=== PATIENT | female | born 1955 | race Caucasian/White ===

== ENCOUNTER → 2017-02-21 | Outpatient (CLI) | payer MEDICARE, OTHER ==
[2017-02-21 15:48] LABS: Amorphous Sediment,Urine Rare /hpf; Appearance,Urine Cloudy (Clear); Bacteria,Urine Many /hpf; Bilirubin,Urine Negative (Negative); Glucose,Urine (UA) Negative (Negative); Ketones,Urine Negative (Negative); Leukocyte Esterase,Urine Large (Negative); Mucus,Urine Rare /hpf; Nitrite,Urine Positive (Negative); PH, Urine 5.5 (5.0-8.0); Particle Count 27246; Protein,Urine Trace (Negative); RBC,Urine 2 /hpf (0-5); Specific Gravity,Urine 1.014 (1.001-1.035); Squamous Epithelial Cell,Urine 1 /hpf (0-4); UA Billing (MACRO vs. MICRO) MICRO; Urobilinogen,Urine <2.0 mg/dL (<2.0); WBC,Urine 140 /hpf (0-5)
== END | disposition home or self-care (01) ==
LOC: PROCWHC3 14:35
PROVIDERS: ATTEND Physician Assistant
DX: R30.0 Dysuria (principal)
CPT/HCPCS: 81001; 87077; 87086; 87186

== ENCOUNTER 2017-03-15 15:32 | Inpatient (IN) | payer MEDICARE, OTHER ==
[2017-03-15] MEDS ORDERED: HYDROmorphone 1 MG/ML 1 ML SYRINGE IVP STA (17:12)
[2017-03-15] MEDS ORDERED: SODIUM CHLORIDE 0.9% 1,000 ML IV STA (17:12)
[2017-03-15] MEDS ORDERED: RX INFO: IV CONTRAST WAS GIVEN 1 EACH MISC MISCELLANE PRN (17:12)
[2017-03-15] MEDS ORDERED: ONDANSETRON 4 MG/2 ML VIAL IVP STA (17:12)
--- NOTE | 2017-03-15 17:23 | ED ---
General Adult HPI - General Source: patient, family Mode of arrival: wheelchair Limitations: no limitations <Renata Li - Last Filed: 03/15/17 21:22> <Gurinder Knight - Last Filed: 03/16/17 15:29> - General Chief complaint: Abdominal Pain Stated complaint: no bowel movement-sent by Dr. Liu Seen by Provider: 03/15/17 17:05 - History of Present Illness Initial comments: 61-year-old female patient with past medical history significant for B-cell type lymphoma, diabetes, and ulcerative colitis with subsequent ileostomy placement in 1994 presents in emergency department today for evaluation of right upper quadrant abdominal pain and vomiting. Patient states that for the past 4 days she has been unable to get out of bed due to the right upper quadrant abdominal pain as well as just generally not feeling well. Patient states that 2 days ago she began vomiting and has had no output from her ileostomy. Patient states that the pain is constant and dull, she currently rates it at 7/10 on the pain scale. Patient states that she has been vomiting bile-type fluid, is unable to keep any food, fluid, or her medications down. She denies radiation of the pain to her back. She denies any fever, chills, chest pain, shortness of breath, coffee ground emesis, hematemesis, dizziness, or weakness. Patient states that she usually has a significant amount of output from her ileostomy however for the last 2 days or has been zero output. She denies this ever happening to her before. Patient does report she has had multiple hernia repairs in the past. (Renata Li) - Related Data Home Medications Medication Instructions Recorded Confirmed Aspirin 81 mg PO DAILY@1200 08/18/15 03/15/17 Baclofen [Lioresal] 20 mg PO BID PRN 09/02/15 03/15/17 Citalopram Hydrobromide [CeleXA] 20 mg PO DAILY 02/14/16 03/15/17 Multivitamins, Thera [Multivitamin] 1 tab PO DAILY@1200 04/26/16 03/15/17 Pregabalin [Lyrica] 75 mg PO BID 04/26/16 03/15/17 Ascorbic Acid [Vitamin C] 250 mg PO DAILY@1200 03/15/17 03/15/17 Cholecalciferol [Vitamin D3] 5,000 unit PO DAILY@1200 03/15/17 03/15/17 Famotidine [Pepcid] 20 mg PO QAM 03/15/17 03/15/17 Fenofibrate [Lofibra] 160 mg PO QAM 03/15/17 03/15/17 Ferrous Sulfate [Feosol] 325 mg PO DAILY@1200 03/15/17 03/15/17 Oxybutynin Chloride [Ditropan XL] 5 mg PO DAILY 03/15/17 03/15/17 glipiZIDE [Glucotrol] 10 mg PO AC-BID 03/15/17 03/15/17 lamoTRIgine [LaMICtal] 150 mg PO QAM 03/15/17 03/15/17 Allergies Allergy/AdvReac Type Severity Reaction Status Date / Time Tetanus Vaccines and Toxoid Allergy Red and Verified 03/15/17 17:06 [Tetanus Vaccines & Toxoid] Swelling at site. Corticosteroids AdvReac Elevated Verified 03/15/17 17:06 (Glucocorticoids) Blood sugar and Blood Pressure prednisone AdvReac Elevated Verified 03/15/17 17:06 Blood Sugar and Blood Pressure Review of Systems ROS Other: All systems not noted in ROS Statement are negative. <Renata Li - Last Filed: 03/15/17 21:22> ROS Other: All systems not noted in ROS Statement are negative. <Gurinder Knight - Last Filed: 03/16/17 15:29> ROS Statement: Those systems with pertinent positive or pertinent negative responses have been documented in the HPI. Past Medical History Past Medical History: Cancer, CVA/TIA, Diabetes Mellitus, Deep Vein Thrombosis ( DVT), GERD/Reflux, Hyperlipidemia, Hypertension, Pulmonary Embolus (PE) Additional Past Medical History / Comment(s): 01/16/16 Pt is a direct admit for chemotherapy. 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 History of Any Multi-Drug Resistant Organisms: ESBL Date of last positivie culture/infection: 02/21/17 MDRO Source:: Urine Past Surgical History: Cholecystectomy Additional Past Surgical History / Comment(s): MULTIPLE BOWEL SX AND REVISONS OF Ileostomy (pt wears Holister 86-28 with small eacon ring/ stoma powder/ no sting adhesive). HAD ALL TEETH EXTRACTED WAITING ON DENTURES. 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 GREENFILED FILTER, gastric sleeve at [place], Mediport placed 09-21-15, recent R foot ingrown toenail removed. Past Anesthesia/Blood Transfusion Reactions: No Reported Reaction Additional Past Anesthesia/Blood Transfusion Reaction / Comment(s): Pt received blood without reaction. Past Psychological History: Anxiety, Bipolar, Depression Smoking Status: Former smoker Past Alcohol Use History: None Reported Past Drug Use History: None Reported - Past Family History Father Family Medical History: Myocardial Infarction (VT) Additional Family Medical History / Comment(s): Father of either a CVA or VT at age 84 yrs. Mother Family Medical History: Myocardial Infarction (VT), Renal Disease Additional Family Medical History / Comment(s): Mother of renal failure at age 84 yrs. <Renata iL - Last Filed: 03/15/17 21:22> General Exam Limitations: no limitations General appearance: alert, in no apparent distress Eye exam: Present: normal appearance, PERRL, EOMI. Absent: scleral icterus, conjunctival injection, periorbital swelling ENT exam: Present: normal exam, mucous membranes moist Neck exam: Present: normal inspection. Absent: tenderness, meningismus, lymphadenopathy Respiratory exam: Present: normal lung sounds bilaterally. Absent: respiratory distress, wheezes, rales, rhonchi, stridor Cardiovascular Exam: Present: regular rate, normal rhythm, normal heart sounds. Absent: systolic murmur, diastolic murmur, rubs, gallop, clicks GI/Abdominal exam: Present: soft, distended, tenderness (Right upper quadrant, surrounding ileostomy site.), normal bowel sounds, other (Firm to palpation around ileostomy.). Absent: guarding, rebound, rigid Extremities exam: Present: normal inspection, other (Obvious chronic deformity to the left foot) Back exam: Present: normal inspection Neurological exam: Present: alert, oriented X3, CN II-XII intact Psychiatric exam: Present: normal affect, normal mood Skin exam: Present: warm, dry, intact, normal color. Absent: rash <Renata Li - Last Filed: 03/15/17 21:22> EKG Findings - EKG Comments: EKG Findings:: EKG obtained at 1831 reveals normal sinus rhythm with moderate voltage criteria for LVH, ST and T-wave abnormalities, prolonged QT, ventricular rate 86, CA interval 170, QRS duration 90, QT Cuadra, QTC 488. <Renata Li - Last Filed: 03/15/17 21:22> Medical Decision Making - Lab Data Result diagrams: 03/15/17 18:13 03/15/17 18:13 - Radiology Data Radiology results: report reviewed, image reviewed <Renata Li - Last Filed: 03/15/17 21:22> - Lab Data Result diagrams: 03/16/17 07:23 03/16/17 07:23 <Gurinder Knight - Last Filed: 03/16/17 15:29> - Medical Decision Making 61-year-old female patient presents to emergency department today for complaints of abdominal pain, nausea, vomiting, and no ileostomy output for the last 2 days. Labs are reviewed, and all signs stable. CT of the abdomen and pelvis did show a mechanical bowel obstruction and a large hernia. Did discuss the case with Dr. Knight who spoke to Dr. Fowler from [facility] her instructions are to admit patient she would evaluate her tomorrow. Patient is to remain nothing by mouth. (Renata Li) 61-year-old female presenting with nausea and vomiting and decreased output from her ileostomy over the past 2 days. On examination there is a firm mass noted adjacent to ileostomy. CT shows hernia with mechanical bowel obstruction. Patient is not actively vomiting while in the emergency department. She is made nothing by mouth, and will be admitted for surgical evaluation. Case is discussed with general surgery. Case was discussed with general surgery. (Gurinder Knight) - Lab Data Lab Results 03/15/17 03/15/17 Range/Units 18:13 18:13 WBC 7.9 (3.8-10.6) k/uL RBC 5.01 (3.80-5.40) m/uL Hgb 14.9 (11.4-16.0) gm/dL Hct 44.0 (34.0-46.0) % MCV 87.8 (80.0-100.0) fL MCH 29.7 (25.0-35.0) pg MCHC 33.8 (31.0-37.0) g/dL RDW 13.6 (11.5-15.5) % Plt Count 280 (150-450) k/uL Neutrophils % 80 % Lymphocytes % 12 % Monocytes % 4 % Eosinophils % 2 % Basophils % 0 % Neutrophils # 6.3 (1.3-7.7) k/uL Lymphocytes # 0.9 L (1.0-4.8) k/uL Monocytes # 0.3 (0-1.0) k/uL Eosinophils # 0.2 (0-0.7) k/uL Basophils # 0.0 (0-0.2) k/uL Sodium 137 (137-145) mmol/L Potassium 4.2 (3.5-5.1) mmol/L Chloride 99 (98-107) mmol/L Carbon Dioxide 24 (22-30) mmol/L Anion Gap 14 mmol/L BUN 28 H (7-17) mg/dL Creatinine 1.11 H (0.52-1.04) mg/dL Est GFR (MDRD) Af Amer >60 (>60 ml/min/1.73 sqM) Est GFR (MDRD) Non-Af 50 (>60 ml/min/1.73 sqM) Glucose 100 H (74-99) mg/dL Calcium 9.5 (8.4-10.2) mg/dL Total Bilirubin 0.8 (0.2-1.3) mg/dL AST 27 (14-36) U/L ALT 31 (9-52) U/L Alkaline Phosphatase 48 (38-126) U/L Total Protein 6.4 (6.3-8.2) g/dL Albumin 4.1 (3.5-5.0) g/dL Amylase <30 L (30-110) U/L Lipase 19 L (23-300) U/L - Radiology Data CT of the abdomen and pelvis with contrast was obtained and did show colectomy surgical changes. There is ileostomy with a large parastomal hernia that contains bowel. There is evidence of a mechanical small bowel obstruction with numerous dilated loops. Obstruction is new compared to 06/18/2016 computed tomography scan. (Renata Li) Disposition Decision to Admit Reason: Admit from EC Decision Date: 03/15/17 Decision Time: 20:43 <Rentaa Li - Last Filed: 03/15/17 21:22> <Gurinder Knight - Last Filed: 03/16/17 15:29> Clinical Impression: Bowel obstruction, Hernia Disposition: ADMITTED IP TO THIS [facility] Condition: Fair
[2017-03-15 18:29] LABS: Basophils % (A) 0 %; CH 29.3; CHCM 33.5; Eosinophils # (A) 0.2 k/uL (0-0.7); Eosinophils % (A) 2 %; HDW 2.83; HGB 14.9 gm/dL (11.4-16.0); Luc # (Auto) 0.16; Luc % (Auto) 2; Lymphocytes # (A) 0.9 k/uL (1.0-4.8); Lymphocytes % (A) 12 %; MCH 29.7 pg (25.0-35.0); MCHC 33.8 g/dL (31.0-37.0); MCV 87.8 fL (80.0-100.0); Mean Platelet Volume 6.4; Monocytes # (A) 0.3 k/uL (0-1.0); Monocytes % (A) 4 %; Neutrophils # (A) 6.3 k/uL (1.3-7.7); Neutrophils % (A) 80 %; RBC 5.01 m/uL (3.80-5.40); RDW 13.6 % (11.5-15.5); WBC 7.9 k/uL (3.8-10.6)
[2017-03-15 18:40] LABS: ALT 31 U/L (9-52); AST 27 U/L (14-36); Alkaline Phosphatase 48 U/L (38-126); Amylase <30 U/L (30-110); Anion Gap 14 mmol/L; Blood Urea Nitrogen 28 mg/dL (7-17); Calcium 9.5 mg/dL (8.4-10.2); Carbon Dioxide 24 mmol/L (22-30); Chloride 99 mmol/L (98-107); Glucose 100 mg/dL (74-99); Non-African American GFR(MDRD) 50 (>60 ml/min/1.73 sqM); Potassium 4.2 mmol/L (3.5-5.1); Sodium 137 mmol/L (137-145); Total Bilirubin 0.8 mg/dL (0.2-1.3); Total Protein 6.4 g/dL (6.3-8.2)
[2017-03-15] MEDS ORDERED: SODIUM CHLORIDE 0.9% 500 ML IV STA (18:59)
--- NOTE | 2017-03-15 19:57 | CT ---
EXAMINATION TYPE: CT abdomen pelvis w con DATE OF EXAM: 03/15/2017 COMPARISON: 06/18/2016 HISTORY: No output from ileostomy and nausea and vomiting x [address] DLP: 1451.40 mGycm Automated exposure control for dose reduction was used. TECHNIQUE: Helical acquisition of images was performed from the lung bases through the pelvis. CONTRAST: Performed without Oral Contrast and with IV Contrast, patient injected with 80 mL of Visipaque 320. FINDINGS: There is no retroperitoneal adenopathy. There is some pleural thickening and atelectasis at the posterior lung bases. There are surgical clip s from apparent bariatric surgery. Liver shows no focal defect. Bile ducts are not dilated. There are clips from cholecystectomy. Spleen appears normal. There is no pancreatic mass. There is no adrenal mass. There are right-sided renal cortical cysts that measure up to 2 cm. There i s no hydronephrosis. There is inferior vena cava filter noted. Abdominal aorta is atheromatous. There is a large right-sided abdominal wall hernia that contains bowel. There are multiple dilated small b owel loops in the mid abdomen and also in the hernia. Small bowel measures 4 cm. There are multiple d ilated fluid-filled loops of bowel in the pelvis. There is no sign of free air. There is 30% anterior wedging of L2 vertebral body. There is clips in the floor of the pelvis apparently from total colectomy. There is ileostomy associa katharina with the large hernia. IMPRESSION: COLECTOMY. THERE IS ILEOSTOMY WITH A LARGE PARASTOMAL HERNIA THAT CONTAINS BOWEL. THERE IS EVIDENCE O F A MECHANICAL SMALL BOWEL OBSTRUCTION WITH NUMEROUS DILATED LOOPS. OBSTRUCTION IS NEW COMPARED TO CT SCAN. PATCHY PLEURAL THICKENING AND ATELECTASIS AT THE LUNG BASE SIMILAR TO OLD EXAM.
[2017-03-15] MEDS ORDERED: NALOXONE 0.4 MG/ML 1 ML VIAL IV PRN (20:37)
[2017-03-15] MEDS: SODIUM CHLORIDE 0.9% 1,000 ML IV SCH (21:49)
[2017-03-15] MEDS: HYDROmorphone 1 MG/ML 1 ML SYRINGE IV PRN (21:49)
[2017-03-16] MEDS: HYDROmorphone 1 MG/ML 1 ML SYRINGE IV PRN ×5 (02:37→17:39)
[2017-03-16 06:58] LABS: Glucose,Whole Blood 65 mg/dL (75-99)
[2017-03-16] MEDS: ONDANSETRON 4 MG/2 ML VIAL IVP PRN ×2 (07:47→16:16)
[2017-03-16 07:48] LABS: Basophils % (A) 0 %; CH 29.6; CHCM 33.1; Eosinophils # (A) 0.2 k/uL (0-0.7); Eosinophils % (A) 4 %; HCT 39.1 % (34.0-46.0); HDW 2.83; Luc # (Auto) 0.15; Luc % (Auto) 2; Lymphocytes # (A) 0.8 k/uL (1.0-4.8); Lymphocytes % (A) 11 %; MCH 29.9 pg (25.0-35.0); MCHC 33.3 g/dL (31.0-37.0); MCV 89.8 fL (80.0-100.0); Mean Platelet Volume 6.5; Monocytes # (A) 0.3 k/uL (0-1.0); Monocytes % (A) 4 %; Neutrophils # (A) 5.4 k/uL (1.3-7.7); Neutrophils % (A) 79 %; RBC 4.35 m/uL (3.80-5.40); RDW 13.8 % (11.5-15.5); WBC 6.9 k/uL (3.8-10.6); WBC (Perox) 6.95
[2017-03-16] MEDS ORDERED: DEXTROSE 10 % IN WATER 250 ML IV STA (08:00)
[2017-03-16 08:25] LABS: ALT 30 U/L (9-52); AST 37 U/L (14-36); Alkaline Phosphatase 41 U/L (38-126); Anion Gap 12 mmol/L; Blood Urea Nitrogen 29 mg/dL (7-17); Calcium 8.9 mg/dL (8.4-10.2); Carbon Dioxide 22 mmol/L (22-30); Chloride 107 mmol/L (98-107); Glucose 63 mg/dL (74-99); Non-African American GFR(MDRD) 55 (>60 ml/min/1.73 sqM); Sodium 141 mmol/L (137-145); Total Bilirubin 0.7 mg/dL (0.2-1.3); Total Protein 5.6 g/dL (6.3-8.2)
[2017-03-16 08:27] LABS: Potassium 4.2 mmol/L (3.5-5.1)
[2017-03-16 08:59] LABS: Glucose,Whole Blood 138 mg/dL (75-99)
[2017-03-16] MEDS ORDERED: SODIUM CHLORIDE 0.9% 1,000 ML IV ONE (10:47)
--- NOTE | 2017-03-16 10:52 | P.PN ---
Progress Note - Text Patient seen and evaluated. Please see full dictated consult. Patient is known to me from previous history of lymphoma and Mediport insertion including removal. She reports in 2013 at [facility], she had a sleeve gastrectomy performed as a experimental study. She has history of a stroke with left-sided paresis over decade ago. She had initially weighed least 279 pounds and had lost 100 pounds down to 177. Following that she had a parastomal hernia repair. She's had over 3-4 repairs of her stoma which had been repositioned. Now she has regained over 30 pounds hence putting her at increased risk for hernia recurrence. She states as of Saturday otherwise 5 days ago she had intractable nausea and vomiting. This is her first episode of "bowel blockage.". Her is at bedside. She has not followed up with her weight loss surgeon in over 2 years. She's not had a structured bariatric follow-up as well. Secondary to her findings and computed tomography scan including clinical symptoms of small bowel obstruction, she has been admitted. Care plan described with the patient and family including placement of a nasogastric tube to decompress the small bowel. Hopefully this should avert any emergent surgical intervention. Separately as she is a bariatric patient, recommend bariatric diet preferably high protein low-carb consistency when she is able to tolerate orals. We'll repeat with abdominal films. Conservative management in the interim.
[2017-03-16 12:50] LABS: Glucose,Whole Blood 97 mg/dL (75-99)
[2017-03-16] MEDS: SODIUM CHLORIDE 0.9% 1,000 ML IV SCH (17:42)
[2017-03-16 18:16] LABS: Glucose,Whole Blood 73 mg/dL (75-99)
[2017-03-16] MEDS: lamoTRIgine 100 MG TAB PO SCH (19:58)
[2017-03-16] MEDS: CITALOPRAM HYDROBROMIDE 20 MG TAB PO SCH (19:58)
[2017-03-16] MEDS: DEXTROSE 5%-0.45% NACL 1,000 ML IV SCH (19:59)
[2017-03-16] MEDS: LORazepam 2 MG/ML SYRINGE IV PRN (21:27)
[2017-03-16 21:46] LABS: Glucose,Whole Blood 87 mg/dL (75-99)
[2017-03-17] MEDS: HYDROmorphone 1 MG/ML 1 ML SYRINGE IV PRN ×4 (00:38→22:39)
[2017-03-17] MEDS: PREGABALIN 75 MG CAP PO SCH ×3 (03:08→20:29)
[2017-03-17] MEDS: DEXTROSE 5%-0.45% NACL 1,000 ML IV SCH ×2 (05:48→17:24)
[2017-03-17 07:37] LABS: Glucose,Whole Blood 168 mg/dL (75-99)
[2017-03-17 08:43] LABS: Anion Gap 9 mmol/L; Blood Urea Nitrogen 19 mg/dL (7-17); Calcium 8.4 mg/dL (8.4-10.2); Carbon Dioxide 24 mmol/L (22-30); Chloride 105 mmol/L (98-107); Glucose 170 mg/dL (74-99); Non-African American GFR(MDRD) >60 (>60 ml/min/1.73 sqM); Potassium 4.5 mmol/L (3.5-5.1); Sodium 138 mmol/L (137-145)
--- NOTE | 2017-03-17 08:43 | XR ---
EXAMINATION TYPE: XR abdomen 2V , 4 VIEWS DATE OF EXAM ORDERED: 03/17/2017 HISTORY: bowel obstruction. COMPARISON: Previous study dated 01/27/2011. FINDINGS: The lung bases appear clear. There has been a previous cholecystectomy. There are surgical clips in the left upper quadrant as wel l as the pelvis. There is an inferior vena cava filter in place. There is a dilated loop of small bowel to the right of where small bowel as expected. This may repres ent a partially obstructed closed-loop the small bowel within an abdominal wall hernia. There is mild proximal dilatation of the small bowel. No free air is seen. IMPRESSION: 1. EVIDENCE OF MULTIPLE PREVIOUS SURGERIES. 2. UNUSUAL APPEARING LOOP OF SMALL BOWEL MAY BE OUTSIDE OF THE ABDOMEN. A CT SCAN OF THE ABDOMEN WOUL D BE SUGGESTED.
[2017-03-17] MEDS: ONDANSETRON 4 MG/2 ML VIAL IVP PRN ×2 (08:59→16:47)
[2017-03-17] MEDS: CITALOPRAM HYDROBROMIDE 20 MG TAB PO SCH (09:00)
[2017-03-17] MEDS: lamoTRIgine 100 MG TAB PO SCH (09:00)
[2017-03-17] MEDS: LORazepam 2 MG/ML SYRINGE IV PRN ×2 (09:16→20:28)
--- NOTE | 2017-03-17 11:44 | P.PN ---
Progress Note - Text Patient seen and evaluated. NG tube with 300 mL second. Abdominal x-ray still viewed by me consistent with persistent small bowel obstruction. Patient reports decreased abdominal distention as well as decreased abdominal pain. Minimal output through her ostomy identified. Nasogastric tube was poorly functioning and was flushed with 60 mL of saline solution and functioning after manipulation by me. Repeat abdominal films in the morning. Potential surgical intervention pending status tomorrow.
[2017-03-17 12:14] LABS: Glucose,Whole Blood 195 mg/dL (75-99)
--- NOTE | 2017-03-17 13:02 | HP ---
DATE OF ADMISSION: 03/15/2017 PRESENTING COMPLAINT: Nausea, vomiting, abdominal pain. HISTORY OF PRESENTING COMPLAINT: This is a very pleasant 60-year-old patient of Dr. Zuniga with rather extensive medical history. Patient had a sleeve gastrectomy at [place] in 2013, apparently experimental study. She has had parastomal hernia repair and 3 or 4 repairs of the stoma which has been repositioned. The patient's other chronic medical conditions include diabetes, GERD, hyperlipidemia, hypertension, large B cell lymphoma that was treated. The patient also got left paresis from a prior stroke wit a left leg brace, ulcerative colitis and has got occluded ICA. The patient is pretty much wheelchair bound and uses a Saida lift. The patient presents with nausea, vomiting and no output from ileostomy bag for two days. CT scan of the abdomen suggestive of bowel obstruction, hence, patient is admitted. Dr. Card was contacted from the ER for surgical input. The patient denies any fever, tired and rundown. REVIEW OF SYSTEMS: CONSTITUTIONAL: Tired. HEENT: None. RESPIRATORY: None. CARDIOVASCULAR: None. GASTROINTESTINAL: As above. GENITOURINARY: Urine incontinence. DERMATOLOGIC: None. HEMATOLOGIC: None. LYMPHATICS: None. PSYCHIATRY: History of bipolar. NEUROLOGIC: Weakness on the left side. PAST MEDICAL HISTORY: Diabetes, DVT on the right leg several years ago, GERD, hypertension, hyperlipidemia, PE, large cell B cell lymphoma, stroke causing left-sided paresis, ulcerative colitis, internal carotid artery occluded, urinary incontinence, bipolar disorder. PAST SURGICAL HISTORY: Multiple bowel surgeries and revisions of ileostomy. Patient has had all the teeth extracted. Amputation of the left foot fourth and fifth toe. Desmond filter, gastric sleeve at [place]. PAST PSYCH HISTORY: Bipolar. SOCIAL HISTORY: . Alcohol occasionally. She is up in a wheelchair via Saida lift. The patient smoked for about 25 years, stopped in 1989. FAMILY HISTORY: Father of a heart attack or stroke at the age of 84. HOME MEDICATIONS: 1. Ditropan XL 5 mg a day. 2. Pepcid 20 mg a day. 3. Lamictal 150 mg p.o. daily. 4. Celexa 20 mg p.o. daily. 5. Glucotrol 10 mg a.c. b.i.d. 6. Lyrica 75 mg p.o. b.i.d. 7. Aspirin 81 mg p.o. daily. 8. Lofibra 60 mg p.o. daily. 9. Vitamin D3, 5000 units p.o. daily. 10. Baclofen 20 mg p.o. b.i.d. p.r.n. 11. Vitamin C 250 mg p.o. daily. 12. Multivitamin one tablet p.o. daily. 13. Iron 325 mg p.o. daily. ALLERGIES: TETANUS TOXOID, CORTICOSTEROIDS, PREDNISONE (THE LATTER TWO ONLY CAUSE ELEVATED BLOOD SUGAR). On examination, vital signs on presentation, temperature 99, pulse 87, respirations 16, blood pressure 142/67, pulse ox 100% on room air. GENERAL APPEARANCE: Well built. BMI 32.9. Laying in bed, tired appearing. EYES: Pupils equal. Conjunctivae normal. HEENT: Oral cavity normal. NECK: JVP not raised. No masses palpable. RESPIRATORY EFFORT: Normal. LUNGS: Slightly decreased breath sounds. CARDIOVASCULAR: First and second sounds normal. No edema. ABDOMEN: Tender, especially in the upper abdomen. Ileostomy bag in place. No stool. Bowel sounds are hypoactive. Liver and spleen not palpable. LYMPHATIC: No lymph node palpable in neck or axillae. PSYCHIATRY: Alert and oriented x3. Mood and affect anxious appearing. NEUROLOGIC: Cranial nerves grossly intact. Power on the left side is 0/5. INVESTIGATIONS: White count 6.9, hemoglobin 13. Potassium 4.2. BUN 29, creatinine 1.02. Accu-Cheks: 63, 138, 97. CT scan of the abdomen and pelvis shows colectomy, ileostomy with large parastomal hernia that contains bowel including mechanical small bowel obstruction with numerous dilated loops. ASSESSMENT: 1. Acute small bowel obstruction in a patient who has a colectomy with resultant ileostomy and bowel obstruction is in a large parastomal hernia. 2. Diabetes mellitus type 2 on oral hypoglycemics. 3. Hypoglycemic secondary to oral hypoglycemic. 4. Gastroesophageal reflux disease. 5. Hiatal hernia. 6. Hyperlipidemia. 7. History of large B cell lymphoma. 8. Left hemiparesis from a prior stroke. 9. Chronic urinary incontinence. 10. Internal carotid artery occluded. 11. Bipolar disorder. 12. Medical debility, the patient is wheelchair bound and uses a Saida lift. PLAN: We will put the patient back on the Lamictal, Celexa, Lyrica for now. Lovenox for DVT prophylaxis. Will given patient D5W as the sugar is running low for right now. When sugars start running high we can switch her over to LR. Lovenox for DVT prophylaxis. Dr. Card has ordered a NG tube. Care was discussed with the patient. Questions were answered. MICHAEL
[2017-03-17 17:10] LABS: Glucose,Whole Blood 162 mg/dL (75-99)
[2017-03-17] MEDS: INSULIN LISPRO (humaLOG) 300 UNIT/3 ML VIAL SQ SCH ×2 (17:24→20:28)
--- NOTE | 2017-03-17 17:37 | P.GSCN ---
History of Present Illness Consult date: 03/16/17 Reason for Consult: Small bowel obstruction Requesting physician: Alexx Bentley History of present illness: The patient is a 61-year-old female with multiple medical comorbidities. Patient is known to me from previous history of lymphoma and Mediport insertion including removal. She reports in 2014 at [facility], she had a sleeve gastrectomy performed as an experimental study. She has history of a stroke with left-sided paresis over decade ago. She had initially weighed least 279 pounds and had lost 100 pounds down to 177. Following that, she had a parastomal hernia repair. She's had over 3-4 repairs of her stoma which had been repositioned. Now she has regained over 30 pounds hence putting her at increased risk for hernia recurrence. She states as of Saturday otherwise 5 days ago she had intractable nausea and vomiting. This is her first episode of "bowel blockage.". Her is at bedside. She has not followed up with her weight loss surgeon in over 2 years. She's not had a structured bariatric follow-up as well. Secondary to her findings and computed tomography scan including clinical symptoms of small bowel obstruction, she has been admitted. Review of Systems CONSTITUTIONAL: Denies any fever or chills. Has recent weight gain. HEENT: Denies any trouble with hearing or nosebleeds. No difficulty swallowing. Wears glasses. LYMPHATIC: The patient denies any lumps and bumps around the neck. ENDOCRINE: Denies any thyroid disorders. Denies any blood sugar glucose intolerance. RESPIRATORY: Denies pneumonia. Denies any troubles with breathing or dyspnea on exertion. CARDIOVASCULAR: Denies any chest pain, palpitations, or recent heart attacks. GASTROINTESTINAL: History of ostomy was all pockets over 5-6 days. GENITOURINARY: Denies any blood in urine. Has urine incontinence. MUSCULOSKELETAL: Has back pain, stiffness, joint arthritis. NEUROLOGIC: Denies any numbness or tingling along the distal extremities. No seizure disorders or headaches. Has hemiparesis from past stroke. PSYCHIATRIC: Has depression or suidical ideation. HEMATOLOGIC: Denies any abnormal bleeding or bruising. SKIN: No diffuse rash or skin cancer as of recent. LYMPH: Past history of lymphoma now in remission. 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 History of Any Multi-Drug Resistant Organisms: ESBL Year Discovered:: 02/21/17 MDRO Source:: Urine Past Surgical History: Cholecystectomy Additional Past Surgical History / Comment(s): MULTIPLE BOWEL SX AND REVISONS OF Ileostomy (pt wears Holister 86-28 with small eacon ring/ stoma powder/ no sting adhesive). HAD ALL TEETH EXTRACTED WAITING ON DENTURES. 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 GREENFILED FILTER, gastric sleeve at [facility] placed 09-21-15, recent R foot ingrown toenail removed. Past Anesthesia/Blood Transfusion Reactions: No Reported Reaction Additional Past Anesthesia/Blood Transfusion Reaction / Comm: Pt received blood without reaction. Past Psychological History: Anxiety, Bipolar, Depression Additional Psychological History / Comment(s): . Has not smoked more than 20 years. No history of alcohol use. No animal exposures. No experience. No international travel. Pt needs total assist. She is up into a wheelchair by smita lift. Smoking Status: Former smoker Past Alcohol Use History: None Reported Additional Past Alcohol Use History / Comment(s): SMOKED X 25 YEARS-quit in 1989 Past Drug Use History: None Reported - Past Family History Father Family Medical History: Myocardial Infarction (NM) Additional Family Medical History / Comment(s): Father of either a CVA or NM at age 84 yrs. Mother Family Medical History: Myocardial Infarction (NM), Renal Disease Additional Family Medical History / Comment(s): Mother of renal failure at age 84 yrs. Medications and Allergies Home Medications Medication Instructions Recorded Confirmed Type Aspirin 81 mg PO DAILY@1200 08/18/15 03/15/17 History Baclofen [Lioresal] 20 mg PO BID PRN 09/02/15 03/15/17 History Citalopram Hydrobromide [CeleXA] 20 mg PO DAILY 02/14/16 03/15/17 History Multivitamins, Thera [Multivitamin] 1 tab PO DAILY@1200 04/26/16 03/15/17 History Pregabalin [Lyrica] 75 mg PO BID 04/26/16 03/15/17 History Ascorbic Acid [Vitamin C] 250 mg PO DAILY@1200 03/15/17 03/15/17 History Cholecalciferol [Vitamin D3] 5,000 unit PO DAILY@1200 03/15/17 03/15/17 History Famotidine [Pepcid] 20 mg PO QAM 03/15/17 03/15/17 History Fenofibrate [Lofibra] 160 mg PO QAM 03/15/17 03/15/17 History Ferrous Sulfate [Feosol] 325 mg PO DAILY@1200 03/15/17 03/15/17 History Oxybutynin Chloride [Ditropan XL] 5 mg PO DAILY 03/15/17 03/15/17 History glipiZIDE [Glucotrol] 10 mg PO AC-BID 03/15/17 03/15/17 History lamoTRIgine [LaMICtal] 150 mg PO QAM 03/15/17 03/15/17 History Allergies Allergy/AdvReac Type Severity Reaction Status Date / Time Tetanus Vaccines and Toxoid Allergy Red and Verified 03/15/17 17:06 [Tetanus Vaccines & Toxoid] Swelling at site. Corticosteroids AdvReac Elevated Verified 03/15/17 17:06 (Glucocorticoids) Blood sugar and Blood Pressure prednisone AdvReac Elevated Verified 03/15/17 17:06 Blood Sugar and Blood Pressure Surgical - Exam Vital Signs Temp Pulse Resp BP Pulse Ox 99.0 F 87 16 142/67 100 03/15/17 16:08 03/15/17 16:08 03/15/17 16:08 03/15/17 16:08 03/15/17 16:08 GENERAL: Well developed and in no acute distress. Pleasant. HEENT: No sclera icterus. Extraocular movements grossly intact. Moist buccal mucosa. Head is atraumatic, normocephalic. Hears conversational speech. No nasal drainage. NECK: Supple without lymphadenopathy. CHEST: Non-labored respirations and equal bilateral excursions. CARDIOVASCULAR: Regular rate and rhythm. Palpable 2+ radial pulses. ABDOMEN: Soft, tender along the right lower quadrant. Ostomy with minimal flatus. No diffuse peritonitis. Abdomen is protuberant and distended. MUSCULOSKELETAL: No clubbing, cyanosis or edema. NEUROLOGIC: Has left hemiparesis. Right-sided level. PSYCH: Appropriate affect. Alert and oriented to person, place and time. SKIN: Good skin turgor. Will perfused. Results - Labs 03/16/17 07:23 03/17/17 07:18 Abnormal Lab Results - Last 24 Hours (Table) 03/15/17 03/15/17 03/16/17 Range/Units 18:13 18:13 06:56 Lymphocytes # 0.9 L (1.0-4.8) k/uL BUN 28 H (7-17) mg/dL Creatinine 1.11 H (0.52-1.04) mg/dL Glucose 100 H (74-99) mg/dL POC Glucose (mg/dL) 65 L (75-99) mg/dL AST (14-36) U/L Total Protein (6.3-8.2) g/dL Albumin (3.5-5.0) g/dL Amylase <30 L (30-110) U/L Lipase 19 L (23-300) U/L 03/16/17 03/16/17 03/16/17 Range/Units 07:23 07:23 08:57 Lymphocytes # 0.8 L (1.0-4.8) k/uL BUN 29 H (7-17) mg/dL Creatinine (0.52-1.04) mg/dL Glucose 63 L (74-99) mg/dL POC Glucose (mg/dL) 138 H (75-99) mg/dL AST 37 H (14-36) U/L Total Protein 5.6 L (6.3-8.2) g/dL Albumin 3.4 L (3.5-5.0) g/dL Amylase (30-110) U/L Lipase (23-300) U/L Diabetes panel 03/15/17 03/16/17 Range/Units 18:13 07:23 Sodium 137 141 (137-145) mmol/L Potassium 4.2 4.2 (3.5-5.1) mmol/L Chloride 99 107 (98-107) mmol/L Carbon Dioxide 24 22 (22-30) mmol/L BUN 28 H 29 H (7-17) mg/dL Creatinine 1.11 H 1.02 (0.52-1.04) mg/dL Glucose 100 H 63 L (74-99) mg/dL Calcium 9.5 8.9 (8.4-10.2) mg/dL AST 27 37 H (14-36) U/L ALT 31 30 (9-52) U/L Alkaline Phosphatase 48 41 (38-126) U/L Total Protein 6.4 5.6 L (6.3-8.2) g/dL Albumin 4.1 3.4 L (3.5-5.0) g/dL Calcium panel 03/15/17 03/16/17 Range/Units 18:13 07:23 Calcium 9.5 8.9 (8.4-10.2) mg/dL Albumin 4.1 3.4 L (3.5-5.0) g/dL Pituitary panel 03/15/17 03/16/17 Range/Units 18:13 07:23 Sodium 137 141 (137-145) mmol/L Potassium 4.2 4.2 (3.5-5.1) mmol/L Chloride 99 107 (98-107) mmol/L Carbon Dioxide 24 22 (22-30) mmol/L BUN 28 H 29 H (7-17) mg/dL Creatinine 1.11 H 1.02 (0.52-1.04) mg/dL Glucose 100 H 63 L (74-99) mg/dL Calcium 9.5 8.9 (8.4-10.2) mg/dL Adrenal panel 03/15/17 03/16/17 Range/Units 18:13 07:23 Sodium 137 141 (137-145) mmol/L Potassium 4.2 4.2 (3.5-5.1) mmol/L Chloride 99 107 (98-107) mmol/L Carbon Dioxide 24 22 (22-30) mmol/L BUN 28 H 29 H (7-17) mg/dL Creatinine 1.11 H 1.02 (0.52-1.04) mg/dL Glucose 100 H 63 L (74-99) mg/dL Calcium 9.5 8.9 (8.4-10.2) mg/dL Total Bilirubin 0.8 0.7 (0.2-1.3) mg/dL AST 27 37 H (14-36) U/L ALT 31 30 (9-52) U/L Alkaline Phosphatase 48 41 (38-126) U/L Total Protein 6.4 5.6 L (6.3-8.2) g/dL Albumin 4.1 3.4 L (3.5-5.0) g/dL - Imaging CT scan - abdomen: report reviewed, image reviewed CT scan - pelvis: report reviewed (Images reviewed personally. Findings consistent with distended bowel and peristomal hernia of the right lower quadrant. No free air.), image reviewed Assessment and Plan (1) Obesity (BMI 30.0-34.9) Status: Acute (2) History of sleeve gastrectomy Status: Acute (3) Parastomal hernia with obstruction, without gangrene Status: Acute (4) Nausea and vomiting Status: Acute (5) Bowel obstruction Status: Acute (6) Hernia Status: Acute (7) Dehydration Status: Acute (8) Lymphoma Status: Acute Plan: 1. Care plan described with the patient and family including placement of a nasogastric tube to decompress the small bowel. Hopefully this should avert any emergent surgical intervention. 2. Separately as she is a bariatric patient, recommend bariatric diet preferably high protein low-carb consistency when she is able to tolerate orals. 3. We'll repeat with abdominal films. 4. Conservative management in the interim.
--- NOTE | 2017-03-17 18:06 | P.PN ---
Subjective Principal diagnosis: Bowel obstruction Patient was admitted secondary to bowel obstruction and peristomal hernia. She reports decreased abdominal distention as well as decreased abdominal pain. NG tube with 300 mL second. Objective - Vital Signs Vital signs: Vital Signs Temp 98 F 03/17/17 07:00 Pulse 100 03/17/17 07:00 Resp 12 03/17/17 07:00 BP 150/65 03/17/17 07:00 Pulse Ox 93 L 03/17/17 07:00 Intake & Output 03/16/17 03/17/17 03/17/17 18:59 06:59 18:59 Intake Total 400 1150 Output Total 300 Balance 400 850 Intake: Intake, IV Titration 400 1150 Amount Dextrose 5%-0.45% NaCl 1, 1150 000 ml @ 100 mls/hr IV . Q10H [facility] Rx#:[id number] Sodium Chloride 0.9% 1, 400 000 ml @ 50 mls/hr IV . Q20H [facility] Rx#:[id number] Output: Gastric Drainage 300 Other: Voiding Method Bedpan Bedpan Bedpan Incontinent Incontinent Incontinent # Voids 2 - Exam GENERAL: Well developed and in no acute distress. Pleasant. HEENT: No sclera icterus. Extraocular movements grossly intact. Moist buccal mucosa. Head is atraumatic, normocephalic. Hears conversational speech. No nasal drainage. Nasogastric tube was poorly functioning and was flushed with 60 mL of saline solution and functioning after manipulation by me. NECK: Supple without lymphadenopathy. CHEST: Non-labored respirations and equal bilateral excursions. CARDIOVASCULAR: Regular rate and rhythm. Palpable 2+ radial pulses. ABDOMEN: Soft. Decreased tenderness along the right lower quadrant. Decreased abdominal distention. Peristomal hernia palpated with minimal output from ostomy. MUSCULOSKELETAL: No clubbing, cyanosis or edema. NEUROLOGIC: Left hemiparesis. Cranial nerves II through XII grossly intact. PSYCH: Appropriate affect. Alert and oriented to person, place and time. SKIN: Good skin turgor. Will perfused. - Labs CBC & Chem 7: 03/16/17 07:23 03/17/17 07:18 Labs: Abnormal Lab Results - Last 24 Hours (Table) 03/16/17 03/17/17 03/17/17 Range/Units 18:13 07:18 07:28 BUN 19 H (7-17) mg/dL Glucose 170 H (74-99) mg/dL POC Glucose (mg/dL) 73 L 168 H (75-99) mg/dL - Imaging and Cardiology Abdominal x-ray: report reviewed (Abdominal x-ray reviewed by me consistent with persistent small bowel obstruction. ), image reviewed EKG reviewed demonstrating new moderate EKG abnormalities compared to last year 2016. Assessment and Plan Plan: 1. Repeat abdominal films in the morning. 2. GI prophylaxis to prevent gastritis. 3. Flush NG tube 3 times daily to keep patency. 4. Potential surgical intervention pending status tomorrow. 5. Her EKG was reviewed demonstrating new EKG changes compared to last year. As a result, recommend cardiac risk assessment prior to any surgical intervention.
[2017-03-17 20:10] LABS: Glucose,Whole Blood 153 mg/dL (75-99)
--- NOTE | 2017-03-17 20:24 | P.PN ---
Progress Note - Text DATE OF SERVICE: 03/17/2017 PRESENTING COMPLAINT: Nausea vomiting abdominal pain INTERVAL HISTORY: 60-year-old patient with a very complex GI history which includes parastomal hernia repair, 3 or 4 repairs of the stoma with repositioning, sleeve gastrectomy. Presented with nausea vomiting and no output from ileostomy bag for 2 days, computed tomography scan suggests bowel obstruction. NG tube was placed, TPN and lipids were initiated. 03/17/2017: Patient lying in bed appears mildly anxious. Abdominal pain present. TPN infusing with lipids every other day. Remains nothing by mouth except for some ice chips and popsicles. REVIEW OF SYSTEMS: Done for constitutional ,cardiovascular, GI, pulmonary with relevant findings as above. CURRENT MEDICATIONS Celexa, Dilaudid, Lamictal, Ativan, Zofran, Lyrica. PHYSICAL EXAM VITAL SIGNS: Temperature 98.0 pulse 96, respiratory rate 18, blood pressure 150/65, oxygen saturation 93% on room air. GENERAL APPEARANCE: Lying in bed, somewhat anxious appearing. EYES: Pupils equal. Conjunctiva normal. NECK: JVD not raised. Mass not palpable. RESPIRATORY: Respiratory effort normal. Diminished breath sounds. CARDIOVASCULAR: First and second sounds normal. No edema. ABDOMEN: Soft. Tenderness especially to the upper abdomen, ileostomy bag in place no stool, bowel sounds hypoactive Liver and spleen not palpable. palpable. PSYCHIATRY: Alert and oriented x3. Mood and affect she is appearing. NEUROLOGICAL: Power and sensation on left is 0 out of 5 INVESTIGATIONS: Sodium 138 potassium 4.5 BUN 19, creatinine 0.86 Accu-Cheks noted. Abdominal x-ray: Evidence of multiple previous surgeries, unusual appearing loop of small bowel may be outside of the abdomen, a computed tomography scan of the abdomen would be suggested ASSESSMENT: -Acute small bowel obstruction in a patient who has a electively with resultant ileostomy and bowel obstruction in a large peristomal hernia. -Diabetes mellitus type 2 on oral hypoglycemics. -Hypoglycemia secondary to oral hypoglycemics. -Gastroesophageal reflux disease. -Hiatal hernia. -Hyperlipidemia. -History of large B-cell lymphoma. -Left hemiparesis from prior stroke. -Chronic urinary incontinence. -Internal carotid artery occluded. -Bipolar disorder. -Medical debility the patient is wheelchair bound and uses a [employer] lift. -Mild Protein calorie malnutrition in a patient with a small bowel obstruction, ileostomy. PLAN: We'll continue IV fluids Lovenox for DVT prophylaxis, GI prophylaxis NG tube to low intermittent suction and flush 3 times daily which is being managed by surgery. Abdominal films in the a.m. and possible surgical intervention based on patient condition. She will need a cardiac risk assessment prior to surgery. We'll follow closely. WELLNESS EDUCATOR statement: Patient was seen and examined by nurse practitioner Melania Clarke and all elements of the case discussed with attending Dr. Bentley
[2017-03-17 22:02] LABS: Hemoglobin A1C 7.6 % (4.2-6.1)
[2017-03-18 07:26] LABS: Basophils % (A) 0 %; CH 29.7; CHCM 34.2; Eosinophils # (A) 0.3 k/uL (0-0.7); Eosinophils % (A) 4 %; HCT 38.9 % (34.0-46.0); HDW 2.97; HGB 13.2 gm/dL (11.4-16.0); Luc # (Auto) 0.07; Luc % (Auto) 1; Lymphocytes # (A) 0.5 k/uL (1.0-4.8); Lymphocytes % (A) 7 %; MCH 29.6 pg (25.0-35.0); MCV 87.3 fL (80.0-100.0); Mean Platelet Volume 6.6; Monocytes # (A) 0.2 k/uL (0-1.0); Monocytes % (A) 3 %; Neutrophils # (A) 5.9 k/uL (1.3-7.7); Neutrophils % (A) 85 %; RBC 4.45 m/uL (3.80-5.40); RDW 13.2 % (11.5-15.5); WBC 6.9 k/uL (3.8-10.6); WBC (Perox) 7.44
[2017-03-18 07:42] LABS: Glucose,Whole Blood 203 mg/dL (75-99)
[2017-03-18] MEDS ORDERED: SODIUM CHLORIDE 0.9% 1,000 ML IV ONE (07:57)
[2017-03-18] MEDS: lamoTRIgine 100 MG TAB PO SCH ×2 (08:17→11:35)
[2017-03-18] MEDS: CITALOPRAM HYDROBROMIDE 20 MG TAB PO SCH ×2 (08:17→11:35)
[2017-03-18] MEDS: INSULIN LISPRO (humaLOG) 300 UNIT/3 ML VIAL SQ SCH ×4 (08:23→21:23)
--- NOTE | 2017-03-18 10:28 | XR ---
EXAMINATION TYPE: XR abdomen 1V DATE OF EXAM: 03/18/2017 COMPARISON: 03/17/2017 HISTORY: Abdominal pain TECHNIQUE: One view abdominal series FINDINGS: The osseous structures are intact. Persistent markedly dilated bowel loop particularly within the rig ht abdomen. Numerous other dilated small bowel loops are seen in a pattern highly suggestive of bowel obstruction. NG tube appears to been advanced within the gastric body. Surgical clips in the right u pper quadrant and pelvis noted with arthropathy of the hips and degenerative change of the spine. IVC filter stable in appearance. IMPRESSION: 1. Findings persists highly suggestive of a high-grade small bowel obstruction with marked dilation o f the bowel loops.
[2017-03-18] MEDS: DEXTROSE 5%-0.45% NACL 1,000 ML IV SCH ×3 (11:16→21:25)
[2017-03-18] MEDS: PREGABALIN 75 MG CAP PO SCH ×2 (11:16→21:25)
[2017-03-18 11:43] LABS: Glucose,Whole Blood 152 mg/dL (75-99)
[2017-03-18 12:04] LABS: Appearance,Urine Clear (Clear); Bacteria,Urine Occasional /hpf; Bilirubin,Urine Negative (Negative); Glucose,Urine (UA) Trace (Negative); Ketones,Urine Negative (Negative); Leukocyte Esterase,Urine Small (Negative); Mucus,Urine Rare /hpf; Nitrite,Urine Negative (Negative); Particle Count 5556; Protein,Urine Negative (Negative); RBC,Urine 1 /hpf (0-5); Specific Gravity,Urine 1.009 (1.001-1.035); Squamous Epithelial Cell,Urine 9 /hpf (0-4); UA Billing (MACRO vs. MICRO) MICRO; Urobilinogen,Urine <2.0 mg/dL (<2.0); WBC,Urine 7 /hpf (0-5)
--- NOTE | 2017-03-18 13:00 | P.PN ---
<CesarKyeaCaron M - Last Filed: 03/18/17 12:43> Subjective 61-year-old female being seen on rounds this morning. The nasal gastric tube in place has been irrigated with 60 mL flushes with inadequate output. Patient states is less abdominal discomfort but continues to report having discomfort in the right upper quadrant. Patient does have an ileostomy currently there is a scant amount of liquid brown stool in the ostomy bag patient has been incontinently urine. The gastric output 300 mL's for the last 8 hours the abdominal distention continues to improve. Nursing reports that the ostomy for the last 8 hours put out 200 mL of liquid watery brown secretions abdominal x-ray this morning findings persist highly suggestive of a high- grade small bowel obstruction with marked dilatation of the bowel loops Objective - Vital Signs Vital signs: Vital Signs Temp 97.1 F L 03/18/17 07:00 Pulse 111 H 03/18/17 07:00 Resp 20 03/18/17 07:00 BP 143/84 03/18/17 07:00 Pulse Ox 93 L 03/18/17 07:00 Intake & Output 03/17/17 03/18/17 03/18/17 18:59 06:59 18:59 Intake Total 700 1050 60 Output Total 300 300 200 Balance 400 750 -140 Intake: Intake, IV Titration 700 1050 Amount Dextrose 5%-0.45% NaCl 1, 700 1050 000 ml @ 100 mls/hr IV . Q10H [facility] Rx#:[id number] Oral 60 Output: Gastric Drainage 300 Urine 200 Straight 200 Emesis 300 Other: Voiding Method Bedpan Bedpan Incontinent Incontinent # Voids 1 2 - Exam Physical exam 61-year-old female resting in bed oriented to person place event Lungs anterior essentially clear with adequate air movement. On room air sats are 93% Heart S1-S2 audible and regular monitor sinus denies chest pain no murmur Abdomen ostomy right lower quadrant ostomy scant amount of secretions noted has been incontinent urine states less abdominal pain soft less distention Bowel tones present nasal gastric tube connected to suction flushes adequately with adequate function Extremities left hemiparalysis from a prior CVA med boot on left foot left foot ulcer with dry eschar noted no redness to the left foot dressing at site no edema noted bilateral foot drop - Labs CBC & Chem 7: 03/18/17 06:59 03/18/17 06:59 Labs: Abnormal Lab Results - Last 24 Hours (Table) 03/16/17 03/17/17 03/17/17 Range/Units 07:23 17:02 20:08 Lymphocytes # (1.0-4.8) k/uL Sodium (137-145) mmol/L Chloride (98-107) mmol/L BUN (7-17) mg/dL POC Glucose (mg/dL) 162 H 153 H (75-99) mg/dL Hemoglobin A1c 7.6 H (4.2-6.1) % Calcium (8.4-10.2) mg/dL AST (14-36) U/L Albumin (3.5-5.0) g/dL Urine Glucose (UA) (Negative) Urine Blood (Negative) Ur Leukocyte Esterase (Negative) Urine WBC (0-5) /hpf Ur Squamous Epith Cells (0-4) /hpf Urine Bacteria (None) /hpf Urine Mucus (None) /hpf 03/18/17 03/18/17 03/18/17 Range/Units 06:59 06:59 07:39 Lymphocytes # 0.5 L (1.0-4.8) k/uL Sodium 146 H (137-145) mmol/L Chloride 110 H (98-107) mmol/L BUN 29 H (7-17) mg/dL POC Glucose (mg/dL) 203 H (75-99) mg/dL Hemoglobin A1c (4.2-6.1) % Calcium 7.8 L (8.4-10.2) mg/dL AST 43 H (14-36) U/L Albumin 3.2 L (3.5-5.0) g/dL Urine Glucose (UA) (Negative) Urine Blood (Negative) Ur Leukocyte Esterase (Negative) Urine WBC (0-5) /hpf Ur Squamous Epith Cells (0-4) /hpf Urine Bacteria (None) /hpf Urine Mucus (None) /hpf 03/18/17 03/18/17 Range/Units 11:35 11:56 Lymphocytes # (1.0-4.8) k/uL Sodium (137-145) mmol/L Chloride (98-107) mmol/L BUN (7-17) mg/dL POC Glucose (mg/dL) 152 H (75-99) mg/dL Hemoglobin A1c (4.2-6.1) % Calcium (8.4-10.2) mg/dL AST (14-36) U/L Albumin (3.5-5.0) g/dL Urine Glucose (UA) Trace H (Negative) Urine Blood Small H (Negative) Ur Leukocyte Esterase Small H (Negative) Urine WBC 7 H (0-5) /hpf Ur Squamous Epith Cells 9 H (0-4) /hpf Urine Bacteria Occasional H (None) /hpf Urine Mucus Rare H (None) /hpf Assessment and Plan Plan: Impression Present on admission burning up persistent nausea vomiting suspect due to a small bowel obstruction History of a sleeve gastrectomy in 2013 for weight loss Obesity BMI 32 History of chronic lymphoma Chronic protein calorie malnutrition Medically debilitated wheelchair bedbound suspect due to a prior CVA with limited mobility Left hemipareses secondary to a prior CVA History of large B-cell lymphoma A chronic nonhealing left foot ulcer Chronic urinary incontinence Bipolar disorder Type 2 diabetes Present on admission intractable nausea vomiting abdominal pain suspect due to an acute small bowel obstruction the patient with a ileostomy with a bowel obstruction and a large peristomal hernia X-ray on March 18 show persistent highly suggestive of a high-grade small bowel obstruction Plan Await cardiac clearance prior to surgery Continue IV fluids as ordered Continue the nasal gastric tube connected to low intermittent suction and flushed 3 times daily keep patent DVT and GI prophylaxis Pain control Further recommendations pending Resume home meds as appropriate The above impression and plan of care have been discussed and directed by signing physician. Caron Guerrero nurse practitioner acting as scribe for signing physician. <Stefanie Card N - Last Filed: 03/18/17 20:34> Objective - Vital Signs Vital signs: Vital Signs Temp 98.6 F 03/18/17 14:16 Pulse 105 H 03/18/17 14:16 Resp 20 03/18/17 14:16 BP 146/86 03/18/17 14:16 Pulse Ox 93 L 03/18/17 14:16 Intake & Output 03/18/17 03/18/17 03/19/17 06:59 18:59 06:59 Intake Total 1050 1859 Output Total 300 475 Balance 750 1384 Intake: IV 1799 Dextrose 5%-0.45% NaCl 1, 800 000 ml @ 100 mls/hr IV . Q10H [facility] Rx#:[id number] Sodium Chloride 0.9% 1, 999 000 ml @ 999 mls/hr IV . Q1H1[facility] Rx#:[id number] Intake, IV Titration 1050 Amount Dextrose 5%-0.45% NaCl 1, 1050 000 ml @ 100 mls/hr IV . Q10H [facility] Rx#:[id number] Oral 60 Output: Gastric Drainage 275 Urine 200 Straight 200 Emesis 300 Other: Voiding Method Bedpan Incontinent # Voids 2 2 - Labs CBC & Chem 7: 03/18/17 06:59 03/18/17 13:31 Labs: Abnormal Lab Results - Last 24 Hours (Table) 03/16/17 03/18/17 03/18/17 Range/Units 07:23 06:59 07:39 Lymphocytes # 0.5 L (1.0-4.8) k/uL Sodium (137-145) mmol/L Glucose (74-99) mg/dL POC Glucose (mg/dL) 203 H (75-99) mg/dL Hemoglobin A1c 7.6 H (4.2-6.1) % Calcium (8.4-10.2) mg/dL Total Protein (6.3-8.2) g/dL Albumin (3.5-5.0) g/dL Urine Glucose (UA) (Negative) Urine Blood (Negative) Ur Leukocyte Esterase (Negative) Urine WBC (0-5) /hpf Ur Squamous Epith Cells (0-4) /hpf Urine Bacteria (None) /hpf Urine Mucus (None) /hpf 03/18/17 03/18/17 03/18/17 Range/Units 11:35 11:56 13:31 Lymphocytes # (1.0-4.8) k/uL Sodium 136 L (137-145) mmol/L Glucose 161 H (74-99) mg/dL POC Glucose (mg/dL) 152 H (75-99) mg/dL Hemoglobin A1c (4.2-6.1) % Calcium 8.2 L (8.4-10.2) mg/dL Total Protein 5.3 L (6.3-8.2) g/dL Albumin 3.1 L (3.5-5.0) g/dL Urine Glucose (UA) Trace H (Negative) Urine Blood Small H (Negative) Ur Leukocyte Esterase Small H (Negative) Urine WBC 7 H (0-5) /hpf Ur Squamous Epith Cells 9 H (0-4) /hpf Urine Bacteria Occasional H (None) /hpf Urine Mucus Rare H (None) /hpf 03/18/17 Range/Units 17:00 Lymphocytes # (1.0-4.8) k/uL Sodium (137-145) mmol/L Glucose (74-99) mg/dL POC Glucose (mg/dL) 144 H (75-99) mg/dL Hemoglobin A1c (4.2-6.1) % Calcium (8.4-10.2) mg/dL Total Protein (6.3-8.2) g/dL Albumin (3.5-5.0) g/dL Urine Glucose (UA) (Negative) Urine Blood (Negative) Ur Leukocyte Esterase (Negative) Urine WBC (0-5) /hpf Ur Squamous Epith Cells (0-4) /hpf Urine Bacteria (None) /hpf Urine Mucus (None) /hpf Assessment and Plan Plan: Possible surgical intervention should bowel obstruction not resolve.
--- NOTE | 2017-03-18 13:06 | ECHOF ---
Referral Reason:pre-op clearance MEASUREMENTS -------- HEIGHT: 165.1 cm WEIGHT: 89.8 kg BP: 143/84 RVIDd: 1.8 cm (< 3.3) IVSd: 0.9 cm (0.6 - 1.1) LVIDd: 4.8 cm (3.9 - 5.3) LVPWd: 0.9 cm (0.6 - 1.1) IVSs: 1.5 cm LVIDs: 3.1 cm LVPWs: 1.5 cm LAESV Index (A-L): 10.06 ml/m Ao Diam: 3.1 cm (2.0 - 3.7) AV Cusp: 1.9 cm (1.5 - 2.6) LA Diam: 2.6 cm (2.7 - 3.8) MV E Jose Alberto: 0.56 m/s MV DecT: 252 ms MV A Jose Alberto: 1.02 m/s MV E/A Ratio: 0.55 RAP: 5.00 mmHg RVSP: 11.33 mmHg FINDINGS -------- Resting tachycardia (HR>100bpm). This was a technically adequate study. Overall left ventricular systolic function is normal with, an EF between 60 - 65 %. The right ventricle is normal in size and function. Normal LA size by volume 22+/-6 ml/m2. The right atrium is normal in size. The aortic valve is trileaflet, and appears structurally normal. No aortic stenosis or regurgitation. The mitral valve leaflets are mildly thickened. There is trace to mild mitral regurgitation. Trace tricuspid regurgitation present. There is no evidence of pulmonary hypertension. The right ventricular systolic pressure, as measured by Doppler, is 11.33mmHg. The pulmonic valve is normal. The aortic root size is normal. Normal inferior vena cava with normal inspiratory collapse consistent with estimated right atrial pressure of 5 mmHg. The pericardium is normal. There is no pericardial effusion. CONCLUSIONS -------- 1. Resting tachycardia (HR>100bpm). 2. The right ventricular systolic pressure, as measured by Doppler, is 11.33mmHg. 3. The pulmonic valve is normal. 4. The aortic root size is normal. 5. There is no pericardial effusion. 6. This was a technically adequate study. 7. Overall left ventricular systolic function is normal with, an EF between 60 - 65 %. 8. Normal LA size by volume 22+/-6 ml/m2. 9. The aortic valve is trileaflet, and appears structurally normal. No aortic stenosis or regurgitation. 10. The mitral valve leaflets are mildly thickened. 11. There is trace to mild mitral regurgitation. 12. Trace tricuspid regurgitation present. 13. There is no evidence of pulmonary hypertension. STATION REPAIRER: Osman Arias RDCS
[2017-03-18] MEDS: HYDROmorphone 1 MG/ML 1 ML SYRINGE IV PRN ×3 (13:30→23:22)
[2017-03-18 14:20] LABS: ALT 27 U/L (9-52); AST 27 U/L (14-36); Alkaline Phosphatase 53 U/L (38-126); Anion Gap 10 mmol/L; Blood Urea Nitrogen 10 mg/dL (7-17); Calcium 8.2 mg/dL (8.4-10.2); Carbon Dioxide 24 mmol/L (22-30); Chloride 102 mmol/L (98-107); Glucose 161 mg/dL (74-99); Magnesium 1.6 mg/dL (1.6-2.3); Non-African American GFR(MDRD) >60 (>60 ml/min/1.73 sqM); Phosphorous 2.6 mg/dL (2.5-4.5); Potassium 3.6 mmol/L (3.5-5.1); Sodium 136 mmol/L (137-145); Total Bilirubin 0.7 mg/dL (0.2-1.3); Total Protein 5.3 g/dL (6.3-8.2)
--- NOTE | 2017-03-18 14:38 | CDI ---
In responding to this query, please exercise your independent professional judgment. The [facility] Coding Staff and Clinical Documentation Specialists appreciate your assistance in clarifying documentation, maintaining compliance with coding guidelines, accurately documenting patients condition and capturing severity of illness. The fact that a question is asked does not imply that any particular answer is desired or expected. Communication forms are a method of clarifying documentation and are not made part of the Legal Health Record. Thank you in advance for your clarification. Last Revision, June 2015 Anupam Sandoval [address] [place] [address] Documentation Clarification Form Date: 03/18/2017 2:23:00 PM From: Grzegorz Ramos, RN, BSN, CDI, CCDS Admit Date: 03/15/2017 8:36:00 PM Patient Name: Amena Balbuena Visit Number: [id number] Dr. Alexx Bentley: "Protein Calorie Malnutrition" has been documented in your progress notes. History/Risk Factors: 61 yo female with a history of sleeve gastrectomy, DM II w /chronic foot ulcer, BCell lymphoma, CVA w/left sided hemiparesis, presents with c/o RUQ abdo marti and vomiting x4 days with no output from her ileostomy x2 days. She is currently being treated for acute SBO secondary to parastomal hernia Clinical Indicators: Labs: Albumin: 3.1-4.1, Total Protein: 5.3-6.4 Current BMI: 32.9 Treatment: Dietary Consult: Currently pt is NPO for possible surgical intervention Lab monitoring: serial albumin, total protein In your professional opinion, can you please clarify if these findings signify one of the following conditions? Mild Protein Malnutrition Mild Protein-Calorie Malnutrition Moderate Protein Malnutrition Moderate Protein-Calorie Malnutrition Severe Protein Malnutrition Severe Protein-Calorie Malnutrition Other condition, please specify Unable to determine Please document in your progress notes and discharge summary in order to capture severity of illness and risk of mortality. Include clinical findings that support your diagnosis. FYI: Press F11 to launch patient chart. MICHAEL
--- NOTE | 2017-03-18 16:11 | P.CRDCN ---
History of Present Illness Consult date: 03/18/17 History of present illness: This is a 61-year-old female who presented to the emergency department with complaints of abdominal pain and was found to have a small bowel obstruction. We are being consulted on this patient to determine her cardiac surgical risk. This patient has a history of hyperrlipidemia, DVT, PE, diabetes mellitus, CVA with left-sided residual and large B-cell lymphoma. Her home cardiac medications include aspirin 81 mg and fenofibrate 160 mg. Her EKG reveals normal sinus mechanism with mild ST depression noted in the V3 which is consistent with an old EKG. We will obtain an echocardiogram. Upon examination the patient denies chest pain, shortness of breath, dizziness, palpitations, nausea or vomiting. She states she recently had a hernia repair surgery and had no complications. Review of Systems REVIEW OF SYSTEMS: Patient denies any chest discomfort. No shortness of breath. No diaphoresis. He denies headache, dizziness, blurred vision, double vision. No dyspnea on exertion. Patient denies any vomiting. Denies any black stools or blood in his stools. No syncope. No palpitations. No cough. No recent fever or chills. Denies dysuria or hematuria. No muscle weakness or numbness. 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 History of Any Multi-Drug Resistant Organisms: ESBL Date of last positivie culture/infection: 02/21/17 MDRO Source:: Urine Past Surgical History: Cholecystectomy Additional Past Surgical History / Comment(s): MULTIPLE BOWEL SX AND REVISONS OF Ileostomy (pt wears Holister 86-28 with small eacon ring/ stoma powder/ no sting adhesive). HAD ALL TEETH EXTRACTED WAITING ON DENTURES. 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 GREENFILED FILTER, gastric sleeve at [facility] placed 09-21-15, recent R foot ingrown toenail removed. Past Anesthesia/Blood Transfusion Reactions: No Reported Reaction Additional Past Anesthesia/Blood Transfusion Reaction / Comment(s): Pt received blood without reaction. Past Psychological History: Anxiety, Bipolar, Depression Additional Psychological History / Comment(s): . Has not smoked more than 20 years. No history of alcohol use. No animal exposures. No experience. No international travel. Pt needs total assist. She is up into a wheelchair by smita lift. Smoking Status: Former smoker Past Alcohol Use History: None Reported Additional Past Alcohol Use History / Comment(s): SMOKED X 25 YEARS-quit in 1989 Past Drug Use History: None Reported - Past Family History Father Family Medical History: Myocardial Infarction ([place]) Additional Family Medical History / Comment(s): Father of either a CVA or [place] at age 84 yrs. Mother Family Medical History: Myocardial Infarction ([place]), Renal Disease Additional Family Medical History / Comment(s): Mother of renal failure at age 84 yrs. Medications and Allergies Home Medications Medication Instructions Recorded Confirmed Type Aspirin 81 mg PO DAILY@1200 08/18/15 03/15/17 History Baclofen [Lioresal] 20 mg PO BID PRN 09/02/15 03/15/17 History Citalopram Hydrobromide [CeleXA] 20 mg PO DAILY 02/14/16 03/15/17 History Multivitamins, Thera [Multivitamin] 1 tab PO DAILY@1200 04/26/16 03/15/17 History Pregabalin [Lyrica] 75 mg PO BID 04/26/16 03/15/17 History Ascorbic Acid [Vitamin C] 250 mg PO DAILY@119903/15/17 03/15/17 History Cholecalciferol [Vitamin D3] 5,000 unit PO DAILY@119903/15/17 03/15/17 History Famotidine [Pepcid] 20 mg PO QAM 03/15/17 03/15/17 History Fenofibrate [Lofibra] 160 mg PO QAM 03/15/17 03/15/17 History Ferrous Sulfate [Feosol] 325 mg PO DAILY@119903/15/17 03/15/17 History Oxybutynin Chloride [Ditropan XL] 5 mg PO DAILY 03/15/17 03/15/17 History glipiZIDE [Glucotrol] 10 mg PO AC-BID 03/15/17 03/15/17 History lamoTRIgine [LaMICtal] 150 mg PO QAM 03/15/17 03/15/17 History Allergies Allergy/AdvReac Type Severity Reaction Status Date / Time Tetanus Vaccines and Toxoid Allergy Red and Verified 03/15/17 17:06 [Tetanus Vaccines & Toxoid] Swelling at site. Corticosteroids AdvReac Elevated Verified 03/15/17 17:06 (Glucocorticoids) Blood sugar and Blood Pressure prednisone AdvReac Elevated Verified 03/15/17 17:06 Blood Sugar and Blood Pressure Physical Exam Vitals: Vital Signs Temp Pulse Resp BP Pulse Ox 03/18/17 14:16 98.6 F 105 H 20 146/86 93 L 03/18/17 07:00 97.1 F L 111 H 20 143/84 93 L 03/18/17 02:31 98.5 F 103 H 16 165/91 91 L 03/17/17 20:00 98.4 F 98 18 157/80 95 Intake and Output 03/18/17 03/18/17 03/18/17 06:59 14:59 22:59 Intake Total 800 1859 Output Total 300 200 275 Balance 500 1659 -275 Intake: IV 1799 Dextrose 5%-0.45% NaCl 1, 800 000 ml @ 100 mls/hr IV . Q10H DANIELE Rx#:[id number] Sodium Chloride 0.9% 1, 999 000 ml @ 999 mls/hr IV . Q1H1M ONE Rx#:[id number] Intake, IV Titration 800 Amount Dextrose 5%-0.45% NaCl 1, 800 000 ml @ 100 mls/hr IV . Q10H DANIELE Rx#:[id number] Oral 60 Output: Gastric Drainage 275 Urine 200 Straight 200 Emesis 300 Other: # Voids 2 2 GENERAL: This is a 61-year-old female in no apparent distress at the time of my examination. HEENT: Head is atraumatic, normocephalic. Pupils are equal, round. Sclerae anicteric. Conjunctivae are clear. Mucous membranes of the mouth are moist. Neck is supple. There is no jugular venous distention. No carotid bruit is heard. LUNGS: Clear to auscultation no wheezes, rales or rhonchi. No chest wall tenderness is noted on palpation or with deep breathing. HEART: Regular rate and rhythm without murmurs, rubs or gallops. S1 and S2 heard. ABDOMEN: Soft, nontender. No organomegaly noted. EXTREMITIES: 2+ peripheral pulses with no evidence of peripheral edema and no calf tenderness noted. Left hemiparesis. NEUROLOGIC: Patient is awake, alert and oriented x3. Results 03/18/17 06:59 03/18/17 13:31 Cardiac Enzymes 03/18/17 03/18/17 Range/Units 06:59 13:31 AST 27 (14-36) U/L CBC 03/18/17 Range/Units 06:59 WBC 6.9 (3.8-10.6) k/uL RBC 4.45 (3.80-5.40) m/uL Hgb 13.2 (11.4-16.0) gm/dL Hct 38.9 (34.0-46.0) % Plt Count 238 (150-450) k/uL Comprehensive Metabolic Panel 03/18/17 03/18/17 Range/Units 06:59 13:31 Sodium 136 L (137-145) mmol/L Potassium 3.6 (3.5-5.1) mmol/L Chloride 102 (98-107) mmol/L Carbon Dioxide 24 (22-30) mmol/L BUN 10 (7-17) mg/dL Creatinine 0.70 (0.52-1.04) mg/dL Glucose 161 H (74-99) mg/dL Calcium 8.2 L (8.4-10.2) mg/dL AST 27 (14-36) U/L ALT 27 (9-52) U/L Alkaline Phosphatase 53 (38-126) U/L Total Protein 5.3 L (6.3-8.2) g/dL Albumin 3.1 L (3.5-5.0) g/dL Current Medications Generic Name Dose Route Start Last Admin Trade Name Freq PRN Reason Stop Dose Admin Citalopram Hydrobromide 20 mg 03/16/17 18:45 03/18/17 11:35 Celexa PO 20 mg DAILY DANIELE Administration Hydromorphone HCl 1 mg 03/15/17 20:37 03/18/17 13:30 Dilaudid IV 1 mg Q3HR PRN Administration Severe Pain Dextrose/Sodium Chloride 1,000 mls @ 100 mls/hr 03/16/17 19:00 03/18/17 13:21 Dextrose 5%-1/2ns Iv Soln IV 100 mls/hr .Q10H DANIELE Administration Insulin Human Lispro 0 unit 03/17/17 17:30 03/18/17 13:21 Humalog SQ 1 unit ACHS DANIELE Administration Protocol Lamotrigine 150 mg 03/16/17 18:45 03/18/17 11:35 Lamictal PO 150 mg QAM DANIELE Administration Lorazepam 1 mg 03/16/17 20:38 03/17/17 20:28 Ativan IV 1 mg Q8HR PRN Administration Anxiety Naloxone HCl 0.2 mg 03/15/17 20:37 Narcan IV Q2M PRN Opioid Reversal Ondansetron HCl 4 mg 03/15/17 20:37 03/17/17 16:47 Zofran IVP 4 mg Q8HR PRN Administration Nausea And Vomiting Pregabalin 75 mg 03/16/17 21:00 03/18/17 11:16 Lyrica PO Not Given BID DANIELE Intake and Output 03/18/17 03/18/17 03/18/17 06:59 14:59 22:59 Intake Total 800 1859 Output Total 300 200 275 Balance 500 1659 -275 Intake: IV 1799 Dextrose 5%-0.45% NaCl 1, 800 000 ml @ 100 mls/hr IV . Q10H DANIELE Rx#:[id number] Sodium Chloride 0.9% 1, 999 000 ml @ 999 mls/hr IV . Q1H1M ONE Rx#:[id number] Intake, IV Titration 800 Amount Dextrose 5%-0.45% NaCl 1, 800 000 ml @ 100 mls/hr IV . Q10H DANIELE Rx#:[id number] Oral 60 Output: Gastric Drainage 275 Urine 200 Straight 200 Emesis 300 Other: # Voids 2 2 03/18/17 06:59 03/18/17 13:31 - Imaging and Cardiology Echo: report reviewed Assessment and Plan Plan: ASSESSMENT 1. High-grade small bowel obstruction, will require surgical intervention to [facility] PLAN Echocardiogram gram complete indicates preserved LV function with an ejection fraction of 60-65%. There is no pericardial effusion, right ventricular systolic pressure 11.33 mmHg, trace mitral regurgitation, trace tricuspid regurgitation, there is no evidence of pulmonary hypertension. The patient is low to moderate risk for surgery due to her multiple comorbid conditions. We will continue to follow this patient in the postoperative phase. Nurse Practitioner note has been reviewed, I agree with a documented findings and plan of care. Patient was seen and examined.
[2017-03-18 17:07] LABS: Glucose,Whole Blood 144 mg/dL (75-99)
[2017-03-18] MEDS: SODIUM CHLORIDE 0.9% 1,000 ML IV SCH ×2 (18:00→20:30)
[2017-03-18] MEDS: LORazepam 2 MG/ML SYRINGE IV PRN (18:22)
--- NOTE | 2017-03-18 19:19 | PN ---
DATE OF SERVICE: 03/17/17 PRESENTING COMPLAINT: Abdominal pain. INTERVAL HISTORY: This is a patient with multiple abdominal surgery presented with acute small bowel obstruction. NG was placed. Feeling a bit better today. Presented with acute small bowel obstruction, NG tube was placed. Feeling a bit better today. Abdominal pain actually has gone down. Small amount of stool in the colostomy bag. Lying in bed. at the bedside. No nausea or vomiting. Review of systems done for constitutional, cardiovascular, GI, pulmonary, relevant findings as above. Current medications are reviewed that include: IV fluids. On examination, temperature 98, pulse 100. Respirations 12. Blood pressure 150 /65. Pulse ox 93% on room air. General appearance lying in bed, awake. Eyes : Pupils equal, conjunctivae normal. HEENT: NG tube in place. Neck: JVD not raised. Mass not palpable. Respiratory effort increased. Lungs decreased breath sounds. Cardiovascular: First and second sounds normal. No edema. Abdomen decreased tenderness. Colostomy bag in place. Small amount of stool. Liver and spleen not palpable. Bowel sounds not present. PSYCH: Alert and oriented times three. Mood and affect less anxious appearing. Investigations: Potassium 4.5. Accu-Cheks noted. Abdominal x-ray suggestive of partially obstructed closed loop small ( ) and abdominal wall hernia. ASSESSMENT: 1. Acute small bowel obstruction in a patient who has colectomy with resultant ileostomy and bowel obstruction and large peristomal hernia with some clinical response. 2. Diabetes mellitus Type 2 on oral hypoglycemic. 3. Gastroesophageal reflux disease. 4. Hiatal hernia. 5. Hyperlipidemia. 6. History of large B-cell lymphoma. 7. Left hemiparesis from prior stroke. 8. Chronic urinary incontinence. 9. Internal carotid artery occluded. 10. Bipolar disorder. 11. Medical debility. The patient is wheelchair and uses a Saida lift. PLAN: Continue current medication and treatment plan. Continue fluids. Conservative approach probably would be preferable. Will follow with surgery. Care was discussed with the patient and at the bedside. MICHAEL
[2017-03-18 21:15] LABS: Glucose,Whole Blood 110 mg/dL (75-99)
--- NOTE | 2017-03-18 22:13 | P.PN ---
Progress Note - Text DATE OF SERVICE: 03/18/2017 PRESENTING COMPLAINT: Nausea vomiting abdominal pain INTERVAL HISTORY: 60-year-old patient with a very complex GI history which includes parastomal hernia repair, 3 or 4 repairs of the stoma with repositioning, sleeve gastrectomy. Presented with nausea vomiting and no output from ileostomy bag for 2 days, computed tomography scan suggests bowel obstruction. NG tube was placed, TPN and lipids were initiated. 03/17/2017: Patient lying in bed appears mildly anxious. Abdominal pain present. TPN infusing with lipids every other day. Remains nothing by mouth except for some ice chips and popsicles. 03/18/2017: Patient lying in bed appears comfortable today. Abdominal pain present however improved from yesterday small amount of output in ileostomy bag. Remains nothing by mouth except ice chips and popsicles. Possible surgical intervention on if bowel obstruction fails to resolve. REVIEW OF SYSTEMS: Done for constitutional ,cardiovascular, GI, pulmonary with relevant findings as above. CURRENT MEDICATIONS Celexa, Dilaudid, Lamictal, Ativan, Zofran, Lyrica. TPN and lipids. PHYSICAL EXAM VITAL SIGNS: Temperature 97.1, heart rate 111, respiratory rate 20, blood pressure 143/84, oxygen saturation 93% on room air GENERAL APPEARANCE: Lying in bed, somewhat anxious appearing. EYES: Pupils equal. Conjunctiva normal. NECK: JVD not raised. Mass not palpable. RESPIRATORY: Respiratory effort normal. Diminished breath sounds. CARDIOVASCULAR: First and second sounds normal. No edema. ABDOMEN: Soft. Tenderness especially to the upper abdomen, ileostomy bag in place no stool, bowel sounds hypoactive Liver and spleen not palpable. NG tube to the right nares approximately 300 milliliters out her shift PSYCHIATRY: Alert and oriented x3. Mood and affect anxious appearing. NEUROLOGICAL: Power and sensation on left is 0 out of 5 INTEGUMENT: Face cheeks for had noted to have roseace rash to this area. INVESTIGATIONS: Sodium 136, calcium 3.6, Accu-Cheks noted, albumin 3.1. ASSESSMENT: -Acute small bowel obstruction in a patient who has a electively with resultant ileostomy and bowel obstruction in a large peristomal hernia. -Diabetes mellitus type 2 on oral hypoglycemics. -Hypoglycemia secondary to oral hypoglycemics. -Gastroesophageal reflux disease. -Hiatal hernia. -Hyperlipidemia. -History of large B-cell lymphoma. -Left hemiparesis from prior stroke. -Chronic urinary incontinence. -Internal carotid artery occluded. -Bipolar disorder. -Medical debility the patient is wheelchair bound and uses a Saida lift. -Mild Protein calorie malnutrition in a patient with a small bowel obstruction, ileostomy. PLAN: We'll continue IV fluids Lovenox for DVT prophylaxis, GI prophylaxis NG tube to low intermittent suction and flush 3 times daily which is being managed by surgery. Possible surgical intervention soon based on patient condition. Cardiology has her as a low to moderate surgical risk. Lab of care discussed with patient the bedside she is in agreement. IT INTEGRATION ARCHITECT statement: Patient was seen and examined by nurse practitioner Melania Clarke and all elements of the case discussed with attending Dr. Bentley
--- NOTE | 2017-03-18 22:56 | P.PN ---
Progress Note - Text Patient seen and evaluated this evening. She is more confused and only oriented to self. She became more tachycardic. NG tube outputs over 800 mL today. She reports decreased abdominal discomfort as well as decreased abdominal distention. Ostomy is starting to function. Still palpable parastomal hernia. Abdominal x-ray personally reviewed by me consistent with persistent small bowel obstruction. I discussed with the patient possible surgical intervention on should her symptoms not improve. Alternatively, small bowel follow-through may be performed. Recommend IV fluid boluses as she hast became increasing tachycardic consistent with dehydration. Appreciate echocardiogram and cardiology input.
[2017-03-18] MEDS: LEVOFLOXACIN 250MG-D5W PMX 250 MG in DEXTROSE/WATER 1 50ML.BAG IVPB SCH (23:27)
[2017-03-19 06:54] LABS: Glucose,Whole Blood 178 mg/dL (75-99)
[2017-03-19 07:53] LABS: Anion Gap 11 mmol/L; Blood Urea Nitrogen 7 mg/dL (7-17); Carbon Dioxide 24 mmol/L (22-30); Chloride 103 mmol/L (98-107); Glucose 185 mg/dL (74-99); Non-African American GFR(MDRD) >60 (>60 ml/min/1.73 sqM); Sodium 138 mmol/L (137-145)
[2017-03-19] MEDS: INSULIN LISPRO (humaLOG) 300 UNIT/3 ML VIAL SQ SCH ×5 (08:38→21:23)
[2017-03-19] MEDS ORDERED: Potassium Replacement Protocol 1 EACH MISC MISCELLANE PRN (09:36)
[2017-03-19] MEDS: DEXTROSE 5%-0.45% NACL 1,000 ML IV SCH ×3 (09:51→21:06)
[2017-03-19] MEDS: lamoTRIgine 100 MG TAB PO SCH (09:52)
[2017-03-19] MEDS: CITALOPRAM HYDROBROMIDE 20 MG TAB PO SCH (09:53)
[2017-03-19] MEDS: PREGABALIN 75 MG CAP PO SCH ×2 (09:59→21:23)
[2017-03-19] MEDS: POTASSIUM CHLORIDE 10 MEQ in WATER FOR INJECTION 1 100ML.BAG IVPB SCH ×2 (10:26→11:34)
[2017-03-19] MEDS ORDERED: Magnesium Replacement Protocol 1 EACH MISC MISCELLANE PRN (12:07)
[2017-03-19 12:09] LABS: Glucose,Whole Blood 155 mg/dL (75-99)
--- NOTE | 2017-03-19 13:11 | P.PN ---
Subjective This 61-year-old female who is being seen in consultation prior to surgical intervention to determine cardiac surgical risk. The patient is admitted with a bowel obstruction. At this time the plan is to continue monitoring the patient and if no clinical improvement she will undergo surgical intervention on with Dr. Card. Echocardiogram was performed yesterday and indicates left ventricular function preserved with an ejection fraction of 60-65%, no pericardial effusion, normal aortic valve with no stenosis or regurg. Trace MR, trace TR with no evidence of pulmonary hypertension with a right ventricular systolic pressure of 11.33 mmHg. Patient has been tachycardic in the low teens. She is also febrile at 100.1. Blood pressure 140/83. Objective - Vital Signs Vital signs: Vital Signs Temp 100.1 F H 03/19/17 07:00 Pulse 113 H 03/19/17 08:00 Resp 20 03/19/17 07:00 BP 140/83 03/19/17 07:00 Pulse Ox 96 03/19/17 07:00 Intake & Output 03/18/17 03/19/17 03/19/17 18:59 06:59 18:59 Intake Total 1859 90 Output Total 475 325 150 Balance 1384 -325 -60 Intake: IV 1799 Dextrose 5%-0.45% NaCl 1, 800 000 ml @ 100 mls/hr IV . Q10H DANIELE Rx#:[id number] Sodium Chloride 0.9% 1, 999 000 ml @ 999 mls/hr IV . Q1H1M ONE Rx#:[id number] Oral 60 90 Output: Gastric Drainage 275 250 150 Urine 200 Straight 200 Stool 75 Other: Voiding Method Bedpan Incontinent Incontinent # Voids 2 1 1 - Exam GENERAL: Well-appearing, well-nourished and in no acute distress. NECK: Supple without JVD or thyromegaly. LUNGS: Breath sounds clear to auscultation bilaterally and equal. No wheezes, rales or rhonchi. HEART: Regular rate and rhythm without murmurs, rubs or gallops. S1 and S2 heard. ABDOMEN: Soft, mildly tender, positive bowel sounds. EXTREMITIES: Normal range of motion, no edema. No clubbing or cyanosis. Peripheral pulses intact and strong. - Labs CBC & Chem 7: 03/18/17 06:59 03/19/17 07:01 Labs: Abnormal Lab Results - Last 24 Hours (Table) 03/18/17 03/18/17 03/18/17 Range/Units 13:31 17:00 21:13 Sodium 136 L (137-145) mmol/L Potassium (3.5-5.1) mmol/L Glucose 161 H (74-99) mg/dL POC Glucose (mg/dL) 144 H 110 H (75-99) mg/dL Calcium 8.2 L (8.4-10.2) mg/dL Magnesium (1.6-2.3) mg/dL Total Protein 5.3 L (6.3-8.2) g/dL Albumin 3.1 L (3.5-5.0) g/dL 03/19/17 03/19/17 03/19/17 Range/Units 06:51 07:01 07:01 Sodium (137-145) mmol/L Potassium 3.0 L* (3.5-5.1) mmol/L Glucose 185 H (74-99) mg/dL POC Glucose (mg/dL) 178 H (75-99) mg/dL Calcium 8.0 L (8.4-10.2) mg/dL Magnesium 1.4 L (1.6-2.3) mg/dL Total Protein (6.3-8.2) g/dL Albumin (3.5-5.0) g/dL 03/19/17 Range/Units 11:47 Sodium (137-145) mmol/L Potassium (3.5-5.1) mmol/L Glucose (74-99) mg/dL POC Glucose (mg/dL) 155 H (75-99) mg/dL Calcium (8.4-10.2) mg/dL Magnesium (1.6-2.3) mg/dL Total Protein (6.3-8.2) g/dL Albumin (3.5-5.0) g/dL Microbiology - Last 24 Hours (Table) 03/18/17 11:45 Urine Culture - Preliminary Urine,Catheterized Assessment and Plan Plan: ASSESSMENT 1. High-grade small bowel obstruction, will require surgical intervention with Dr. Card PLAN The patient is moderate risk for surgery due to her multiple comorbid conditions. We will continue to follow this patient in the postoperative phase. Nurse Practitioner note has been reviewed, I agree with a documented findings and plan of care. Patient was seen and examined.
--- NOTE | 2017-03-19 13:37 | P.PN ---
Subjective 61-year-old female being seen on rounds today. Spouse at bedside. Patient continues to have intermittent episodes of confusion. Currently is oriented to self with prompting can recall place no adequate recall of events. Patient even states knowing get confused at times. And just very tired. Patient has a nasal gastric tube in place connected to suction. With secretions in the canister noted To be dark. There is also a small amount of liquid stool in the ostomy. Patient remains tachycardic heart rate in the 110s. Temp is 100.1 this morning no CBC this morning electrolytes were noted and reviewed magnesium and potassium are low which replacement is being given IV fluid for hydration IO was reviewed -60. Patient has been incontinent of urine Did update the spouse at the bedside tentative plan is for surgical intervention on this week if her symptoms do not improve. Small bowel follow-through may be performed. We'll monitor closely vital signs Objective - Vital Signs Vital signs: Vital Signs Temp 100.1 F H 03/19/17 07:00 Pulse 113 H 03/19/17 08:00 Resp 20 03/19/17 07:00 BP 140/83 03/19/17 07:00 Pulse Ox 96 03/19/17 07:00 Intake & Output 03/18/17 03/19/17 03/19/17 18:59 06:59 18:59 Intake Total 1859 90 Output Total 475 325 150 Balance 1384 -325 -60 Intake: IV 1799 Dextrose 5%-0.45% NaCl 1, 800 000 ml @ 100 mls/hr IV . Q10H DANIELE Rx#:[id number] Sodium Chloride 0.9% 1, 999 000 ml @ 999 mls/hr IV . Q1H1M ONE Rx#:[id number] Oral 60 90 Output: Gastric Drainage 275 250 150 Urine 200 Straight 200 Stool 75 Other: Voiding Method Bedpan Incontinent Incontinent # Voids 2 1 1 - Exam Physical exam 61-year-old female resting in bed oriented to person with prompting can recall the place and event Lungs anterior essentially clear with adequate air movement. On room air sats are 93% Heart S1-S2 audible and regular monitor sinus denies chest pain no murmur remains tachycardic monitor sinus Abdomen ostomy right lower quadrant ostomy appro 50ml of secretions noted from the ostomy has been incontinent urine states less abdominal pain soft less distention bowel tones present Bowel tones present nasal gastric tube connected to suction flushes adequately with adequate function Extremities left hemiparalysis from a prior CVA med boot on left foot left foot ulcer with dry eschar noted no redness to the left foot dressing at site no edema noted bilateral foot drop - Labs CBC & Chem 7: 03/18/17 06:59 03/19/17 07:01 Labs: Abnormal Lab Results - Last 24 Hours (Table) 03/18/17 03/18/17 03/18/17 Range/Units 13:31 17:00 21:13 Sodium 136 L (137-145) mmol/L Potassium (3.5-5.1) mmol/L Glucose 161 H (74-99) mg/dL POC Glucose (mg/dL) 144 H 110 H (75-99) mg/dL Calcium 8.2 L (8.4-10.2) mg/dL Magnesium (1.6-2.3) mg/dL Total Protein 5.3 L (6.3-8.2) g/dL Albumin 3.1 L (3.5-5.0) g/dL 03/19/17 03/19/17 03/19/17 Range/Units 06:51 07:01 07:01 Sodium (137-145) mmol/L Potassium 3.0 L* (3.5-5.1) mmol/L Glucose 185 H (74-99) mg/dL POC Glucose (mg/dL) 178 H (75-99) mg/dL Calcium 8.0 L (8.4-10.2) mg/dL Magnesium 1.4 L (1.6-2.3) mg/dL Total Protein (6.3-8.2) g/dL Albumin (3.5-5.0) g/dL 03/19/17 Range/Units 11:47 Sodium (137-145) mmol/L Potassium (3.5-5.1) mmol/L Glucose (74-99) mg/dL POC Glucose (mg/dL) 155 H (75-99) mg/dL Calcium (8.4-10.2) mg/dL Magnesium (1.6-2.3) mg/dL Total Protein (6.3-8.2) g/dL Albumin (3.5-5.0) g/dL Microbiology - Last 24 Hours (Table) 03/18/17 11:45 Urine Culture - Preliminary Urine,Catheterized Assessment and Plan Plan: Impression Present on admission burning up persistent nausea vomiting suspect due to a small bowel obstruction History of a sleeve gastrectomy in 2013 for weight loss Obesity BMI 32 History of chronic lymphoma Chronic protein calorie malnutrition Medically debilitated wheelchair bedbound suspect due to a prior CVA with limited mobility Left hemipareses secondary to a prior CVA History of large B-cell lymphoma A chronic nonhealing left foot ulcer Chronic urinary incontinence Bipolar disorder Type 2 diabetes Present on admission intractable nausea vomiting abdominal pain suspect due to an acute small bowel obstruction the patient with a ileostomy with a bowel obstruction and a large peristomal hernia X-ray on March 18 show persistent highly suggestive of a high-grade small bowel obstruction Severe electrolyte morality hypokalemia hypo-magnesium Sinus tachycardic suspect due to clinical dehydration Echocardiogram March 18 left ventricular systolic function normal with an EF between 60 and 65% Plan Continue IV fluid as ordered Cardiac eval noted recommendations patient is a moderate risk for surgery due to multiple comorbidities Continue IV fluids as ordered Continue the nasal gastric tube connected to low intermittent suction and flushed 3 times daily keep patent DVT and GI prophylaxis Pain control Further recommendations pending Resume home meds as appropriate The above impression and plan of care have been discussed and directed by signing physician. Caron Guerrero nurse practitioner acting as scribe for signing physician.
[2017-03-19] MEDS: POTASSIUM CHLORIDE 10 MEQ, LIDOCAINE 2% INJ 10 MG in SODIUM CHLORIDE 0.9% 100 ML IVPB SCH ×4 (13:56→19:38)
[2017-03-19 15:42] VITALS: BMI 32.9
[2017-03-19 16:32] LABS: Glucose,Whole Blood 126 mg/dL (75-99)
[2017-03-19 20:49] LABS: Glucose,Whole Blood 143 mg/dL (75-99)
[2017-03-19] MEDS: HYDROmorphone 1 MG/ML 1 ML SYRINGE IV PRN (20:53)
[2017-03-19] MEDS: MAGNESIUM SULFATE-D5W PMX 1 GM in DEXTROSE/WATER 1 100ML.BAG IVPB SCH (21:06)
[2017-03-19 21:20] LABS: Basophils % (A) 0 %; CHCM 33.3; Eosinophils # (A) 0.1 k/uL (0-0.7); Eosinophils % (A) 2 %; HCT 43.5 % (34.0-46.0); HDW 2.84; Luc # (Auto) 0.08; Luc % (Auto) 1; Lymphocytes % (A) 15 %; MCH 29.2 pg (25.0-35.0); MCHC 32.2 g/dL (31.0-37.0); MCV 90.5 fL (80.0-100.0); Mean Platelet Volume 6.5; Monocytes # (A) 0.4 k/uL (0-1.0); Monocytes % (A) 7 %; Neutrophils # (A) 4.7 k/uL (1.3-7.7); Neutrophils % (A) 75 %; RDW 14.1 % (11.5-15.5); WBC 6.3 k/uL (3.8-10.6); WBC (Perox) 6.37
[2017-03-19 21:28] LABS: Anion Gap 13 mmol/L; Blood Urea Nitrogen 6 mg/dL (7-17); Calcium 8.6 mg/dL (8.4-10.2); Carbon Dioxide 20 mmol/L (22-30); Chloride 105 mmol/L (98-107); Glucose 141 mg/dL (74-99); Magnesium 1.4 mg/dL (1.6-2.3); Non-African American GFR(MDRD) >60 (>60 ml/min/1.73 sqM); Potassium 3.7 mmol/L (3.5-5.1); Sodium 138 mmol/L (137-145)
--- NOTE | 2017-03-19 22:07 | P.PN ---
Progress Note - Text Patient seen and evaluated this evening. Her abdominal distention is resolved. She has moderate outputs from her right lower quadrant ileostomy. NG tube color has improved from dark bilious to light bile. She reports resolved abdominal pain. Nasogastric tube still present. 1. Plan for start of liquids in the morning area and will discontinue NG tube in the afternoon was tolerating liquids. 2. Also will repeat abdominal x-ray. 3. Patient was scheduled for surgery on however as she has improved, case may be tentatively canceled.
[2017-03-19] MEDS: LEVOFLOXACIN 250MG-D5W PMX 250 MG in DEXTROSE/WATER 1 50ML.BAG IVPB SCH (23:06)
[2017-03-20] MEDS: MAGNESIUM SULFATE-D5W PMX 1 GM in DEXTROSE/WATER 1 100ML.BAG IVPB SCH ×3 (00:08→03:46)
--- NOTE | 2017-03-20 00:17 | P.PN ---
Progress Note - Text DATE OF SERVICE: 03/19/2017 PRESENTING COMPLAINT: Nausea vomiting abdominal pain INTERVAL HISTORY: 60-year-old patient with a very complex GI history which includes parastomal hernia repair, 3 or 4 repairs of the stoma with repositioning, sleeve gastrectomy. Presented with nausea vomiting and no output from ileostomy bag for 2 days, computed tomography scan suggests bowel obstruction. NG tube was placed, TPN and lipids were initiated. 03/17/2017: Patient lying in bed appears mildly anxious. Abdominal pain present. TPN infusing with lipids every other day. Remains nothing by mouth except for some ice chips and popsicles. 03/18/2017: Patient lying in bed appears comfortable today. Abdominal pain present however improved from yesterday small amount of output in ileostomy bag. Remains nothing by mouth except ice chips and popsicles. Possible surgical intervention on if bowel obstruction fails to resolve. 03/19/2017: Patient lying in bed appears comfortable. Continues to have abdominal pain. Ostomy in the right lower quadrant has about 50 mils of charlton colored liquid secretions. NG tube remains and should be flushed 3 times daily for patency. Patient will go to surgery on should this ileus not resolve. REVIEW OF SYSTEMS: Done for constitutional ,cardiovascular, GI, pulmonary with relevant findings as above. CURRENT MEDICATIONS Celexa, Dilaudid, Lamictal, Ativan, Zofran, Lyrica. TPN and lipids. PHYSICAL EXAM VITAL SIGNS: 100.1, pulse 113, respiratory rate 20, blood pressure 140/83, oxygen saturation 96% on room air. GENERAL APPEARANCE: Lying in bed, somewhat anxious appearing. EYES: Pupils equal. Conjunctiva normal. NECK: JVD not raised. Mass not palpable. RESPIRATORY: Respiratory effort normal. Diminished breath sounds. CARDIOVASCULAR: First and second sounds normal. No edema. ABDOMEN: Soft. Tenderness especially to the upper abdomen, ileostomy bag in place about 50 ML's of charlton secretions, bowel sounds hypoactive Liver and spleen not palpable. NG tube to the right nares approximately 300 milliliters out per shift PSYCHIATRY: Alert and oriented x3. Mood and affect anxious appearing. NEUROLOGICAL: Power and sensation on left is 0 out of 5 INTEGUMENT: Face cheeks for had noted to have roseace rash to this area. INVESTIGATIONS: Sodium 136, calcium 3.6, Accu-Cheks noted, albumin 3.1. ASSESSMENT: -Acute small bowel obstruction in a patient who has a electively with resultant ileostomy and bowel obstruction in a large peristomal hernia, slow to respond -Diabetes mellitus type 2 on oral hypoglycemics. -Hypoglycemia secondary to oral hypoglycemics. -Gastroesophageal reflux disease. -Hiatal hernia. -Hyperlipidemia. -History of large B-cell lymphoma. -Left hemiparesis from prior stroke. -Chronic urinary incontinence. -Internal carotid artery occluded. -Bipolar disorder. -Medical debility the patient is wheelchair bound and uses a Saida lift. -Mild Protein calorie malnutrition in a patient with a small bowel obstruction, ileostomy. PLAN: We'll continue IV fluids Lovenox for DVT prophylaxis, GI prophylaxis NG tube to low intermittent suction and flush 3 times daily which is being managed by surgery. Possible surgical intervention based on patient condition and if ileus does not resolve. Cardiology has her as a low to moderate surgical risk. Plan of care discussed with patient the bedside she is in agreement. ROTARY DRUM DYER statement: Patient was seen and examined by nurse practitioner Melania Clarke and all elements of the case discussed with attending Dr. Bentley
[2017-03-20 07:14] LABS: Glucose,Whole Blood 173 mg/dL (75-99)
[2017-03-20 08:03] LABS: Anion Gap 10 mmol/L; Blood Urea Nitrogen 6 mg/dL (7-17); Calcium 8.2 mg/dL (8.4-10.2); Carbon Dioxide 23 mmol/L (22-30); Chloride 105 mmol/L (98-107); Glucose 179 mg/dL (74-99); Magnesium 2.5 mg/dL (1.6-2.3); Non-African American GFR(MDRD) >60 (>60 ml/min/1.73 sqM); Potassium 4.3 mmol/L (3.5-5.1); Sodium 138 mmol/L (137-145)
[2017-03-20] MEDS: INSULIN LISPRO (humaLOG) 300 UNIT/3 ML VIAL SQ SCH ×4 (08:22→22:07)
[2017-03-20] MEDS: lamoTRIgine 100 MG TAB PO SCH (08:24)
[2017-03-20] MEDS: CITALOPRAM HYDROBROMIDE 20 MG TAB PO SCH (08:24)
[2017-03-20] MEDS: PREGABALIN 75 MG CAP PO SCH ×2 (08:27→22:07)
--- NOTE | 2017-03-20 09:17 | XR ---
EXAMINATION TYPE: XR abdomen 2V DATE OF EXAM: 03/20/2017 CLINICAL DATA: 61-year-old female follow-up small bowel obstruction, [facility] COMPARISON: 03/18/2017 FINDINGS: No evidence for free intraperitoneal air. NG tube is present. Cholecystectomy clips with additional s urgical clips in the left midabdomen and IVC filter. Dilated small bowel loops remain on the right side of the abdomen with air-fluid levels. Small bowel dilatation has improved on the left side of the abdomen. However, on the right side, a few loops wilfredo ure up to 6.7 cm versus 6.4 cm, previously. Additional surgical clips in the pelvis. IMPRESSION: Improving caliber to bowel loops on the left side of the abdomen. However, there is persistent modera te to severely dilated loops on the right side of the abdomen measuring up to 6.7 cm versus 6.4 cm, p reviously. Findings suggest continued small bowel obstruction possibly related to the parastomal libra ia.
[2017-03-20] MEDS ORDERED: METOPROLOL TARTRATE 25 MG TAB PO SCH (11:00)
[2017-03-20 11:28] LABS: Glucose,Whole Blood 161 mg/dL (75-99)
[2017-03-20] MEDS ORDERED: hydrALAZINE HCL 20 MG/ML 1 ML VIAL IVP STA (11:35)
[2017-03-20] MEDS: SODIUM CHLORIDE 0.9% 1,000 ML IV SCH ×2 (12:16→13:27)
[2017-03-20] MEDS: DEXTROSE 5%-0.45% NACL 1,000 ML IV SCH (14:44)
--- NOTE | 2017-03-20 15:17 | P.PN ---
Subjective 61-year-old female being seen on rounds this morning. incontinent urine currently ostomy bag has about 200 mL's of soft brownish colored stool been soft less tenderness. Nasal gastric tube in place document 250 mL's for the last 8 hours. is scheduled today for a small bowel x-ray did have a x-ray of the abdomen this morning shows an improvement in the caliber to the bowel loops on the left side of the abdomen there also is severely dilated loops of the right side of the abdomen findings suggest continued small bowel obstruction possibly related to the parastomal hernia. Patient this morning is oriented to self pleasant cooperative with reorienting and prompting can identify place and event Objective - Vital Signs Vital signs: Vital Signs Temp 97.8 F 03/20/17 15:07 Pulse 105 H 03/20/17 15:07 Resp 18 03/20/17 15:07 BP 183/94 03/20/17 15:07 Pulse Ox 97 03/20/17 15:07 Intake & Output 03/19/17 03/20/17 03/20/17 18:59 06:59 18:59 Intake Total 1040 1050 2000 Output Total 350 950 200 Balance 190 527 8286 Weight 89.811 kg Intake: IV 550 Dextrose 5%-0.45% NaCl 1, 550 000 ml @ 100 mls/hr IV . Q10H [facility]ANIE[facility] Rx#:[id number] Intake, IV Titration 037 008 1750 Amount Dextrose 5%-0.45% NaCl 1, 750 000 ml @ 100 mls/hr IV . Q10H DANIELE Rx#:[id number] Levofloxacin 250Mg-D5w 100 Pmx 250 mg In Dextrose/ Water 1 50ml.bag @ 50 mls /hr IVPB Q24H DANIELE Rx#: [id number] Magnesium Sulfate-D5w Pmx 400 1 gm In Dextrose/Water 1 100ml.bag @ 100 mls/hr IVPB Q1H DANIELE Rx#: [id number] Potassium Chloride 10 meq 200 Lidocaine 2% Inj 10 mg In Sodium Chloride 0.9% 100 ml @ 100 mls/hr IVPB Q1HR DANIELE Rx#:[id number] Sodium Chloride 0.9% 1, 2000 000 ml @ 999 mls/hr IV . Q1H1M DANIELE Rx#:[id number] Oral 90 Output: Gastric Drainage 350 50 Urine 600 Stool 300 200 Other: Voiding Method Incontinent Incontinent # Voids 1 1 1 - Exam Physical exam 61-year-old female resting in bed oriented to person with prompting can recall the place and event Lungs anterior essentially clear with adequate air movement. On room air sats are 93% Heart S1-S2 audible and regular monitor sinus denies chest pain no murmur remains tachycardic monitor sinus Abdomen ostomy right lower quadrant ostomy about 200 mL soft stool in ostomy bag incontinent urine states less abdominal pain soft less distention bowel tones present nasal gastric tube to suction functioning adequately Extremities left hemiparalysis from a prior CVA med boot on left foot left foot ulcer with dry eschar noted no redness to the left foot dressing at site no edema noted bilateral foot drop - Labs CBC & Chem 7: 03/19/17 20:58 03/20/17 07:03 Labs: Abnormal Lab Results - Last 24 Hours (Table) 03/19/17 03/19/17 03/19/17 Range/Units 16:19 20:45 20:58 Carbon Dioxide 20 L (22-30) mmol/L BUN 6 L (7-17) mg/dL Glucose 141 H (74-99) mg/dL POC Glucose (mg/dL) 126 H 143 H (75-99) mg/dL Calcium (8.4-10.2) mg/dL Magnesium 1.4 L (1.6-2.3) mg/dL 03/20/17 03/20/17 03/20/17 Range/Units 06:56 07:03 11:18 Carbon Dioxide (22-30) mmol/L BUN 6 L (7-17) mg/dL Glucose 179 H (74-99) mg/dL POC Glucose (mg/dL) 173 H 161 H (75-99) mg/dL Calcium 8.2 L (8.4-10.2) mg/dL Magnesium 2.5 H (1.6-2.3) mg/dL Microbiology - Last 24 Hours (Table) 03/18/17 11:45 Urine Culture - Final Urine,Catheterized Assessment and Plan Plan: Impression Present on admission burning up persistent nausea vomiting suspect due to a small bowel obstruction possibly related to parastomal hernia History of a sleeve gastrectomy in 2013 for weight loss Obesity BMI 32 History of chronic lymphoma Chronic protein calorie malnutrition Medically debilitated wheelchair bedbound suspect due to a prior CVA with limited mobility Left hemipareses secondary to a prior CVA History of large B-cell lymphoma A chronic nonhealing left foot ulcer Chronic urinary incontinence Bipolar disorder Type 2 diabetes Present on admission intractable nausea vomiting abdominal pain suspect due to an acute small bowel obstruction the patient with a ileostomy with a bowel obstruction and a large peristomal hernia X-ray on March 18 show persistent highly suggestive of a high-grade small bowel obstruction Severe electrolyte morality hypokalemia hypo-magnesium Sinus tachycardic suspect due to clinical dehydration Echocardiogram March 18 left ventricular systolic function normal with an EF between 60 and 65% Plan Continue IV fluids as ordered Continue the nasal gastric tube connected to low intermittent suction and flushed 3 times daily keep patent DVT and GI prophylaxis Pain control Labs in the morning The above impression and plan of care have been discussed and directed by signing physician. Caron Guerrero nurse practitioner acting as scribe for signing physician.
[2017-03-20] MEDS ORDERED: LACTATED RINGERS 1,000 ML IV SCH (16:22)
[2017-03-20] MEDS ORDERED: HYDROmorphone 1 MG/ML 1 ML SYRINGE IVP PRN (16:22)
[2017-03-20 17:05] LABS: Glucose,Whole Blood 147 mg/dL (75-99)
[2017-03-20] MEDS: METOPROLOL TARTRATE 25 MG TAB PO SCH ×2 (18:38→22:07)
[2017-03-20] MEDS ORDERED: SODIUM CHLORIDE 0.9% 1,000 ML IV ONE (20:06)
--- NOTE | 2017-03-20 20:09 | P.PN ---
Progress Note - Text Patient's is at bedside. She has moderate output of her ileostomy which has now been functioning over 24 hours ago. Contrast from small bowel follow-through in ostomy bag. She reports no abdominal pain. Abdominal distention is completely resolved. Peristomal hernia is present however chronic. I have discussed with the patient's family potential start trials of liquids including diet for which the patient and are agreeable. Alternatively, potential surgery in the afternoon was described however is now deferred as patient has clinically responded. NG tube was reconnected to suction without any outputs. NG tube has been discontinued with at bedside. In the interim, will correct nutritional deficiencies from sleeve gastrectomy. Potential surgery will be done as outpatient as the patient has clinically improved.
--- NOTE | 2017-03-20 20:24 | PN ---
Mrs. Balbuena has bowel obstruction. She still has an NG tube. She is going to have a small bowel followthrough. However, yesterday she had an episode of hypertension. This morning she is still hypertensive and also slightly tachycardic. I have advised beta efrem, but because of NG tube, it becomes difficult. Heart rate is about 96 beats per minute. She is resting comfortably without symptoms. Blood pressure is elevated at 180 systolic. I am recommending hydralazine 10 mg q.6 hours for blood pressure control and, when possible, after she can take oral medications, I will give her metoprolol tartrate 25 mg b.i.d. Vital signs are stable with elevated blood pressure, as noted above. S1, S2 heard normally. Lungs reveal decent air entry. Abdomen is soft. She has an NG tube at this time. We will continue to follow her as needed. BP control needs to be optimized, and we have more choices for medications once she is able to take oral medications. MICHAEL
[2017-03-20 20:45] LABS: Glucose,Whole Blood 158 mg/dL (75-99)
[2017-03-20] MEDS: HYDROmorphone 1 MG/ML 1 ML SYRINGE IV PRN (22:10)
[2017-03-20] MEDS: hydrALAZINE HCL 20 MG/ML 1 ML VIAL IVP PRN (22:10)
--- NOTE | 2017-03-20 22:14 | FL ---
EXAMINATION TYPE: FL small bowel follow through DATE OF EXAM: 03/20/2017 CLINICAL HISTORY: Bowel obstruction per order. TECHNIQUE: A single contrast small bowel follow through is performed utilizing barium through the n asogastric tube. 10 radiographs at various times were performed. No fluoroscopic imaging was perform ed. COMPARISON: CT abdomen and pelvis from 5 days ago. Abdominal x-ray from earlier today. FINDINGS: The small bowel study shows delayed transit to the ostomy which occurs approximately 10 ho urs . There is dilated small bowel most prominent distally involving mid to lower abdomen up to leve l of ostomy. Incidental note is made of IVC filter over right L2-L3 level. IMPRESSION: There is persistent severe partial distal small bowel obstruction likely related to edvin tomal hernia with no significant improvement since admission.
[2017-03-21] MEDS: LEVOFLOXACIN 250MG-D5W PMX 250 MG in DEXTROSE/WATER 1 50ML.BAG IVPB SCH (00:05)
[2017-03-21] MEDS: DEXTROSE 5%-0.45% NACL 1,000 ML IV SCH ×3 (00:06→23:24)
--- NOTE | 2017-03-21 00:45 | P.PN ---
<Melania Clarke Roselyn - Last Filed: 03/21/17 00:35> Progress Note - Text DATE OF SERVICE: 03/20/2017 PRESENTING COMPLAINT: Nausea vomiting abdominal pain INTERVAL HISTORY: 60-year-old patient with a very complex GI history which includes parastomal hernia repair, 3 or 4 repairs of the stoma with repositioning, sleeve gastrectomy. Presented with nausea vomiting and no output from ileostomy bag for 2 days, computed tomography scan suggests bowel obstruction. NG tube was placed, TPN and lipids were initiated. 03/17/2017: Patient lying in bed appears mildly anxious. Abdominal pain present. TPN infusing with lipids every other day. Remains nothing by mouth except for some ice chips and popsicles. 03/18/2017: Patient lying in bed appears comfortable today. Abdominal pain present however improved from yesterday small amount of output in ileostomy bag. Remains nothing by mouth except ice chips and popsicles. Possible surgical intervention on if bowel obstruction fails to resolve. 03/19/2017: Patient lying in bed appears comfortable. Continues to have abdominal pain. Ostomy in the right lower quadrant has about 50 mils of charlton colored liquid secretions. NG tube remains and should be flushed 3 times daily for patency. Patient will go to surgery on should this ileus not resolve. 03/20/2017: Patient lying in bed appears comfortable yet a little bit confused. Continues to have no abdominal pain. Ostomy in the right lower quadrant producing moderate amount of liquid brown stool. Small bowel follow-through completed. Surgery at this point will be put on hold since patient has clinically responded to treatment.NG tube removed. Diet advanced. REVIEW OF SYSTEMS: Done for constitutional ,cardiovascular, GI, pulmonary with relevant findings as above. CURRENT MEDICATIONS Celexa, Dilaudid, Lamictal, Ativan, Zofran, Lyrica. PHYSICAL EXAM VITAL SIGNS: Temperature 97.8, heart rate 105, respiratory rate 18, blood pressure 176/101, oxygen saturation 96% on room air GENERAL APPEARANCE: Lying in bed, appears comfortable. EYES: Pupils equal. Conjunctiva normal. NECK: JVD not raised. Mass not palpable. RESPIRATORY: Respiratory effort normal. Diminished breath sounds. CARDIOVASCULAR: First and second sounds normal. No edema. ABDOMEN: Soft. ileostomy bag in place about 50 ML's of brown liquid secretions , bowel sounds hypoactive Liver and spleen not palpable. PSYCHIATRY: Alert and oriented x3. Mood and affect normal NEUROLOGICAL: Power and sensation on left is 0 out of 5 INTEGUMENT: Face cheeks for had noted to have roseace rash to this area. INVESTIGATIONS: Sodium 138, potassium 4.3, chloride 105, BUN 6, creatinine 0.74, Accu-Cheks noted. ASSESSMENT: -Acute small bowel obstruction in a patient who has a electively with resultant ileostomy and bowel obstruction in a large peristomal hernia, improving -Diabetes mellitus type 2 on oral hypoglycemics. -Hypoglycemia secondary to oral hypoglycemics. -Gastroesophageal reflux disease. -Hiatal hernia. -Hyperlipidemia. -History of large B-cell lymphoma. -Left hemiparesis from prior stroke. -Chronic urinary incontinence. -Internal carotid artery occluded. -Bipolar disorder. -Medical debility the patient is wheelchair bound and uses a Saida lift. -Mild Protein calorie malnutrition in a patient with a small bowel obstruction, ileostomy. PLAN: Advance diet as patient can tolerate, continue antibiotic therapy, worked correct any nutritional deficiencies as a result of the sleeve gastrectomy. Plan of care discussed with the patient and at the bedside and they are in agreement. We will continue to follow closely PREFABRICATOR statement: Patient was seen and examined by nurse practitioner Melania Clarke and all elements of the case discussed with attending Dr. Bentley <Alexx Bentley - Last Filed: 03/24/17 13:40> Progress Note - Text Attending note. Date of service-03/20/2017 This patient was seen and examined by me . I reviewed the note of my nurse practitioner, Ms. Clarke. Discussed with her, additional findings as below. Admitted with bowel obstruction with a prior history of multiple abdominal surgeries. NG tube has been disconnected. Stool noted in the ileostomy bag On examination: Lungs-decreased breath sounds, cardiovascular first seconds are normal, abdomen soft-nontender with some stool in the ileostomy bag. Tired appearing Investigations: Small bowel tcleel-[id number] severe partial distal small bowel obstruction likely related to parastomal hernia Assessment and plan: Acute bowel obstruction-small bowel from parastomal hernia slow to respond. Follow with surgery. Continue with IV fluids
[2017-03-21 07:32] LABS: Glucose,Whole Blood 174 mg/dL (75-99)
[2017-03-21 07:51] LABS: Anion Gap 11 mmol/L; Blood Urea Nitrogen 4 mg/dL (7-17); Calcium 7.8 mg/dL (8.4-10.2); Carbon Dioxide 22 mmol/L (22-30); Chloride 103 mmol/L (98-107); Glucose 189 mg/dL (74-99); Magnesium 1.6 mg/dL (1.6-2.3); Non-African American GFR(MDRD) >60 (>60 ml/min/1.73 sqM); Phosphorous 2.4 mg/dL (2.5-4.5); Potassium 3.3 mmol/L (3.5-5.1); Sodium 136 mmol/L (137-145)
[2017-03-21] MEDS: hydrALAZINE HCL 20 MG/ML 1 ML VIAL IVP PRN ×3 (07:52→19:28)
--- NOTE | 2017-03-21 08:24 | P.PN ---
Subjective 61-year-old female being seen in rounds this morning is awake nasal gastric tube was removed the day before there is about 150 cc the ostomy bag liquid stool did note the patient's blood pressure is elevated this morning to is being given Apresoline 10 mg IV push now for the elevated blood pressure blood sugar this morning was 174 magnesium 2.5 yesterday patient has had a moderate amount of output from her ileostomy over the last 24 hours. The ostomy appears to be functioning. There is been contrast from the small bowel follow-through in the ostomy bag Objective - Vital Signs Vital signs: Vital Signs Temp 96.9 F L 03/21/17 07:00 Pulse 113 H 03/21/17 07:00 Resp 16 03/21/17 07:00 BP 212/99 03/21/17 07:00 Pulse Ox 96 03/21/17 07:00 Intake & Output 03/20/17 03/21/17 03/21/17 18:59 06:59 18:59 Intake Total 2000 1950 Output Total 550 1100 Balance 1450 850 Intake: IV 900 Dextrose 5%-0.45% NaCl 1, 900 000 ml @ 100 mls/hr IV . Q10H [facility] Rx#:[id number] Intake, IV Titration 2000 1050 Amount Levofloxacin 250Mg-D5w 50 Pmx 250 mg In Dextrose/ Water 1 50ml.bag @ 50 mls /hr IVPB Q24H [facility] Rx#: [id number] Sodium Chloride 0.9% 1, 1000 000 ml @ 999 mls/hr IV . Q1H1M [facility] Rx#:[id number] Sodium Chloride 0.9% 1, 2000 000 ml @ 999 mls/hr IV . Q1H1M [facility] Rx#:[id number] Output: Urine 500 Stool 550 600 Other: Voiding Method Incontinent # Voids 1 2 - Exam Physical exam 61-year-old female sitting up in bed diet initiated Lungs anterior diminished at the bases otherwise adequate air movement Heart S1-S2 audible regular Abdomen obese soft not distended ostomy bag about 200 liquid stool bowel tones present Extremities left side hemiparesis from a prior stroke. Med boots on the left foot. Bilateral foot drop chronic - Labs CBC & Chem 7: 03/19/17 20:58 03/21/17 07:21 Labs: Abnormal Lab Results - Last 24 Hours (Table) 03/20/17 03/20/1703/20/17 Range/Units 07:03 11:18 16:59 BUN 6 L (7-17) mg/dL Glucose 179 H (74-99) mg/dL POC Glucose (mg/dL) 161 H 147 H (75-99) mg/dL Calcium 8.2 L (8.4-10.2) mg/dL Magnesium 2.5 H (1.6-2.3) mg/dL 03/20/17 03/21/17 Range/Units 20:27 07:11 BUN (7-17) mg/dL Glucose (74-99) mg/dL POC Glucose (mg/dL) 158 H 174 H (75-99) mg/dL Calcium (8.4-10.2) mg/dL Magnesium (1.6-2.3) mg/dL Assessment and Plan Plan: Impression Present on admission burning up persistent nausea vomiting suspect due to a small bowel obstruction possibly related to parastomal hernia History of a sleeve gastrectomy in 2013 for weight loss Obesity BMI 32 History of chronic lymphoma Chronic protein calorie malnutrition Medically debilitated wheelchair bedbound suspect due to a prior CVA with limited mobility Left hemipareses secondary to a prior CVA History of large B-cell lymphoma A chronic nonhealing left foot ulcer Chronic urinary incontinence Bipolar disorder Type 2 diabetes Present on admission intractable nausea vomiting abdominal pain suspect due to an acute small bowel obstruction the patient with a ileostomy with a bowel obstruction and a large peristomal hernia X-ray on March 18 show persistent highly suggestive of a high-grade small bowel obstruction Severe electrolyte morality hypokalemia hypo-magnesium Sinus tachycardic suspect due to clinical dehydration Echocardiogram March 18 left ventricular systolic function normal with an EF between 60 and 65% Episode of hypertension urgency Mild protein calorie malnutrition Plan Continue IV fluids as ordered The surgery is on hold ostomy appears to be functioning Diet to be advanced DVT and GI prophylaxis Pain control Labs in the morning Nutritional deficiency from sleeve gastrectomy will be corrected The above impression and plan of care have been discussed and directed by signing physician. Caron Guerrero nurse practitioner acting as scribe for signing physician.
[2017-03-21] MEDS ORDERED: RX INFO: IV CONTRAST WAS GIVEN 1 EACH MISC MISCELLANE PRN (08:28)
[2017-03-21 09:13] LABS: Basophils % (A) 0 %; CH 28.9; CHCM 32.7; Eosinophils # (A) 0.2 k/uL (0-0.7); Eosinophils % (A) 3 %; HCT 41.4 % (34.0-46.0); HDW 2.85; HGB 13.8 gm/dL (11.4-16.0); Luc # (Auto) 0.12; Luc % (Auto) 2; Lymphocytes # (A) 0.8 k/uL (1.0-4.8); Lymphocytes % (A) 12 %; MCH 29.6 pg (25.0-35.0); MCHC 33.3 g/dL (31.0-37.0); MCV 89.1 fL (80.0-100.0); Mean Platelet Volume 6.5; Monocytes # (A) 0.4 k/uL (0-1.0); Monocytes % (A) 6 %; Neutrophils # (A) 5.5 k/uL (1.3-7.7); Neutrophils % (A) 78 %; RBC 4.65 m/uL (3.80-5.40); RDW 13.5 % (11.5-15.5); WBC (Perox) 7.55
--- NOTE | 2017-03-21 09:14 | CT ---
EXAMINATION TYPE: CT brain wo con DATE OF EXAM: 03/21/2017 HISTORY: CVA, possible seizure CT DLP: 975.7 mGycm. Automated Exposure Control for Dose Reduction was Utilized. TECHNIQUE: CT scan of the head is performed without contrast. COMPARISON: CT brain September 02, 2015. FINDINGS: There is no acute intracranial hemorrhage or midline shift identified. There is diffuse v entricular and sulcal prominence consistent with diffuse age-related cerebral atrophy. There is low- attenuation in the periventricular white matter consistent with chronic small vessel ischemic change. . Encephalomalacia right frontal parietal region MCA distribution is redemonstrated. Patchy soft tis isabelle density bilateral external auditory canals felt to reflect cerumen is again seen. The globes are intact and the visualized sinuses are clear. IMPRESSION: No acute intracranial hemorrhage or midline shift. There is mild to moderate diffuse ag e-related cerebral atrophy and chronic small vessel ischemic change redemonstrated as well as old rig ht MCA infarct all again seen. No significant change from prior. If clinical concern for acute stroke persists further investigation with MRI study may be warranted.
[2017-03-21 10:17] LABS: Creatine Kinase MB 1.4 ng/mL (0.0-2.4); Troponin I 0.017 ng/mL (0.000-0.034)
[2017-03-21 10:33] LABS: Iron 37 ug/dL (37-170)
[2017-03-21 10:43] LABS: % Iron Saturation 13.3 % (20-50); Total Iron Binding Capacity 279 ug/dL (265-497)
[2017-03-21 11:23] LABS: Vitamin B12 582 pg/mL (239-931)
[2017-03-21 11:32] LABS: Glucose,Whole Blood 194 mg/dL (75-99)
[2017-03-21] MEDS: INSULIN LISPRO (humaLOG) 300 UNIT/3 ML VIAL SQ SCH ×4 (12:27→21:24)
[2017-03-21] MEDS ORDERED: cloNIDine 0.1 MG/24HR PATCH 1 PATCH PATCH TRANSDERM SCH (14:30)
[2017-03-21] MEDS: CITALOPRAM HYDROBROMIDE 20 MG TAB PO SCH (14:54)
[2017-03-21] MEDS: lamoTRIgine 100 MG TAB PO SCH (14:55)
[2017-03-21] MEDS: PREGABALIN 75 MG CAP PO SCH ×2 (14:55→23:25)
[2017-03-21] MEDS: METOPROLOL TARTRATE 25 MG TAB PO SCH ×2 (14:55→21:23)
--- NOTE | 2017-03-21 15:06 | P.PN ---
Subjective This 61-year-old female who is being seen in consultation prior to surgical intervention to determine cardiac surgical risk. The patient is admitted with a bowel obstruction. At this time the plan from a surgical standpoint is to continue monitoring the patient. Her obstruction appears to be improving and she is passing gas through her ostomy. Surgery is on hold at this time. However patient continues to have elevated and uncontrolled blood pressures. She is still nothing by mouth per surgery. Blood pressure last night was 181/88, this morning to , this afternoon 177/85. She does have an order for hydralazine 20 mg IV push every 6 hours when necessary for systolic blood pressure greater than 160. However doesn't appear that this is been given overnight. Objective - Vital Signs Vital signs: Vital Signs Temp 99.5 F 03/21/17 13:57 Pulse 123 H 03/21/17 13:57 Resp 18 03/21/17 13:57 BP 177/85 03/21/17 13:57 Pulse Ox 92 L 03/21/17 13:57 Intake & Output 03/20/17 03/21/17 03/21/17 18:59 06:59 18:59 Intake Total 1999 1950 Output Total 550 1100 850 Balance 1450 850 -850 Weight 89.811 kg Intake: IV 900 Dextrose 5%-0.45% NaCl 1, 900 000 ml @ 100 mls/hr IV . Q10H [facility] Rx#:[id number] Intake, IV Titration 1999 1050 Amount Levofloxacin 250Mg-D5w 50 Pmx 250 mg In Dextrose/ Water 1 50ml.bag @ 50 mls /hr IVPB Q24H [facility] Rx#: [id number] Sodium Chloride 0.9% 1, 1000 000 ml @ 999 mls/hr IV . Q1H1M [facility] Rx#:[id number] Sodium Chloride 0.9% 1, 2000 000 ml @ 999 mls/hr IV . Q1H1M [facility] Rx#:[id number] Output: Urine 500 850 Straight 850 Stool 550 600 Other: Voiding Method Incontinent # Voids 1 2 - Exam GENERAL: No acute distress. NECK: Supple without JVD or thyromegaly. LUNGS: Breath sounds clear to auscultation bilaterally and equal. No wheezes, rales or rhonchi. HEART: Regular rate and rhythm without murmurs, rubs or gallops. S1 and S2 heard. ABDOMEN: Soft, nontender, positive bowel sounds. EXTREMITIES: No edema. No clubbing or cyanosis. Peripheral pulses intact and strong. - Labs CBC & Chem 7: 03/21/17 07:31 03/21/17 07:21 Labs: Abnormal Lab Results - Last 24 Hours (Table) 03/20/17 03/20/17 03/21/17 Range/Units 16:59 20:27 07:11 Lymphocytes # (1.0-4.8) k/uL Sodium (137-145) mmol/L Potassium (3.5-5.1) mmol/L BUN (7-17) mg/dL Glucose (74-99) mg/dL POC Glucose (mg/dL) 147 H 158 H 174 H (75-99) mg/dL Calcium (8.4-10.2) mg/dL Phosphorus (2.5-4.5) mg/dL % Saturation (20-50) % 03/21/17 03/21/17 03/21/17 Range/Units 07:21 07:31 11:21 Lymphocytes # 0.8 L (1.0-4.8) k/uL Sodium 136 L (137-145) mmol/L Potassium 3.3 L (3.5-5.1) mmol/L BUN 4 L (7-17) mg/dL Glucose 189 H (74-99) mg/dL POC Glucose (mg/dL) 194 H (75-99) mg/dL Calcium 7.8 L (8.4-10.2) mg/dL Phosphorus 2.4 L (2.5-4.5) mg/dL % Saturation 13.3 L (20-50) % Assessment and Plan Plan: ASSESSMENT 1. High-grade small bowel obstruction, will require surgical intervention with Dr. Card 2. Uncontrolled hypertension PLAN The patient should have her her vital signs checked and documented every 6 hours [id number]. Hydralazine is to be given for systolic blood pressure greater than 160. Once patient is tolerating oral intake her medication should be switched to oral to best optimize and control her blood pressure. Please contact us when this is appropriate for surgery. Nurse Practitioner note has been reviewed, I agree with a documented findings and plan of care. Patient was seen and examined.
[2017-03-21 16:16] LABS: Glucose,Whole Blood 196 mg/dL (75-99)
[2017-03-21] MEDS: POTASSIUM CHLORIDE 10 MEQ, LIDOCAINE 2% INJ 10 MG in SODIUM CHLORIDE 0.9% 100 ML IV SCH ×4 (16:52→23:00)
--- NOTE | 2017-03-21 19:41 | P.PN ---
Progress Note - Text Patient seen and evaluated this afternoon. This morning events including questionable seizure event versus recurrent stroke is noted. The patient had been scheduled for surgery today which was canceled last night as she had clinical improvement with her bowel obstruction. Her is at bedside. He confirms that her neurological status is almost near baseline. He had witnessed her eating a regular diet and she has tolerated her diet. The patient denies any new or increased abdominal pain. Her peristomal hernia is stable. I've discussed with him and her continuing soft diet. The patient may follow up with me as an outpatient in the office to address both her history of sleeve gastrectomy and peristomal hernia.
[2017-03-21 20:23] LABS: Glucose,Whole Blood 163 mg/dL (75-99)
[2017-03-21] MEDS ORDERED: Potassium Replacement Protocol 1 EACH MISC MISCELLANE PRN (21:17)
[2017-03-21] MEDS ORDERED: POTASSIUM CHLORIDE 10 MEQ in WATER FOR INJECTION 1 100ML.BAG IVPB SCH (21:30)
[2017-03-22] MEDS: LEVOFLOXACIN 250MG-D5W PMX 250 MG in DEXTROSE/WATER 1 50ML.BAG IVPB SCH (00:09)
[2017-03-22] MEDS ORDERED: Potassium Replacement Protocol 1 EACH MISC MISCELLANE PRN (02:08)
[2017-03-22] MEDS: POTASSIUM CHLORIDE 10 MEQ, LIDOCAINE 2% INJ 10 MG in SODIUM CHLORIDE 0.9% 100 ML IV SCH ×2 (03:23→04:27)
[2017-03-22] MEDS: DEXTROSE 5%-0.45% NACL 1,000 ML IV SCH ×2 (06:09→14:51)
--- NOTE | 2017-03-22 06:33 | EEG ---
DATE OF SERVICE: 03/21/2017 REASON FOR TESTING: Altered mental status. DESCRIPTION OF THE PROCEDURE: This EEG was performed using a 21 channel digital electroencephalograph, following international 10-20 system. DESCRIPTION OF THE RECORDING: From the beginning of the tracing, and with the patient's eyes closed, the background rhythm appears to be consisting of 6 to 7 Hz theta frequency in the posterior occipital leads. Frequent muscle artifacts are seen on the right side. Movement artifacts and muscle artifacts are seen throughout the tracing. Photic stimulation was performed with no driving response seen. No pathological waves were elicited. Hyperventilation was not performed. The patient remains awake throughout the tracing. No obvious epileptiform discharges were seen. Her EKG lead showed a tachycardiac rate with a normal rhythm. INTERPRETATION: This awake EEG is limited due to the frequency of movement and muscle artifacts. Asymmetry is noticed with increased artifacts on the right compared to the left. No obvious epileptiform discharges were seen. The absence of epileptiform discharges does not rule out the diagnosis of epilepsy, therefore clinical correlation is recommended. There was also evidence of mild encephalopathy. MTDD
[2017-03-22 07:20] LABS: Glucose,Whole Blood 163 mg/dL (75-99)
[2017-03-22] MEDS: INSULIN LISPRO (humaLOG) 300 UNIT/3 ML VIAL SQ SCH ×4 (07:21→22:00)
[2017-03-22] MEDS: METOPROLOL TARTRATE 25 MG TAB PO SCH ×2 (07:22→20:14)
[2017-03-22] MEDS: lamoTRIgine 100 MG TAB PO SCH (07:24)
[2017-03-22] MEDS: CITALOPRAM HYDROBROMIDE 20 MG TAB PO SCH (07:24)
[2017-03-22] MEDS: PREGABALIN 75 MG CAP PO SCH ×2 (07:25→20:14)
--- NOTE | 2017-03-22 07:49 | PN ---
DATE OF SERVICE: 03/21/2017 PRESENTING COMPLAINT: Abdominal pain. INTERVAL HISTORY: This patient has a complex surgical history including parastomal hernia repair a few times, sleeve gastrectomy, reposition surgery, presented with bowel obstruction. NG tube had been placed. TPN and lipids are in place. Patients bowels had been putting out some stool, but patient has now become delirious and confused. is at the bedside, not speaking much. She is not sure why she is in the hospital. Review of systems attempted. Patient not speaking much. Current medications are reviewed and include IV Levaquin. On examination, temperature 96.9, pulse 101.3, respirations 16, blood pressure 212/199, pulse ox 96% on room air. GENERAL APPEARANCE: Lying in bed awake. EYES: Pupils equal, conjunctivae normal. NECK: JVD not raised. Mass not palpable. RESPIRATORY: Effort normal. LUNGS: Decreased breath sounds. CARDIOVASCULAR: First and second sounds are normal. No edema. ABDOMEN: Soft, ileostomy bag in place with some stool present. Decreased tenderness. NEUROLOGICAL: Power on the left side is 0/5. PSYCHIATRIC: Patient is not sure she is in the hospital. She is not sure why she is here. Not speaking much today. INVESTIGATIONS: White count 7, hemoglobin 13.8, platelets 287, potassium 3.3, BUN 4, creatinine 0.67. ASSESSMENT: 1. Acute change in mental status likely acute metabolic encephalopathy from patient being acutely ill. 2. Acute small bowel obstruction. The patient had electively with resultant ileostomy and bowel obstruction with large peristomal hernia. 3. Diabetes mellitus type 2, oral hypoglycemic. 4. Hypoglycemia secondary to oral hypoglycemia. 5. Gastroesophageal reflux disease. 6. Hiatal hernia. 7. Hyperlipidemia. 8. History of large B-cell lymphoma. 9. Left hemiparesis from prior stroke. 10. Chronic urinary incontinence. 11. Internal carotid artery occluded. 12. Bipolar disorder. 13. Medical debility with patient wheelchair bound and uses a Saida lift. 14. Essential hypertension, uncontrolled. PLAN: Surgery consulted Neurology who ordered an EEG. For better blood pressure control will add scopolamine patch. Care was discussed with the at the bedside. Patient did have a CT scan of the brain earlier today that did not show any acute; acute changes are felt to be metabolic encephalopathy as stated above. MTDD
--- NOTE | 2017-03-22 08:19 | P.PN ---
Subjective 61-year-old female being seen this morning on rounds. Is more awake and alert sitting up in bed ostomy moderate amount liquid stool in the ostomy bag abdomen soft nontender with bowel tones present ostomy functioning currently taking a diet with assistance blood pressure this morning 164/90 with a heart rate in the 90s potassium this morning 3.7 is denying any abdominal pain there's been no reports of nausea vomiting and currently is tolerating a diet Objective - Vital Signs Vital signs: Vital Signs Temp 97.9 F 03/22/17 07:16 Pulse 98 03/22/17 07:16 Resp 12 03/22/17 07:16 BP 164/90 03/22/17 07:16 Pulse Ox 94 L 03/22/17 07:16 Intake & Output 03/21/17 03/22/17 03/22/17 18:59 06:59 18:59 Intake Total 860 800 Output Total 1400 1250 Balance -540 -450 Weight 89.811 kg Intake: IV 800 250 Dextrose 5%-0.45% NaCl 1, 800 250 000 ml @ 100 mls/hr IV . Q10H [facility] Rx#:[id number] Intake, IV Titration 300 Amount Potassium Chloride 10 meq 100 Lidocaine 2% Inj 10 mg In Sodium Chloride 0.9% 100 ml @ 100 mls/hr IV Q1HR [facility] Rx#:[id number] Potassium Chloride 10 meq 100 Lidocaine 2% Inj 10 mg In Sodium Chloride 0.9% 100 ml @ 100 mls/hr IV Q1HR [facility] Rx#:[id number] Potassium Chloride 10 meq 100 Lidocaine 2% Inj 10 mg In Sodium Chloride 0.9% 100 ml @ 100 mls/hr IV Q1HR [facility] Rx#:[id number] Oral 60 250 Output: Urine 1400 850 Straight 850 Stool 400 Other: Voiding Method Incontinent Incontinent Indwelling Catheter Indwelling Catheter - Exam Physical exam 60-year-old female sitting up in bed alert awake appears in no acute distress Lungs adequate air movement bilaterally on room air sats greater than 95% Heart S1-S2 audible regular no murmur noted Abdomen soft and not distended ostomy functioning with a moderate amount of stool brown noted in ostomy bag indwelling Dean catheter in place bowel tones present no nausea no vomiting Extremities left side weakness paralysis from a prior stroke. Med boots on the left foot. Chronic bilateral foot drop no edema noted - Labs CBC & Chem 7: 03/21/17 07:31 03/22/17 06:48 Labs: Abnormal Lab Results - Last 24 Hours (Table) 03/21/17 03/21/17 03/21/17 Range/Units 07:21 07:31 11:21 Lymphocytes # 0.8 L (1.0-4.8) k/uL Potassium (3.5-5.1) mmol/L POC Glucose (mg/dL) 194 H (75-99) mg/dL % Saturation 13.3 L (20-50) % 03/21/17 03/21/17 03/21/17 Range/Units 16:11 20:21 20:31 Lymphocytes # (1.0-4.8) k/uL Potassium 3.3 L (3.5-5.1) mmol/L POC Glucose (mg/dL) 196 H 163 H (75-99) mg/dL % Saturation (20-50) % 03/22/17 03/22/17 Range/Units 01:00 07:18 Lymphocytes # (1.0-4.8) k/uL Potassium 3.4 L (3.5-5.1) mmol/L POC Glucose (mg/dL) 163 H (75-99) mg/dL % Saturation (20-50) % Assessment and Plan Plan: Impression Present on admission burning up persistent nausea vomiting suspect due to a small bowel obstruction possibly related to parastomal hernia History of a sleeve gastrectomy in 2013 for weight loss Obesity BMI 32 History of chronic lymphoma Chronic protein calorie malnutrition Medically debilitated wheelchair bedbound suspect due to a prior CVA with limited mobility Left hemipareses secondary to a prior CVA History of large B-cell lymphoma A chronic nonhealing left foot ulcer Chronic urinary incontinence Bipolar disorder Type 2 diabetes Present on admission intractable nausea vomiting abdominal pain suspect due to an acute small bowel obstruction the patient with a ileostomy with a bowel obstruction and a large peristomal hernia X-ray on March 18 show persistent highly suggestive of a high-grade small bowel obstruction Severe electrolyte morality hypokalemia hypo-magnesium Sinus tachycardic suspect due to clinical dehydration Echocardiogram March 18 left ventricular systolic function normal with an EF between 60 and 65% Episode of hypertension urgency Mild protein calorie malnutrition Plan No further surgical recommendations at this time we'll sign off and reevaluate in the outpatient setting in 1 week to discuss further surgical treatment and address her history of sleeve gastrectomy and peristomal hernia ostomy appears to be functioning no surgical intervention Diet to be advanced DVT and GI prophylaxis Home meds as appropriate The above impression and plan of care have been discussed and directed by signing physician. Caron Guerrero nurse practitioner acting as scribe for signing physician.
[2017-03-22] MEDS ORDERED: POTASSIUM CHLORIDE ER 20 MEQ TAB.ER PO STA (08:20)
[2017-03-22] MEDS: HYDROmorphone 1 MG/ML 1 ML SYRINGE IV PRN ×3 (09:23→20:14)
--- NOTE | 2017-03-22 09:33 | PN ---
DATE OF SERVICE: 03/19/17 PRESENTING COMPLAINT: Bowel obstruction. INTERVAL HISTORY: This is a patient with multiple bowel surgeries presented with bowel obstruction. NG tube remains in place. Tired. Abdominal pain is still present. Some stool out of the colostomy bag. Lying in bed. Review of systems done for constitutional, cardiovascular, GI, pulmonary. Current medications are reviewed that include IV Levaquin. On examination, temperature 97.8, pulse 106. Respirations 16. Blood pressure 144/85. Pulse ox 94% on room air. General appearance lying in bed, tired appearing. Eyes: Pupils equal. Neck: NG tube in place. JVD not able to assess. Mass not palpable. Respiratory effort normal. Lungs decreased breath sounds. Cardiovascular: First and second sounds normal. Abdomen soft , upper tenderness. No guarding. Colostomy bag ( ) stool. Bowel sounds sluggish. PSYCH: Awake, answering questions. NEUROLOGICAL: Power on the left side is 0.5. Dermatological: Rosacea on the face. Investigations: Potassium 3. ASSESSMENT: 1. Acute small bowel obstruction in a patient who has ileostomy and a large peristomal hernia slow to respond. 2. Severe hypokalemia. 3. Diabetes mellitus, on oral hypoglycemic. 4. Hypoglycemic due to oral hypoglycemia. 5. Gastroesophageal reflux disease. 6. Hiatal hernia. 7. Hyperlipidemia. 8. History of large B-cell lymphoma. 9. Left hemiparesis from a prior stroke. 10. Chronic urinary incontinence. 11. Internal carotid artery occluded. 12. ( ) disorder. 13. Medical debility. The patient at baseline is wheelchair and uses a Saida lift. 14. Mild protein calorie malnutrition from decreased oral intake. PLAN: Continue current medication and treatment plan. If NG tube comes out, we could start the patient oral blood pressure medicines. Otherwise, look for further options. Care was discussed with the at the bedside. Prognosis guarded. MTDD
--- NOTE | 2017-03-22 11:15 | CONS ---
DATE OF CONSULTATION: 03/21/17 CHIEF COMPLAINT: Altered mental status. HISTORY OF PRESENT ILLNESS: The patient is a 60-year-old female who is being evaluated by the neurology service per the request of Dr. Bentley for altered mental status. The patient was admitted to the [facility] on 03/15/17 with abdominal pain. She was diagnosed with small bowel obstruction and she was scheduled for surgery. While waiting for cardiac clearance the bowel obstruction resolved on its own. Yesterday in the pig farmer hours, she started having gradual decline in her mental status. She became quite combative in the morning and was less responsive and a stroke code was called. A STAT CT scan of the brain was done which showed no acute intracranial abnormalities. There was evidence of an old right middle cerebral artery stroke along with generalized atrophy and small vessel ischemic changes. The patient does have history of an old stroke with complete left hemiplegia. According to the nursing staff, the patients baseline is that she is talkative and oriented. At the time of my evaluation, the patient is not conversing and follows only simple commands. A STAT EEG was done and I did review the study but it was very limited due to the frequency of movement and muscle artifacts. Her cardiac enzymes, TSH, vitamin B12 level and CBC were normal. Her comprehensive metabolic profile showed mild Hyponatremia at 136 and hypokalemia at 3.3. Her calcium was low at 7.8 and phosphorus was low at 2.4. According to the nursing staff, the patient did have some jerking in her right upper extremity lasting a few seconds. There is no previous history of seizures. PAST MEDICAL HISTORY: Stroke with residual left hemiplegia, recent small bowel obstruction, cancer, diabetes, deep venous thrombosis, gastroesophageal reflux disease, dyslipidemia, hypertension, history of pulmonary embolism, history of B -cell lymphoma. History of right internal carotid artery occlusion, osteoporosis. History of cholecystectomy, history of bowel surgery, bipolar disorder, depression, anxiety disorder. SOCIAL HISTORY: The patient is a former smoker. There is no history of any alcohol or drug use. FAMILY HISTORY: Positive for heart disease and renal disease. Home medications: Reviewed in the chart. ALLERGIES: TETANUS, TOXOID VACCINE, ( ) CORTICOIDS, PREDNISONE. Review of systems unable to obtain as the patient is nonverbal. PHYSICAL EXAMINATION: Vital signs show a temperature of 99.5. Pulse 123. Respiratory rate 18. Blood pressure 177/85. GENERAL APPEARANCE: The patient is an obese female who appears to be in no acute distress. HEENT: Normocephalic, atraumatic. Left facial droop is seen. The patient appears to have left side neglect. Neck is supple with no masses felt. Cardiovascular: Tachycardic rate with normal rhythm. Abdomen nontender, nondistended. Extremities show edema with no clubbing seen. Neurological: The patient is awake though does not answer any questions. She follows simple commands. She is able to move her right upper extremity with strength appearing to be at 4 out of 5. She has left side paralysis. Cranial nerve testing shows evidence of a left facial droop and left side neglect with left gaze palsy. No tremors or seizure like activity is seen. IMPRESSION: 1. Altered mental status. 2. History of ischemic stroke. 3. Left hemiplegia secondary to old ischemic stroke. 4. Electrolytes imbalance. RECOMMENDATIONS: The patient did have a gradual decline in her mental status approximately 24 hours ago. Although she is less combative now, she is not at her baseline and continues to be nonverbal. Her initial CT scan of the brain showed no acute findings. Due to the initial EEG being very limited because of movement artifacts, I will attempt to repeat the EEG in the morning as the patient is less combative at this time. Although she does have a risk factor for seizures given the extent of her old stroke,unless she has another episode that is remotely concerning for seizures, I will not start any anti-epileptic medications at this time. If her repeat EEGs show epileptiform discharges, I will consider staring her on Vimpat or Keppra. Continue neuro checks every four hours. Continue the rest of your current workup and management. I will continue to follow with you. Further recommendations to follow. Thank you for allowing me to participate in the care of your patient. If you have any questions, please feel free to contact me. MICHAEL
[2017-03-22 11:44] LABS: Glucose,Whole Blood 167 mg/dL (75-99)
[2017-03-22] MEDS: amLODIPine 5 MG TAB PO SCH (14:22)
[2017-03-22] MEDS: ONDANSETRON 4 MG/2 ML VIAL IVP PRN (14:28)
[2017-03-22 16:53] LABS: Glucose,Whole Blood 162 mg/dL (75-99)
[2017-03-22 17:18] LABS: Vitamin D, 1, 25-Dihydroxy 103 pg/mL (20 - 79)
--- NOTE | 2017-03-22 18:10 | P.PN ---
Subjective Principal diagnosis: Patient is a pleasant 60-year-old female who is being followed by the neurology service for altered mental status. Patient is at [facility] with complaints of abdominal pain. Patient was scheduled for surgery for small bowel obstruction, but awaiting cardiac clearance bowel obstruction resolved on its own. Patient had episode of altered mental status and became quite combative. Stroke code was called. Stat computed tomography scan of the brain was done which showed no acute intracranial abnormalities. There was evidence of old right middle cerebral artery stroke along with generalized atrophy and small vessel ischemic changes. 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 Patient is now back to baseline and is alert and conversant. Patient does not recall episode of combativeness yesterday. A stat EEG was done at that time but was limited due to movement. Patient had repeat EEG and results are pending. At the time of my evaluation, patient is resting comfortably in bed and appears to be in no acute distress. Objective - Vital Signs Vital signs: Vital Signs Temp 98.3 F 03/22/17 14:24 Pulse 77 03/22/17 15:46 Resp 12 03/22/17 14:24 BP 136/71 03/22/17 14:24 Pulse Ox 96 03/22/17 14:24 Intake & Output 03/21/17 03/22/17 03/22/17 18:59 06:59 18:59 Intake Total 860 800 Output Total 1400 1250 1050 Balance -540 -450 -1050 Weight 89.811 kg Intake: IV 800 250 Dextrose 5%-0.45% NaCl 1, 800 250 000 ml @ 100 mls/hr IV . Q10H [facility] Rx#:[id number] Intake, IV Titration 300 Amount Potassium Chloride 10 meq 100 Lidocaine 2% Inj 10 mg In Sodium Chloride 0.9% 100 ml @ 100 mls/hr IV Q1HR [facility] Rx#:[id number] Potassium Chloride 10 meq 100 Lidocaine 2% Inj 10 mg In Sodium Chloride 0.9% 100 ml @ 100 mls/hr IV Q1HR [facility] Rx#:[id number] Potassium Chloride 10 meq 100 Lidocaine 2% Inj 10 mg In Sodium Chloride 0.9% 100 ml @ 100 mls/hr IV Q1HR [facility] Rx#:[id number] Oral 60 250 Output: Urine 1400 850 350 Straight 850 350 Stool 400 700 Other: Voiding Method Incontinent Incontinent Bedpan Indwelling Catheter Indwelling Catheter Incontinent # Voids 1 - Exam PHYSICAL EXAM: GENERAL APPEARANCE: Patient is a well-developed, female who appears to be in no acute distress. HEENT: Normocephalic, atraumatic, no facial asymmetry is seen. Neck is supple with no masses felt. CARDIOVASCULAR: Regular rate and rhythm. ABDOMEN: Nontender, nondistended. EXTREMITIES: Show no edema or clubbing. NEUROLOGICAL EXAM: Patient is awake, alert, and oriented 3. Speech and language are normal. Patient follows commands. Patient has chronic left-sided paralysis. Right upper extremity strength is 4/5 right lower extremity strength is 5 minus/5. No tremors or seizure-like activity is seen. Cranial nerve testing shows mild left facial droop. - Labs CBC & Chem 7: 03/21/17 07:31 03/22/17 06:48 Labs: Abnormal Lab Results - Last 24 Hours (Table) 03/21/17 03/21/17 03/21/17 Range/Units 07:21 20:21 20:31 Potassium 3.3 L (3.5-5.1) mmol/L POC Glucose (mg/dL) 163 H (75-99) mg/dL Vit D 1,25-Dihydroxy 103 H (20 - 79) pg/mL 03/22/17 03/22/17 03/22/17 Range/Units 01:00 07:18 11:43 Potassium 3.4 L (3.5-5.1) mmol/L POC Glucose (mg/dL) 163 H 167 H (75-99) mg/dL Vit D 1,25-Dihydroxy (20 - 79) pg/mL 03/22/17 Range/Units 16:51 Potassium (3.5-5.1) mmol/L POC Glucose (mg/dL) 162 H (75-99) mg/dL Vit D 1,25-Dihydroxy (20 - 79) pg/mL Assessment and Plan Plan: Impression: 1. Altered mental status, resolved 2. History of ischemic stroke 3. 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 Electrolyte imbalance Recommendations: Patient did have altered mental status which has since resolved. Patient and feels she is back to baseline. Patient is alert and conversant. Due to the initial EEG being very limited because of movement, and EEG was repeated this morning and results are pending. No seizure activity has been reported by patient or staff. No antiepileptic medication is needed at this time. If any further seizure activity I will consider an antiepileptic medication. Continue neuro checks. Continue medical management. I will continue to follow with you. Further recommendations to follow. I performed an examination of the patient and discussed the management with the ANIMAL SCIENTIST. I have reviewed the ANIMAL SCIENTIST notes and agree with the findings and plan of care.
[2017-03-22 20:24] LABS: Glucose,Whole Blood 182 mg/dL (75-99)
--- NOTE | 2017-03-22 20:24 | P.PN ---
Progress Note - Text Patient seen and evaluated this evening. She is tolerating diet. Her mental status changes had a moderately improved. She reports being transferred to rehab once discharge. General surgical follow-up as needed. Patient will follow-up in the office.
[2017-03-23] MEDS: HYDROmorphone 1 MG/ML 1 ML SYRINGE IV PRN ×5 (02:30→21:22)
[2017-03-23 07:12] LABS: Glucose,Whole Blood 109 mg/dL (75-99)
[2017-03-23] MEDS: INSULIN LISPRO (humaLOG) 300 UNIT/3 ML VIAL SQ SCH ×4 (07:59→21:25)
[2017-03-23] MEDS: ONDANSETRON 4 MG/2 ML VIAL IVP PRN ×2 (09:10→16:36)
[2017-03-23] MEDS: lamoTRIgine 100 MG TAB PO SCH (10:41)
[2017-03-23] MEDS: amLODIPine 5 MG TAB PO SCH (10:42)
[2017-03-23] MEDS: METOPROLOL TARTRATE 25 MG TAB PO SCH ×2 (10:42→21:22)
[2017-03-23] MEDS: CITALOPRAM HYDROBROMIDE 20 MG TAB PO SCH (10:42)
[2017-03-23] MEDS: PREGABALIN 75 MG CAP PO SCH ×2 (10:45→21:22)
[2017-03-23 11:56] LABS: Glucose,Whole Blood 172 mg/dL (75-99)
--- NOTE | 2017-03-23 12:51 | P.PN ---
Subjective Principal diagnosis: Patient is a pleasant 60-year-old female who is being followed by the neurology service for altered mental status. Patient is at [facility] with complaints of abdominal pain. Patient was scheduled for surgery for small bowel obstruction, but awaiting cardiac clearance bowel obstruction resolved on its own. Patient had episode of altered mental status and became quite combative. Stroke code was called. Stat computed tomography scan of the brain was done which showed no acute intracranial abnormalities. There was evidence of old right middle cerebral artery stroke along with generalized atrophy and small vessel ischemic changes. 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 Patient is now back to baseline and is alert and conversant. Patient does not recall episode of combativeness yesterday. A stat EEG was done at that time but was limited due to movement. Patient had repeat EEG and results are pending. At the time of my evaluation, patient is resting comfortably in bed and appears to be in no acute distress. 03/23/2017 Patient is a pleasant 60-year-old female who is being followed by the neurology service for altered mental status. Patient mentation is back to baseline at this time. Patient has had no further episodes reported of altered mental status. No seizure-like activity has been reported. At the time of my evaluation, patient is sitting up in the chair at the bedside and appears to be in no acute distress. Objective - Vital Signs Vital signs: Vital Signs Temp 98.2 F 03/23/17 07:20 Pulse 95 03/23/17 10:48 Resp 16 03/23/17 07:20 BP 151/88 03/23/17 10:48 Pulse Ox 93 L 03/23/17 07:20 Intake & Output 03/22/17 03/23/17 03/23/17 18:59 06:59 18:59 Intake Total 770 480 Output Total 1050 150 200 Balance -1050 620 280 Intake: IV 180 Dextrose 5%-0.45% NaCl 1, 180 000 ml @ 100 mls/hr IV . Q10H [facility] Rx#:[id number] Oral 590 480 Output: Urine 350 Straight 350 Stool 700 150 200 Other: Voiding Method Bedpan Bedpan Bedpan Incontinent Incontinent Incontinent # Voids 1 3 1 # Bowel Movements 150 - Exam PHYSICAL EXAM: GENERAL APPEARANCE: Patient is a well-developed, female who appears to be in no acute distress. HEENT: Normocephalic, atraumatic, no facial asymmetry is seen. Neck is supple with no masses felt. CARDIOVASCULAR: Regular rate and rhythm. ABDOMEN: Nontender, nondistended. EXTREMITIES: Show no edema or clubbing. NEUROLOGICAL EXAM: Patient is awake, alert, and oriented 3. Speech and language are normal. Patient follows commands. Patient has chronic left-sided paralysis. Right upper extremity strength is 4/5 right lower extremity strength is 5 minus/5. No tremors or seizure-like activity is seen. Cranial nerve testing shows mild left facial droop. - Labs CBC & Chem 7: 03/21/17 07:31 03/22/17 06:48 Labs: Abnormal Lab Results - Last 24 Hours (Table) 03/21/17 03/22/17 03/22/17 Range/Units 07:21 16:51 20:23 POC Glucose (mg/dL) 162 H 182 H (75-99) mg/dL Vit D 1,25-Dihydroxy 103 H (20 - 79) pg/mL 03/23/17 03/23/17 Range/Units 07:08 11:39 POC Glucose (mg/dL) 109 H 172 H (75-99) mg/dL Vit D 1,25-Dihydroxy (20 - 79) pg/mL Assessment and Plan Plan: Impression: 1. Altered mental status, resolved 2. History of ischemic stroke 3. 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 Electrolyte imbalance Recommendations: Patient did have altered mental status which has since resolved. Patient and feels she is back to baseline. Patient is alert and conversant. Due to the initial EEG being very limited because of movement, an EEG was repeated and results are pending. I am unable to log on to the ware server to retrieve the EEG report at this time. No seizure activity has been reported by patient or staff. No antiepileptic medication is needed at this time. If any further seizure like activity, I will consider an antiepileptic medication. Continue neuro checks. Continue medical management. Barring any complications on the EEG patient is cleared from a neurological standpoint for discharge. I will continue to follow with you on an as-needed basis. Feel free to call with any questions or concerns. I performed an examination of the patient and discussed the management with the PAINTER SKI EDGE. I have reviewed the PAINTER SKI EDGE notes and agree with the findings and plan of care.
[2017-03-23] MEDS: DEXTROSE 5%-0.45% NACL 1,000 ML IV SCH ×2 (13:11→17:32)
--- NOTE | 2017-03-23 15:30 | P.PN ---
Progress Note - Text This is a pleasant 61-year-old female patient who presented to the hospital with abdominal discomfort and initially diagnosed with small bowel obstruction. The patient was managed medically and she did not need surgery. We get involved in the care of the patient because her pressure was out of control. The patient's blood pressure has been under well controlled on the current medical treatment. She is on metoprolol. From a cardiovascular standpoint overview we will continue the current medical treatment and follow-up with the patient on when necessary case.
[2017-03-23] MEDS: OXYBUTYNIN XL 5 MG TAB.ER.24 PO SCH (16:17)
[2017-03-23 16:45] LABS: Glucose,Whole Blood 152 mg/dL (75-99)
[2017-03-23 21:23] LABS: Glucose,Whole Blood 158 mg/dL (75-99)
[2017-03-23] MEDS: HYDROcodone/APAP 5-325MG 1 EACH TAB PO PRN (21:36)
[2017-03-24] MEDS: ONDANSETRON 4 MG/2 ML VIAL IVP PRN ×3 (00:01→17:30)
[2017-03-24] MEDS: HYDROmorphone 1 MG/ML 1 ML SYRINGE IV PRN (00:01)
[2017-03-24] MEDS: HYDROcodone/APAP 5-325MG 1 EACH TAB PO PRN ×2 (04:55→20:38)
[2017-03-24 07:08] LABS: Anion Gap 7 mmol/L; Blood Urea Nitrogen 7 mg/dL (7-17); Carbon Dioxide 26 mmol/L (22-30); Chloride 106 mmol/L (98-107); Glucose 112 mg/dL (74-99); Non-African American GFR(MDRD) >60 (>60 ml/min/1.73 sqM); Potassium 4.1 mmol/L (3.5-5.1); Sodium 139 mmol/L (137-145)
[2017-03-24 07:14] LABS: Glucose,Whole Blood 103 mg/dL (75-99)
--- NOTE | 2017-03-24 07:49 | PN ---
DATE OF SERVICE: 03/21/17 CORRECTION/ADDENDUM My progress note dictated on 03/21/17 at 1600, date transcribed on 03/22/17 0925. The correct date of service is 03/21/17 MICHAEL
--- NOTE | 2017-03-24 07:57 | PN ---
DATE OF SERVICE: 03/22/2017 PRESENTING COMPLAINT: Acute confusion. INTERVAL HISTORY: This is a patient with multiple bowel surgeries. Presented with bowel obstruction, seen by me yesterday on 03/22/17. NG tube had been in place. Doing much better. [place] to be acute delirium, metabolic encephalopathy which is improved. The patient actually tolerating some clear liquids. Abdominal pain is much improved. Actually smiling and having a conversation. Review of systems: Done for constitutional, cardiovascular, GI, pulmonary, relevant findings as above. Current medications are reviewed. On examination, temperature 97.9, pulse 98, respiratory rate 12. Blood pressure 164/90. Pulse ox 94% on room air. General appearance propped up in bed, tired appearing but awake. Talking. Awake. Eyes: Pupils equal. Conjunctivae normal. Neck: JVD not raised. Mass not palpable. Respiratory effort normal. Lungs are fair entry. Cardiovascular: First and second sounds normal. No edema. Abdomen decreased ( ) Bowel sounds present. Stool in the ileostomy bag. Psychiatry: Awake, answering questions appropriately. PSYCHOLOGICAL: Awake, answering questions appropriately. Investigations: Accu-Cheks noted. ASSESSMENT: 1. Acute small bowel obstruction in a patient with ileostomy and large peristomal hernia with some clinical improvement. 2. Severe hypokalemia, improved. 3. Diabetes mellitus Type 2 on oral hypoglycemics. 4. Hypoglycemia due to oral hypoglycemic, improved. 5. Gastroesophageal reflux disease. 6. Hiatal hernia. 7. Hyperlipidemia. 8. History of large B-cell lymphoma. 9. Left hemiparesis from prior stroke. 10. Chronic urinary incontinence. 11. Internal carotid artery occluded. 12. Medical debility. The patient is baseline wheelchair bound with a [place] lift. 13. Mild protein calorie malnutrition with decreased oral intake. 14. Acute metabolic encephalopathy, multifactorial with clinical improvement. PLAN: Care was discussed with the patient and her at the bedside. The patient looking better. Neurological workup was being done by Dr. Burks from neurology but all appears to be metabolic encephalopathy. MTDD
[2017-03-24] MEDS: INSULIN LISPRO (humaLOG) 300 UNIT/3 ML VIAL SQ SCH ×4 (08:05→20:39)
[2017-03-24] MEDS: lamoTRIgine 100 MG TAB PO SCH (09:14)
[2017-03-24] MEDS: METOPROLOL TARTRATE 25 MG TAB PO SCH ×2 (09:14→20:38)
[2017-03-24] MEDS: OXYBUTYNIN XL 5 MG TAB.ER.24 PO SCH (09:14)
[2017-03-24] MEDS: FENOFIBRATE 160 MG TAB PO SCH (09:15)
[2017-03-24] MEDS: CITALOPRAM HYDROBROMIDE 20 MG TAB PO SCH (09:15)
[2017-03-24] MEDS: PREGABALIN 75 MG CAP PO SCH ×2 (09:17→20:38)
--- NOTE | 2017-03-24 09:18 | PN ---
DATE OF SERVICE: 03/23/2017 PRESENTING COMPLAINT: Bowel obstruction. INTERVAL HISTORY: This patient with multiple bowel surgeries presented with bowel obstruction, doing much better. Diet has been advanced. Ileostomy tube is working well. No abdominal pain. Lying in bed smiling. Review of systems done for constitutional, cardiovascular, GI, pulmonary; relevant findings as above. Current medications are reviewed. Patient is getting IV fluids. On examination, temperature 98.2, pulse 91, respirations 16, blood pressure 123/ 60, pulse ox 93% on room air. GENERAL APPEARANCE: Lying in bed, comfortable, awake. EYES: Pupils equal, conjunctivae normal. NECK: JVD not raised. Mass not palpable. RESPIRATORY: Effort normal. LUNGS: Diminished breath sounds. CARDIOVASCULAR: First and second sounds are normal. No edema. ABDOMEN: Soft, ileostomy bag in place with stool present. Bowel sounds are present. PSYCHIATRIC: Alert, oriented x3. Mood and affect normal. NEUROLOGICAL: Power on the left side 0/5. DERMATOLOGICAL: Rosacea on the face. INVESTIGATIONS: Accu-Cheks are noted. ASSESSMENT: 1. Acute small bowel obstruction in patient who has ileostomy and large parastomal hernia, clinically has improved. 2. Severe hypokalemia improved. 3. Diabetes mellitus type on oral hypoglycemic. 4. Hypoglycemia episodes due to oral hypoglycemic. 5. Gastroesophageal reflux disease. 6. Hiatal hernia. 7. Hyperlipidemia. 8. History of large B-cell lymphoma. 9. Left hemiparesis from prior stroke. 10. Chronic urinary incontinence. 11. Internal carotid artery occluded. 12. Medical debility; patient at baseline is wheelchair bound and uses a [employer] lift. 13. Mild protein calorie malnutrition from decreased oral intake. 14. Bipolar disorder. PLAN: Patient doing better. Will ( ) and get patients home medicines and make sure they are back on board. Care was discussed with the patient. Hopefully can be discharged in the next 24 hours. [facility]
[2017-03-24] MEDS: amLODIPine 5 MG TAB PO SCH (09:28)
[2017-03-24 11:44] LABS: Glucose,Whole Blood 127 mg/dL (75-99)
--- NOTE | 2017-03-24 15:21 | P.PN ---
Subjective Is status post parosteal hernia repair. Patient is clinically doing well. Patient is able to tolerate oral diet. Patient probably will need subacute intimidation placement which can be done tomorrow. Patient had small bowel obstruction which resolved at this time. Denied any chest pain, nausea, vomiting, abdominal pain, new weakness, dysuria, increased urinary frequency frequency. Objective - Vital Signs Vital signs: Vital Signs Temp 98.1 F 03/24/17 08:01 Pulse 76 03/24/17 08:01 Resp 16 03/24/17 08:01 BP 122/75 03/24/17 08:01 Pulse Ox 95 03/24/17 08:01 Intake & Output 03/23/17 03/24/17 03/24/17 18:59 06:59 18:59 Intake Total 1200 350 Output Total 500 250 100 Balance 700 100 -100 Intake: Oral 1200 250 Other 100 Output: Stool 500 250 100 Other: Voiding Method Bedpan Bedpan Incontinent Incontinent # Voids 1 3 3 # Bowel Movements 150 - Exam PHYSICAL EXAMINATION: GENERAL: The patient is alert and oriented x3, not in any acute distress. Well developed, well nourished. HEENT: Pupils are round and equally reacting to light. EOMI. No scleral icterus. No conjunctival pallor. Normocephalic, atraumatic. No pharyngeal erythema. No thyromegaly. CARDIOVASCULAR: S1 and S2 present. No murmurs, rubs, or gallops. PULMONARY: Chest is clear to auscultation, no wheezing or crackles. ABDOMEN: Soft, nontender, nondistended, normoactive bowel sounds. No palpable organomegaly. MUSCULOSKELETAL: No joint swelling or deformity. EXTREMITIES: No cyanosis, clubbing, or pedal edema. NEUROLOGICAL: Gross neurological examination did not reveal any focal deficits. SKIN: No rashes. - Labs CBC & Chem 7: 03/21/17 07:31 03/24/17 06:23 Labs: Abnormal Lab Results - Last 24 Hours (Table) 03/23/17 03/23/17 03/24/17 Range/Units 16:43 21:22 06:23 Glucose 112 H (74-99) mg/dL POC Glucose (mg/dL) 152 H 158 H (75-99) mg/dL 03/24/17 03/24/17 Range/Units 07:10 11:38 Glucose (74-99) mg/dL POC Glucose (mg/dL) 103 H 127 H (75-99) mg/dL Assessment and Plan Plan: -Acute small bowel obstruction will now and patient is awaiting disposition to subacute rehabilitation -Diabetes mellitus type 2 on oral hypoglycemics. Fairly controlled blood sugars -Hypoglycemia secondary to oral hypoglycemics. Which resolved now -Gastroesophageal reflux disease. -Hiatal hernia. -Hyperlipidemia. -History of large B-cell lymphoma. -Left hemiparesis from prior stroke. -Chronic urinary incontinence. -Internal carotid artery occluded. -Bipolar disorder. -Medical debility the patient is wheelchair bound and uses a [place] lift. -Mild Protein calorie malnutrition i Present medications monitor and possibility of discharge tomorrow to subacute rehabitation.
[2017-03-24 17:30] LABS: Glucose,Whole Blood 133 mg/dL (75-99)
[2017-03-24 20:35] LABS: Glucose,Whole Blood 173 mg/dL (75-99)
[2017-03-25 06:54] LABS: Glucose,Whole Blood 98 mg/dL (75-99)
[2017-03-25] MEDS: INSULIN LISPRO (humaLOG) 300 UNIT/3 ML VIAL SQ SCH ×4 (07:06→20:27)
[2017-03-25 07:37] LABS: Anion Gap 8 mmol/L; Blood Urea Nitrogen 9 mg/dL (7-17); Calcium 9.5 mg/dL (8.4-10.2); Carbon Dioxide 29 mmol/L (22-30); Chloride 103 mmol/L (98-107); Glucose 99 mg/dL (74-99); Non-African American GFR(MDRD) >60 (>60 ml/min/1.73 sqM); Potassium 4.4 mmol/L (3.5-5.1); Sodium 140 mmol/L (137-145)
[2017-03-25] MEDS: CITALOPRAM HYDROBROMIDE 20 MG TAB PO SCH (08:03)
[2017-03-25] MEDS: FENOFIBRATE 160 MG TAB PO SCH (08:03)
[2017-03-25] MEDS: METOPROLOL TARTRATE 25 MG TAB PO SCH ×2 (08:03→20:27)
[2017-03-25] MEDS: OXYBUTYNIN XL 5 MG TAB.ER.24 PO SCH (08:03)
[2017-03-25] MEDS: PREGABALIN 75 MG CAP PO SCH ×2 (08:03→20:27)
[2017-03-25] MEDS: lamoTRIgine 100 MG TAB PO SCH (08:03)
[2017-03-25] MEDS: amLODIPine 5 MG TAB PO SCH (08:03)
[2017-03-25] MEDS: ONDANSETRON 4 MG/2 ML VIAL IVP PRN ×2 (09:59→16:47)
[2017-03-25] MEDS: HYDROcodone/APAP 5-325MG 1 EACH TAB PO PRN ×2 (11:39→19:18)
[2017-03-25 11:44] LABS: Glucose,Whole Blood 120 mg/dL (75-99)
[2017-03-25 16:44] LABS: Glucose,Whole Blood 150 mg/dL (75-99)
[2017-03-25 20:13] LABS: Glucose,Whole Blood 169 mg/dL (75-99)
--- NOTE | 2017-03-26 01:22 | P.PN ---
Subjective Principal diagnosis: Hernia repairs 61-year-old female with a known history of sleeve gastrectomy admitted to the hospital with persistent nausea vomiting and abdominal pain and suspected small bowel obstruction. Which is due to periosteal tibia patient is being managed some conservatively. Her altered mental status is much improved now blood pressure is controlled as well. Patient is clinically doing well. Patient is able to tolerate oral diet. Patient had small bowel obstruction which resolved at this time. 03/25/2017 Patient is clinically improving. No fever no chills. No overnight issues. Blood pressure is controlled and her mentation is much improved. Anticipate transfer to rehab in 1-2 days. Denied any chest pain, nausea, vomiting, abdominal pain, new weakness, dysuria, increased urinary frequency frequency. Objective - Vital Signs Vital signs: Vital Signs Temp 98.3 F 03/25/17 14:28 Pulse 95 03/25/17 14:28 Resp 16 03/25/17 14:28 BP 97/63 03/25/17 14:28 Pulse Ox 94 L 03/25/17 14:28 Intake & Output 03/25/17 03/25/17 03/26/17 06:59 18:59 06:59 Intake Total 240 Output Total 200 Balance 40 Intake: Oral 240 Output: Stool 200 Other: # Voids 2 3 # Bowel Movements 2 - Exam GENERAL: The patient is alert and oriented x3, not in any acute distress. Well developed, well nourished. HEENT: Pupils are round and equally reacting to light. EOMI. No scleral icterus. No conjunctival pallor. Normocephalic, atraumatic. No pharyngeal erythema. No thyromegaly. CARDIOVASCULAR: S1 and S2 present. No murmurs, rubs, or gallops. PULMONARY: Chest is clear to auscultation, no wheezing or crackles. ABDOMEN: Soft, nontender, nondistended, obese, normoactive bowel sounds. No palpable organomegaly. MUSCULOSKELETAL: No joint swelling or deformity. EXTREMITIES: No cyanosis, clubbing, or pedal edema. NEUROLOGICAL: Gross neurological examination did not reveal any focal deficits. SKIN: No rashes. - Labs CBC & Chem 7: 03/21/17 07:31 03/25/17 06:53 Labs: Abnormal Lab Results - Last 24 Hours (Table) 03/25/17 03/25/17 03/25/17 Range/Units 11:38 16:35 20:11 POC Glucose (mg/dL) 120 H 150 H 169 H (75-99) mg/dL Assessment and Plan Plan: Plan: -Acute small bowel obstruction. Improved with conservative management. and patient is awaiting disposition to subacute rehabilitation. -[place]-stomal hernia -Diabetes mellitus type 2 on oral hypoglycemics. Fairly controlled blood sugars -Hypoglycemia secondary to oral hypoglycemics. Which resolved now -Gastroesophageal reflux disease. -Hiatal hernia. -Hyperlipidemia. -History of large B-cell lymphoma. -Left hemiparesis from prior stroke. -Chronic urinary incontinence. -Internal carotid artery occluded. -Bipolar disorder. -Medical debility the patient is wheelchair bound and uses a [place] lift. -Mild Protein calorie malnutrition i Continue with Present medications monitor and possibility of discharge tomorrow to subacute rehabitation. Time with Patient: Greater than 30
[2017-03-26] MEDS: HYDROcodone/APAP 5-325MG 1 EACH TAB PO PRN ×3 (03:27→14:56)
[2017-03-26 07:38] VITALS: BP 149/70; RESP 20; TEMP 97.7
[2017-03-26 07:43] LABS: Glucose,Whole Blood 110 mg/dL (75-99)
[2017-03-26] MEDS: METOPROLOL TARTRATE 25 MG TAB PO SCH (08:29)
[2017-03-26] MEDS: amLODIPine 5 MG TAB PO SCH (08:29)
[2017-03-26] MEDS: FENOFIBRATE 160 MG TAB PO SCH (08:29)
[2017-03-26] MEDS: CITALOPRAM HYDROBROMIDE 20 MG TAB PO SCH (08:29)
[2017-03-26] MEDS: OXYBUTYNIN XL 5 MG TAB.ER.24 PO SCH (08:29)
[2017-03-26] MEDS: lamoTRIgine 100 MG TAB PO SCH (08:30)
[2017-03-26] MEDS: PREGABALIN 75 MG CAP PO SCH (08:32)
[2017-03-26] MEDS: INSULIN LISPRO (humaLOG) 300 UNIT/3 ML VIAL SQ SCH ×2 (08:38→13:00)
[2017-03-26 09:02] LABS: Anion Gap 8 mmol/L; Blood Urea Nitrogen 12 mg/dL (7-17); Calcium 9.3 mg/dL (8.4-10.2); Carbon Dioxide 28 mmol/L (22-30); Chloride 101 mmol/L (98-107); Glucose 115 mg/dL (74-99); Non-African American GFR(MDRD) >60 (>60 ml/min/1.73 sqM); Potassium 4.3 mmol/L (3.5-5.1); Sodium 137 mmol/L (137-145)
[2017-03-26 10:44] VITALS: PULSE 77
[2017-03-26 11:41] LABS: Glucose,Whole Blood 164 mg/dL (75-99)
--- NOTE | 2017-03-26 12:07 | P.DS ---
Providers Date of admission: 03/15/17 20:36 Expected date of discharge: 03/26/17 Attending physician: Alexx Bentley Consults: 03/15/17 20:37 Consult Physician Stat Consulting Provider: Stefanie Card Consult Reason/Comments: Bowel Obstruction; Hernia Do you want consulting provider notified?: Already Contacted 03/17/17 11:45 Consult Physician Urgent Consulting Provider: Evans Lindsey Consult Reason/Comments: Abnormal EKG, surgical pre-op Do you want consulting provider notified?: Yes 03/21/17 08:19 Consult Physician Stat Consulting Provider: Jerry Burks Consult Reason/Comments: possible seizure activity Do you want consulting provider notified?: Yes Primary care physician: [facility] Course: Discharge diagnosis: -Acute small bowel obstruction. Improved with conservative management. and patient is awaiting disposition to subacute rehabilitation. -Mary Jane-stomal hernia -Diabetes mellitus type 2 on oral hypoglycemics. Fairly controlled blood sugars -Hypoglycemia secondary to oral hypoglycemics. Which resolved now -Gastroesophageal reflux disease. -Hiatal hernia. -Hyperlipidemia. -History of large B-cell lymphoma. -Left hemiparesis from prior stroke. -Chronic urinary incontinence. -Internal carotid artery occluded. -Bipolar disorder. -Medical debility the patient is wheelchair bound and uses a [employer] lift. -Mild Protein calorie malnutrition i 61-year-old female with a known history of sleeve gastrectomy admitted to the hospital with persistent nausea vomiting and abdominal pain and suspected small bowel obstruction. Which is due to periosteal tibia patient is being managed some conservatively. Her altered mental status is much improved now blood pressure is controlled as well. Patient is clinically doing well. Patient is able to tolerate oral diet. Patient had small bowel obstruction which resolved at this time. 03/25/2017 Patient is clinically improving. No fever no chills. No overnight issues. Blood pressure is controlled and her mentation is much improved. Anticipate transfer to rehab in 1-2 days. 03/26/2017 Patient is tolerating oral diet and denied any abdominal pain. Patient is supposed to follow with with the general surgery for periosteal hernia repair. Patient able to be discharged back to rehab today. Pain medications have been changed to [place] from oxycodone. Patient was advised to drink a lot of water and prevent constipation. Denied any chest pain, nausea, vomiting, abdominal pain, new weakness, dysuria, increased urinary frequency frequency. Patient Condition at Discharge: Fair Plan - Discharge Summary New Discharge Prescriptions: New amLODIPine [Norvasc] 5 mg PO DAILY #30 tab Metoprolol Tartrate [Lopressor] 25 mg PO BID #60 tab HYDROcodone/APAP 5-325MG [[place] 5-325] 1 each PO Q6HR PRN tab PRN Reason: Pain Scale 1 To 5 Continue Aspirin 81 mg PO DAILY@1200 Baclofen [Lioresal] 20 mg PO BID PRN PRN Reason: Muscle Spasm Citalopram Hydrobromide [CeleXA] 20 mg PO DAILY Pregabalin [Lyrica] 75 mg PO BID Multivitamins, Thera [Multivitamin (formulary)] 1 tab PO DAILY@1200 Oxybutynin Chloride [Ditropan XL] 5 mg PO DAILY lamoTRIgine [LaMICtal] 150 mg PO QAM glipiZIDE [Glucotrol] 10 mg PO AC-BID Fenofibrate [Lofibra] 160 mg PO QAM Cholecalciferol [Vitamin D3] 5,000 unit PO DAILY@1200 Ascorbic Acid [Vitamin C] 250 mg PO DAILY@1200 Ferrous Sulfate [Iron (65 MG Elemental)] 325 mg PO DAILY@1200 Famotidine [Pepcid] 20 mg PO QAM hydrALAZINE HCL [Hydralazine HCl] 25 mg Q4H PRN PRN Reason: Pain Discontinued oxyCODONE ER [OxyCONTIN] 15 mg PO Q12HR oxyCODONE ER [OxyCONTIN] 10 mg PO Q4H PRN PRN Reason: Pain Discharge Medication List Aspirin 81 mg PO DAILY@1200 08/18/15 [History] Baclofen [Lioresal] 20 mg PO BID PRN 09/02/15 [History] Citalopram Hydrobromide [CeleXA] 20 mg PO DAILY 02/14/16 [History] Multivitamins, Thera [Multivitamin (formulary)] 1 tab PO DAILY@1200 04/26/16 [ History] Pregabalin [Lyrica] 75 mg PO BID 04/26/16 [History] Ascorbic Acid [Vitamin C] 250 mg PO DAILY@1200 03/15/17 [History] Cholecalciferol [Vitamin D3] 5,000 unit PO DAILY@1200 03/15/17 [History] Famotidine [Pepcid] 20 mg PO QAM 03/15/17 [History] Fenofibrate [Lofibra] 160 mg PO QAM 03/15/17 [History] Ferrous Sulfate [Iron (65 MG Elemental)] 325 mg PO DAILY@1200 03/15/17 [History] Oxybutynin Chloride [Ditropan XL] 5 mg PO DAILY 03/15/17 [History] glipiZIDE [Glucotrol] 10 mg PO AC-BID 03/15/17 [History] lamoTRIgine [LaMICtal] 150 mg PO QAM 03/15/17 [History] hydrALAZINE HCL [Hydralazine HCl] 25 mg Q4H PRN 03/23/17 [History] Metoprolol Tartrate [Lopressor] 25 mg PO BID #60 tab 03/25/17 [Rx] amLODIPine [Norvasc] 5 mg PO DAILY #30 tab 03/25/17 [Rx] HYDROcodone/APAP 5-325MG [[place] 5-325] 1 each PO Q6HR PRN tab 03/26/17 [Rx] Follow up Appointment(s)/Referral(s): Dani Zuniag DO [Primary Care Provider] - 1-2 days Stefanie Card MD [STAFF PHYSICIAN] - 04/02/17 4:00 pm Ramonita Sandoval, [NON-STAFF] - As Needed Patient Instructions/Handouts: Nutrition after Bariatric Surgery (GEN), Ventral Hernia (GEN) Discharge Disposition: TRANSFER TO SNF/ECF
--- NOTE | 2017-03-26 13:12 | XR ---
EXAMINATION TYPE: XR chest 1V portable DATE OF EXAM: 03/26/2017 HISTORY: Shortness of breath. COMPARISON: 10/07/15 TECHNIQUE: Single view of the chest is submitted. FINDINGS: Demonstrated are scattered senescent parenchymal change. There is no evidence for focal infiltrate. The heart is stable. Hilar and mediastinal structures are within normal limits. Degenerative changes are seen of the dorsal spine. Healed fracture proximal right humerus. IMPRESSION: 1. Chronic changes without evidence for acute pulmonary disease.
[2017-03-26 15:08] LABS: Selenium 126 mcg/L (63-160)
--- NOTE | 2017-03-27 05:45 | EEG ---
DATE OF SERVICE: 03/22/2017 REASON FOR TESTING: Altered mental status. DESCRIPTION OF THE PROCEDURE: This EEG was performed using a 21-channel digital electroencephalograph, following international 10-20 system. DESCRIPTION OF THE RECORDING: From the beginning of the tracing, and with the patient's eyes closed, the background rhythm was mostly consisting of 8 Hz alpha frequency in the posterior occipital leads. No obvious asymmetry is seen. Photic stimulation was performed with a minimal driving response seen. No pathological waves were elicited. Occasional movement and muscle artifacts are seen. Hyperventilation was not performed. The patient remains awake throughout the tracing. No epileptiform discharges were seen. INTERPRETATION: This awake EEG can be considered within normal limits. There was no asymmetry seen. No epileptiform discharges were noticed. The absence of epileptiform discharges does not rule out the diagnosis of epilepsy, therefore clinical correlation is recommended. MTDD
== END 2017-03-26 15:45 | DRG 393 ==
LOC: EC 15:32 → 3SUR 20:36
PROVIDERS: ADMIT Hospitalist; ATTEND Hospitalist
PROC: 0D9670Z Drainage of Stomach with Drainage Device, Via Natural or Artificial Opening (ICD-10-PCS; principal; 2017-03-16)
DX: K43.3 Parastomal hernia with obstruction, without gangrene (principal); G93.41 Metabolic encephalopathy; E44.1 Mild protein-calorie malnutrition; E11.621 Type 2 diabetes mellitus with foot ulcer; I69.354 Hemiplegia and hemiparesis following cerebral infarction affecting left non-dominant side; K51.90 Ulcerative colitis, unspecified, without complications; E87.1 Hypo-osmolality and hyponatremia; E11.649 Type 2 diabetes mellitus with hypoglycemia without coma; E83.42 Hypomagnesemia; I65.21 Occlusion and stenosis of right carotid artery; L97.529 Non-pressure chronic ulcer of other part of left foot with unspecified severity; K21.9 Gastro-esophageal reflux disease without esophagitis; K44.9 Diaphragmatic hernia without obstruction or gangrene; E78.5 Hyperlipidemia, unspecified; R32 Unspecified urinary incontinence; F31.9 Bipolar disorder, unspecified; E66.9 Obesity, unspecified; E86.0 Dehydration; F41.9 Anxiety disorder, unspecified; E87.6 Hypokalemia; I10 Essential (primary) hypertension; L71.9 Rosacea, unspecified; M81.0 Age-related osteoporosis without current pathological fracture; Z79.82 Long term (current) use of aspirin; Z79.84 Long term (current) use of oral hypoglycemic drugs; Z79.891 Long term (current) use of opiate analgesic; Z79.899 Other long term (current) drug therapy; Z68.32 Body mass index [BMI] 32.0-32.9, adult; Z86.718 Personal history of other venous thrombosis and embolism; Z95.828 Presence of other vascular implants and grafts; Z87.891 Personal history of nicotine dependence; Z93.2 Ileostomy status; Z98.84 Bariatric surgery status; Z99.3 Dependence on wheelchair; Z88.7 Allergy status to serum and vaccine; Z85.72 Personal history of non-Hodgkin lymphomas; Z86.711 Personal history of pulmonary embolism; Z90.49 Acquired absence of other specified parts of digestive tract
CPT/HCPCS: 36415; 70450; 71010; 74000; 74020; 74177; 74250; 80048; 80053; 81001; 82150; 82525; 82550; 82553; 82607; 82652; 82728; 83036; 83540; 83550; 83605; 83690; 83735; 84100; 84132; 84255; 84425; 84443; 84484; 84590; 84630; 85025; 87086; 93005; 93306; 95816; 95819; 96361; 96374; 96375; 99285

== ENCOUNTER → 2017-04-13 | Outpatient (CLI) | payer MEDICARE, OTHER ==
[2017-04-13 11:57] LABS: Appearance,Urine Clear (Clear); Bacteria,Urine Rare /hpf; Bilirubin,Urine Negative (Negative); Glucose,Urine (UA) Negative (Negative); Ketones,Urine Negative (Negative); Leukocyte Esterase,Urine Trace (Negative); Mucus,Urine Rare /hpf; Nitrite,Urine Negative (Negative); PH, Urine 5.5 (5.0-8.0); Particle Count 1289; Protein,Urine Negative (Negative); RBC,Urine <1 /hpf (0-5); Specific Gravity,Urine 1.008 (1.001-1.035); Squamous Epithelial Cell,Urine <1 /hpf (0-4); UA Billing (MACRO vs. MICRO) MICRO; Urobilinogen,Urine <2.0 mg/dL (<2.0); WBC,Urine 3 /hpf (0-5)
== END | disposition home or self-care (01) ==
LOC: LABWHC1 11:46
PROVIDERS: ATTEND Physician Assistant
DX: N39.0 Urinary tract infection, site not specified (principal)
CPT/HCPCS: 81001; 87077; 87086; 87186

== ENCOUNTER → 2017-08-08 | Outpatient (CLI) | payer MEDICARE, OTHER ==
[2017-08-08 10:47] VITALS: BP 127/63; PULSE 931; RESP 6; TEMP 98.2
== END | disposition home or self-care (01) ==
LOC: PROCWHC3 10:10
PROVIDERS: ATTEND Family Medicine
DX: K94.00 Colostomy complication, unspecified (principal)
CPT/HCPCS: 99214

== ENCOUNTER → 2017-08-22 | Outpatient (CLI) | payer MEDICARE, OTHER ==
[2017-08-22 16:17] LABS: Blood Urea Nitrogen 26 mg/dL (7-17)
--- NOTE | 2017-08-23 08:22 | CT ---
EXAMINATION TYPE: CT ChestAbdPelvis w con DATE OF EXAM: 08/22/2017 COMPARISON: Prior CT abdomen pelvis 03/15/2017, CT chest abdomen pelvis 06/18/2016 HISTORY: Observation for metastatic disease. Lymphoma. CT DLP: 2076.6 mGycm Automated exposure control for dose reduction was used. CONTRAST: CT scan of the chest, abdomen and pelvis is performed with Oral Contrast and with IV Contrast, patien t injected with 100 mL of Omnipaque 300. FINDINGS: LUNGS: The lungs are grossly clear, there is no concerning parenchymal mass or nodule identified. T here is no pleural effusion or pneumothorax seen. The tracheobronchial tree is patent. MEDIASTINUM: There are no greater than 1 cm hilar or mediastinal lymph nodes. No pericardial effusi on is seen. Postop changes are noted at the gastroesophageal junction, there may be recurrent hiatal hernia, some mucosal thickening is present. Coronary artery calcifications are noted. AORTA: No significant abnormality is seen. OTHER: No additional significant abnormality is seen. LIVER/GB: The liver shows low attenuation as on prior exam, artifact may obscure some detail, patient is post cholecystectomy and the liver is enlarged PANCREAS: No significant abnormality is seen. SPLEEN: No significant abnormality is seen. ADRENALS: No significant abnormality is seen. KIDNEYS: Stable, multiple cortical cysts present bilaterally REPRODUCTIVE ORGANS: No gross abnormality seen. BOWEL: Improvement in bowel distention, peristomal hernia is noted containing nondistended loops of bowel. Postop changes are noted in the presacral region as on prior and show similar appearance. Post op changes are noted to the stomach as on previous FREE AIR: No Free Air visible. ASCITES: None seen. RETROPERITONEAL ADENOPATHY: No retroperitoneal adenopathy is seen. LYMPH NODES: No greater than 1 cm abdominal or pelvic lymph nodes are appreciated. URINARY BLADDER: No significant abnormality is seen. PELVIC ADENOPATHY: None visualized. Inferior vena cava filter is again noted. OSSEOUS STRUCTURES: Lucency is seen again within the proximal right humerus as on previous exam, the re is possibly pathologic involvement as previously described with nonunion. IMPRESSION: Findings are similar to prior exam. Abnormal proximal humerus, difficult to exclude metas tatic disease. Postop changes. Coronary artery disease. Improvement in dilated bowel as compared to p revious exam.
== END | disposition home or self-care (01) ==
LOC: RADCTMAIN 15:07
PROVIDERS: ATTEND Internal Medicine Hematology & Oncology
DX: C83.38 Diffuse large B-cell lymphoma, lymph nodes of multiple sites (principal); I25.10 Atherosclerotic heart disease of native coronary artery without angina pectoris; K31.89 Other diseases of stomach and duodenum; Z98.890 Other specified postprocedural states
CPT/HCPCS: 82565; 84520; 71260; 74177; 36415; Q9967

== ENCOUNTER 2018-03-16 14:46 | Inpatient (IN) | payer MEDICARE, OTHER ==
[2018-03-16] MEDS ORDERED: SODIUM CHLORIDE 0.9% 500 ML IV STA (15:31)
[2018-03-16] MEDS ORDERED: MORPHINE SULFATE 4 MG/ML SYRINGE IV STA (15:31)
[2018-03-16] MEDS ORDERED: SODIUM CHLORIDE 0.9% 1,000 ML IV STA (15:31)
[2018-03-16 16:17] LABS: Basophils % (A) 0 %; Eosinophils # (A) 0.2 k/uL (0-0.7); Eosinophils % (A) 5 %; HGB 13.3 gm/dL (11.4-16.0); Lymphocytes # (A) 0.7 k/uL (1.0-4.8); Lymphocytes % (A) 17 %; MCH 27.7 pg (25.0-35.0); MCHC 30.2 g/dL (31.0-37.0); Mean Platelet Volume 6.3; Monocytes # (A) 0.3 k/uL (0-1.0); Monocytes % (A) 7 %; Neutrophils # (A) 2.9 k/uL (1.3-7.7); Neutrophils % (A) 70 %; Platelet Count 181 k/uL (150-450); RBC 4.78 m/uL (3.80-5.40); RDW 14.7 % (11.5-15.5); WBC 4.1 k/uL (3.8-10.6)
[2018-03-16 16:28] LABS: ALT 37 U/L (9-52); AST 26 U/L (14-36); Albumin 3.7 g/dL (3.5-5.0); Alkaline Phosphatase 54 U/L (38-126); Amylase <30 U/L (30-110); Anion Gap 7 mmol/L; Blood Urea Nitrogen 22 mg/dL (7-17); Calcium 9.2 mg/dL (8.4-10.2); Carbon Dioxide 28 mmol/L (22-30); Chloride 103 mmol/L (98-107); Glucose 129 mg/dL (74-99); Lipase 44 U/L (23-300); Potassium 4.4 mmol/L (3.5-5.1); Sodium 138 mmol/L (137-145); Total Bilirubin 0.5 mg/dL (0.2-1.3); Total Protein 5.9 g/dL (6.3-8.2)
[2018-03-16 16:39] LABS: Amorphous Sediment,Urine Rare /hpf; Appearance,Urine Clear (Clear); Bilirubin,Urine Negative (Negative); Blood,Urine Negative (Negative); Color,Urine Yellow; Glucose,Urine (UA) Negative (Negative); Hyaline Casts,Urine 1 /lpf (0-2); Ketones,Urine Negative (Negative); Leukocyte Esterase,Urine Trace (Negative); Mucus,Urine Rare /hpf; Nitrite,Urine Negative (Negative); PH, Urine 5.5 (5.0-8.0); Protein,Urine Trace (Negative); RBC,Urine 1 /hpf (0-5); Specific Gravity,Urine 1.015 (1.001-1.035); Squamous Epithelial Cell,Urine 7 /hpf (0-4); Urobilinogen,Urine <2.0 mg/dL (<2.0); WBC,Urine 3 /hpf (0-5)
--- NOTE | 2018-03-16 17:40 | ED ---
General Adult HPI - General Chief complaint: Abdominal Pain Stated complaint: ABDOMINAL PAIN Time Seen by Provider: 03/16/18 15:02 Source: patient, EMS, RN notes reviewed, old records reviewed Mode of arrival: EMS Limitations: physical limitation - History of Present Illness Initial comments: This is a 62-year-old female. This patient was essay for evaluation of significant abdominal pain. Patient denies vomiting. Which is of nausea. She is having positive bowel movements. She has a significant surgical history, she sees Dr. Fowler for multiple different surgical issues and complications. She states pains are going on for 2 days of progressively worsening. She does have history of obstruction as well. This feels pretty similar - Related Data Home Medications Medication Instructions Recorded Confirmed Aspirin 81 mg PO HS 08/18/15 03/16/18 Citalopram Hydrobromide [CeleXA] 20 mg PO DAILY 02/14/16 03/16/18 Ascorbic Acid [Vitamin C] 250 mg PO HS 03/15/17 03/16/18 Famotidine [Pepcid] 20 mg PO BID 03/15/17 03/16/18 Ferrous Sulfate [Iron (65 MG 325 mg PO HS 03/15/17 03/16/18 Elemental)] lamoTRIgine [LaMICtal] 150 mg PO DAILY 03/15/17 03/16/18 Atorvastatin [Lipitor] 40 mg PO HS 06/17/17 03/16/18 Baclofen 10 mg PO QID@00,06,12,18 06/17/17 03/16/18 Fenofibrate,Micronized 134 mg PO DAILY 06/17/17 03/16/18 [Fenofibrate] Multivitamins, Thera [Multivitamin 1 tab PO HS 06/17/17 03/16/18 (formulary)] ALPRAZolam [Xanax] 0.25 mg PO BID@1500,2100 03/16/18 03/16/18 Betamethasone Dipropionate 1 applic TOPICAL DAILY PRN 03/16/18 03/16/18 [Diprolene AF 0.05% Cream] Cholestyramine (with Sugar) 4 gm PO DAILY@1200 03/16/18 03/16/18 [Cholestyramine Packet] Clotrimazole Cream [Lotrimin Cream] 1 applic TOPICAL BID PRN 03/16/18 03/16/18 HYDROcodone/APAP 7.5-325MG [[place] 1 tab PO QID@00,06,12,18 03/16/18 03/16/18 7.5-325] Insulin Aspart [NovoLOG 20 unit SQ AC-TID@0630,1100,16 03/16/18 03/16/18 (formulary)] Insulin Aspart [NovoLOG See Protocol SQ AC-TID@0630,11,16 03/16/18 03/16/18 (formulary)] Insulin Detemir [Levemir] 86 unit SQ HS 03/16/18 03/16/18 Metoprolol Succinate (ER) [Toprol 25 mg PO BID 03/16/18 03/16/18 Xl] Ondansetron [Zuplenz] 8 mg SL Q8H PRN 03/16/18 03/16/18 Pregabalin [Lyrica] 100 mg PO BID 03/16/18 03/16/18 Tolterodine Tartrate [Detrol] 1 mg PO HS 03/16/18 03/16/18 amLODIPine [Norvasc] 5 mg PO HS 03/16/18 03/16/18 metFORMIN HCL [Glucophage] 1,000 mg PO BID@08,16 03/16/18 03/16/18 Allergies Allergy/AdvReac Type Severity Reaction Status Date / Time latex Allergy Unknown Verified 03/16/18 17:59 Tetanus Vaccines and Toxoid Allergy Red and Verified 03/16/18 17:59 [Tetanus Vaccines & Toxoid] Swelling at site. Corticosteroids AdvReac Elevated Verified 03/16/18 17:59 (Glucocorticoids) Blood sugar and Blood Pressure prednisone AdvReac Elevated Verified 03/16/18 17:59 Blood Sugar and Blood Pressure Review of Systems ROS Statement: Those systems with pertinent positive or pertinent negative responses have been documented in the HPI. ROS Other: All systems not noted in ROS Statement are negative. 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 History of Any Multi-Drug Resistant Organisms: ESBL Date of last positivie culture/infection: 04/13/17 ESBL-Proteus mirabilis; 02/21/17 -ESBL-E.coli MDRO Source:: Urine-ESBL Proteus and E.coli Past Surgical History: Cholecystectomy Additional Past Surgical History / Comment(s): MULTIPLE BOWEL SX AND REVISONS OF Ileostomy (pt wears Holister 86-28 with small eacon ring/ stoma powder/ no sting adhesive). HAD ALL TEETH EXTRACTED WAITING ON DENTURES. 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 GREENFILED FILTER, gastric sleeve at [place], Mediport placed 09-21-15, recent R foot ingrown toenail removed. Past Anesthesia/Blood Transfusion Reactions: No Reported Reaction Additional Past Anesthesia/Blood Transfusion Reaction / Comment(s): Pt received blood without reaction. Past Psychological History: Anxiety, Bipolar, Depression Smoking Status: Former smoker - Past Family History Sister(s) Family Medical History: Cancer Father Family Medical History: Deep Vein Thrombosis (DVT) Additional Family Medical History / Comment(s): Father of either a CVA or TN at age 84 yrs. Mother Family Medical History: Cancer Additional Family Medical History / Comment(s): Mother of renal failure at age 84 yrs. General Exam Limitations: physical limitation General appearance: alert, in no apparent distress, obese Head exam: Present: atraumatic, normocephalic, normal inspection Eye exam: Present: normal appearance, PERRL, EOMI. Absent: scleral icterus, conjunctival injection, periorbital swelling ENT exam: Present: normal exam, mucous membranes moist Neck exam: Present: normal inspection. Absent: tenderness, meningismus, lymphadenopathy Respiratory exam: Present: normal lung sounds bilaterally. Absent: respiratory distress, wheezes, rales, rhonchi, stridor Cardiovascular Exam: Present: regular rate, normal rhythm, normal heart sounds. Absent: systolic murmur, diastolic murmur, rubs, gallop, clicks GI/Abdominal exam: Present: soft, distended, tenderness, normal bowel sounds. Absent: guarding, rebound, rigid Extremities exam: Present: normal inspection, full ROM, normal capillary refill. Absent: tenderness, pedal edema, joint swelling, calf tenderness Back exam: Present: normal inspection Neurological exam: Present: alert, oriented X3, CN II-XII intact Psychiatric exam: Present: normal affect, normal mood Skin exam: Present: warm, dry, intact, normal color. Absent: rash Course Vital Signs 03/16/18 03/16/18 03/16/18 15:00 17:02 18:53 Temperature 99.3 F 99.0 F Pulse Rate 97 84 91 Respiratory 18 20 16 Rate Blood Pressure 174/74 180/72 142/65 O2 Sat by Pulse 96 96 93 L Oximetry - Reevaluation(s) Reevaluation #1: 03/16/18 17:39 Patient's abdominal pain is now currently improved Medical Decision Making - Medical Decision Making 62 female the ER for evaluation. Patient does have positive small bowel obstruction history of multiple surgeries will admit for nothing by mouth status and pain control - Lab Data Result diagrams: 03/16/18 16:00 03/16/18 16:00 Lab Results 03/16/18 03/16/18 03/16/18 Range/Units 16:00 16:00 16:00 WBC 4.1 (3.8-10.6) k/uL RBC 4.78 (3.80-5.40) m/uL Hgb 13.3 (11.4-16.0) gm/dL Hct 44.0 (34.0-46.0) % MCV 92.0 (80.0-100.0) fL MCH 27.7 (25.0-35.0) pg MCHC 30.2 L (31.0-37.0) g/dL RDW 14.7 (11.5-15.5) % Plt Count 181 (150-450) k/uL Neutrophils % 70 % Lymphocytes % 17 % Monocytes % 7 % Eosinophils % 5 % Basophils % 0 % Neutrophils # 2.9 (1.3-7.7) k/uL Lymphocytes # 0.7 L (1.0-4.8) k/uL Monocytes # 0.3 (0-1.0) k/uL Eosinophils # 0.2 (0-0.7) k/uL Basophils # 0.0 (0-0.2) k/uL Sodium 138 (137-145) mmol/L Potassium 4.4 (3.5-5.1) mmol/L Chloride 103 (98-107) mmol/L Carbon Dioxide 28 (22-30) mmol/L Anion Gap 7 mmol/L BUN 22 H (7-17) mg/dL Creatinine 0.80 (0.52-1.04) mg/dL Est GFR (CKD-EPI)AfAm >90 (>60 ml/min/1.73 sqM) Est GFR (CKD-EPI)NonAf 78 (>60 ml/min/1.73 sqM) Glucose 129 H (74-99) mg/dL Plasma Lactic Acid Benny 2.1 H* (0.7-2.0) mmol/L Calcium 9.2 (8.4-10.2) mg/dL Total Bilirubin 0.5 (0.2-1.3) mg/dL AST 26 (14-36) U/L ALT 37 (9-52) U/L Alkaline Phosphatase 54 (38-126) U/L Total Protein 5.9 L (6.3-8.2) g/dL Albumin 3.7 (3.5-5.0) g/dL Amylase <30 L (30-110) U/L Lipase 44 (23-300) U/L Urine Color Urine Appearance (Clear) Urine pH (5.0-8.0) Ur Specific [place] (1.001-1.035) Urine Protein (Negative) Urine Glucose (UA) (Negative) Urine Ketones (Negative) Urine Blood (Negative) Urine Nitrite (Negative) Urine Bilirubin (Negative) Urine Urobilinogen (<2.0) mg/dL Ur Leukocyte Esterase (Negative) Urine RBC (0-5) /hpf Urine WBC (0-5) /hpf Ur Squamous Epith Cells (0-4) /hpf Amorphous Sediment (None) /hpf Hyaline Casts (0-2) /lpf Urine Mucus (None) /hpf 03/16/18 Range/Units 16:19 WBC (3.8-10.6) k/uL RBC (3.80-5.40) m/uL Hgb (11.4-16.0) gm/dL Hct (34.0-46.0) % MCV (80.0-100.0) fL MCH (25.0-35.0) pg MCHC (31.0-37.0) g/dL RDW (11.5-15.5) % Plt Count (150-450) k/uL Neutrophils % % Lymphocytes % % Monocytes % % Eosinophils % % Basophils % % Neutrophils # (1.3-7.7) k/uL Lymphocytes # (1.0-4.8) k/uL Monocytes # (0-1.0) k/uL Eosinophils # (0-0.7) k/uL Basophils # (0-0.2) k/uL Sodium (137-145) mmol/L Potassium (3.5-5.1) mmol/L Chloride (98-107) mmol/L Carbon Dioxide (22-30) mmol/L Anion Gap mmol/L BUN (7-17) mg/dL Creatinine (0.52-1.04) mg/dL Est GFR (CKD-EPI)AfAm (>60 ml/min/1.73 sqM) Est GFR (CKD-EPI)NonAf (>60 ml/min/1.73 sqM) Glucose (74-99) mg/dL Plasma Lactic Acid Benny (0.7-2.0) mmol/L Calcium (8.4-10.2) mg/dL Total Bilirubin (0.2-1.3) mg/dL AST (14-36) U/L ALT (9-52) U/L Alkaline Phosphatase (38-126) U/L Total Protein (6.3-8.2) g/dL Albumin (3.5-5.0) g/dL Amylase (30-110) U/L Lipase (23-300) U/L Urine Color Yellow Urine Appearance Clear (Clear) Urine pH 5.5 (5.0-8.0) Ur Specific [place] 1.015 (1.001-1.035) Urine Protein Trace H (Negative) Urine Glucose (UA) Negative (Negative) Urine Ketones Negative (Negative) Urine Blood Negative (Negative) Urine Nitrite Negative (Negative) Urine Bilirubin Negative (Negative) Urine Urobilinogen <2.0 (<2.0) mg/dL Ur Leukocyte Esterase Trace H (Negative) Urine RBC 1 (0-5) /hpf Urine WBC 3 (0-5) /hpf Ur Squamous Epith Cells 7 H (0-4) /hpf Amorphous Sediment Rare H (None) /hpf Hyaline Casts 1 (0-2) /lpf Urine Mucus Rare H (None) /hpf - Radiology Data Radiology results: report reviewed (CT abdomen pelvis a positive small bowel obstruction), image reviewed Disposition Clinical Impression: Abdominal pain, SBO (small bowel obstruction) Disposition: ADMITTED IP TO THIS [facility] Condition: Good Is patient prescribed a controlled substance at d/c from ED?: No Referrals: Dani Zuniga DO [Primary Care Provider] - 1-2 days
--- NOTE | 2018-03-16 18:16 | CT ---
EXAMINATION TYPE: CT abdomen pelvis w con DATE OF EXAM: 03/16/2018 COMPARISON: 08/22/2017 HISTORY: 62-year-old female Abdominal pain TECHNIQUE: Contiguous axial scanning of the abdomen and pelvis following administration of 100 ml Iso lyssa 300 IV contrast. Delayed images through the kidneys and coronal/sagittal reconstructions perform ed. CT DLP: 1772.3 mGycm Automated exposure control for dose reduction was used. FINDINGS: Heart normal size without pericardial effusion. Lung bases clear without pleural effusion. Small hiatal hernia. Postsurgical changes of sleeve gastrectomy Liver enlarged measuring 19.3 cm with diffuse low-attenuation. No focal lesion seen. The venous syste m is patent. Mild prominence to the bile duct is unchanged. Patient is status post cholecystectomy. IVC filter. Adrenal glands, spleen, and atrophic pancreas show no gross abnormal value. Multiple subcentimeter hypodense lesions in both kidneys too small fracture. CT characterization, unc hanged from 08/22/2017, likely cysts. Dilated small bowel loops measure up to 4.2 cm with air-fluid levels. There is a right lower quadrant ileostomy is redemonstrated parastomal hernia containing a few loops of the distal ileum. There is m oderate fluid within the hernia sac which measures 13.8 cm wide versus 11.6 cm, previously. The neck of the hernia measures 4.5 cm wide. There is a transition point involving small bowel entering the he rnia sac, or first axial image 41. Diffuse anasarca type changes and marked confluent edema along the right flank. No mesenteric or retroperitoneal lymphadenopathy. Moderate atherosclerotic calcifications infrarenal abdominal aorta without aneurysm. Surgical clips along the presacral region with stable soft tissue here. Bladder underdistended. No ab normal fluid collection in the pelvis or pelvic lymphadenopathy seen. Bones: Degenerative changes at the hips and throughout the lumbar spine. Stable vertebral compression injury of L2 vertebral body. Osteopenia. IMPRESSION: 1. RIGHT LOWER QUADRANT ILEOSTOMY WITH REDEMONSTRATED MODERATE TO LARGE PARASTOMAL HERNIA CURRENTLY M EASURING 13.8 CM WIDE VERSUS 11.6 CM, PREVIOUSLY. A COUPLE LOOPS OF DISTAL ILEUM ARE PRESENT WITHIN T HE HERNIA SAC AND THERE IS SECONDARY SMALL BOWEL OBSTRUCTION WITH LOOPS IN THE ABDOMEN DILATED UP TO 4.2 CM IN CALIBER. TRANSITION POINT SEEN ON AXIAL IMAGE 41 AND CORONAL IMAGE 20. 2. MODERATE REACTIVE FLUID ACCUMULATED IN THE HERNIA SAC. 3. ANASARCA-TYPE CHANGE IN CONFLUENT SUBCUTANEOUS EDEMA ALONG THE RIGHT FLANK. 4. HEPATOMEGALY AND HEPATIC STEATOSIS. STATUS POST SLEEVE GASTRECTOMY. THERE IS A SMALL HIATAL HERNIA .
[2018-03-16] MEDS ORDERED: SODIUM CHLORIDE 0.9% 1,000 ML IV ONE (19:09)
[2018-03-16] MEDS ORDERED: MORPHINE SULFATE 4 MG/ML SYRINGE IVP STA (19:11)
[2018-03-16] MEDS ORDERED: ONDANSETRON 4 MG/2 ML VIAL IVP PRN (19:11)
[2018-03-16] MEDS ORDERED: ONDANSETRON 4 MG/2 ML VIAL IVP STA (19:11)
[2018-03-16 21:12] VITALS: BMI 40.9
[2018-03-16 21:28] LABS: Glucose,Whole Blood 144 mg/dL (75-99)
[2018-03-16] MEDS ORDERED: BETAMETHASONE DIPROPIONATE 0.05% CREAM 15 GM TUBE TOPICAL PRN (22:21)
[2018-03-16] MEDS ORDERED: CLOTRIMAZOLE 1% CREAM 15 GM TUBE TOPICAL PRN (22:21)
[2018-03-16] MEDS: BACLOFEN 10 MG TAB PO SCH (23:10)
[2018-03-16] MEDS: OXYBUTYNIN CHLORIDE 5 MG TAB PO SCH (23:10)
[2018-03-16] MEDS: amLODIPine 5 MG TAB PO SCH (23:11)
[2018-03-16] MEDS: ATORVASTATIN 40 MG TAB PO SCH (23:11)
[2018-03-16] MEDS: METOPROLOL SUCCINATE (ER) 25 MG TAB.ER.24H PO SCH (23:12)
[2018-03-16] MEDS: INSULIN DETEMIR 100 UNIT/ML 10 ML VIAL SQ SCH (23:12)
[2018-03-16] MEDS: PREGABALIN 100 MG CAP PO SCH (23:15)
[2018-03-17] MEDS: MORPHINE SULFATE 4 MG/ML SYRINGE IVP PRN ×3 (02:42→13:09)
[2018-03-17] MEDS: BACLOFEN 10 MG TAB PO SCH ×3 (06:04→17:27)
[2018-03-17 07:07] LABS: Glucose,Whole Blood 112 mg/dL (75-99)
--- NOTE | 2018-03-17 08:11 | CONS ---
CONSULTATION DATE OF CONSULTATION: 03/16/18 REASON FOR CONSULTATION: Medical management requested by Dr. Card. CONSULTATION: This is a very pleasant 62-year-old patient who follows with Dr. Zuniga, resident of [facility]. The patient in 2013 at [facility] had a sleeve gastrectomy that was experimental study. She has also had a parastomal hernia repair and 3 or 4 repairs of stoma and had been repositioned. The patient's other chronic stable medical conditions include diabetes, GERD, hyperlipidemia, hypertension, large B-cell lymphoma that was treated. The patient also got complete paralysis on the left side from prior stroke and has left leg brace. The patient also had ulcerative colitis and has occluded internal carotid artery. Saida lift is used for her. Back in June of last year the patient had another surgical repair of the parastomal hernia repair, also had lysis of adhesions. The patient presented with 2 days of increasing abdominal pain more so on the right side. Has had nausea. She had no output in the ileostomy bag yesterday but started having some ileostomy output today. The patient did have a CT scan of the abdomen and pelvis in the ER that showed [id number] parastomal hernia about 13.8 cm wide, couple loops of distal ileum are present within the hernia sac and there is secondary small bowel obstruction with loops in the abdomen, dilated up to 4.2 cm. There is a transition point. Moderate reactive fluid is accumulated in the hernia sac. There is hepatic steatosis also present and there is osteopenia. REVIEW OF SYSTEMS: CONSTITUTIONAL: Weak and tired. HEENT: Dry mouth. RESPIRATORY: None. CARDIOVASCULAR: None. GASTROINTESTINAL: As above. GENITOURINARY: Urine incontinence. DERMATOLOGICAL, HEMATOLOGIC, LYMPHATIC: None. PSYCHIATRY: None. NEUROLOGICAL: Paralyzed on the left side. PAST MEDICAL HISTORY: Diabetes, DVT in the right leg several years ago, GERD, hypertension, hyperlipidemia, pulmonary embolism, large B-cell lymphoma, stroke causing left-sided paresis, ulcerative colitis, internal carotid artery occlusion, urinary incontinence, bipolar disorder, abdominal wall hernias. PAST SURGICAL HISTORY: Multiple bowel surgeries and revisions, ileostomy. The patient has had all teeth extracted, amputation of the left foot 4th and 5th toe, Desmond filter, gastric sleeve done at [facility]. PSYCH HISTORY: Bipolar. SOCIAL HISTORY: . Alcohol occasionally. The patient has got a Saida lift. The patient smoked for 25 years, stopped in 1989. Currently a resident of [facility]. FAMILY HISTORY: Father had a heart attack or stroke at the age of 84. HOME MEDICATIONS: 1. Glucophage 1000 mg p.o. b.i.d. 2. Lamictal 150 mg p.o. daily. 3. Norvasc 5 mg p.o. q.h.s. 4. Detrol 1 mg q.h.s. 5. Lyrica 100 mg p.o. b.i.d. 6. 8 mg subcu p.r.n. 7. Multivitamin 1 tablet p.o. q.h.s. 8. Toprol-XL 25 mg b.i.d. 9. Levemir 86 units subcu q.h.s. 10.NovoLog 20 units subcu a.c. t.i.d. 11.Truxton 7.5 one tablet q.i.d. 12.Tricor 134 mg p.o. daily. 13.Pepcid 20 mg b.i.d. 14.Lotrimin topical b.i.d. p.r.n. 15.Celexa 20 mg p.o. daily. 16.Cholestyramine 4 grams p.o. daily. 17.Deplin 1 application topical daily p.r.n. 18.Baclofen 10 mg q.i.d. 19.Lipitor 40 mg q.h.s. 20.Aspirin 81 mg p.o. q.h.s. 21.Vitamin C 250 mg q.h.s. 22.Xanax 0.25 p.o. b.i.d. ALLERGIES: To TETANUS, CORTICOSTEROIDS, PREDNISONE. PHYSICAL EXAMINATION: VITAL SIGNS: Temperature 99.3, pulse 97, respiratory 18, blood pressure 142/65, pulse ox 93% on room air. GENERAL APPEARANCE: Well built, BMI 40.9, lying in bed, anxious-appearing. EYES: Conjunctivae normal. HEENT: External appearance of nose and ears normal. Oral cavity dry mucous membranes. NECK: Short thick, JVD unable to assess. Mass not palpable. RESPIRATORY: Effort normal. Lungs, distant breath sounds. CARDIOVASCULAR: 1st and 2nd sounds normal. No edema. ABDOMEN: Surgical scars. Ileostomy bag with a semisolid stool. Tenderness in the right side of the abdomen. No obvious guarding, rigidity. Liver and spleen not palpable. LYMPHATIC: No lymph node palpable in neck or axillae. PSYCHIATRY: Alert and oriented x3. Mood and affect normal. NEUROLOGICAL: Patient is paralyzed on the left side. Power 0/5. Some sensation is present. INVESTIGATIONS: White count 4.1, hemoglobin 13.3, potassium 4.4. CT scan of the pelvis results as above. ASSESSMENT: 1. Acute small-bowel obstruction in a parastomal hernia on the right abdominal wall with dilated loops of bowel. 2. Diabetes mellitus type 2 on oral hypoglycemic. 3. Gastroesophageal reflux disease. 4. Hyperlipidemia. 5. Left hemiparesis from prior stroke. 6. Chronic urine incontinence. 7. Chronically occluded internal carotid artery. 8. Bipolar disorder. 9. Medical debility. Patient is wheelchair bound and uses a Saida lift. PLAN: There is no nausea or vomiting. Hence, will start the patient's home medications only with a sip of water. We will hold off hypoglycemic agents and follow Accu-Cheks. The patient also to get IV fluids and DVT prophylaxis. Care was discussed with the patient. The patient has put out some stool today. I am hoping obstruction to relieve on its own. Care was discussed with the patient. Thank you Dr. Card. MMLEANNEL / SAMN: [id number] /
[2018-03-17] MEDS: CITALOPRAM HYDROBROMIDE 20 MG TAB PO SCH (08:39)
[2018-03-17] MEDS: FENOFIBRATE 160 MG TAB PO SCH (08:39)
[2018-03-17] MEDS: METOPROLOL SUCCINATE (ER) 25 MG TAB.ER.24H PO SCH ×2 (08:59→21:45)
[2018-03-17] MEDS: lamoTRIgine 100 MG TAB PO SCH (08:59)
[2018-03-17] MEDS: PREGABALIN 100 MG CAP PO SCH ×2 (09:04→21:44)
[2018-03-17] MEDS: ENOXAPARIN 40 MG/0.4 ML SYRINGE SQ SCH (09:04)
[2018-03-17 11:59] LABS: Glucose,Whole Blood 131 mg/dL (75-99)
[2018-03-17] MEDS: SODIUM CHLORIDE 0.9% 1,000 ML IV SCH ×2 (12:29→23:59)
[2018-03-17] MEDS: ALPRAZolam 0.25 MG TAB PO SCH ×2 (17:27→21:44)
[2018-03-17 17:30] LABS: Glucose,Whole Blood 142 mg/dL (75-99)
--- NOTE | 2018-03-17 20:16 | PN ---
PROGRESS NOTE DATE OF SERVICE: 03/17/2018. PRESENTING COMPLAINT: Bowel obstruction. INTERVAL HISTORY: This patient with multiple abdominal surgeries presented with small-bowel obstruction in a parastomal hernia. But patient has been putting out more stool. Stool is a bit dark in color today. Abdominal pain is still present, though better. No nausea or vomiting. at the bedside. REVIEW OF SYSTEMS: Done for constitutional, cardiovascular, GI, pulmonary; relevant findings as above. CURRENT MEDICATIONS: Reviewed. PHYSICAL EXAMINATION: Temperature 98.1, pulse 69, respiration 16, blood pressure 143/71, pulse ox 96% on room air. GENERAL APPEARANCE: Lying in bed, awake. EYES: Pupils equal. Conjunctivae normal. HEENT: External appearance of nose and ears normal. Oral cavity dry. NECK: JVD unable to assess. Mass not palpable. RESPIRATORY: Effort normal. LUNGS: Distal breath sounds. CARDIOVASCULAR: First and second sounds muffled. No edema. ABDOMEN: Ileostomy bag with dark stools, liquid. Some right-sided tenderness. No guarding or rigidity. Liver and spleen not palpable. PSYCHIATRY: Alert and oriented x3. Mood and affect normal. NEUROLOGICAL: Power on the left side is 0/5. Sensation preserved. INVESTIGATIONS: Accu-Cheks are noted. ASSESSMENT: 1. Acute small-bowel obstruction in a parastomal hernia on the right abdominal wall with dilated loops of bowel, with some clinical improvement. There is less tenderness, more stool in the bag. No nausea or vomiting. 2. Diabetes mellitus, type 2, on oral hypoglycemic. 3. Gastroesophageal reflux disease. 4. Hyperlipidemia. 5. Left hemiparesis from prior stroke. 6. Chronic urinary incontinence. 7. Chronically occluded internal carotid artery. 8. Bipolar disorder. 9. Medical debility. Patient is wheelchair-bound, uses a Saida lift. PLAN: At this point we will await further input from Surgery. Continue with IV fluids. Repeat electrolytes in the morning. Care was discussed with the patient and her . MMODL / IJN: [id number] /
[2018-03-17 20:43] LABS: Glucose,Whole Blood 208 mg/dL (75-99)
--- NOTE | 2018-03-17 20:47 | P.GSHP ---
History of Present Illness H&P Date: 03/17/18 CHIEF COMPLAINT: Abdominal pain HISTORY OF PRESENT ILLNESS: The patient is a 62-year-old female with a past history of parastomal hernia last year in June 2017. Since that time, she was doing fairly well. She has gained over 25 pounds since her hernia repair. She reports her low output from her ileostomy in the last 2 days. She presented to the hospital with change in bowel habits. Abdominal studies including CT were consistent with bowel obstruction since her admission. She has history of multiple medical comorbidities. Patient is known to me from previous history of lymphoma and Mediport insertion including removal. She reports in 2013 at [facility], she had a sleeve gastrectomy performed as an experimental study. She has history of a stroke with left-sided paresis over decade ago. She had initially weighed at least 279 pounds and had lost 100 pounds down to 177. Following that she had a parastomal hernia repair more than 5 repairs of her stoma. Since admission, she has output from her ostomy bag. Her abdominal pain has resolved. PAST MEDICAL HISTORY: See list. PAST SURGICAL HISTORY: See list. MEDICATIONS: See list. ALLERGIES: See list. SOCIAL HISTORY: No illicit drug use FAMILY HISTORY: History Crohn's disease or inflammatory bowel disease REVIEW OF ORGAN SYSTEMS: CONSTITUTIONAL: Denies any fever or chills. Has recent weight gain of 25 to 30 pounds in 9 months. HEENT: Denies any trouble with hearing or nosebleeds. No difficulty swallowing. Wears glasses. LYMPHATIC: The patient denies any lumps and bumps around the neck. ENDOCRINE: Has thyroid disorders. Has blood sugar glucose intolerance. RESPIRATORY: Denies pneumonia. Denies any troubles with breathing or dyspnea on exertion. CARDIOVASCULAR: Denies any chest pain, palpitations, or recent heart attacks. GASTROINTESTINAL: History of ostomy. GENITOURINARY: Denies any blood in urine. Has urine incontinence. MUSCULOSKELETAL: Has back pain, stiffness, joint arthritis. NEUROLOGIC: Denies any numbness or tingling along the distal extremities. No seizure disorders or headaches. Has hemiparesis from past stroke. PSYCHIATRIC: Has depression. No suidical ideation. HEMATOLOGIC: Denies any abnormal bleeding or bruising. SKIN: No diffuse rash or skin cancer as of recent. LYMPH: Past history of lymphoma now in remission. PHYSICAL EXAM: VITAL SIGNS: Currently stable. GENERAL: Well-developed in no acute distress. HEENT: No sclera icterus. Extraocular movements grossly intact. Moist buccal mucosa. Head is atraumatic, normocephalic. Hears conversational speech. No nasal drainage. NECK: Supple without lymphadenopathy. CHEST: Non-labored respirations and equal bilateral excursions. CARDIOVASCULAR: Regular rate with regular rhythm. Palpable 2+ radial pulses. ABDOMEN: Soft, nontender. Ostomy with moderate flatus. No peritonitis. MUSCULOSKELETAL: No clubbing, cyanosis or edema. NEUROLOGIC: Has left hemiparesis. Right-sided level. PSYCH: Appropriate affect. Alert and oriented to person, place and time. SKIN: Well perfused. Good skin turgor. LABS: Reviewed ASSESSMENT: 1. Abnormal computed tomography scan 2. Abdominal pain 3. History of parastomal hernia with small bowel obstruction 4. Weight regain following bariatric procedure PLAN: 1. Bowel obstruction has resolved. Start full liquid diet. 2. Discharge home tomorrow. 3. No surgical intervention needed Past Medical History Past Medical History: Cancer, CVA/TIA, Diabetes Mellitus, Deep Vein Thrombosis ( DVT), Hyperlipidemia, Hypertension Additional Past Medical History / Comment(s): Other HX: Large B cell lymphoma and past massive lymphadenopathy , pancytopenia from chemo, anemia, recent UTI with sepsis, R arm humerus fracture, 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 History of Any Multi-Drug Resistant Organisms: ESBL Date of last positivie culture/infection: 04/13/17 ESBL-Proteus mirabilis; 02/21/17 -ESBL-E.coli MDRO Source:: Urine-ESBL Proteus and E.coli Past Surgical History: Cholecystectomy Additional Past Surgical History / Comment(s): MULTIPLE BOWEL SX AND REVISONS OF Ileostomy (pt wears Holister 86-28 with small eacon ring/ stoma powder/ no sting adhesive). HAD ALL TEETH EXTRACTED . 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 GREENFILED FILTER, gastric sleeve at [place], Past Anesthesia/Blood Transfusion Reactions: No Reported Reaction Additional Past Anesthesia/Blood Transfusion Reaction / Comment(s): Pt received blood without reaction. Past Psychological History: Anxiety, Bipolar, Depression Additional Psychological History / Comment(s): . Has not smoked more than 20 years. No history of alcohol use. No animal exposures. No experience. No international travel. Pt needs total assist. She is up into a wheelchair by smita lift. Smoking Status: Former smoker Past Alcohol Use History: None Reported Additional Past Alcohol Use History / Comment(s): SMOKED X 25 YEARS-quit in 1989 Past Drug Use History: None Reported - Past Family History Sister(s) Family Medical History: Cancer Father Family Medical History: Deep Vein Thrombosis (DVT) Additional Family Medical History / Comment(s): Father of either a CVA or VA at age 84 yrs. Mother Family Medical History: Cancer Additional Family Medical History / Comment(s): Mother of renal failure at age 84 yrs. Medications and Allergies Home Medications Medication Instructions Recorded Confirmed Type Aspirin 81 mg PO HS 08/18/15 03/16/18 History Citalopram Hydrobromide [CeleXA] 20 mg PO DAILY 02/14/16 03/16/18 History Ascorbic Acid [Vitamin C] 250 mg PO HS 03/15/17 03/16/18 History Famotidine [Pepcid] 20 mg PO BID 03/15/17 03/16/18 History Ferrous Sulfate [Iron (65 MG 325 mg PO HS 03/15/17 03/16/18 History Elemental)] lamoTRIgine [LaMICtal] 150 mg PO DAILY 03/15/17 03/16/18 History Atorvastatin [Lipitor] 40 mg PO HS 06/17/17 03/16/18 History Baclofen 10 mg PO QID@00,06,12,18 06/17/17 03/16/18 History Fenofibrate,Micronized 134 mg PO DAILY 06/17/17 03/16/18 History [Fenofibrate] Multivitamins, Thera [Multivitamin 1 tab PO HS 06/17/17 03/16/18 History (formulary)] ALPRAZolam [Xanax] 0.25 mg PO BID@1500,2100 03/16/18 03/16/18 History Betamethasone Dipropionate 1 applic TOPICAL DAILY PRN 03/16/18 03/16/18 History [Diprolene AF 0.05% Cream] Cholestyramine (with Sugar) 4 gm PO DAILY@1200 03/16/18 03/16/18 History [Cholestyramine Packet] Clotrimazole Cream [Lotrimin Cream] 1 applic TOPICAL BID PRN 03/16/18 03/16/18 History HYDROcodone/APAP 7.5-325MG [[place] 1 tab PO QID@00,06,12,18 03/16/18 03/16/18 History 7.5-325] Insulin Aspart [NovoLOG 20 unit SQ AC-TID@0630,1100,16 03/16/18 03/16/18 History (formulary)] Insulin Aspart [NovoLOG See Protocol SQ AC-TID@0630,11,16 03/16/18 03/16/18 History (formulary)] Insulin Detemir [Levemir] 86 unit SQ HS 03/16/18 03/16/18 History Metoprolol Succinate (ER) [Toprol 25 mg PO BID 03/16/18 03/16/18 History Xl] Ondansetron [Zuplenz] 8 mg SL Q8H PRN 03/16/18 03/16/18 History Pregabalin [Lyrica] 100 mg PO BID 03/16/18 03/16/18 History Tolterodine Tartrate [Detrol] 1 mg PO HS 03/16/18 03/16/18 History amLODIPine [Norvasc] 5 mg PO HS 03/16/18 03/16/18 History metFORMIN HCL [Glucophage] 1,000 mg PO BID@08,16 03/16/18 03/16/18 History Allergies Allergy/AdvReac Type Severity Reaction Status Date / Time Tetanus Vaccines and Toxoid Allergy Red and Verified 03/16/18 17:59 [Tetanus Vaccines & Toxoid] Swelling at site. Corticosteroids AdvReac Elevated Verified 03/16/18 17:59 (Glucocorticoids) Blood sugar and Blood Pressure prednisone AdvReac Elevated Verified 03/16/18 17:59 Blood Sugar and Blood Pressure Surgical - Exam Vital Signs Temp Pulse Resp BP Pulse Ox 99.3 F 97 18 174/74 96 03/16/18 15:00 03/16/18 15:00 03/16/18 15:00 03/16/18 15:00 03/16/18 15:00 Results - Labs 03/16/18 16:00 03/16/18 16:00 Abnormal Lab Results - Last 24 Hours (Table) 03/16/18 03/17/18 03/17/18 Range/Units 21:27 07:05 11:58 POC Glucose (mg/dL) 144 H 112 H 131 H (75-99) mg/dL 03/17/18 Range/Units 17:29 POC Glucose (mg/dL) 142 H (75-99) mg/dL Microbiology - Last 24 Hours (Table) 03/16/18 16:19 Urine Culture - Preliminary Urine,Catheterized - Imaging CT scan - abdomen: report reviewed, image reviewed CT scan - pelvis: report reviewed (Recurrent parastomal hernia with small bowel obstruction), image reviewed Assessment and Plan (1) Hemiparesis Current Visit: Yes Status: Acute Code(s): G81.90 - HEMIPLEGIA, UNSPECIFIED AFFECTING UNSPECIFIED SIDE SNOMED Code(s): 20140949 (2) At risk for readmission to hospital Current Visit: Yes Status: Acute Code(s): Z91.89 - OTH PERSONAL RISK FACTORS , NOT ELSEWHERE CLASSIFIED SNOMED Code(s): 1579854757099 (3) SBO (small bowel obstruction) Current Visit: Yes Status: Acute Code(s): K56.609 - UNSP INTESTNL OBST, UNSP TO PARTIAL VERSUS COMPLETE OBST SNOMED Code(s): 278210895 (4) History of sleeve gastrectomy Current Visit: No Status: Acute Code(s): Z90.3 - ACQUIRED ABSENCE OF STOMACH [PART OF] SNOMED Code(s): 371759560 (5) Insulin dependent diabetes mellitus Current Visit: No Status: Acute Code(s): E11.9 - TYPE 2 DIABETES MELLITUS WITHOUT COMPLICATIONS; Z79.4 - FINANCIAL ANALYSIS MANAGER (CURRENT) USE OF INSULIN SNOMED Code( s): 16437834 (6) Parastomal hernia with obstruction, without gangrene Current Visit: No Status: Acute Code(s): K43.3 - PARASTOMAL HERNIA WITH OBSTRUCTION, WITHOUT GANGRENE SNOMED Code(s): 440072939
[2018-03-17] MEDS: amLODIPine 5 MG TAB PO SCH (21:44)
[2018-03-17] MEDS: ATORVASTATIN 40 MG TAB PO SCH (21:44)
[2018-03-17] MEDS: INSULIN DETEMIR 100 UNIT/ML 10 ML VIAL SQ SCH (21:44)
[2018-03-17] MEDS: OXYBUTYNIN CHLORIDE 5 MG TAB PO SCH (21:44)
[2018-03-17] MEDS: ASPIRIN 81 MG PO SCH (21:44)
[2018-03-17] MEDS: INSULIN ASPART 100 UNIT/ML 1 ML 10 ML VIAL SQ SCH (22:01)
[2018-03-18] MEDS: MORPHINE SULFATE 4 MG/ML SYRINGE IVP PRN (00:15)
[2018-03-18] MEDS: BACLOFEN 10 MG TAB PO SCH ×4 (00:17→18:39)
[2018-03-18 06:56] LABS: Basophils % (A) 0 %; Eosinophils # (A) 0.3 k/uL (0-0.7); Eosinophils % (A) 8 %; HCT 35.7 % (34.0-46.0); Lymphocytes # (A) 0.9 k/uL (1.0-4.8); Lymphocytes % (A) 23 %; MCH 28.5 pg (25.0-35.0); MCHC 30.8 g/dL (31.0-37.0); MCV 92.6 fL (80.0-100.0); Mean Platelet Volume 6.5; Monocytes # (A) 0.2 k/uL (0-1.0); Monocytes % (A) 6 %; Neutrophils # (A) 2.3 k/uL (1.3-7.7); Neutrophils % (A) 61 %; Platelet Count 152 k/uL (150-450); RBC 3.85 m/uL (3.80-5.40); RDW 14.7 % (11.5-15.5); WBC 3.9 k/uL (3.8-10.6)
[2018-03-18 07:18] LABS: Potassium 3.9 mmol/L (3.5-5.1)
[2018-03-18 07:19] LABS: Calcium 8.3 mg/dL (8.4-10.2)
[2018-03-18 07:23] LABS: Glucose,Whole Blood 145 mg/dL (75-99)
[2018-03-18] MEDS ORDERED: INSULIN ASPART 100 UNIT/ML 1 ML 10 ML VIAL SQ SCH (07:30)
[2018-03-18] MEDS: PREGABALIN 100 MG CAP PO SCH ×2 (08:24→21:07)
[2018-03-18] MEDS: INSULIN ASPART 100 UNIT/ML 1 ML 10 ML VIAL SQ SCH ×4 (08:24→21:04)
[2018-03-18] MEDS: ENOXAPARIN 40 MG/0.4 ML SYRINGE SQ SCH (08:25)
[2018-03-18] MEDS: lamoTRIgine 100 MG TAB PO SCH (08:25)
[2018-03-18] MEDS: METOPROLOL SUCCINATE (ER) 25 MG TAB.ER.24H PO SCH ×2 (08:25→21:05)
[2018-03-18] MEDS: CITALOPRAM HYDROBROMIDE 20 MG TAB PO SCH (08:26)
[2018-03-18] MEDS: FENOFIBRATE 160 MG TAB PO SCH (08:26)
[2018-03-18 11:30] LABS: Glucose,Whole Blood 200 mg/dL (75-99)
[2018-03-18 13:19] LABS: Hemoglobin A1C 8.4 % (4.0-6.0)
[2018-03-18] MEDS: HYDROcodone/APAP 7.5-325MG 1 EACH TAB PO SCH ×2 (13:58→23:18)
[2018-03-18 15:57] VITALS: RESP 16
[2018-03-18] MEDS: ALPRAZolam 0.25 MG TAB PO SCH ×2 (16:49→23:19)
[2018-03-18 16:51] LABS: Glucose,Whole Blood 206 mg/dL (75-99)
[2018-03-18 20:05] LABS: Glucose,Whole Blood 226 mg/dL (75-99)
[2018-03-18] MEDS: SODIUM CHLORIDE 0.9% 1,000 ML IV SCH (21:04)
[2018-03-18] MEDS: amLODIPine 5 MG TAB PO SCH (21:05)
[2018-03-18] MEDS: ASPIRIN 81 MG PO SCH (21:05)
[2018-03-18] MEDS: ATORVASTATIN 40 MG TAB PO SCH (21:05)
[2018-03-18] MEDS: OXYBUTYNIN CHLORIDE 5 MG TAB PO SCH (21:05)
[2018-03-18] MEDS: INSULIN DETEMIR 100 UNIT/ML 10 ML VIAL SQ SCH (21:05)
--- NOTE | 2018-03-19 00:21 | PN ---
PROGRESS NOTE DATE OF SERVICE: 03/18/2018. PRESENTING COMPLAINT: Bowel obstruction. INTERVAL HISTORY: The patient has had multiple bowel surgeries, presented with small bowel obstruction and a parastomal hernia, but actually got relieved on its own. The patient was on full liquid this morning, getting stool in ileostomy bag. Breathing is stable. Lying in bed. REVIEW OF SYSTEMS: Done for constitutional, cardiovascular, GI, pulmonary; relevant findings as above. MEDICATIONS: Current medications are reviewed. PHYSICAL EXAMINATION: Temperature 98, pulse 83, respiratory rate 18, blood pressure 114/60, pulse 96% on room air. GENERAL: Lying in bed, awake. EYES: Pupils equal. Conjunctivae normal. HEENT: External appearance of nose and ears normal. Oral cavity dry. NECK: No JVD. Unable to assess. Mass not palpable. Respiratory effort normal. LUNGS: Distant breath sounds. CARDIOVASCULAR: First and second heart sounds, no edema. ABDOMEN: Ileostomy bag in place with stool, minimal right-sided tenderness. No guarding or rigidity. Incisions in place in the abdomen. PSYCHIATRY: Alert and oriented x3. Mood and affect normal. Power on the left side is 0/5. Sensation preserved. INVESTIGATIONS: Accu-Cheks noted. White count 3.9. Hemoglobin 11. ASSESSMENT: 1. Acute small-bowel obstruction in the parastomal hernia on the right side abdominal wall with clinical improvement. 2. Diabetes mellitus type 2, on oral hypoglycemics. 3. Gastroesophageal reflux disease. 4. Hyperlipidemia. 5. Left hemiparesis from prior stroke. 6. Chronic urine incontinence. 7. Chronically occluded internal carotid artery. 8. Bipolar disorder. 9. Medical debility. Patient is wheelchair-bound and uses a Saida lift. The patient is stable should be able to get discharged when okay with General Surgery. MMODL / IJN: [id number] /
[2018-03-19] MEDS: BACLOFEN 10 MG TAB PO SCH ×2 (00:56→05:56)
[2018-03-19] MEDS: SODIUM CHLORIDE 0.9% 1,000 ML IV SCH (05:56)
[2018-03-19] MEDS: HYDROcodone/APAP 7.5-325MG 1 EACH TAB PO SCH (06:32)
[2018-03-19 07:11] LABS: Glucose,Whole Blood 158 mg/dL (75-99)
[2018-03-19] MEDS: INSULIN ASPART 100 UNIT/ML 1 ML 10 ML VIAL SQ SCH (07:53)
[2018-03-19] MEDS: ENOXAPARIN 40 MG/0.4 ML SYRINGE SQ SCH (07:53)
[2018-03-19] MEDS: lamoTRIgine 100 MG TAB PO SCH (07:54)
[2018-03-19] MEDS: METOPROLOL SUCCINATE (ER) 25 MG TAB.ER.24H PO SCH (07:54)
[2018-03-19] MEDS: FENOFIBRATE 160 MG TAB PO SCH (07:54)
[2018-03-19] MEDS: CITALOPRAM HYDROBROMIDE 20 MG TAB PO SCH (07:54)
[2018-03-19] MEDS: PREGABALIN 100 MG CAP PO SCH (07:56)
[2018-03-19 08:13] LABS: Anion Gap 8 mmol/L; Blood Urea Nitrogen 10 mg/dL (7-17); Calcium 8.9 mg/dL (8.4-10.2); Carbon Dioxide 28 mmol/L (22-30); Chloride 102 mmol/L (98-107); Glucose 160 mg/dL (74-99); Potassium 4.3 mmol/L (3.5-5.1); Sodium 138 mmol/L (137-145)
--- NOTE | 2018-03-19 08:16 | P.PN ---
Subjective Progress Note Date: 03/18/18 Patient reports abdominal pain resolved. She is tolerating diet. She is having bowel movements in her ostomy bag. Objective - Vital Signs Vital signs: Vital Signs Temp 98.2 F 03/18/18 15:00 Pulse 80 03/18/18 16:10 Resp 16 03/18/18 16:10 BP 144/81 03/18/18 15:00 Pulse Ox 94 L 03/18/18 15:00 Intake & Output 03/18/18 03/18/18 03/19/18 06:59 18:59 06:59 Intake Total 240 Output Total 475 900 Balance -475 -856 Intake: Oral 240 Output: Stool 475 900 Other: Voiding Method Bedpan Bedpan Diaper Incontinent # Voids 2 2 - Exam GENERAL: Well developed and in no acute distress. Pleasant. HEENT: No sclera icterus. Extraocular movements grossly intact. Moist buccal mucosa. Head is atraumatic, normocephalic. Hears conversational speech. No nasal drainage. NECK: Supple without lymphadenopathy. CHEST: Non-labored respirations and equal bilateral excursions. CARDIOVASCULAR: Regular rate and rhythm. Palpable 2+ radial pulses. ABDOMEN: Soft, nontender. Nondistended. Ostomy bag with flatus and stool. MUSCULOSKELETAL: No clubbing, cyanosis. NEUROLOGIC: Left hemiparesis. PSYCH: Appropriate affect. Alert and oriented to person, place and time. SKIN: Good skin turgor. Well perfused. - Labs CBC & Chem 7: 03/18/18 06:28 03/18/18 06:28 Labs: Abnormal Lab Results - Last 24 Hours (Table) 03/16/18 03/17/18 03/18/18 Range/Units 16:00 20:42 06:28 Hgb 11.0 L (11.4-16.0) gm/dL MCHC 30.8 L (31.0-37.0) g/dL Lymphocytes # 0.9 L (1.0-4.8) k/uL Glucose (74-99) mg/dL POC Glucose (mg/dL) 208 H (75-99) mg/dL Hemoglobin A1c 8.4 H (4.0-6.0) % Calcium (8.4-10.2) mg/dL 08/07/18 08/07/18 08/07/18 Range/Units 06:28 07:22 11:28 Hgb (11.4-16.0) gm/dL MCHC (31.0-37.0) g/dL Lymphocytes # (1.0-4.8) k/uL Glucose 137 H (74-99) mg/dL POC Glucose (mg/dL) 145 H 200 H (75-99) mg/dL Hemoglobin A1c (4.0-6.0) % Calcium 8.3 L (8.4-10.2) mg/dL 03/18/18 Range/Units 16:49 Hgb (11.4-16.0) gm/dL MCHC (31.0-37.0) g/dL Lymphocytes # (1.0-4.8) k/uL Glucose (74-99) mg/dL POC Glucose (mg/dL) 206 H (75-99) mg/dL Hemoglobin A1c (4.0-6.0) % Calcium (8.4-10.2) mg/dL Microbiology - Last 24 Hours (Table) 03/16/18 16:19 Urine Culture - Final Urine,Catheterized Assessment and Plan (1) Hemiparesis Current Visit: Yes Status: Acute Code(s): G81.90 - HEMIPLEGIA, UNSPECIFIED AFFECTING UNSPECIFIED SIDE SNOMED Code(s): 25325556 (2) At risk for readmission to hospital Current Visit: Yes Status: Acute Code(s): Z91.89 - OTH PERSONAL RISK FACTORS , NOT ELSEWHERE CLASSIFIED SNOMED Code(s): 6606081792081 (3) SBO (small bowel obstruction) Current Visit: Yes Status: Acute Code(s): K56.609 - UNSP INTESTNL OBST, UNSP TO PARTIAL VERSUS COMPLETE OBST SNOMED Code(s): 789867568 (4) History of sleeve gastrectomy Current Visit: No Status: Acute Code(s): Z90.3 - ACQUIRED ABSENCE OF STOMACH [PART OF] SNOMED Code(s): 662325113 (5) Insulin dependent diabetes mellitus Current Visit: No Status: Acute Code(s): E11.9 - TYPE 2 DIABETES MELLITUS WITHOUT COMPLICATIONS; Z79.4 - CHAIR PAD MAKER (CURRENT) USE OF INSULIN SNOMED Code( s): 67743490 (6) Parastomal hernia with obstruction, without gangrene Current Visit: No Status: Acute Code(s): K43.3 - PARASTOMAL HERNIA WITH OBSTRUCTION, WITHOUT GANGRENE SNOMED Code(s): 910364974
--- NOTE | 2018-03-19 08:18 | P.DS ---
Providers Date of admission: 03/16/18 19:09 Expected date of discharge: 03/18/18 Attending physician: Stefanie Card Consults: 03/16/18 19:09 Consult Physician Routine Consulting Provider: Alexx Bentley Consult Reason/Comments: med Do you want consulting provider notified?: Yes Primary care physician: Dani Zuniga - Discharge Diagnosis(es) (1) Hemiparesis Current Visit: Yes Status: Acute (2) At risk for readmission to hospital Current Visit: Yes Status: Acute (3) SBO (small bowel obstruction) Current Visit: Yes Status: Acute (4) History of sleeve gastrectomy Current Visit: No Status: Acute (5) Insulin dependent diabetes mellitus Current Visit: No Status: Acute (6) Parastomal hernia with obstruction, without gangrene Current Visit: No Status: Acute Hospital Course: The patient is a 62-year-old female with history of multiple recurrent parastomal hernias. She was admitted with small bowel obstruction. During hospitalization conservative management with nothing by mouth status was performed. Patient's small bowel obstruction resolved. Abdominal pain resolved. Her ileostomy was functioning. Prior to discharge she was hemodynamically stable. Pertinent Studies: CT of the abdomen and pelvis confirming small bowel obstruction and parastomal hernia, recurrent Patient Condition at Discharge: Stable Plan - Discharge Summary New Discharge Prescriptions: Continue Aspirin 81 mg PO HS Citalopram Hydrobromide [CeleXA] 20 mg PO DAILY lamoTRIgine [LaMICtal] 150 mg PO DAILY Ascorbic Acid [Vitamin C] 250 mg PO HS Ferrous Sulfate [Iron (65 MG Elemental)] 325 mg PO HS Famotidine [Pepcid] 20 mg PO BID Atorvastatin [Lipitor] 40 mg PO HS Fenofibrate,Micronized [Fenofibrate] 134 mg PO DAILY Multivitamins, Thera [Multivitamin (formulary)] 1 tab PO HS Clotrimazole Cream [Lotrimin Cream] 1 applic TOPICAL BID PRN PRN Reason: Skin Irritation Betamethasone Dipropionate [Diprolene AF 0.05% Cream] 1 applic TOPICAL DAILY PRN PRN Reason: Skin Irritation Insulin Aspart [NovoLOG (formulary)] See Protocol SQ AC-TID@0630,11,16 Insulin Aspart [NovoLOG (formulary)] 20 unit SQ AC-TID@0630,1100,16 metFORMIN HCL [Glucophage] 1,000 mg PO BID@08,16 Metoprolol Succinate (ER) [Toprol XL] 25 mg PO BID Tolterodine Tartrate [Detrol] 1 mg PO HS Insulin Detemir [Levemir] 86 unit SQ HS Cholestyramine (with Sugar) [Cholestyramine Packet] 4 gm PO DAILY@1200 amLODIPine [Norvasc] 5 mg PO HS Ondansetron [Zuplenz] 8 mg SL Q8H PRN PRN Reason: Nausea ALPRAZolam [Xanax] 0.25 mg PO BID@1500,2100 #6 tab HYDROcodone/APAP 7.5-325MG [[place] 7.5-325] 1 tab PO QID@00,,, #10 tab Pregabalin [Lyrica] 100 mg PO BID #6 cap Baclofen 10 mg PO QID@00,,, #12 tablet Discharge Medication List Aspirin 81 mg PO HS 08/18/15 [History] Citalopram Hydrobromide [CeleXA] 20 mg PO DAILY 02/14/16 [History] Ascorbic Acid [Vitamin C] 250 mg PO HS 03/15/17 [History] Famotidine [Pepcid] 20 mg PO BID 03/15/17 [History] Ferrous Sulfate [Iron (65 MG Elemental)] 325 mg PO HS 03/15/17 [History] lamoTRIgine [LaMICtal] 150 mg PO DAILY 03/15/17 [History] Atorvastatin [Lipitor] 40 mg PO HS 06/17/17 [History] Fenofibrate,Micronized [Fenofibrate] 134 mg PO DAILY 06/17/17 [History] Multivitamins, Thera [Multivitamin (formulary)] 1 tab PO HS 06/17/17 [History] Betamethasone Dipropionate [Diprolene AF 0.05% Cream] 1 applic TOPICAL DAILY PRN 03/16/18 [History] Cholestyramine (with Sugar) [Cholestyramine Packet] 4 gm PO DAILY@1200 03/16/18 [History] Clotrimazole Cream [Lotrimin Cream] 1 applic TOPICAL BID PRN 03/16/18 [History] Insulin Aspart [NovoLOG (formulary)] 20 unit SQ AC-TID@0630,1100,16 03/16/18 [ History] Insulin Aspart [NovoLOG (formulary)] See Protocol SQ AC-TID@0630,,16 03/16/18 [History] Insulin Detemir [Levemir] 86 unit SQ HS 03/16/18 [History] Metoprolol Succinate (ER) [Toprol XL] 25 mg PO BID 03/16/18 [History] Ondansetron [Zuplenz] 8 mg SL Q8H PRN 03/16/18 [History] Tolterodine Tartrate [Detrol] 1 mg PO HS 03/16/18 [History] amLODIPine [Norvasc] 5 mg PO HS 03/16/18 [History] metFORMIN HCL [Glucophage] 1,000 mg PO BID@,03/16/18 [History] ALPRAZolam [Xanax] 0.25 mg PO BID@1500,2100 #6 tab 03/18/18 [Rx] Baclofen 10 mg PO QID@00,06,,18 #12 tablet 03/18/18 [Rx] HYDROcodone/APAP 7.5-325MG [[place] 7.5-325] 1 tab PO QID@00,06,,18 #10 tab 02/26 [Rx] Pregabalin [Lyrica] 100 mg PO BID #6 cap 03/18/18 [Rx] Follow up Appointment(s)/Referral(s): Dani Zuniga DO [Primary Care Provider] - 1-2 days Stefanie Card MD [STAFF PHYSICIAN] - As Needed Patient Instructions/Handouts: Bowel Obstruction (GEN) Activity/Diet/Wound Care/Special Instructions: Diet as tolerated Discharge Disposition: HOME SELF-CARE
[2018-03-19 08:29] VITALS: BP 143/73; PULSE 75; TEMP 97.4
== END 2018-03-19 10:20 | DRG 394 ==
LOC: EC 14:46 → 5ONC 19:09
PROVIDERS: ADMIT Surgery Plastic and Reconstructive Surgery; ATTEND Surgery Plastic and Reconstructive Surgery
DX: K43.3 Parastomal hernia with obstruction, without gangrene (principal); I69.354 Hemiplegia and hemiparesis following cerebral infarction affecting left non-dominant side; K51.90 Ulcerative colitis, unspecified, without complications; K76.0 Fatty (change of) liver, not elsewhere classified; E11.9 Type 2 diabetes mellitus without complications; R32 Unspecified urinary incontinence; F41.9 Anxiety disorder, unspecified; F31.9 Bipolar disorder, unspecified; I10 Essential (primary) hypertension; E78.5 Hyperlipidemia, unspecified; K21.9 Gastro-esophageal reflux disease without esophagitis; M81.0 Age-related osteoporosis without current pathological fracture; Z79.82 Long term (current) use of aspirin; Z79.4 Long term (current) use of insulin; Z79.891 Long term (current) use of opiate analgesic; Z79.899 Other long term (current) drug therapy; Z86.718 Personal history of other venous thrombosis and embolism; Z86.711 Personal history of pulmonary embolism; Z87.440 Personal history of urinary (tract) infections; Z87.81 Personal history of (healed) traumatic fracture; Z86.19 Personal history of other infectious and parasitic diseases; Z89.422 Acquired absence of other left toe(s); Z90.49 Acquired absence of other specified parts of digestive tract; Z93.2 Ileostomy status; Z87.891 Personal history of nicotine dependence; Z98.84 Bariatric surgery status; Z85.72 Personal history of non-Hodgkin lymphomas; Z99.3 Dependence on wheelchair; Z95.828 Presence of other vascular implants and grafts; Z86.79 Personal history of other diseases of the circulatory system; Z88.7 Allergy status to serum and vaccine; Z88.8 Allergy status to other drugs, medicaments and biological substances; Z91.040 Latex allergy status; Z83.2 Family history of diseases of the blood and blood-forming organs and certain disorders involving the immune mechanism; Z82.3 Family history of stroke; Z84.1 Family history of disorders of kidney and ureter; Z82.49 Family history of ischemic heart disease and other diseases of the circulatory system; Z80.9 Family history of malignant neoplasm, unspecified
CPT/HCPCS: 36415; 51701; 74177; 80048; 80053; 81001; 82150; 83036; 83605; 83690; 85025; 87086; 87324; 87493; 96361; 96374; 99285

== ENCOUNTER 2020-06-25 18:55 | Inpatient (IN) | payer MEDICARE, OTHER ==
[2020-06-25] MEDS ORDERED: ACETAMINOPHEN TAB 325 MG TAB PO STA (19:22)
[2020-06-25] MEDS ORDERED: IBUPROFEN 600 MG TAB PO STA (19:22)
--- NOTE | 2020-06-25 19:54 | ED ---
Fever HPI - General Chief Complaint: Fever Stated Complaint: Possible Sepsis Time Seen by Provider: 06/25/20 19:05 Source: patient, EMS Mode of arrival: EMS Limitations: physical limitation - History of Present Illness Initial Comments: 65-year-old female patient with past medical history of left-sided hemiplegia, chronic kidney disease stage III, bipolar disorder, lymphedema, anemia, cognitive deficit, ileostomy, and diffuse large B-cell lymphoma presents to the emergency department today for evaluation of fever and low oxygen saturation. Patient is somewhat of a poor historian and provides little contribution to history. She states that she has been cold all day and unable to get warm. She denies any cough, congestion, or shortness of breath. Denies any pain. Denies nause, vomiting, or change to stool in her ileostomy. She denies any wounds. She was tested for COVID-19 today at the [facility] and tested negative. Patient denies any recent rash, chest pain, back pain, numbness, tingling, dizziness, weakness, hematuria, dysuria, urinary urgency, urinary frequency, headache, visual changes, or any other complaints. - Related Data Home Medications Medication Instructions Recorded Confirmed Aspirin 81 mg PO HS 08/18/15 06/25/20 lamoTRIgine [LaMICtal] 150 mg PO DAILY 03/15/17 06/25/20 Atorvastatin [Lipitor] 40 mg PO HS 06/17/17 06/25/20 Fenofibrate,Micronized 134 mg PO W/BRKFST 06/17/17 06/25/20 [Fenofibrate] Multivitamins, Thera [Multivitamin 1 tab PO HS 06/17/17 06/25/20 (formulary)] INSULIN ASPART (NovoLOG) [NovoLOG 40 unit SQ TID-W/MEALS 03/16/18 06/25/20 (formulary)] Insulin Detemir (Levemir) [Levemir] 56 unit SQ QAM 03/16/18 06/25/20 metFORMIN HCL [Glucophage] 500 mg PO W/BRKFST 03/16/18 06/25/20 ALPRAZolam [Xanax] 0.25 mg PO BID 06/25/20 06/25/20 Albuterol Nebulized [Ventolin 2.5 mg INHALATION RT-Q4H PRN 06/25/20 06/25/20 Nebulized] Ascorbic Acid [Vitamin C] 250 mg PO HS 06/25/20 06/25/20 Baclofen 10 mg PO QID 06/25/20 06/25/20 Cholecalciferol [Vitamin D3 (25 1,000 unit PO HS 06/25/20 06/25/20 Mcg = 1000 Iu)] Empagliflozin [Jardiance] 10 mg PO DAILY 06/25/20 06/25/20 Escitalopram [Lexapro] 20 mg PO QAM 06/25/20 06/25/20 HYDROcodone/APAP 7.5-325MG [[place] 1 tab PO QID 06/25/20 06/25/20 7.5-325] Insulin Detemir (Levemir) [Levemir] 62 unit SQ HS 06/25/20 06/25/20 Ketoconazole 2% Shampoo [Nizoral] 1 applic TOPICAL WESA 06/25/20 06/25/20 Metoprolol Succinate [Toprol XL] 50 mg PO BID 06/25/20 06/25/20 Mirabegron [Myrbetriq] 50 mg PO DAILY 06/25/20 06/25/20 Nystatin 100,000 Unit/gm Powd 1 applic TOPICAL DAILY PRN 06/25/20 06/25/20 [Mycostatin Powder] Omeprazole [PriLOSEC] 20 mg PO HS 06/25/20 06/25/20 amLODIPine [Norvasc] 10 mg PO HS 06/25/20 06/25/20 metFORMIN HCL 1,000 mg PO W/SUPPER 06/25/20 06/25/20 Previous Rx's Medication Instructions Recorded Pregabalin [Lyrica] 100 mg PO BID #6 cap 03/18/18 Allergies Allergy/AdvReac Type Severity Reaction Status Date / Time Tetanus Vaccines and Toxoid Allergy Red and Verified 06/25/20 22:58 [Tetanus Vaccines & Toxoid] Swelling at site. Corticosteroids AdvReac Elevated Verified 06/25/20 22:58 (Glucocorticoids) Blood sugar and Blood Pressure prednisone AdvReac Elevated Verified 06/25/20 22:58 Blood Sugar and Blood Pressure Review of Systems ROS Statement: Those systems with pertinent positive or pertinent negative responses have been documented in the HPI. ROS Other: All systems not noted in ROS Statement are negative. 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 History of Any Multi-Drug Resistant Organisms: ESBL Date of last positivie culture/infection: 04/13/17 ESBL-Proteus mirabilis; 02/21/17-ESBL-E.coli MDRO Source:: Urine-ESBL Proteus and E.coli Past Surgical History: Cholecystectomy Additional Past Surgical History / Comment(s): MULTIPLE BOWEL SX AND REVISONS OF Ileostomy (pt wears Holister 86-28 with small eacon ring/ stoma powder/ no sting adhesive). HAD ALL TEETH EXTRACTED . 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 GREENFILED FILTER, gastric sleeve at [place], Past Anesthesia/Blood Transfusion Reactions: No Reported Reaction Additional Past Anesthesia/Blood Transfusion Reaction / Comment(s): Pt received blood without reaction. Past Psychological History: Anxiety, Bipolar, Depression Past Alcohol Use History: None Reported Past Drug Use History: None Reported - Past Family History Sister(s) Family Medical History: Cancer Father Family Medical History: Deep Vein Thrombosis (DVT) Additional Family Medical History / Comment(s): Father of either a CVA or MD at age 84 yrs. Mother Family Medical History: Cancer Additional Family Medical History / Comment(s): Mother of renal failure at age 84 yrs. General Exam Limitations: physical limitation General appearance: alert, in no apparent distress, other (This is a well- developed, well-nourished adult female patient in no acute distress. Vital signs upon presentation are temperature 101.9F, pulse 102, respirations 18, blood pressure 93/64, pulse ox 96% on room air.) ENT exam: Present: normal exam, normal oropharynx, mucous membranes moist Respiratory exam: Present: normal lung sounds bilaterally. Absent: respiratory distress, wheezes, rales, rhonchi, stridor Cardiovascular Exam: Present: normal rhythm, tachycardia, normal heart sounds. Absent: systolic murmur, diastolic murmur, rubs, gallop, clicks GI/Abdominal exam: Present: soft, normal bowel sounds. Absent: distended, tenderness, guarding, rebound, rigid Neurological exam: Present: alert, CN II-XII intact. Absent: oriented X3 (Oriented x2) Psychiatric exam: Present: normal affect, normal mood Skin exam: Present: warm, dry, intact, normal color, other (Right breast erythema, induration, peau d'orange type changes to the right lateral breast, erythema beneath the breast. There is erythema extending up to the shoulder and down the right upper arm to about elbow level. ). Absent: rash Course Vital Signs 06/25/20 06/25/20 06/25/20 19:09 21:57 22:30 Temperature 101.9 F H 102.6 F H Pulse Rate 102 H 94 Respiratory 18 18 Rate Blood Pressure 93/64 87/50 90/71 O2 Sat by Pulse 96 98 Oximetry 06/25/20 23:00 Temperature 100.5 F H Pulse Rate 89 Respiratory 16 Rate Blood Pressure 98/64 O2 Sat by Pulse 97 Oximetry Medical Decision Making - Medical Decision Making 65-year-old female patient presents to the emergency department today for evaluation of fever. Patient is a poor historian and is unable to provide much information however staff from [facility] reports that she had low oxygen sat uration and elevated temperature today. Physical examination did reveal clear lung sounds. She had erythema and induration noted to the right lateral breast with extension up into the right chest wall and down the right arm. Chest x-ray did show evidence for new infiltrate. Labs reviewed and did reveal elevated white blood cell count at 16. Urinalysis was abnormal but cultured. Oneal virus, influenza testing were negative. We did start vancomycin and Rocephin for cellulitis. Added azithromycin for pneumonia. She'll be admitted to the hospital. - Lab Data Result diagrams: 06/25/20 19:22 06/25/20 19:22 Lab Results 06/25/20 06/25/20 06/25/20 Range/Units 19:22 19:22 19:22 WBC 16.0 H (3.8-10.6) k/uL RBC 4.72 (3.80-5.40) m/uL Hgb 14.3 (11.4-16.0) gm/dL Hct 43.7 (34.0-46.0) % MCV 92.5 (80.0-100.0) fL MCH 30.3 (25.0-35.0) pg MCHC 32.8 (31.0-37.0) g/dL RDW 14.2 (11.5-15.5) % Plt Count 177 (150-450) k/uL MPV 6.8 Neutrophils % 91 % Lymphocytes % 5 % Monocytes % 2 % Eosinophils % 1 % Basophils % 1 % Neutrophils # 14.5 H (1.3-7.7) k/uL Lymphocytes # 0.7 L (1.0-4.8) k/uL Monocytes # 0.4 (0-1.0) k/uL Eosinophils # 0.2 (0-0.7) k/uL Basophils # 0.1 (0-0.2) k/uL PT 10.7 (9.0-12.0) sec INR 1.0 (<1.2) APTT 22.8 (22.0-30.0) sec Sodium (137-145) mmol/L Potassium (3.5-5.1) mmol/L Chloride (98-107) mmol/L Carbon Dioxide (22-30) mmol/L Anion Gap mmol/L BUN (7-17) mg/dL Creatinine (0.52-1.04) mg/dL Est GFR (CKD-EPI)AfAm (>60 ml/min/1.73 sqM) Est GFR (CKD-EPI)NonAf (>60 ml/min/1.73 sqM) Glucose (74-99) mg/dL Plasma Lactic Acid Benny (0.7-2.0) mmol/L Calcium (8.4-10.2) mg/dL Total Bilirubin (0.2-1.3) mg/dL AST (14-36) U/L ALT (4-34) U/L Alkaline Phosphatase (38-126) U/L NT-Pro-B Natriuret Pep pg/mL Total Protein (6.3-8.2) g/dL Albumin (3.5-5.0) g/dL Urine Color Yellow Urine Appearance Cloudy H (Clear) Urine pH 6.0 (5.0-8.0) Ur Specific [place] 1.025 (1.001-1.035) Urine Protein 3+ H (Negative) Urine Glucose (UA) 4+ H (Negative) Urine Ketones Negative (Negative) Urine Blood Moderate H (Negative) Urine Nitrite Negative (Negative) Urine Bilirubin Negative (Negative) Urine Urobilinogen 2.0 (<2.0) mg/dL Ur Leukocyte Esterase Trace H (Negative) Urine RBC 39 H (0-5) /hpf Urine WBC 11 H (0-5) /hpf Ur Squamous Epith Cells 1 (0-4) /hpf Amorphous Sediment Occasional H (None) /hpf Urine Bacteria Occasional H (None) /hpf Hyaline Casts 16 H (0-2) /lpf Urine Mucus Few H (None) /hpf Coronavirus (PCR) (Not Detectd) Influenza Type A RNA (Not Detectd) Influenza Type B (PCR) (Not Detectd) 06/25/20 06/25/20 06/25/20 Range/Units 19:22 19:22 19:22 WBC (3.8-10.6) k/uL RBC (3.80-5.40) m/uL Hgb (11.4-16.0) gm/dL Hct (34.0-46.0) % MCV (80.0-100.0) fL MCH (25.0-35.0) pg MCHC (31.0-37.0) g/dL RDW (11.5-15.5) % Plt Count (150-450) k/uL MPV Neutrophils % % Lymphocytes % % Monocytes % % Eosinophils % % Basophils % % Neutrophils # (1.3-7.7) k/uL Lymphocytes # (1.0-4.8) k/uL Monocytes # (0-1.0) k/uL Eosinophils # (0-0.7) k/uL Basophils # (0-0.2) k/uL PT (9.0-12.0) sec INR (<1.2) APTT (22.0-30.0) sec Sodium 140 (137-145) mmol/L Potassium 5.0 (3.5-5.1) mmol/L Chloride 104 (98-107) mmol/L Carbon Dioxide 30 (22-30) mmol/L Anion Gap 6 mmol/L BUN 31 H (7-17) mg/dL Creatinine 1.30 H (0.52-1.04) mg/dL Est GFR (CKD-EPI)AfAm 49 (>60 ml/min/1.73 sqM) Est GFR (CKD-EPI)NonAf 43 (>60 ml/min/1.73 sqM) Glucose 80 (74-99) mg/dL Plasma Lactic Acid Benny 1.5 (0.7-2.0) mmol/L Calcium 9.7 (8.4-10.2) mg/dL Total Bilirubin 0.5 (0.2-1.3) mg/dL AST 30 (14-36) U/L ALT 15 (4-34) U/L Alkaline Phosphatase 44 (38-126) U/L NT-Pro-B Natriuret Pep pg/mL Total Protein 6.7 (6.3-8.2) g/dL Albumin 3.7 (3.5-5.0) g/dL Urine Color Urine Appearance (Clear) Urine pH (5.0-8.0) Ur Specific [place] (1.001-1.035) Urine Protein (Negative) Urine Glucose (UA) (Negative) Urine Ketones (Negative) Urine Blood (Negative) Urine Nitrite (Negative) Urine Bilirubin (Negative) Urine Urobilinogen (<2.0) mg/dL Ur Leukocyte Esterase (Negative) Urine RBC (0-5) /hpf Urine WBC (0-5) /hpf Ur Squamous Epith Cells (0-4) /hpf Amorphous Sediment (None) /hpf Urine Bacteria (None) /hpf Hyaline Casts (0-2) /lpf Urine Mucus (None) /hpf Coronavirus (PCR) (Not Detectd) Influenza Type A RNA Not Detected (Not Detectd) Influenza Type B (PCR) Not Detected (Not Detectd) 06/25/20 06/25/20 Range/Units 19:46 22:20 WBC (3.8-10.6) k/uL RBC (3.80-5.40) m/uL Hgb (11.4-16.0) gm/dL Hct (34.0-46.0) % MCV (80.0-100.0) fL MCH (25.0-35.0) pg MCHC (31.0-37.0) g/dL RDW (11.5-15.5) % Plt Count (150-450) k/uL MPV Neutrophils % % Lymphocytes % % Monocytes % % Eosinophils % % Basophils % % Neutrophils # (1.3-7.7) k/uL Lymphocytes # (1.0-4.8) k/uL Monocytes # (0-1.0) k/uL Eosinophils # (0-0.7) k/uL Basophils # (0-0.2) k/uL PT (9.0-12.0) sec INR (<1.2) APTT (22.0-30.0) sec Sodium (137-145) mmol/L Potassium (3.5-5.1) mmol/L Chloride (98-107) mmol/L Carbon Dioxide (22-30) mmol/L Anion Gap mmol/L BUN (7-17) mg/dL Creatinine (0.52-1.04) mg/dL Est GFR (CKD-EPI)AfAm (>60 ml/min/1.73 sqM) Est GFR (CKD-EPI)NonAf (>60 ml/min/1.73 sqM) Glucose (74-99) mg/dL Plasma Lactic Acid Benny (0.7-2.0) mmol/L Calcium (8.4-10.2) mg/dL Total Bilirubin (0.2-1.3) mg/dL AST (14-36) U/L ALT (4-34) U/L Alkaline Phosphatase (38-126) U/L NT-Pro-B Natriuret Pep 526 pg/mL Total Protein (6.3-8.2) g/dL Albumin (3.5-5.0) g/dL Urine Color Urine Appearance (Clear) Urine pH (5.0-8.0) Ur Specific [place] (1.001-1.035) Urine Protein (Negative) Urine Glucose (UA) (Negative) Urine Ketones (Negative) Urine Blood (Negative) Urine Nitrite (Negative) Urine Bilirubin (Negative) Urine Urobilinogen (<2.0) mg/dL Ur Leukocyte Esterase (Negative) Urine RBC (0-5) /hpf Urine WBC (0-5) /hpf Ur Squamous Epith Cells (0-4) /hpf Amorphous Sediment (None) /hpf Urine Bacteria (None) /hpf Hyaline Casts (0-2) /lpf Urine Mucus (None) /hpf Coronavirus (PCR) Not Detected (Not Detectd) Influenza Type A RNA (Not Detectd) Influenza Type B (PCR) (Not Detectd) - EKG Data -: EKG Interpreted by Me EKG Comments: EKG obtained at 2021 shows normal sinus rhythm with a ventricular rate of 100, DE interval 180, QRS duration 86, QT 324, QTC 417. No evidence of ST elevation or depression. - Radiology Data Radiology results: report reviewed, image reviewed One view x-ray of the chest is obtained. Report was reviewed in its entirety. Impression by Dr. May shows mild bilateral pulmonary interstitial infiltrates increased compared to old exam. Mild chronic elevation of the right diaphragm. Lung abdomen abnormality could relate to pneumonia. No obvious heart failure. Disposition Clinical Impression: Pneumonia, Cellulitis of right breast Disposition: ADMITTED IP TO THIS [facility] Condition: Serious Decision to Admit Reason: Admit from EC Decision Date: 06/25/20 Decision Time: 22:27
[2020-06-25] MEDS: SODIUM CHLORIDE 0.9% 500 ML 500 ML IV SCH ×2 (19:57→22:07)
[2020-06-25] MEDS: SODIUM CHLORIDE 0.9% 1,000 ML IV SCH (19:57)
[2020-06-25 20:04] LABS: Basophils # (A) 0.1 k/uL (0-0.2); Basophils % (A) 1 %; Eosinophils # (A) 0.2 k/uL (0-0.7); Eosinophils % (A) 1 %; HCT 43.7 % (34.0-46.0); HGB 14.3 gm/dL (11.4-16.0); Lymphocytes # (A) 0.7 k/uL (1.0-4.8); Lymphocytes % (A) 5 %; MCH 30.3 pg (25.0-35.0); MCHC 32.8 g/dL (31.0-37.0); MCV 92.5 fL (80.0-100.0); Mean Platelet Volume 6.8; Monocytes # (A) 0.4 k/uL (0-1.0); Monocytes % (A) 2 %; Neutrophils # (A) 14.5 k/uL (1.3-7.7); Neutrophils % (A) 91 %; Platelet Count 177 k/uL (150-450); RBC 4.72 m/uL (3.80-5.40); RDW 14.2 % (11.5-15.5)
[2020-06-25 20:15] LABS: Albumin 3.7 g/dL (3.5-5.0); Calcium 9.7 mg/dL (8.4-10.2); Total Bilirubin 0.5 mg/dL (0.2-1.3); Total Protein 6.7 g/dL (6.3-8.2)
[2020-06-25 20:18] LABS: Partial Thromboplastin Time 22.8 sec (22.0-30.0); Prothrombin Time 10.7 sec (9.0-12.0)
[2020-06-25] MEDS ORDERED: VANCOMYCIN IV PER PHARMACY 1 EACH MISC MISCELLANE PRN (20:20)
--- NOTE | 2020-06-25 20:51 | XR ---
EXAMINATION TYPE: XR chest 1V portable DATE OF EXAM: 06/25/2020 COMPARISON: 06/21/2017 HISTORY: Fever TECHNIQUE: Single view FINDINGS: There is some interstitial mild infiltrate in the periphery of the lungs. There is slight e levated right diaphragm unchanged. Thoracic aorta is atheromatous. There are no hilar masses. IMPRESSION: Mild bilateral pulmonary interstitial infiltrates increased compared to old exam. Mild ch ronic elevation of the right diaphragm. Lung abnormality could relate to pneumonia. No obvious heart failure.
[2020-06-25] MEDS ORDERED: VANCOMYCIN 2,500 MG in SODIUM CHLORIDE 0.9% 500 ML 500 ML IVPB ONE (22:00)
[2020-06-25] MEDS ORDERED: AZITHROMYCIN 500 MG in SODIUM CHLORIDE 0.9% 250 ML IVPB STA (22:20)
[2020-06-25 22:25] LABS: Amorphous Sediment,Urine Occasional /hpf; Appearance,Urine Cloudy (Clear); Bacteria,Urine Occasional /hpf; Bilirubin,Urine Negative (Negative); Blood,Urine Moderate (Negative); Color,Urine Yellow; Glucose,Urine (UA) 4+ (Negative); Hyaline Casts,Urine 16 /lpf (0-2); Ketones,Urine Negative (Negative); Leukocyte Esterase,Urine Trace (Negative); Mucus,Urine Few /hpf; Nitrite,Urine Negative (Negative); Protein,Urine 3+ (Negative); RBC,Urine 39 /hpf (0-5); Specific Gravity,Urine 1.025 (1.001-1.035); Squamous Epithelial Cell,Urine 1 /hpf (0-4); WBC,Urine 11 /hpf (0-5)
[2020-06-25] MEDS ORDERED: NALOXONE 0.4 MG/ML 1 ML VIAL IV PRN (22:27)
[2020-06-25] MEDS ORDERED: ACETAMINOPHEN TAB 325 MG TAB PO PRN (22:27)
[2020-06-26] MEDS ORDERED: AZITHROMYCIN 500 MG in SODIUM CHLORIDE 0.9% 250 ML IVPB STA (01:31)
[2020-06-26] MEDS: SODIUM CHLORIDE 0.9% 1,000 ML IV SCH ×3 (03:00→21:12)
[2020-06-26] MEDS: SODIUM CHLORIDE 0.9% 500 ML 500 ML IV SCH (05:09)
[2020-06-26 06:19] LABS: Calcium 8.5 mg/dL (8.4-10.2); Total Bilirubin 0.6 mg/dL (0.2-1.3); Total Protein 5.7 g/dL (6.3-8.2)
[2020-06-26 06:45] LABS: Basophils % (A) 0 %; Eosinophils # (A) 0.1 k/uL (0-0.7); Eosinophils % (A) 1 %; HCT 40.7 % (34.0-46.0); HGB 12.7 gm/dL (11.4-16.0); Hypochromasia Moderate; Lymphocytes # (A) 1.2 k/uL (1.0-4.8); Lymphocytes % (A) 11 %; MCH 29.9 pg (25.0-35.0); MCHC 31.1 g/dL (31.0-37.0); MCV 96.2 fL (80.0-100.0); Mean Platelet Volume 6.9; Monocytes # (A) 0.3 k/uL (0-1.0); Monocytes % (A) 3 %; Neutrophils # (A) 9.2 k/uL (1.3-7.7); Neutrophils % (A) 85 %; Platelet Count 141 k/uL (150-450); RBC 4.23 m/uL (3.80-5.40); RDW 14.6 % (11.5-15.5); WBC 10.9 k/uL (3.8-10.6)
[2020-06-26 06:53] LABS: Potassium 5.4 mmol/L (3.5-5.1)
[2020-06-26] MEDS ORDERED: VANCOMYCIN 2,500 MG in SODIUM CHLORIDE 0.9% 500 ML 500 ML IVPB ONE (09:00)
[2020-06-26] MEDS ORDERED: VANCOMYCIN 2,500 MG in SODIUM CHLORIDE 0.9% 500 ML 500 ML IVPB SCH (10:00)
[2020-06-26] MEDS ORDERED: NYSTATIN 100,000 UNIT/GM POWD 15 GM TOPICAL PRN (10:44)
[2020-06-26 11:49] LABS: Glucose,Whole Blood 126 mg/dL (75-99)
[2020-06-26] MEDS: ALPRAZolam 0.25 MG TAB PO SCH ×2 (12:52→21:00)
[2020-06-26] MEDS: PATIENT'S OWN (Empagliflozin [Jardiance] 10 MG Tablet) PO SCH (12:52)
[2020-06-26] MEDS: INSULIN DETEMIR (LEVEMIR) 100 UNIT/ML SYR SQ SCH ×2 (12:53→21:38)
[2020-06-26] MEDS: FENOFIBRATE 160 MG TAB PO SCH (12:53)
[2020-06-26] MEDS: ESCITALOPRAM 20 MG TAB PO SCH (12:53)
[2020-06-26] MEDS: metFORMIN 500 MG TAB PO SCH (12:54)
[2020-06-26] MEDS: lamoTRIgine 100 MG TAB PO SCH (12:54)
[2020-06-26] MEDS: METOPROLOL SUCCINATE (ER) 50 MG TAB.ER.24H PO SCH ×2 (12:54→21:00)
[2020-06-26] MEDS: PATIENT'S OWN (Mirabegron [Myrbetriq] 50 MG Tab.Er.24h) PO SCH (12:55)
[2020-06-26] MEDS: INSULIN ASPART (NovoLOG) 100 UNIT/ML VIAL SQ SCH ×5 (12:55→21:08)
[2020-06-26] MEDS: PREGABALIN 100 MG CAP PO SCH ×2 (12:55→21:08)
[2020-06-26] MEDS: HYDROcodone/APAP 7.5-325MG 1 EACH TAB PO SCH ×3 (12:56→22:23)
[2020-06-26] MEDS: BACLOFEN 10 MG TAB PO SCH ×3 (13:10→22:22)
[2020-06-26] MEDS: NYSTATIN 100,000 UNIT/GM POWD 15 GM TOPICAL SCH ×2 (16:12→22:19)
[2020-06-26] MEDS ORDERED: metFORMIN 500 MG TAB PO SCH (17:30)
[2020-06-26 17:46] LABS: Glucose,Whole Blood 203 mg/dL (75-99)
--- NOTE | 2020-06-26 18:48 | P.HPIM ---
History of Present Illness H&P Date: 06/26/20 Chief Complaint: fever history of presenting complaint: This is a pleasant 65-year-old patient of Dr. Zuniga resident of [facility]. Patient in 2013 at have a sleeve gastrectomy that was Experimental. Also had a parastomal hernia repair and subsequent. 3-4 repairs of the stoma and was repositioned. Patient now has a ileostomy. Chronic stable medical conditions include diabetes, GERD, hyperlipidemia, hepatic steatosis, osteopenia, hypertension, large B-cell lymphoma that was treated. Complete paralysis of the left side from a prior stroke and has a leg brace. Patient also known to have ulcerative colitis and occluded internal carotid artery. Has a Saida lift. Patient now presents with 1 day of fever. Slight cough which is not new. No shortness of breath. Had decreased appetite yesterday. Patient does use a bedpan for urination. Patient has a good appetite. Review of systems: GEN.: None EYES: None HEENT: None NECK: None RESPIRATORY: As above CARDIOVASCULAR: None GASTROINTESTINAL: Ileoscopy back with no change in bowel pattern GENITOURINARY: None MUSCULOSKELETAL: Arthritis LYMPHATICS: None HEMATOLOGICAL: None PSYCHIATRY: None NEUROLOGICAL: Left slight flaccid paralysis Past medical history to include: Stroke with left-sided flaccid paralysis, diabetes, DVT, hypertension, hyperlipidemia, large B-cell lymphoma that was treated in 1994, chronic ileostomy from ulcerative colitis, occluded right internal carotid artery, incontinent of urine, multiple bowel surgeries gastric sleeve at [facility] bipolar disorder. Social history: Patient smoked for more than 25 years stopped in 1989. At [facility], Saida Lift is used Physical examination: VITAL SIGNS: [101.9, 102, 18, 93/64, 96% on 3 L] GENERAL: [BMI 91.7, laying in bed, awake,]. EYES: [Pupils equal. Conjunctiva joey]l. HEENT: [External appearance of nose and ears normal, oral cavity grossly normal]. NECK: [JVD unable to assess; masses not palpable]. HEART: [distant heart sounds, no edema]. LUNGS:[ Respiratory rate increased; distant breath sounds]. EXTREMITIES: Bruits in both the feet ABDOMEN: [Soft, nontender, liver spleen not palpable, no masses palpable]. PSYCH: [Alert and oriented x3; mood and affect joey]l. NEUROLOGICAL: [Cranial nerves grossly intact; no facial asymmetry, flaccid in the left side]. DERMATOLOGICAL: area of redness below the breast LYMPHATICS: [No lymph nodes palpable in the axilla and neck] INVESTIGATIONS, reviewed in the clinical context: white count 16 hemoglobin 14.3 platelets 177 potassium 5 bun 31 and creatinine 1.30-upon presentation UA positive for leukoesterase WBC COVID 19 P/Cr-not detected Influenza type A type B both negative EKG tracing personally reviewed by me-Sinus rhythm Chest x-ray film personally reviewed by me-Portable some interstitial infiltrate possibly bilateral Previous testing: Creatinine was 0.88 on June 17 Assessment: -Possible pneumonia, suspect gram-negative organism,, POA -Sepsis from pneumonia, POA -COVID 19-PCR not detected -diabetes mellitus type 2, chronically on insulin -Hyperlipidemia -Essential hypertension -Dense left hemiparesis from his prior stroke -Chronic ileostomy from ulcerative colitis -Occluded right internal carotid artery -Urinary incontinence -Intertrigo candidiasis -Morbid obesity BMI 91.7 -Chronic medical debility, patient does use a Saida left -Acute kidney injury likely ATN from sepsis Plan: patient started IV ceftriaxone and azithromycin. Use nystatin powder to the affected areas twice a day. Care was discussed with the patient question also. give IV fluids. Repeat labs. Care was discussed with the patient. 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 History of Any Multi-Drug Resistant Organisms: ESBL Date of last positivie culture/infection: 04/13/17 ESBL-Proteus mirabilis; 02/21/17-ESBL-E.coli MDRO Source:: Urine-ESBL Proteus and E.coli Past Surgical History: Cholecystectomy Additional Past Surgical History / Comment(s): MULTIPLE BOWEL SX AND REVISONS OF Ileostomy (pt wears Holister 86-28 with small eacon ring/ stoma powder/ no sting adhesive). HAD ALL TEETH EXTRACTED . 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 GREENFILED FILTER, gastric sleeve at [facility], Past Anesthesia/Blood Transfusion Reactions: No Reported Reaction Additional Past Anesthesia/Blood Transfusion Reaction / Comment(s): Pt received blood without reaction. Past Psychological History: Anxiety, Bipolar, Depression Past Alcohol Use History: None Reported Past Drug Use History: None Reported - Past Family History Sister(s) Family Medical History: Cancer Father Family Medical History: Deep Vein Thrombosis (DVT) Additional Family Medical History / Comment(s): Father of either a CVA or KS at age 84 yrs. Mother Family Medical History: Cancer Additional Family Medical History / Comment(s): Mother of renal failure at age 84 yrs. Medications and Allergies Home Medications Medication Instructions Recorded Confirmed Type Aspirin 81 mg PO HS 08/18/15 06/25/20 History lamoTRIgine [LaMICtal] 150 mg PO DAILY 03/15/17 06/25/20 History Atorvastatin [Lipitor] 40 mg PO HS 06/17/17 06/25/20 History Fenofibrate,Micronized 134 mg PO W/BRKFST 06/17/17 06/25/20 History [Fenofibrate] Multivitamins, Thera [Multivitamin 1 tab PO HS 06/17/17 06/25/20 History (formulary)] INSULIN ASPART (NovoLOG) [NovoLOG 40 unit SQ TID-W/MEALS 03/16/18 06/25/20 History (formulary)] Insulin Detemir (Levemir) [Levemir] 56 unit SQ QAM 03/16/18 06/25/20 History metFORMIN HCL [Glucophage] 500 mg PO W/BRKFST 03/16/18 06/25/20 History Pregabalin [Lyrica] 100 mg PO BID #6 cap 03/18/18 06/25/20 Rx ALPRAZolam [Xanax] 0.25 mg PO BID 06/25/20 06/25/20 History Albuterol Nebulized [Ventolin 2.5 mg INHALATION RT-Q4H PRN 06/25/20 06/25/20 History Nebulized] Ascorbic Acid [Vitamin C] 250 mg PO HS 06/25/20 06/25/20 History Baclofen 10 mg PO QID 06/25/20 06/25/20 History Cholecalciferol [Vitamin D3 (25 1,000 unit PO HS 06/25/20 06/25/20 History Mcg = 1000 Iu)] Empagliflozin [Jardiance] 10 mg PO DAILY 06/25/20 06/25/20 History Escitalopram [Lexapro] 20 mg PO QAM 06/25/20 06/25/20 History HYDROcodone/APAP 7.5-325MG [Seneca 1 tab PO QID 06/25/20 06/25/20 History 7.5-325] Insulin Detemir (Levemir) [Levemir] 62 unit SQ HS 06/25/20 06/25/20 History Ketoconazole 2% Shampoo [Nizoral] 1 applic TOPICAL WESA 06/25/20 06/25/20 History Metoprolol Succinate [Toprol XL] 50 mg PO BID 06/25/20 06/25/20 History Mirabegron [Myrbetriq] 50 mg PO DAILY 06/25/20 06/25/20 History Nystatin 100,000 Unit/gm Powd 1 applic TOPICAL DAILY PRN 06/25/20 06/25/20 History [Mycostatin Powder] Omeprazole [PriLOSEC] 20 mg PO HS 06/25/20 06/25/20 History amLODIPine [Norvasc] 10 mg PO HS 06/25/20 06/25/20 History metFORMIN HCL 1,000 mg PO W/SUPPER 06/25/20 06/25/20 History Allergies Allergy/AdvReac Type Severity Reaction Status Date / Time Tetanus Vaccines and Toxoid Allergy Red and Verified 06/25/20 22:58 [Tetanus Vaccines & Toxoid] Swelling at site. Corticosteroids AdvReac Elevated Verified 06/25/20 22:58 (Glucocorticoids) Blood sugar and Blood Pressure prednisone AdvReac Elevated Verified 06/25/20 22:58 Blood Sugar and Blood Pressure Physical Exam Vitals: Vital Signs Temp Pulse Resp BP Pulse Ox 06/26/20 05:00 82 18 109/53 99 06/25/20 23:30 99.5 F 80 16 106/75 96 06/25/20 23:00 100.5 F H 89 16 98/64 97 06/25/20 22:30 90/71 06/25/20 21:57 102.6 F H 94 18 87/50 98 06/25/20 19:09 101.9 F H 102 H 18 93/64 96 Intake and Output 06/25/20 06/26/20 06/26/20 22:59 06:59 14:59 Other: Weight 250 kg Results CBC & Chem 7: 06/26/20 05:32 06/26/20 05:32 Labs: Abnormal Lab Results - Last 24 Hours (Table) 06/25/20 06/25/20 06/25/20 Range/Units 19:22 19:22 19:22 WBC 16.0 H (3.8-10.6) k/uL Plt Count (150-450) k/uL Neutrophils # 14.5 H (1.3-7.7) k/uL Lymphocytes # 0.7 L (1.0-4.8) k/uL Potassium (3.5-5.1) mmol/L BUN 31 H (7-17) mg/dL Creatinine 1.30 H (0.52-1.04) mg/dL Glucose (74-99) mg/dL Alkaline Phosphatase (38-126) U/L Total Protein (6.3-8.2) g/dL Albumin (3.5-5.0) g/dL Urine Appearance Cloudy H (Clear) Urine Protein 3+ H (Negative) Urine Glucose (UA) 4+ H (Negative) Urine Blood Moderate H (Negative) Ur Leukocyte Esterase Trace H (Negative) Urine RBC 39 H (0-5) /hpf Urine WBC 11 H (0-5) /hpf Amorphous Sediment Occasional H (None) /hpf Urine Bacteria Occasional H (None) /hpf Hyaline Casts 16 H (0-2) /lpf Urine Mucus Few H (None) /hpf 06/26/20 06/26/20 Range/Units 05:32 05:32 WBC 10.9 H (3.8-10.6) k/uL Plt Count 141 L (150-450) k/uL Neutrophils # 9.2 H (1.3-7.7) k/uL Lymphocytes # (1.0-4.8) k/uL Potassium 5.4 H (3.5-5.1) mmol/L BUN 35 H (7-17) mg/dL Creatinine 1.69 H (0.52-1.04) mg/dL Glucose 108 H (74-99) mg/dL Alkaline Phosphatase 32 L (38-126) U/L Total Protein 5.7 L (6.3-8.2) g/dL Albumin 3.0 L (3.5-5.0) g/dL Urine Appearance (Clear) Urine Protein (Negative) Urine Glucose (UA) (Negative) Urine Blood (Negative) Ur Leukocyte Esterase (Negative) Urine RBC (0-5) /hpf Urine WBC (0-5) /hpf Amorphous Sediment (None) /hpf Urine Bacteria (None) /hpf Hyaline Casts (0-2) /lpf Urine Mucus (None) /hpf
[2020-06-26 20:56] LABS: Glucose,Whole Blood 172 mg/dL (75-99)
[2020-06-26] MEDS: PANTOPRAZOLE 40 MG TABLET PO SCH (21:00)
[2020-06-26] MEDS: ATORVASTATIN 40 MG TAB PO SCH (21:00)
[2020-06-26] MEDS: MULTIVITAMINS, THERA 1 EACH TAB PO SCH (21:00)
[2020-06-26] MEDS: ASPIRIN 81 MG PO SCH (21:00)
[2020-06-26] MEDS: ASCORBIC ACID 500 MG TAB PO SCH (21:00)
[2020-06-26] MEDS: amLODIPine 10 MG TAB PO SCH (21:00)
[2020-06-26] MEDS: CHOLECALCIFEROL 1,000 UNIT TAB PO SCH (21:00)
[2020-06-27] MEDS: SODIUM CHLORIDE 0.9% 1,000 ML IV SCH ×3 (02:37→18:35)
[2020-06-27] MEDS: AZITHROMYCIN 500 MG in SODIUM CHLORIDE 0.9% 250 ML IVPB SCH ×2 (05:39→07:55)
[2020-06-27] MEDS: PATIENT'S OWN (Empagliflozin [Jardiance] 10 MG Tablet) PO SCH (07:14)
[2020-06-27] MEDS: PATIENT'S OWN (Mirabegron [Myrbetriq] 50 MG Tab.Er.24h) PO SCH (07:15)
[2020-06-27 07:25] LABS: Glucose,Whole Blood 131 mg/dL (75-99)
[2020-06-27] MEDS: INSULIN ASPART (NovoLOG) 100 UNIT/ML VIAL SQ SCH ×7 (07:50→20:53)
[2020-06-27] MEDS: INSULIN DETEMIR (LEVEMIR) 100 UNIT/ML SYR SQ SCH ×2 (07:55→20:54)
[2020-06-27] MEDS: metFORMIN 500 MG TAB PO SCH (07:56)
[2020-06-27] MEDS: BACLOFEN 10 MG TAB PO SCH ×4 (07:56→20:53)
[2020-06-27] MEDS: METOPROLOL SUCCINATE (ER) 50 MG TAB.ER.24H PO SCH ×2 (07:56→20:51)
[2020-06-27] MEDS: PREGABALIN 100 MG CAP PO SCH ×2 (07:56→20:53)
[2020-06-27] MEDS: FENOFIBRATE 160 MG TAB PO SCH (07:56)
[2020-06-27] MEDS: lamoTRIgine 100 MG TAB PO SCH (07:56)
[2020-06-27] MEDS: ALPRAZolam 0.25 MG TAB PO SCH ×2 (07:56→20:53)
[2020-06-27] MEDS: ESCITALOPRAM 20 MG TAB PO SCH (07:56)
[2020-06-27] MEDS: HYDROcodone/APAP 7.5-325MG 1 EACH TAB PO SCH ×4 (07:57→20:51)
[2020-06-27] MEDS: NYSTATIN 100,000 UNIT/GM POWD 15 GM TOPICAL SCH ×2 (07:57→21:02)
[2020-06-27] MEDS ORDERED: VANCOMYCIN 2,500 MG in SODIUM CHLORIDE 0.9% 500 ML 500 ML IVPB ONE (08:00)
[2020-06-27 09:32] LABS: African American GFR (CKD) 33.2 (60.0-200.0); Anion Gap 10.4 mmol/L (4.00-12.00); BUN/Creat Ratio 21.11 Ratio (12.00-20.00); Calcium 8.3 mg/dL (8.7-10.3); Carbon Dioxide 22.6 mmol/L (21.6-31.8); Non-African American GFR(CKD) 28.6 (60.0-200.0); Potassium 4.8 mmol/L (3.5-5.5)
[2020-06-27 11:35] LABS: Glucose,Whole Blood 155 mg/dL (75-99)
[2020-06-27 16:39] LABS: Glucose,Whole Blood 164 mg/dL (75-99)
--- NOTE | 2020-06-27 20:15 | P.PN ---
Progress Note - Text Progress Note Date: 06/27/20 Chief Complaint: fever history of presenting complaint: This is a pleasant 65-year-old patient of Dr. Zuniga resident of [facility]. Patient in 2013 at [facility] have a sleeve gastrectomy that was Experimental. Also had a parastomal hernia repair and subsequent. 3-4 repairs of the stoma and was repositioned. Patient now has a ileostomy. Chronic stable medical conditions include diabetes, GERD, hyperlipidemia, hepatic steatosis, osteopenia, hypertension, large B-cell lymphoma that was treated. Complete paralysis of the left side from a prior stroke and has a leg brace. Patient also known to have ulcerative colitis and occluded internal carotid artery. Has a Saida lift. Patient now presents with 1 day of fever. Slight cough which is not new. No shortness of breath. Had decreased appetite yesterday. Patient does use a bedpan for urination. Patient has a good appetite. Admitted with pneumonia, sepsis, intertriginous candidiasis. Started IV ceftriaxone Zithromax nystatin powder. COVID 19 was ruled out. Today-laying in bed. Very slight short of breath. Appetite good. No fever no chills. Feeling better Review of systems: Was done for constitutional, cardiovascular, GI, pulmonary. relevant finding as above Active Medications Acetaminophen (Acetaminophen Tab 325 Mg Tab) 650 mg PO Q6HR PRN PRN Reason: Mild Pain or Fever > 100.5 Hydrocodone Bitart/Acetaminophen (Hydrocodone/Apap 7.5-325mg 1 Each Tab) 1 each PO QID [facility] Last Admin: 06/27/20 17:08 Dose: 1 each Documented by: Alprazolam (Alprazolam 0.25 Mg Tab) 0.25 mg PO BID [facility] Last Admin: 06/27/20 07:56 Dose: 0.25 mg Documented by: Amlodipine Besylate (Amlodipine 10 Mg Tab) 10 mg PO [facility] Last Admin: 06/26/20 21:00 Dose: 10 mg Documented by: Ascorbic Acid (Ascorbic Acid 500 Mg Tab) 250 mg PO [facility] Last Admin: 06/26/20 21:00 Dose: 250 mg Documented by: Aspirin (Aspirin 81 Mg) 81 mg PO [facility] Last Admin: 06/26/20 21:00 Dose: 81 mg Documented by: Atorvastatin Calcium (Atorvastatin 40 Mg Tab) 40 mg PO [facility] Last Admin: 06/26/20 21:00 Dose: 40 mg Documented by: Azithromycin (Azithromycin 500 Mg Tab) 500 mg PO DAILY@0600 [facility] Baclofen (Baclofen 10 Mg Tab) 10 mg PO QID [facility] Last Admin: 06/27/20 17:08 Dose: 10 mg Documented by: Cholecalciferol (Cholecalciferol 1,000 Unit Tab) 1,000 unit PO [facility] Last Admin: 06/26/20 21:00 Dose: 1,000 unit Documented by: Escitalopram Oxalate (Escitalopram 20 Mg Tab) 20 mg PO QAM [facility] Last Admin: 06/27/20 07:56 Dose: 20 mg Documented by: Fenofibrate (Fenofibrate 160 Mg Tab) 160 mg PO W/BRKFST [facility] Last Admin: 06/27/20 07:56 Dose: 160 mg Documented by: Sodium Chloride (Saline 0.9%) 1,000 mls @ 130 mls/hr IV .Q7H42M [facility] Last Admin: 06/27/20 18:35 Dose: Not Given Documented by: Ceftriaxone Sodium 1 gm/ (Sodium Chloride) 50 mls @ 100 mls/hr IVPB Q24H [facility] Last Admin: 06/26/20 21:07 Dose: 100 mls/hr Documented by: Insulin Aspart (Insulin Aspart (Novolog) 100 Unit/Ml Vial) 30 unit SQ TID- W/MEALS [facility] Last Admin: 06/27/20 17:08 Dose: 30 unit Documented by: Insulin Aspart (Insulin Aspart (Novolog) 100 Unit/Ml Vial) 0 unit SQ [facility]; Protocol Last Admin: 06/27/20 17:08 Dose: 3 unit Documented by: Insulin Detemir (Insulin Detemir (Levemir) 100 Unit/Ml Syr) 50 unit SQ DAILY@0700 [facility] Last Admin: 06/27/20 07:55 Dose: 50 unit Documented by: Insulin Detemir (Insulin Detemir (Levemir) 100 Unit/Ml Syr) 50 unit SQ [facility] Last Admin: 06/26/20 21:38 Dose: 50 unit Documented by: Lamotrigine (Lamotrigine 100 Mg Tab) 150 mg PO DAILY [facility] Last Admin: 06/27/20 07:56 Dose: 150 mg Documented by: Metformin HCl (Metformin 500 Mg Tab) 1,000 mg PO W/SUPPER [facility] Last Admin: 06/26/20 17:46 Dose: 1,000 mg Documented by: Metformin HCl (Metformin 500 Mg Tab) 500 mg PO W/BRKFST [facility] Last Admin: 06/27/20 07:56 Dose: 500 mg Documented by: Metoprolol Succinate (Metoprolol Succinate (Er) 50 Mg Tab.Er.24h) 50 mg PO BID [facility] Last Admin: 06/27/20 07:56 Dose: 50 mg Documented by: Multivitamins (Multivitamins, Thera 1 Each Tab) 1 each PO [facility] Last Admin: 06/26/20 21:00 Dose: 1 each Documented by: Naloxone HCl (Naloxone 0.4 Mg/Ml 1 Ml Vial) 0.2 mg IV Q2M PRN PRN Reason: Opioid Reversal Patient's Own ( Empagliflozin Jardiance 10 Mg Tablet) 10 mg PO DAILY [facility] Last Admin: 06/27/20 07:14 Dose: Not Given Documented by: Patient's Own ( Mirabegron Myrbetriq 50 Mg Tab .Er.24h) 50 mg PO DAILY [facility] Last Admin: 06/27/20 07:15 Dose: Not Given Documented by: Nystatin (Nystatin 100,000 Unit/Gm Powd 15 Gm) 1 applic TOPICAL DAILY PRN PRN Reason: CANDIDIASIS ON BREASTS Last Admin: 06/26/20 16:12 Dose: 1 applic Documented by: Nystatin (Nystatin 100,000 Unit/Gm Powd 15 Gm) 1 applic TOPICAL BID [facility] Last Admin: 06/27/20 07:57 Dose: 1 applic Documented by: Pantoprazole Sodium (Pantoprazole 40 Mg Tablet) 40 mg PO [facility] Last Admin: 06/26/20 21:00 Dose: 40 mg Documented by: Pregabalin (Pregabalin 100 Mg Cap) 100 mg PO BID [facility] Last Admin: 06/27/20 07:56 Dose: 100 mg Documented by: Physical examination: VITAL SIGNS: 98.7, 92, 18, 112/60, 92% on 2 L GENERAL: Laying in bed, not in distress]. EYES: Pupils equal. Conjunctiva normal. NECK: JVD unable to assess; masses not palpable. HEART: distant heart sounds, no edema. LUNGS: Respiratory rate increased; distant breath sounds. EXTREMITIES: Bruits in both the feet ABDOMEN: Soft, nontender, liver spleen not palpable, no masses palpable. PSYCH: Alert and oriented x3; mood and affect normal. NEUROLOGICAL: flaccid in the left side. DERMATOLOGICAL: area of redness below the breast INVESTIGATIONS, reviewed in the clinical context: Potassium 4.8 creatinine 1.8 white count 16 hemoglobin 14.3 platelets 177 potassium 5 bun 31 and creatinine 1.30-upon presentation UA positive for leukoesterase WBC COVID 19 P/Cr-not detected Influenza type A type B both negative EKG tracing personally reviewed by me-Sinus rhythm Chest x-ray film personally reviewed by me-Portable some interstitial infiltrate possibly bilateral Previous testing: Creatinine was 0.88 on June 17 Assessment: -Possible pneumonia, suspect gram-negative organism,, POA -Sepsis from pneumonia, POA -COVID 19-PCR not detected -diabetes mellitus type 2, chronically on insulin -Hyperlipidemia -Essential hypertension -Dense left hemiparesis from his prior stroke -Chronic ileostomy from ulcerative colitis -Occluded right internal carotid artery -Urinary incontinence -Intertrigo candidiasis -Morbid obesity BMI 91.7 -Chronic medical debility, patient does use a Saida left -Acute kidney injury likely ATN from sepsis Plan: Continue IV ceftriaxone and azithromycin., nystatin powder clinically doing better. Continue with IV fluids. Antibiotics. Repeat labs in the morning..
[2020-06-27 20:24] LABS: Glucose,Whole Blood 188 mg/dL (75-99)
[2020-06-27] MEDS: CHOLECALCIFEROL 1,000 UNIT TAB PO SCH (20:53)
[2020-06-27] MEDS: ASPIRIN 81 MG PO SCH (20:53)
[2020-06-27] MEDS: amLODIPine 10 MG TAB PO SCH (20:53)
[2020-06-27] MEDS: ATORVASTATIN 40 MG TAB PO SCH (20:53)
[2020-06-27] MEDS: ASCORBIC ACID 500 MG TAB PO SCH (20:53)
[2020-06-27] MEDS: MULTIVITAMINS, THERA 1 EACH TAB PO SCH (23:48)
[2020-06-27] MEDS: PANTOPRAZOLE 40 MG TABLET PO SCH (23:48)
[2020-06-28] MEDS: SODIUM CHLORIDE 0.9% 1,000 ML IV SCH ×2 (01:11→08:57)
[2020-06-28] MEDS: AZITHROMYCIN 500 MG TAB PO SCH (06:18)
[2020-06-28 07:15] LABS: Glucose,Whole Blood 132 mg/dL (75-99)
[2020-06-28] MEDS: INSULIN DETEMIR (LEVEMIR) 100 UNIT/ML SYR SQ SCH ×2 (08:45→23:12)
[2020-06-28] MEDS: METOPROLOL SUCCINATE (ER) 50 MG TAB.ER.24H PO SCH ×2 (08:49→20:44)
[2020-06-28] MEDS: INSULIN ASPART (NovoLOG) 100 UNIT/ML VIAL SQ SCH ×7 (08:49→22:21)
[2020-06-28] MEDS: lamoTRIgine 100 MG TAB PO SCH (08:49)
[2020-06-28] MEDS: FENOFIBRATE 160 MG TAB PO SCH (08:50)
[2020-06-28] MEDS: BACLOFEN 10 MG TAB PO SCH ×4 (08:50→20:46)
[2020-06-28] MEDS: ESCITALOPRAM 20 MG TAB PO SCH (08:51)
[2020-06-28] MEDS: HYDROcodone/APAP 7.5-325MG 1 EACH TAB PO SCH ×4 (08:52→20:45)
[2020-06-28] MEDS: ALPRAZolam 0.25 MG TAB PO SCH ×2 (08:52→20:46)
[2020-06-28] MEDS: PREGABALIN 100 MG CAP PO SCH ×2 (08:52→20:44)
[2020-06-28] MEDS: PATIENT'S OWN (Empagliflozin [Jardiance] 10 MG Tablet) PO SCH (08:53)
[2020-06-28] MEDS: PATIENT'S OWN (Mirabegron [Myrbetriq] 50 MG Tab.Er.24h) PO SCH (08:53)
[2020-06-28] MEDS: NYSTATIN 100,000 UNIT/GM POWD 15 GM TOPICAL SCH ×2 (08:53→20:46)
[2020-06-28 08:57] LABS: HCT 44.5 % (34.0-46.0); HGB 13.7 gm/dL (11.4-16.0); Hypochromasia Moderate; MCH 29.5 pg (25.0-35.0); MCHC 30.7 g/dL (31.0-37.0); MCV 96.3 fL (80.0-100.0); Platelet Count 137 k/uL (150-450); RBC 4.62 m/uL (3.80-5.40); RDW 14.4 % (11.5-15.5); WBC 9.7 k/uL (3.8-10.6)
[2020-06-28 09:32] LABS: African American GFR (CKD) 31.1 (60.0-200.0); Anion Gap 12.7 mmol/L (4.00-12.00); BUN/Creat Ratio 21.58 Ratio (12.00-20.00); Calcium 8.7 mg/dL (8.7-10.3); Carbon Dioxide 19.3 mmol/L (21.6-31.8); Non-African American GFR(CKD) 26.8 (60.0-200.0); Potassium 5.5 mmol/L (3.5-5.5)
[2020-06-28 12:00] LABS: Glucose,Whole Blood 188 mg/dL (75-99)
[2020-06-28 16:33] LABS: Glucose,Whole Blood 147 mg/dL (75-99)
[2020-06-28 20:25] LABS: Glucose,Whole Blood 115 mg/dL (75-99)
[2020-06-28] MEDS: ASCORBIC ACID 500 MG TAB PO SCH (20:45)
[2020-06-28] MEDS: amLODIPine 10 MG TAB PO SCH (20:45)
[2020-06-28] MEDS: CHOLECALCIFEROL 1,000 UNIT TAB PO SCH (20:46)
[2020-06-28] MEDS: ASPIRIN 81 MG PO SCH (20:46)
[2020-06-28] MEDS: MULTIVITAMINS, THERA 1 EACH TAB PO SCH (20:46)
[2020-06-28] MEDS: ATORVASTATIN 40 MG TAB PO SCH (20:46)
[2020-06-28] MEDS: PANTOPRAZOLE 40 MG TABLET PO SCH (20:46)
[2020-06-28] MEDS ORDERED: SODIUM POLYSTYRENE SULFONATE 15 GM/60 ML BOTTLE PO STA (21:30)
--- NOTE | 2020-06-28 21:30 | P.PN ---
Progress Note - Text Progress Note Date: 06/28/20 Chief Complaint: fever history of presenting complaint: This is a pleasant 65-year-old patient of Dr. Zuniga resident of [facility]. Patient in 2013 at [facility] have a sleeve gastrectomy that was Experimental. Also had a parastomal hernia repair and subsequent. 3-4 repairs of the stoma and was repositioned. Patient now has a ileostomy. Chronic stable medical conditions include diabetes, GERD, hyperlipidemia, hepatic steatosis, osteopenia, hypertension, large B-cell lymphoma that was treated. Complete paralysis of the left side from a prior stroke and has a leg brace. Patient also known to have ulcerative colitis and occluded internal carotid artery. Has a Saida lift. Patient now presents with 1 day of fever. Slight cough which is not new. No shortness of breath. Had decreased appetite yesterday. Patient does use a bedpan for urination. Patient has a good appetite. Admitted with pneumonia, sepsis, intertriginous candidiasis. Started IV ceftriaxone Zithromax nystatin powder. COVID 19 was ruled out. Today-in bed. Feeling better. Oral intake fair. Minimal cough. Breathing better. Review of systems: Was done for constitutional, cardiovascular, GI, pulmonary. relevant finding as above Active Medications Acetaminophen (Acetaminophen Tab 325 Mg Tab) 650 mg PO Q6HR PRN PRN Reason: Mild Pain or Fever > 100.5 Hydrocodone Bitart/Acetaminophen (Hydrocodone/Apap 7.5-325mg 1 Each Tab) 1 each PO QID [facility] Last Admin: 06/28/20 20:45 Dose: 1 each Documented by: Alprazolam (Alprazolam 0.25 Mg Tab) 0.25 mg PO BID [facility] Last Admin: 06/28/20 20:46 Dose: 0.25 mg Documented by: Amlodipine Besylate (Amlodipine 10 Mg Tab) 10 mg PO [facility] Last Admin: 06/28/20 20:45 Dose: 10 mg Documented by: Ascorbic Acid (Ascorbic Acid 500 Mg Tab) 250 mg PO [facility] Last Admin: 06/28/20 20:45 Dose: 250 mg Documented by: Aspirin (Aspirin 81 Mg) 81 mg PO [facility] Last Admin: 06/28/20 20:46 Dose: 81 mg Documented by: Atorvastatin Calcium (Atorvastatin 40 Mg Tab) 40 mg PO [facility] Last Admin: 06/28/20 20:46 Dose: 40 mg Documented by: Azithromycin (Azithromycin 500 Mg Tab) 500 mg PO DAILY@0600 [facility] Last Admin: 06/28/20 06:18 Dose: 500 mg Documented by: Baclofen (Baclofen 10 Mg Tab) 10 mg PO QID [facility] Last Admin: 06/28/20 20:46 Dose: 10 mg Documented by: Cholecalciferol (Cholecalciferol 1,000 Unit Tab) 1,000 unit PO [facility] Last Admin: 06/28/20 20:46 Dose: 1,000 unit Documented by: Escitalopram Oxalate (Escitalopram 20 Mg Tab) 20 mg PO QAM [facility] Last Admin: 06/28/20 08:51 Dose: 20 mg Documented by: Fenofibrate (Fenofibrate 160 Mg Tab) 160 mg PO W/BRKFST [facility] Last Admin: 06/28/20 08:50 Dose: 160 mg Documented by: Ceftriaxone Sodium 1 gm/ (Sodium Chloride) 50 mls @ 100 mls/hr IVPB Q24H [facility] Last Admin: 06/28/20 20:43 Dose: 100 mls/hr Documented by: Insulin Aspart (Insulin Aspart (Novolog) 100 Unit/Ml Vial) 30 unit SQ TID- W/MEALS [facility] Last Admin: 06/28/20 17:07 Dose: 30 unit Documented by: Insulin Aspart (Insulin Aspart (Novolog) 100 Unit/Ml Vial) 0 unit SQ [facility]; Protocol Last Admin: 06/28/20 17:07 Dose: 2 unit Documented by: Insulin Detemir (Insulin Detemir (Levemir) 100 Unit/Ml Syr) 50 unit SQ DAILY@0700 [facility] Last Admin: 06/28/20 08:45 Dose: Not Given Documented by: Insulin Detemir (Insulin Detemir (Levemir) 100 Unit/Ml Syr) 50 unit SQ [facility] Last Admin: 06/27/20 20:54 Dose: 50 unit Documented by: Lamotrigine (Lamotrigine 100 Mg Tab) 150 mg PO DAILY [facility] Last Admin: 06/28/20 08:49 Dose: 150 mg Documented by: Metformin HCl (Metformin 500 Mg Tab) 1,000 mg PO W/SUPPER [facility] Last Admin: 06/26/20 17:46 Dose: 1,000 mg Documented by: Metformin HCl (Metformin 500 Mg Tab) 500 mg PO W/BRKFST [facility] Last Admin: 06/27/20 07:56 Dose: 500 mg Documented by: Metoprolol Succinate (Metoprolol Succinate (Er) 50 Mg Tab.Er.24h) 50 mg PO BID [facility] Last Admin: 06/28/20 20:44 Dose: 50 mg Documented by: Multivitamins (Multivitamins, Thera 1 Each Tab) 1 each PO HS [facility] Last Admin: 06/28/20 20:46 Dose: 1 each Documented by: Naloxone HCl (Naloxone 0.4 Mg/Ml 1 Ml Vial) 0.2 mg IV Q2M PRN PRN Reason: Opioid Reversal Patient's Own ( Empagliflozin [ Jardiance] 10 Mg Tablet) 10 mg PO DAILY [facility] Last Admin: 06/28/20 08:53 Dose: Not Given Documented by: Patient's Own ( Mirabegron [ Myrbetriq] 50 Mg Tab .Er.24h) 50 mg PO DAILY [facility] Last Admin: 06/28/20 08:53 Dose: Not Given Documented by: Nystatin (Nystatin 100,000 Unit/Gm Powd 15 Gm) 1 applic TOPICAL DAILY PRN PRN Reason: CANDIDIASIS ON BREASTS Last Admin: 06/26/20 16:12 Dose: 1 applic Documented by: Nystatin (Nystatin 100,000 Unit/Gm Powd 15 Gm) 1 applic TOPICAL BID [facility] Last Admin: 06/28/20 20:46 Dose: 1 applic Documented by: Pantoprazole Sodium (Pantoprazole 40 Mg Tablet) 40 mg PO HS [facility] Last Admin: 06/28/20 20:46 Dose: 40 mg Documented by: Pregabalin (Pregabalin 100 Mg Cap) 100 mg PO BID [facility] Last Admin: 06/28/20 20:44 Dose: 100 mg Documented by: Physical examination: VITAL SIGNS: 97.2, 92, 14, 1 35 x 69, 98% on 2 L GENERAL: Laying in bed, looking better. EYES: Pupils equal. Conjunctiva normal. NECK: JVD unable to assess; masses not palpable. HEART: distant heart sounds, no edema. LUNGS: Respiratory rate increased; distant breath sounds. EXTREMITIES: boots in both the feet ABDOMEN: Soft, nontender, liver spleen not palpable, no masses palpable. PSYCH: Alert and oriented x3; mood and affect normal. NEUROLOGICAL: flaccid- the left side. DERMATOLOGICAL: area of redness below the breast INVESTIGATIONS, reviewed in the clinical context: White count 9.7 hemoglobin 13.7 platelets 137 potassium 5.5 creatinine 1.9 Potassium 4.8 creatinine 1.8 white count 16 hemoglobin 14.3 platelets 177 potassium 5 bun 31 and creatinine 1.30-upon presentation UA positive for leukoesterase WBC COVID 19 P/Cr-not detected Influenza type A type B both negative EKG tracing personally reviewed by me-Sinus rhythm Chest x-ray film personally reviewed by me-Portable some interstitial infiltrate possibly bilateral Previous testing: Creatinine was 0.88 on June 17 Assessment: -Possible pneumonia, suspect gram-negative organism,, POA -Sepsis from pneumonia, POA-improving -COVID 19-PCR not detected -diabetes mellitus type 2, chronically on insulin -Hyperlipidemia -Essential hypertension -Dense left hemiparesis from his prior stroke -Chronic ileostomy from ulcerative colitis -Occluded right internal carotid artery -Urinary incontinence -Intertrigo candidiasis -Morbid obesity BMI 91.7 -Chronic medical debility, patient does use a Saida left -Acute kidney injury likely ATN from sepsis Plan: Continue IV ceftriaxone and azithromycin., nystatin powder . Give Kayexalate.
[2020-06-29] MEDS: AZITHROMYCIN 500 MG TAB PO SCH ×2 (06:14→06:20)
[2020-06-29 07:06] LABS: Glucose,Whole Blood 85 mg/dL (75-99)
[2020-06-29] MEDS: INSULIN DETEMIR (LEVEMIR) 100 UNIT/ML SYR SQ SCH (07:40)
[2020-06-29] MEDS: INSULIN ASPART (NovoLOG) 100 UNIT/ML VIAL SQ SCH ×4 (07:40→12:04)
[2020-06-29 08:06] LABS: Glucose,Whole Blood 147 mg/dL (75-99)
[2020-06-29 08:25] VITALS: RESP 18
[2020-06-29 09:17] LABS: African American GFR (CKD) 31.1 (60.0-200.0); Anion Gap 7.8 mmol/L (4.00-12.00); BUN/Creat Ratio 23.68 Ratio (12.00-20.00); Carbon Dioxide 23.2 mmol/L (21.6-31.8); Non-African American GFR(CKD) 26.8 (60.0-200.0); Potassium 5.5 mmol/L (3.5-5.5)
[2020-06-29] MEDS: PATIENT'S OWN (Empagliflozin [Jardiance] 10 MG Tablet) PO SCH (09:31)
[2020-06-29] MEDS: ALPRAZolam 0.25 MG TAB PO SCH (09:37)
[2020-06-29] MEDS: lamoTRIgine 100 MG TAB PO SCH (09:37)
[2020-06-29] MEDS: HYDROcodone/APAP 7.5-325MG 1 EACH TAB PO SCH ×2 (09:37→14:58)
[2020-06-29] MEDS: METOPROLOL SUCCINATE (ER) 50 MG TAB.ER.24H PO SCH (09:37)
[2020-06-29] MEDS: ESCITALOPRAM 20 MG TAB PO SCH (09:37)
[2020-06-29] MEDS: PREGABALIN 100 MG CAP PO SCH (09:38)
[2020-06-29] MEDS: BACLOFEN 10 MG TAB PO SCH ×2 (09:38→14:58)
[2020-06-29] MEDS: FENOFIBRATE 160 MG TAB PO SCH (09:38)
[2020-06-29] MEDS: NYSTATIN 100,000 UNIT/GM POWD 15 GM TOPICAL SCH (09:38)
[2020-06-29] MEDS: PATIENT'S OWN (Mirabegron [Myrbetriq] 50 MG Tab.Er.24h) PO SCH (09:38)
[2020-06-29 11:29] LABS: Glucose,Whole Blood 171 mg/dL (75-99)
[2020-06-29] MEDS ORDERED: SODIUM POLYSTYRENE SULFONATE 15 GM/60 ML BOTTLE PO STA (12:13)
[2020-06-29 14:40] VITALS: BP 149/70; PULSE 94; TEMP 98.6
--- NOTE | 2020-06-29 15:25 | P.DS ---
Providers Date of admission: 06/25/20 22:47 Expected date of discharge: 06/29/20 Attending physician: Alexx Bentley Primary care physician: Dani Zuniga [facility] Course: Chief Complaint: fever history of presenting complaint: This is a pleasant 65-year-old patient of Dr. Zuniga resident of [facility]. Patient in 2013 at [facility] have a sleeve gastrectomy that was Experimental. Also had a parastomal hernia repair and subsequent. 3-4 repairs of the stoma and was repositioned. Patient now has a ileostomy. Chronic stable medical conditions include diabetes, GERD, hyperlipidemia, hepatic steatosis, os teopenia, hypertension, large B-cell lymphoma that was treated. Complete paralysis of the left side from a prior stroke and has a leg brace. Patient also known to have ulcerative colitis and occluded internal carotid artery. Has a Saida lift. Patient now presents with 1 day of fever. Slight cough which is not new. No shortness of breath. Had decreased appetite yesterday. Patient does use a bedpan for urination. Patient has a good appetite. Admitted with pneumonia, sepsis, intertriginous candidiasis. Possible UTI. Started IV ceftriaxone Zithromax nystatin powder. COVID 19 was ruled out. Blood and urine culture both negative. Nystatin powder to be used. Twice a day. Today-stable. Tolerated diet. Care was discussed with the patient. Oral prognosis guarded. Physical examination: VITAL SIGNS: 98.6, 94, 18, 149 with 70, 94% on 2 L GENERAL: Laying in bed, more comfortable EYES: Pupils equal. Conjunctiva normal. NECK: JVD unable to assess; masses not palpable. HEART: distant heart sounds, no edema. LUNGS: Respiratory rate increased; distant breath sounds. EXTREMITIES: boots in both the feet ABDOMEN: Soft, nontender, liver spleen not palpable, no masses palpable. PSYCH: Alert and oriented x3; mood and affect normal. NEUROLOGICAL: flaccid- the left side. DERMATOLOGICAL: area of redness below the breast INVESTIGATIONS, reviewed in the clinical context: White count 9.7 hemoglobin 13.7 platelets 137 potassium 5.5 creatinine 1.9 Potassium 4.8 creatinine 1.8 white count 16 hemoglobin 14.3 platelets 177 potassium 5 bun 31 and creatinine 1.30-upon presentation UA positive for leukoesterase WBC COVID 19 P/Cr-not detected Influenza type A type B both negative EKG tracing personally reviewed by me-Sinus rhythm Chest x-ray film personally reviewed by me-Portable some interstitial infiltrate possibly bilateral Previous testing: Creatinine was 0.88 on June 17 Assessment: -Possible pneumonia, suspect gram-negative organism,, POA -Sepsis from pneumonia, POA-improving -Possible UTI -COVID 19-PCR not detected -diabetes mellitus type 2, chronically on insulin -Hyperlipidemia -Essential hypertension -Dense left hemiparesis from his prior stroke -Chronic ileostomy from ulcerative colitis -Occluded right internal carotid artery -Urinary incontinence -Intertrigo candidiasis -Morbid obesity BMI 91.7 -Chronic medical debility, patient does use a Saida left -Acute kidney injury likely ATN from sepsis Disposition: ECF/[facility] CBC BMP-3 days Patient Condition at Discharge: Stable Plan - Discharge Summary Discharge Rx Participant: No New Discharge Prescriptions: New Cefuroxime Axetil [Ceftin] 500 mg PO BID #6 tab Continue Aspirin 81 mg PO HS Atorvastatin [Lipitor] 40 mg PO HS Fenofibrate,Micronized [Fenofibrate] 134 mg PO W/BRKFST Multivitamins, Thera [Multivitamin (formulary)] 1 tab PO HS Ketoconazole 2% Shampoo [Nizoral] 1 applic TOPICAL [facility] Mirabegron [Myrbetriq] 50 mg PO DAILY Metoprolol Succinate [Toprol XL] 50 mg PO BID Escitalopram [Lexapro] 20 mg PO QAM Empagliflozin [Jardiance] 10 mg PO DAILY Cholecalciferol [Vitamin D3 (25 Mcg = 1000 Iu)] 1,000 unit PO HS Baclofen 10 mg PO QID Ascorbic Acid [Vitamin C] 250 mg PO HS amLODIPine [Norvasc] 10 mg PO HS Albuterol Nebulized [Ventolin Nebulized] 2.5 mg INHALATION RT-Q4H PRN PRN Reason: Shortness Of Breath Omeprazole [PriLOSEC] 20 mg PO HS lamoTRIgine [LaMICtal] 150 mg PO DAILY #3 tab Pregabalin [Lyrica] 100 mg PO BID #6 cap Changed metFORMIN HCL 1,000 mg PO BID #0 Nystatin 100,000 Unit/gm Powd [Mycostatin Powder] 1 applic TOPICAL BID #0 HYDROcodone/APAP 7.5-325MG [[place] 7.5-325] 1 tab PO QID #12 tab ALPRAZolam [Xanax] 0.25 mg PO BID #6 tab Insulin Detemir (Levemir) [Levemir] 50 unit SQ BID #0 INSULIN ASPART (NovoLOG) [NovoLOG (formulary)] 30 unit SQ TID-W/MEALS #0 Discontinued metFORMIN HCL [Glucophage] 500 mg PO W/BRKFST Insulin Detemir (Levemir) [Levemir] 62 unit SQ HS Discharge Medication List Aspirin 81 mg PO HS 08/18/15 [History] Atorvastatin [Lipitor] 40 mg PO HS 06/17/17 [History] Fenofibrate,Micronized [Fenofibrate] 134 mg PO W/BRKFST 06/17/17 [History] Multivitamins, Thera [Multivitamin (formulary)] 1 tab PO HS 06/17/17 [History] Albuterol Nebulized [Ventolin Nebulized] 2.5 mg INHALATION RT-Q4H PRN 06/25/20 [History] Ascorbic Acid [Vitamin C] 250 mg PO HS 06/25/20 [History] Baclofen 10 mg PO QID 06/25/20 [History] Cholecalciferol [Vitamin D3 (25 Mcg = 1000 Iu)] 1,000 unit PO HS 06/25/20 [History] Empagliflozin [Jardiance] 10 mg PO DAILY 06/25/20 [History] Escitalopram [Lexapro] 20 mg PO QAM 06/25/20 [History] Ketoconazole 2% Shampoo [Nizoral] 1 applic TOPICAL WESA 06/25/20 [History] Metoprolol Succinate [Toprol XL] 50 mg PO BID 06/25/20 [History] Mirabegron [Myrbetriq] 50 mg PO DAILY 06/25/20 [History] Omeprazole [PriLOSEC] 20 mg PO HS 06/25/20 [History] amLODIPine [Norvasc] 10 mg PO HS 06/25/20 [History] ALPRAZolam [Xanax] 0.25 mg PO BID #6 tab 06/29/20 [Rx] Cefuroxime Axetil [Ceftin] 500 mg PO BID #6 tab 06/29/20 [Rx] HYDROcodone/APAP 7.5-325MG [[place] 7.5-325] 1 tab PO QID #12 tab 06/29/20 [Rx] INSULIN ASPART (NovoLOG) [NovoLOG (formulary)] 30 unit SQ TID-W/MEALS #0 06/29/20 [Rx] Insulin Detemir (Levemir) [Levemir] 50 unit SQ BID #0 06/29/20 [Rx] Nystatin 100,000 Unit/gm Powd [Mycostatin Powder] 1 applic TOPICAL BID #0 06/29/20 [Rx] Pregabalin [Lyrica] 100 mg PO BID #6 cap 06/29/20 [Rx] lamoTRIgine [LaMICtal] 150 mg PO DAILY #3 tab 06/29/20 [Rx] metFORMIN HCL 1,000 mg PO BID #0 06/29/20 [Rx] Follow up Appointment(s)/Referral(s): Dani Zuniga DO [Primary Care Provider] - 1-2 days Activity/Diet/Wound Care/Special Instructions: cbc/bmp - 3 days
== END 2020-06-29 16:23 | DRG 871 ==
LOC: EC 18:55 → 6NMEDSUR 22:47 → 4SSUR 23:10
PROVIDERS: ADMIT Hospitalist; ATTEND Hospitalist
DX: A41.59 Other Gram-negative sepsis (principal); J15.6 Pneumonia due to other Gram-negative bacteria; N17.0 Acute kidney failure with tubular necrosis; Z68.45 Body mass index [BMI] 70 or greater, adult; I69.354 Hemiplegia and hemiparesis following cerebral infarction affecting left non-dominant side; K51.90 Ulcerative colitis, unspecified, without complications; C85.10 Unspecified B-cell lymphoma, unspecified site; N39.0 Urinary tract infection, site not specified; Z20.828 Contact with and (suspected) exposure to other viral communicable diseases; E66.01 Morbid (severe) obesity due to excess calories; E11.22 Type 2 diabetes mellitus with diabetic chronic kidney disease; E78.5 Hyperlipidemia, unspecified; F31.9 Bipolar disorder, unspecified; F41.9 Anxiety disorder, unspecified; I12.9 Hypertensive chronic kidney disease with stage 1 through stage 4 chronic kidney disease, or unspecified chronic kidney disease; N18.30 Chronic kidney disease, stage 3 unspecified; M81.0 Age-related osteoporosis without current pathological fracture; R32 Unspecified urinary incontinence; K21.9 Gastro-esophageal reflux disease without esophagitis; K43.5 Parastomal hernia without obstruction or gangrene; B37.2 Candidiasis of skin and nail; R53.81 Other malaise; I65.21 Occlusion and stenosis of right carotid artery; K76.0 Fatty (change of) liver, not elsewhere classified; Z87.891 Personal history of nicotine dependence; Z87.81 Personal history of (healed) traumatic fracture; Z82.3 Family history of stroke; Z79.899 Other long term (current) drug therapy; Z79.82 Long term (current) use of aspirin; Z79.4 Long term (current) use of insulin; Z88.7 Allergy status to serum and vaccine; Z88.8 Allergy status to other drugs, medicaments and biological substances; Z86.19 Personal history of other infectious and parasitic diseases; Z90.49 Acquired absence of other specified parts of digestive tract; Z98.890 Other specified postprocedural states; Z84.1 Family history of disorders of kidney and ureter; Z82.49 Family history of ischemic heart disease and other diseases of the circulatory system
CPT/HCPCS: 36415; 71045; 80048; 80053; 81001; 83605; 83880; 84145; 85025; 85027; 85610; 85730; 87040; 87086; 87502; 87635; 93005; 96361; 96365; 96366; 96367; 99285

== ENCOUNTER 2020-08-14 08:39 | Inpatient (IN) | payer MEDICARE, OTHER ==
[2020-08-14 08:53] LABS: Glucose,Whole Blood 170 mg/dL (75-99)
[2020-08-14] MEDS ORDERED: SODIUM CHLORIDE 0.9% 500 ML 500 ML IV ONE ×3 (08:55→19:37)
[2020-08-14 09:13] LABS: Basophils # (A) 0.1 k/uL (0-0.2); Basophils % (A) 1 %; Eosinophils # (A) 0.4 k/uL (0-0.7); Eosinophils % (A) 4 %; HCT 40.8 % (34.0-46.0); HGB 13.2 gm/dL (11.4-16.0); Hypochromasia Slight; Lymphocytes # (A) 1.6 k/uL (1.0-4.8); Lymphocytes % (A) 20 %; MCH 30.4 pg (25.0-35.0); MCHC 32.4 g/dL (31.0-37.0); MCV 93.8 fL (80.0-100.0); Monocytes # (A) 0.3 k/uL (0-1.0); Monocytes % (A) 4 %; Neutrophils # (A) 5.7 k/uL (1.3-7.7); Neutrophils % (A) 70 %; Platelet Count 177 k/uL (150-450); RBC 4.35 m/uL (3.80-5.40); WBC 8.1 k/uL (3.8-10.6)
[2020-08-14 09:27] LABS: Partial Thromboplastin Time 22.2 sec (22.0-30.0); Prothrombin Time 10.4 sec (9.0-12.0)
[2020-08-14] MEDS ORDERED: NALOXONE 0.4 MG/ML 1 ML VIAL IVP STA (09:36)
--- NOTE | 2020-08-14 09:39 | ED ---
General Adult HPI - General Chief complaint: Altered Mental Status Stated complaint: stroke symptoms Time Seen by Provider: 08/14/20 08:39 Source: patient, EMS, RN notes reviewed, old records reviewed Mode of arrival: EMS Limitations: no limitations - History of Present Illness Initial comments: This is a 65-year-old female who is brought in from a metal edge [place] for being altered mentally. Patient is only responding to painful stimuli according to EMS. Patient was last seen normal sometime yesterday. Patient is not giving any history. According to EMS she only groan to moan with painful stimuli. Patient was able to tell me her name when I sternal rub. Patient does have residual deficit of left-sided paralysis from previous stroke. Patient also has a history of attempted overdose. Patient is a DO NOT RESUSCITATE. No other history is available at this time. - Related Data Home Medications Medication Instructions Recorded Confirmed Aspirin 81 mg PO HS@199908/18/15 08/14/20 Atorvastatin [Lipitor] 40 mg PO HS@199906/17/17 08/14/20 Fenofibrate,Micronized 134 mg PO W/BRKFST 06/17/17 08/14/20 [Fenofibrate] Multivitamins, Thera [Multivitamin 1 tab PO HS@199906/17/17 08/14/20 (formulary)] Ascorbic Acid [Vitamin C] 250 mg PO HS@199906/25/20 08/14/20 Baclofen 10 mg PO Q6HR 06/25/20 08/14/20 Cholecalciferol [Vitamin D3 (25 1,000 unit PO HS@199906/25/20 08/14/20 Mcg = 1000 Iu)] Empagliflozin [Jardiance] 10 mg PO DAILY 06/25/20 08/14/20 Escitalopram [Lexapro] 20 mg PO DAILY 06/25/20 08/14/20 Ketoconazole 2% Shampoo [Nizoral] 1 applic TOPICAL MOTH 06/25/20 08/14/20 Metoprolol Succinate [Toprol XL] 50 mg PO BID 06/25/20 08/14/20 Mirabegron [Myrbetriq] 50 mg PO DAILY 06/25/20 08/14/20 Omeprazole [PriLOSEC] 20 mg PO HS@199906/25/20 08/14/20 amLODIPine [Norvasc] 10 mg PO HS@199906/25/20 08/14/20 ALPRAZolam [Xanax] 0.25 mg PO BID@1200,2359 08/14/20 08/14/20 HYDROcodone/APAP 7.5-325MG [[place] 1 tab PO Q6H 08/14/20 08/14/20 7.5-325] Hydrocortisone Cream 1 applic TOPICAL BID 08/14/20 08/14/20 [Hydrocortisone 1% Cream] INSULIN ASPART (NovoLOG) [NovoLOG 30 unit SQ TID@0700,1200,1700 08/14/20 08/14/20 (formulary)] Insulin Detemir (Levemir) [Levemir] 50 unit SQ BID@0800,1600 08/14/20 08/14/20 Nystatin 100,000 Unit/gm Powd 1 applic TOPICAL BID@0800,1600 08/14/20 08/14/20 [Mycostatin Powder] Pregabalin [Lyrica] 100 mg PO BID@0800,1600 08/14/20 08/14/20 lamoTRIgine [LaMICtal] 150 mg PO DAILY@0800 08/14/20 08/14/20 metFORMIN HCL 1,000 mg PO BID@0800,1600 08/14/20 08/14/20 Allergies Allergy/AdvReac Type Severity Reaction Status Date / Time latex Allergy Unknown Verified 08/14/20 09:31 Tetanus Vaccines and Toxoid Allergy Red and Verified 08/14/20 09:31 [Tetanus Vaccines & Toxoid] Swelling at site. Corticosteroids AdvReac Elevated Verified 08/14/20 09:31 (Glucocorticoids) Blood sugar and Blood Pressure prednisone AdvReac Elevated Verified 08/14/20 09:31 Blood Sugar and Blood Pressure Review of Systems ROS Statement: Those systems with pertinent positive or pertinent negative responses have been documented in the HPI. ROS Other: All systems not noted in ROS Statement are negative. Past Medical History Past Medical History: Cancer, CVA/TIA, Diabetes Mellitus, Deep Vein Thrombosis (DVT), Hyperlipidemia, Hypertension Additional Past Medical History / Comment(s): Other HX: Large B cell lymphoma and past massive lymphadenopathy , pancytopenia from chemo, anemia, recent UTI 09/2015 with sepsis, R arm humerus fracture, 1994 CVA with L hemiparesis, NIDDM type II , chronic ileostomy from ulcerative colitis, occluded R internal caratid artery, probable protein calorie malnutrition-hypoalbuminemia, intermittent confusion with uti, osteoporosis, DVT R leg 1995, incontinent of urine-wears briefs, hx of cellulitis abdomin and skin wounds. History of Any Multi-Drug Resistant Organisms: ESBL Date of last positivie culture/infection: 04/13/17 ESBL-Proteus mirabilis; 02/21/17-ESBL-E.coli MDRO Source:: Urine-ESBL Proteus and E.coli Past Surgical History: Cholecystectomy Additional Past Surgical History / Comment(s): MULTIPLE BOWEL SX AND REVISONS OF Ileostomy (pt wears Holister 86-28 with small eacon ring/ stoma powder/ no sting adhesive). HAD ALL TEETH EXTRACTED . 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 GREENFILED FILTER, gastric sleeve at [place], Past Anesthesia/Blood Transfusion Reactions: No Reported Reaction Additional Past Anesthesia/Blood Transfusion Reaction / Comment(s): Pt received blood without reaction. Past Psychological History: Anxiety, Bipolar, Depression Smoking Status: Never smoker Past Alcohol Use History: None Reported Past Drug Use History: None Reported - Past Family History Sister(s) Family Medical History: Cancer Father Family Medical History: Deep Vein Thrombosis (DVT) Additional Family Medical History / Comment(s): Father of either a CVA or [place] at age 84 yrs. Mother Family Medical History: Cancer Additional Family Medical History / Comment(s): Mother of renal failure at age 84 yrs. General Exam - General Exam Comments Initial Comments: GENERAL: Patient is well-developed and well-nourished. Patient is nontoxic and well- hydrated and is in no acute distress. ENT: Neck is soft and supple. No significant lymphadenopathy is noted. Oropharynx is clear. Moist mucous membranes. Neck has full range of motion without eliciting any pain. EYES: The sclera were anicteric and conjunctiva were pink and moist. Extraocular movements were intact and pupils were equal round and reactive to light. Eyelid s were unremarkable. PULMONARY: Unlabored respirations. Good breath sounds bilaterally. No audible rales rhonchi or wheezing was noted. CARDIOVASCULAR: There is a regular rate and rhythm without any murmurs gallops or rubs. ABDOMEN: Soft and nontender with normal bowel sounds. SKIN: Skin is clear with no lesions or rashes and otherwise unremarkable. NEUROLOGIC: Patient was able to tell me her name after I elicited some mild pain with sternal rub. No facial droop was noted when the patient was speaking to us. MUSCULOSKELETAL: She was unable to move the left arm or leg but was able to move the right arm and right leg. LYMPHATICS: No significant lymphadenopathy is noted PSYCHIATRIC: Unable to assess Limitations: no limitations Course Vital Signs 08/14/20 08/14/20 08/14/20 08:40 09:00 09:30 Temperature 98.6 F Pulse Rate 73 67 68 Respiratory 15 13 13 Rate Blood Pressure 107/58 88/46 90/46 O2 Sat by Pulse 99 100 100 Oximetry 08/14/20 08/14/20 08/14/20 09:36 10:00 11:00 Temperature Pulse Rate 73 75 Respiratory 15 14 15 Rate Blood Pressure 95/55 125/73 O2 Sat by Pulse 100 100 Oximetry 08/14/20 12:00 Temperature Pulse Rate 67 Respiratory 15 Rate Blood Pressure 98/45 O2 Sat by Pulse 98 Oximetry Medical Decision Making - Medical Decision Making EKG shows sinus rhythm at 75 bpm MA interval is 244 QRS is 120 QT interval 384 QTC is 428. Patient's EKG shows no ST segment elevation or depression. Patient was diagnosed with urinary tract infection at 1045. Patient was given Rocephin. CT of the brain shows no acute abnormality. Chest x-ray shows no acute abnormality. Patient's potassium came back at 1248 at 8.2 at which point time I treated with calcium chloride, albuterol, sodium bicarb, D50, and insulin. Patient was also given Kayexalate. I spoke with Dr. Barrios he agreed to admit the patient admitted the patient wrote admitting orders. - Lab Data Result diagrams: 08/14/20 08:58 08/14/20 11:44 Lab Results 08/14/20 08/14/20 08/14/20 Range/Units 08:51 08:58 08:58 WBC 8.1 (3.8-10.6) k/uL RBC 4.35 (3.80-5.40) m/uL Hgb 13.2 (11.4-16.0) gm/dL Hct 40.8 (34.0-46.0) % MCV 93.8 (80.0-100.0) fL MCH 30.4 (25.0-35.0) pg MCHC 32.4 (31.0-37.0) g/dL RDW 15.0 (11.5-15.5) % Plt Count 177 (150-450) k/uL MPV 7.0 Neutrophils % 70 % Lymphocytes % 20 % Monocytes % 4 % Eosinophils % 4 % Basophils % 1 % Neutrophils # 5.7 (1.3-7.7) k/uL Lymphocytes # 1.6 (1.0-4.8) k/uL Monocytes # 0.3 (0-1.0) k/uL Eosinophils # 0.4 (0-0.7) k/uL Basophils # 0.1 (0-0.2) k/uL Hypochromasia Slight PT 10.4 (9.0-12.0) sec INR 1.0 (<1.2) APTT 22.2 (22.0-30.0) sec Sodium (137-145) mmol/L Potassium (3.5-5.1) mmol/L Chloride (98-107) mmol/L Carbon Dioxide (22-30) mmol/L Anion Gap mmol/L BUN (7-17) mg/dL Creatinine (0.52-1.04) mg/dL Est GFR (CKD-EPI)AfAm (>60 ml/min/1.73 sqM) Est GFR (CKD-EPI)NonAf (>60 ml/min/1.73 sqM) Glucose (74-99) mg/dL POC Glucose (mg/dL) 170 H (75-99) mg/dL POC Glu Data Entry Technician ID Stanley Fowler Calcium (8.4-10.2) mg/dL Total Bilirubin (0.2-1.3) mg/dL AST (14-36) U/L ALT (4-34) U/L Alkaline Phosphatase (38-126) U/L Troponin I (0.000-0.034) ng/mL Total Protein (6.3-8.2) g/dL Albumin (3.5-5.0) g/dL Urine Color Urine Appearance (Clear) Urine pH (5.0-8.0) Ur Specific [place] (1.001-1.035) Urine Protein (Negative) Urine Glucose (UA) (Negative) Urine Ketones (Negative) Urine Blood (Negative) Urine Nitrite (Negative) Urine Bilirubin (Negative) Urine Urobilinogen (<2.0) mg/dL Ur Leukocyte Esterase (Negative) Urine RBC (0-5) /hpf Urine WBC (0-5) /hpf Urine WBC Clumps (None) /hpf Ur Squamous Epith Cells (0-4) /hpf Urine Bacteria (None) /hpf Urine Mucus (None) /hpf Urine Opiates Screen (NotDetected) Ur Oxycodone Screen (NotDetected) Urine Methadone Screen (NotDetected) Ur Propoxyphene Screen (NotDetected) Ur Barbiturates Screen (NotDetected) U Tricyclic Antidepress (NotDetected) Ur Phencyclidine Scrn (NotDetected) Ur Amphetamines Screen (NotDetected) U Methamphetamines Scrn (NotDetected) U Benzodiazepines Scrn (NotDetected) Urine Cocaine Screen (NotDetected) U Marijuana (THC) Screen (NotDetected) 08/14/20 08/14/20 08/14/20 Range/Units 08:58 10:24 11:44 WBC (3.8-10.6) k/uL RBC (3.80-5.40) m/uL Hgb (11.4-16.0) gm/dL Hct (34.0-46.0) % MCV (80.0-100.0) fL MCH (25.0-35.0) pg MCHC (31.0-37.0) g/dL RDW (11.5-15.5) % Plt Count (150-450) k/uL MPV Neutrophils % % Lymphocytes % % Monocytes % % Eosinophils % % Basophils % % Neutrophils # (1.3-7.7) k/uL Lymphocytes # (1.0-4.8) k/uL Monocytes # (0-1.0) k/uL Eosinophils # (0-0.7) k/uL Basophils # (0-0.2) k/uL Hypochromasia PT (9.0-12.0) sec INR (<1.2) APTT (22.0-30.0) sec Sodium 133 L (137-145) mmol/L Potassium 8.2 H* (3.5-5.1) mmol/L Chloride 108 H (98-107) mmol/L Carbon Dioxide 15 L (22-30) mmol/L Anion Gap 10 mmol/L BUN 75 H (7-17) mg/dL Creatinine 3.81 H (0.52-1.04) mg/dL Est GFR (CKD-EPI)AfAm 13 (>60 ml/min/1.73 sqM) Est GFR (CKD-EPI)NonAf 12 (>60 ml/min/1.73 sqM) Glucose 199 H (74-99) mg/dL POC Glucose (mg/dL) (75-99) mg/dL POC Glu Data Entry Technician ID Calcium 9.9 (8.4-10.2) mg/dL Total Bilirubin 0.4 (0.2-1.3) mg/dL AST 25 (14-36) U/L ALT 13 (4-34) U/L Alkaline Phosphatase 52 (38-126) U/L Troponin I <0.012 (0.000-0.034) ng/mL Total Protein 6.8 (6.3-8.2) g/dL Albumin 3.8 (3.5-5.0) g/dL Urine Color Yellow Urine Appearance Turbid H (Clear) Urine pH 5.5 (5.0-8.0) Ur Specific [place] 1.027 (1.001-1.035) Urine Protein 3+ H (Negative) Urine Glucose (UA) 1+ H (Negative) Urine Ketones Trace H (Negative) Urine Blood Moderate H (Negative) Urine Nitrite Negative (Negative) Urine Bilirubin 1+ H (Negative) Urine Urobilinogen 3.0 (<2.0) mg/dL Ur Leukocyte Esterase Large H (Negative) Urine RBC 110 H (0-5) /hpf Urine WBC 59 H (0-5) /hpf Urine WBC Clumps Many H (None) /hpf Ur Squamous Epith Cells 15 H (0-4) /hpf Urine Bacteria Occasional H (None) /hpf Urine Mucus Rare H (None) /hpf Urine Opiates Screen Detected H (NotDetected) Ur Oxycodone Screen Not Detected (NotDetected) Urine Methadone Screen Not Detected (NotDetected) Ur Propoxyphene Screen Not Detected (NotDetected) Ur Barbiturates Screen Not Detected (NotDetected) U Tricyclic Antidepress Not Detected (NotDetected) Ur Phencyclidine Scrn Not Detected (NotDetected) Ur Amphetamines Screen Not Detected (NotDetected) U Methamphetamines Scrn Not Detected (NotDetected) U Benzodiazepines Scrn Detected H (NotDetected) Urine Cocaine Screen Not Detected (NotDetected) U Marijuana (THC) Screen Not Detected (NotDetected) Critical Care Time Critical Care Time: Yes Total Critical Care Time: 35 Disposition Clinical Impression: Altered mental status, Acute renal failure, Hyperkalemia, Urinary tract infection Disposition: ADMITTED IP TO THIS HOSP Referrals: Dani Zuniga DO [Primary Care Provider] - 1-2 days Time of Disposition: 13:10
--- NOTE | 2020-08-14 09:46 | CT ---
EXAMINATION TYPE: CT brain wo con DATE OF EXAM: 08/14/2020 HISTORY: Altered mental status CT DLP: 1099.4 mGycm. Automated Exposure Control for Dose Reduction was Utilized. TECHNIQUE: CT scan of the head is performed without contrast. COMPARISON: CT brain March 21, 2017. FINDINGS: There is no acute intracranial hemorrhage or new midline shift identified. There is diffu se ventricular and sulcal prominence consistent with diffuse age-related cerebral atrophy. Old infarc t right frontal parietal region redemonstrated. There is low-attenuation in the periventricular white matter consistent with chronic small vessel ischemic change. The globes are intact and the visualiz ed sinuses are clear. Patchy cerumen bilateral external auditory canals redemonstrated. IMPRESSION: No acute intracranial hemorrhage or midline shift. There is mild to moderate diffuse ag e-related cerebral atrophy and mild chronic small vessel ischemic change with old right-sided infarct are all redemonstrated. No significant change from prior.
--- NOTE | 2020-08-14 10:16 | XR ---
EXAMINATION TYPE: XR chest 2V DATE OF EXAM: 08/14/2020 COMPARISON: Chest x-ray June 25, 2020 HISTORY: Altered mental status and weakness. TECHNIQUE: Frontal and lateral views of the chest are obtained. FINDINGS: Elevated right hemidiaphragm and mild reticular interstitial prominence redemonstrated. The re is no new suspicious focal air space opacity, pleural effusion, or pneumothorax seen. The cardiac silhouette size is stable and mildly enlarged. Partial visualization of suspected healed fracture de formity right proximal humerus. IMPRESSION: Chronic changes and mild cardiomegaly without new acute pulmonary process.
[2020-08-14 10:43] LABS: Appearance,Urine Turbid (Clear); Bacteria,Urine Occasional /hpf; Bilirubin,Urine 1+ (Negative); Blood,Urine Moderate (Negative); Color,Urine Yellow; Glucose,Urine (UA) 1+ (Negative); Ketones,Urine Trace (Negative); Leukocyte Esterase,Urine Large (Negative); Mucus,Urine Rare /hpf; Nitrite,Urine Negative (Negative); PH, Urine 5.5 (5.0-8.0); Protein,Urine 3+ (Negative); RBC,Urine 110 /hpf (0-5); Specific Gravity,Urine 1.027 (1.001-1.035); Squamous Epithelial Cell,Urine 15 /hpf (0-4); WBC,Urine 59 /hpf (0-5)
[2020-08-14 10:44] LABS: Amphetamine Screen,Urine Not Detected (NotDetected); Barbiturate Screen,Urine Not Detected (NotDetected); Benzodiazepines Screen,Urine Detected (NotDetected); Cocaine Screen,Urine Not Detected (NotDetected); Methadone Screen, Urine Not Detected (NotDetected); Opiate Screen,Urine Detected (NotDetected); Oxycodone Screen, Urine Not Detected (NotDetected); Phencyclidine Screen,Urine Not Detected (NotDetected); Tricyclic Antidepressant,Urine Not Detected (NotDetected); Urn Cannabinoid Scrn Not Detected (NotDetected)
[2020-08-14 12:47] LABS: Albumin 3.8 g/dL (3.5-5.0); Calcium 9.9 mg/dL (8.4-10.2); Total Bilirubin 0.4 mg/dL (0.2-1.3); Total Protein 6.8 g/dL (6.3-8.2)
[2020-08-14 12:50] LABS: Potassium 8.2 mmol/L (3.5-5.1)
[2020-08-14] MEDS ORDERED: SODIUM POLYSTYRENE SULFONATE 15 GM/60 ML BOTTLE PO STA (12:51)
[2020-08-14] MEDS ORDERED: DEXTROSE 50% SYRINGE 50 ML IVP STA ×2 (12:51→19:37)
[2020-08-14] MEDS ORDERED: CALCIUM CHLORIDE 100 MG/ML 10 ML SYRINGE IVP STA (12:51)
[2020-08-14] MEDS ORDERED: INSULIN REGULAR 100 UNIT/ML VIAL (IV) IV ONE ×2 (12:52→20:00)
[2020-08-14] MEDS ORDERED: SODIUM BICARB 8.4% 50 ML SYR (1 MEQ/ML) IV STA ×3 (12:52→19:38)
[2020-08-14] MEDS ORDERED: ALBUTEROL NEBULIZED 2.5 MG/3 ML INHALATION STA (12:55)
[2020-08-14] MEDS ORDERED: SODIUM CHLORIDE 0.9% 1,000 ML IV ONE (13:13)
[2020-08-14] MEDS ORDERED: NALOXONE 0.4 MG/ML 1 ML VIAL IV PRN (14:37)
[2020-08-14] MEDS ORDERED: INSULIN ASPART (NovoLOG) 100 UNIT/ML VIAL SQ SCH (15:00)
--- NOTE | 2020-08-14 15:14 | P.HPIM ---
History of Present Illness H&P Date: 08/14/20 Chief Complaint: Altered mental status This is a 65-year-old female with morbid obesity and history of stroke with left-sided weakness, patient is a no code, patient has been found to have progressive last 24 hours changes in mental status has been more somnolent and arousable with sternal rub, patient was transferred to emergency department, significant labs noted to be have hyperkalemia as well as acute renal failure, patient is being admitted to hospital as per protocol, patient has significant history of dyslipidemia, type 2 diabetes mellitus hypertension hypertensive cardiovascular disease mood disorder depression, history of DVT, large B-cell lymphoma and history of massive lymphadenopathy history of multiple and frequent urinary tract infection related to ESBL E. 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 History of Any Multi-Drug Resistant Organisms: ESBL Date of last positivie culture/infection: 04/13/17 ESBL-Proteus mirabilis; -ESBL-E.coli MDRO Source:: Urine-ESBL Proteus and E.coli Past Surgical History: Cholecystectomy Additional Past Surgical History / Comment(s): MULTIPLE BOWEL SX AND REVISONS OF Ileostomy (pt wears Holister 86-28 with small eacon ring/ stoma powder/ no sting adhesive). HAD ALL TEETH EXTRACTED . 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 GREENFILED FILTER, gastric sleeve at [place], Past Anesthesia/Blood Transfusion Reactions: No Reported Reaction Additional Past Anesthesia/Blood Transfusion Reaction / Comment(s): Pt received blood without reaction. Past Psychological History: Anxiety, Bipolar, Depression Smoking Status: Never smoker Past Alcohol Use History: None Reported Past Drug Use History: None Reported - Past Family History Sister(s) Family Medical History: Cancer Father Family Medical History: Deep Vein Thrombosis (DVT) Additional Family Medical History / Comment(s): Father of either a CVA or [place] at age 84 yrs. Mother Family Medical History: Cancer Additional Family Medical History / Comment(s): Mother of renal failure at age 84 yrs. Medications and Allergies Home Medications Medication Instructions Recorded Confirmed Type Aspirin 81 mg PO HS@199908/18/15 08/14/20 History Atorvastatin [Lipitor] 40 mg PO HS@199906/17/17 08/14/20 History Fenofibrate,Micronized 134 mg PO W/BRKFST 06/17/17 08/14/20 History [Fenofibrate] Multivitamins, Thera [Multivitamin 1 tab PO HS@199906/17/17 08/14/20 History (formulary)] Ascorbic Acid [Vitamin C] 250 mg PO HS@199906/25/20 08/14/20 History Baclofen 10 mg PO Q6HR 06/25/20 08/14/20 History Cholecalciferol [Vitamin D3 (25 1,000 unit PO HS@199906/25/20 08/14/20 History Mcg = 1000 Iu)] Empagliflozin [Jardiance] 10 mg PO DAILY 06/25/20 08/14/20 History Escitalopram [Lexapro] 20 mg PO DAILY 06/25/20 08/14/20 History Ketoconazole 2% Shampoo [Nizoral] 1 applic TOPICAL MOTH 06/25/20 08/14/20 History Metoprolol Succinate [Toprol XL] 50 mg PO BID 06/25/20 08/14/20 History Mirabegron [Myrbetriq] 50 mg PO DAILY 06/25/20 08/14/20 History Omeprazole [PriLOSEC] 20 mg PO HS@199906/25/20 08/14/20 History amLODIPine [Norvasc] 10 mg PO HS@199906/25/20 08/14/20 History ALPRAZolam [Xanax] 0.25 mg PO BID@1200,2359 08/14/20 08/14/20 History HYDROcodone/APAP 7.5-325MG [[place] 1 tab PO Q6H 08/14/20 08/14/20 History 7.5-325] Hydrocortisone Cream 1 applic TOPICAL BID 08/14/20 08/14/20 History [Hydrocortisone 1% Cream] INSULIN ASPART (NovoLOG) [NovoLOG 30 unit SQ TID@0700,1200,1700 08/14/20 08/14/20 History (formulary)] Insulin Detemir (Levemir) [Levemir] 50 unit SQ BID@0800,1600 08/14/20 08/14/20 History Nystatin 100,000 Unit/gm Powd 1 applic TOPICAL BID@0800,1600 08/14/20 08/14/20 History [Mycostatin Powder] Pregabalin [Lyrica] 100 mg PO BID@0800,1600 08/14/20 08/14/20 History lamoTRIgine [LaMICtal] 150 mg PO DAILY@0800 08/14/20 08/14/20 History metFORMIN HCL 1,000 mg PO BID@0800,1600 08/14/20 08/14/20 History Allergies Allergy/AdvReac Type Severity Reaction Status Date / Time latex Allergy Unknown Verified 08/14/20 09:31 Tetanus Vaccines and Toxoid Allergy Red and Verified 08/14/20 09:31 [Tetanus Vaccines & Toxoid] Swelling at site. Corticosteroids AdvReac Elevated Verified 08/14/20 09:31 (Glucocorticoids) Blood sugar and Blood Pressure prednisone AdvReac Elevated Verified 08/14/20 09:31 Blood Sugar and Blood Pressure Physical Exam Vitals: Vital Signs Temp Pulse Resp BP Pulse Ox 08/14/20 13:58 98.2 F 66 20 104/61 100 08/14/20 13:54 66 18 08/14/20 13:00 73 20 106/54 100 08/14/20 12:00 67 15 98/45 98 08/14/20 11:00 75 15 125/73 100 08/14/20 10:00 73 14 95/55 100 08/14/20 09:36 15 08/14/20 09:30 68 13 90/46 100 08/14/20 09:00 67 13 88/46 100 08/14/20 08:40 98.6 F 73 15 107/58 99 Intake and Output 08/14/20 08/14/20 08/14/20 06:59 14:59 22:59 Other: Weight 127.006 kg - Constitutional General appearance: average body habitus - EENT Ears: bilateral: normal - Neck Neck: normal ROM Carotids: bilateral: upstroke normal Thyroid: bilateral: normal size - Respiratory Respiratory: bilateral: diminished - Cardiovascular Heart sounds: normal: S1, S2 - Psychiatric Respond to deep physical stimuli Results CBC & Chem 7: 08/14/20 08:58 08/14/20 11:44 Labs: Abnormal Lab Results - Last 24 Hours (Table) 08/14/20 08/14/20 08/14/20 Range/Units 08:51 10:24 11:44 Sodium 133 L (137-145) mmol/L Potassium 8.2 H* (3.5-5.1) mmol/L Chloride 108 H (98-107) mmol/L Carbon Dioxide 15 L (22-30) mmol/L BUN 75 H (7-17) mg/dL Creatinine 3.81 H (0.52-1.04) mg/dL Glucose 199 H (74-99) mg/dL POC Glucose (mg/dL) 170 H (75-99) mg/dL Urine Appearance Turbid H (Clear) Urine Protein 3+ H (Negative) Urine Glucose (UA) 1+ H (Negative) Urine Ketones Trace H (Negative) Urine Blood Moderate H (Negative) Urine Bilirubin 1+ H (Negative) Ur Leukocyte Esterase Large H (Negative) Urine RBC 110 H (0-5) /hpf Urine WBC 59 H (0-5) /hpf Urine WBC Clumps Many H (None) /hpf Ur Squamous Epith Cells 15 H (0-4) /hpf Urine Bacteria Occasional H (None) /hpf Urine Mucus Rare H (None) /hpf Urine Opiates Screen Detected H (NotDetected) U Benzodiazepines Scrn Detected H (NotDetected) Assessment and Plan Assessment: Acute renal failure Hyperkalemia Acute metabolic acidosis Hyponatremia Altered mental status Sepsis ? Urinary tract infection Plan: Gentle hydration Hypokalemia medicine given in the ED Repeat labs later on Consult renal, cardio, ID Broad-spectrum antibiotics Time with Patient: Greater than 30
[2020-08-14 15:32] LABS: Glucose,Whole Blood 207 mg/dL (75-99)
[2020-08-14] MEDS ORDERED: LACTATED RINGERS 1,000 ML IV SCH (16:00)
[2020-08-14] MEDS ORDERED: FUROSEMIDE 10 MG/ML 10 ML VIAL IV STA (17:43)
[2020-08-14] MEDS: SODIUM CHLORIDE 0.9% 1,000 ML IV SCH (18:09)
[2020-08-14] MEDS: INSULIN ASPART (NovoLOG) 100 UNIT/ML VIAL SQ SCH (18:19)
[2020-08-14 18:20] LABS: Glucose,Whole Blood 219 mg/dL (75-99)
[2020-08-14 18:47] LABS: Lactic Acid, Venous 1.6 mmol/L (0.7-2.0)
[2020-08-14 18:49] LABS: Albumin 3.3 g/dL (3.5-5.0); Calcium 10.1 mg/dL (8.4-10.2); Total Bilirubin 0.4 mg/dL (0.2-1.3); Total Protein 6.1 g/dL (6.3-8.2)
[2020-08-14 18:54] LABS: Potassium 7.9 mmol/L (3.5-5.1)
--- NOTE | 2020-08-14 21:08 | US ---
EXAMINATION TYPE: US kidneys/renal and bladder DATE OF EXAM: 08/14/2020 COMPARISON: CT 03/16/2018 CLINICAL HISTORY: r/o hydronephrosis. Very difficult and limited exam. Patient in ICU in restraints. Morbidly obese. EXAM MEASUREMENTS: Right Kidney: 10.5 x 4.8 x 6.5 cm Left Kidney: 10.2 x 4.8 x 4.5 cm Right Kidney: No hydronephrosis as visualized, however visualization is extremely limited due to over lying bowel gas Left Kidney: No hydronephrosis or masses seen Bladder: Not distended, patient has [place] Exam suboptimal as detailed above. No gross hydronephrosis identified bilaterally. IMPRESSION: Suboptimal study without hydronephrosis seen bilaterally.
[2020-08-14] MEDS: FAMOTIDINE 20 MG/2 ML VIAL IV SCH (21:35)
--- NOTE | 2020-08-14 23:35 | CONS ---
CONSULTATION DATE OF SERVICE: 08/14/2020 REASON FOR CONSULTATION: Urinary tract infection. HISTORY OF PRESENT ILLNESS: The patient is a 65-year-old morbidly obese female, a longterm resident in this patient who did have a history of recurrent UTI including secondary to multidrug resistant ESBL E coli. Also with a history of large B-cell lymphoma in this patient who was sent to the ER at [facility] for evaluation of mental status changes. The patient noted to be more somnolent and arousable to sternal rub only. On arrival to the ER, the patient was afebrile. She was noticed to have acute renal failure as well as hyperkalemia with a potassium of 8.2. She also had a positive UA with large leukocyte esterase, more than 182WBC. Urine drug screen positive for opiates and benzo. The patient's CT brain was negative for any bleed. Chest x- ray chronic changes without acute cardiopulmonary process. Ultrasound of the abdomen negative for any hydronephrosis. The patient received a dose of Rocephin. Infectious Disease was consulted as the patient has a history of recurrent UTIs as well as multidrug resistant pathogen. Most of the information has been obtained from review of the chart and talking to nursing staff. The patient is currently unable to provide any history. REVIEW OF SYSTEMS: Positive points have been mentioned in HPI. Complete review could not obtain because of her mentation. PAST MEDICAL HISTORY: Her past medical history significant for multiple myeloma, DVT, diabetes mellitus, hypertension, hyperlipidemia, ulcerative colitis, history of recurrent UTIs. PAST SURGICAL HISTORY: Cholecystectomy, multiple bowel surgeries. SOCIAL HISTORY: No history of smoking, drinking or drug use. A longterm resident. FAMILY HISTORY: No pertinent findings noticed. ALLERGIES: Allergies to LATEX, TETANUS TOXOID AND CORTICAL STEROIDS. MEDICATIONS: The patient is currently on Rocephin 1 g daily. She is on Pepcid, NovoLog, Narcan, and IV fluids. PHYSICAL EXAMINATION: Her blood pressure 105/44 with a pulse of 73, temperature is 97.9. She is 98% on 2 L nasal cannula. General description is an elderly female lying in bed in no distress. No tachypnea or accessory muscles of respiration use. HEENT: Shows pallor. No scleral icterus. Oral mucous membranes dry. Neck: Trachea central. No thyromegaly. Lungs unlabored breathing, decreased breath sounds in the base. No wheeze. HEART: S1, S2. Regular rate and rhythm. Abdomen soft. No tenderness. No guarding. No rigidity. Extremities: No edema of the feet. Skin examination: No rash or mass palpable. Neurological: The patient remains to be responsive to pain stimuli only, not moving her extremities. LABS: Hemoglobin 13.8, white count 8.1. BUN of 79, creatinine 3.98. Potassium is 3.2. Liver enzymes are normal. Urine is positive. DIAGNOSTIC IMPRESSION AND PLAN: Patient admitted to hospital with mental status changes, multifactorial in this patient who does have a component of acute renal failure and more likely metabolic however, also has significantly positive UA and a component of symptomatic urinary tract infection. The patient is a longterm resident and history of ESBL pathogen. Will need to cover for resistant gram-negative pathogen until the culture finalized. PLAN: 1. Discontinue Rocephin. 2. Start the patient on Invanz 500 mg IV piggyback daily. Closely watch kidney function. 3. IV fluid. 4. We will follow on clinical condition and culture to further adjust medication if needed. Thank you for this consultation. We will follow this patient along with you. MMODL / IJN: [id number] / MICHAEL
[2020-08-15 00:05] LABS: Glucose,Whole Blood 185 mg/dL (75-99)
[2020-08-15] MEDS: INSULIN ASPART (NovoLOG) 100 UNIT/ML VIAL SQ SCH ×4 (00:29→18:26)
[2020-08-15 04:06] LABS: Basophils % (A) 0 %; Eosinophils # (A) 0.3 k/uL (0-0.7); Eosinophils % (A) 4 %; HCT 39.8 % (34.0-46.0); HGB 12.5 gm/dL (11.4-16.0); Hypochromasia Moderate; Lymphocytes # (A) 0.6 k/uL (1.0-4.8); Lymphocytes % (A) 11 %; MCH 30.1 pg (25.0-35.0); MCHC 31.4 g/dL (31.0-37.0); MCV 95.9 fL (80.0-100.0); Mean Platelet Volume 6.9; Monocytes # (A) 0.4 k/uL (0-1.0); Monocytes % (A) 7 %; Neutrophils # (A) 4.4 k/uL (1.3-7.7); Neutrophils % (A) 75 %; Platelet Count 128 k/uL (150-450); RBC 4.15 m/uL (3.80-5.40); RDW 14.6 % (11.5-15.5); WBC 5.9 k/uL (3.8-10.6)
[2020-08-15 04:27] LABS: Calcium 9.8 mg/dL (8.4-10.2); Uric Acid 8.7 mg/dL (3.7-7.4)
[2020-08-15] MEDS ORDERED: FUROSEMIDE 10 MG/ML 10 ML VIAL IV STA (04:33)
[2020-08-15 04:40] LABS: Potassium 7.8 mmol/L (3.5-5.1)
[2020-08-15] MEDS: SODIUM CHLORIDE 0.9% 1,000 ML IV SCH ×2 (05:17→11:00)
[2020-08-15 06:32] LABS: Glucose,Whole Blood 258 mg/dL (75-99)
[2020-08-15] MEDS: FAMOTIDINE 20 MG/2 ML VIAL IV SCH (08:36)
--- NOTE | 2020-08-15 08:37 | CONS ---
CONSULTATION Mrs. Balbuena is a 65-year-old female who was transferred to the emergency room because of progressive change in mental status. The patient has a prior history of cerebrovascular accident, history of colostomy. She also has a history of Desmond filter. She resides at the [facility]. In the emergency room, she was noted to have significant worsening of her renal function. In the ICU, she is on no hemodynamic support. She is in sinus mechanism and her blood pressure is stable. No other history could be obtained at this point. Asking the nursing staff, there is no documented history of malignant arrhythmia or ischemic heart disease. Reviewing the old records, the patient was in the hospital in June of this year with possible pneumonia. She has a history of ulcerative colitis. MEDICATION: Her medications at home included metformin 1 gram twice a day, Lamictal, Norvasc 10 mg daily, Lyrica, Prilosec, Myrbetriq, metoprolol succinate 50 mg twice a day, insulin, fenofibrate, Jardiance, Lipitor 40 mg daily, aspirin. REVIEW OF SYSTEMS: Could not be obtained. PHYSICAL EXAMINATION: She is a 65-year-old female, not responsive to painful stimuli. Blood pressure running in the high 90s with the heart rate in the 80s. HEAD: Normocephalic. EYES: Sclerae anicteric. NECK: No bruit appreciated. LUNGS: Clear to auscultation anteriorly. HEART: Regular rate and rhythm. S1, S2. No S3. No rub appreciated. ABDOMEN: Soft, obese. Colostomy noted. No organomegaly. EXTREMITIES: +2 edema on the left side, +1 on the right side. LAB DATA: On admission, her potassium is 8.3, BUN and creatinine 78 and 3.94. Her Troponin less than 0.012. She has benzodiazepine and opiates noted in the screen. She had a hemoglobin is 13.2 with white blood cell of 8.1. This morning her potassium is 7.8, BUN and creatinine 78 and 0.48. She has a temporary dialysis catheter placed today in the left groin. EKG revealed a sinus mechanism, first-degree block, intraventricular conduction delay. Chest x-ray shows no acute infiltrate. Brain CT showed old right-sided infarct. No evidence of acute event. Abdominal and bladder ultrasound shows no hydronephrosis. IMPRESSION: 1. Acute change in mental status to infectious process and metabolic encephalopathy. No evidence of acute neurological event. 2. Worsening renal function with acute renal failure. 3. Prior history of cerebrovascular accident. 4. History of large B-cell lymphoma. 5. Prior history of deep venous thrombosis. 6. Diabetes. 7. Hyperlipidemia. RECOMMENDATION: From the cardiac standpoint, there is no acute cardiac event at this time. Will obtain echocardiogram with Doppler to evaluate left ventricular systolic function. Patient will probably started dialysis today and depending on her progress, further recommendation will be made. Thank you for this consult. We will follow with you. MMODL / IJN: [id number] /
--- NOTE | 2020-08-15 10:30 | P.NPCON ---
History of Present Illness - Reason for Consult acute renal failure, hyperkalemia - History of Present Illness Reason for consultation: Acute kidney injury and hyperkalemia History of present illness: Patient is a 65-year-old female seen in consultation for acute kidney injury and hyperkalemia. Patient was found to be more somnolent and lethargic and was subsequently brought to the hospital. Patient has history of CVA with left- sided hemiparesis. Patient's potassium level was elevated at 8.3 and was medically treated. It was 7.8 as of 3:52 AM this morning. Due to persistent hyperkalemia, dialysis catheter was placed and she is currently undergoing hemodialysis. She also has PRAFUL with creatinine up to 4.08 this AM. Creatinine was 1.0 in jun 2020. She received 2 L of normal saline bolus on admission and is now maintained on normal saline at 100 mL an hour. She also received high-dose IV Lasix on admission. Urine output the last 2 hours was 100 mL total. She is not requiring any vasopressors. Patient is not a reliable historian. She was also quite acidotic with a bicarb level of 14 on admission and is up to 20 this morning. No evidence of hydronephrosis was noted on kidney ultrasound. She was on metformin which is currently held. I don't see any nonsteroidals and her home medications. Vital signs are stable. General: The patient appeared well nourished and normally developed. HEENT: Head exam is unremarkable. Neck is without jugular venous distension. LUNGS: Breath sounds decreased. HEART: Rate and Rhythm are regular. ABDOMEN: Soft, obese. EXTREMITITES: 1+ edema LLE; no edema RLE. 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 History of Any Multi-Drug Resistant Organisms: ESBL Date of last positivie culture/infection: 04/13/17 ESBL-Proteus mirabilis; 02/21/17-ESBL-E.coli MDRO Source:: Urine-ESBL Proteus and E.coli Past Surgical History: Cholecystectomy Additional Past Surgical History / Comment(s): MULTIPLE BOWEL SX AND REVISONS OF Ileostomy (pt wears Holister 86-28 with small eacon ring/ stoma powder/ no sting adhesive). HAD ALL TEETH EXTRACTED . 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 GREENFILED FILTER, gastric sleeve at [place], Past Anesthesia/Blood Transfusion Reactions: No Reported Reaction Additional Past Anesthesia/Blood Transfusion Reaction / Comment(s): Pt received blood without reaction. Past Psychological History: Anxiety, Bipolar, Depression Smoking Status: Never smoker Past Alcohol Use History: None Reported Past Drug Use History: None Reported - Past Family History Sister(s) Family Medical History: Cancer Father Family Medical History: Deep Vein Thrombosis (DVT) Additional Family Medical History / Comment(s): Father of either a CVA or [place] at age 84 yrs. Mother Family Medical History: Cancer Additional Family Medical History / Comment(s): Mother of renal failure at age 84 yrs. Medications and Allergies Home Medications Medication Instructions Recorded Confirmed Type Aspirin 81 mg PO HS@199908/18/15 08/14/20 History Atorvastatin [Lipitor] 40 mg PO HS@199906/17/17 08/14/20 History Fenofibrate,Micronized 134 mg PO W/BRKFST 06/17/17 08/14/20 History [Fenofibrate] Multivitamins, Thera [Multivitamin 1 tab PO HS@199906/17/17 08/14/20 History (formulary)] Ascorbic Acid [Vitamin C] 250 mg PO HS@199906/25/20 08/14/20 History Baclofen 10 mg PO Q6HR 06/25/20 08/14/20 History Cholecalciferol [Vitamin D3 (25 1,000 unit PO HS@199906/25/20 08/14/20 History Mcg = 1000 Iu)] Empagliflozin [Jardiance] 10 mg PO DAILY 06/25/20 08/14/20 History Escitalopram [Lexapro] 20 mg PO DAILY 06/25/20 08/14/20 History Ketoconazole 2% Shampoo [Nizoral] 1 applic TOPICAL MOTH 06/25/20 08/14/20 History Metoprolol Succinate [Toprol XL] 50 mg PO BID 06/25/20 08/14/20 History Mirabegron [Myrbetriq] 50 mg PO DAILY 06/25/20 08/14/20 History Omeprazole [PriLOSEC] 20 mg PO HS@199906/25/20 08/14/20 History amLODIPine [Norvasc] 10 mg PO HS@199906/25/20 08/14/20 History ALPRAZolam [Xanax] 0.25 mg PO BID@1200,2359 08/14/20 08/14/20 History HYDROcodone/APAP 7.5-325MG [Tavares 1 tab PO Q6H 08/14/20 08/14/20 History 7.5-325] Hydrocortisone Cream 1 applic TOPICAL BID 08/14/20 08/14/20 History [Hydrocortisone 1% Cream] INSULIN ASPART (NovoLOG) [NovoLOG 30 unit SQ TID@0700,1200,1700 08/14/20 08/14/20 History (formulary)] Insulin Detemir (Levemir) [Levemir] 50 unit SQ BID@0800,1600 08/14/20 08/14/20 History Nystatin 100,000 Unit/gm Powd 1 applic TOPICAL BID@0800,1600 08/14/20 08/14/20 History [Mycostatin Powder] Pregabalin [Lyrica] 100 mg PO BID@0800,1600 08/14/20 08/14/20 History lamoTRIgine [LaMICtal] 150 mg PO DAILY@0800 08/14/20 08/14/20 History metFORMIN HCL 1,000 mg PO BID@0800,1600 08/14/20 08/14/20 History Allergies Allergy/AdvReac Type Severity Reaction Status Date / Time latex Allergy Unknown Verified 08/14/20 09:31 Tetanus Vaccines and Toxoid Allergy Red and Verified 08/14/20 09:31 [Tetanus Vaccines & Toxoid] Swelling at site. Corticosteroids AdvReac Elevated Verified 08/14/20 09:31 (Glucocorticoids) Blood sugar and Blood Pressure prednisone AdvReac Elevated Verified 08/14/20 09:31 Blood Sugar and Blood Pressure Physical Exam Vitals: Vital Signs Temp Pulse Resp BP Pulse Ox 01/04/21 09:00 84 14 145/60 97 08/15/20 08:00 98 F 80 16 111/54 99 08/15/20 04:00 6 L 08/15/20 03:00 78 6 L 69/45 97 08/15/20 02:00 78 8 L 96/37 96 08/15/20 01:00 84 13 99/51 98 08/15/20 00:00 98.2 F 77 6 L 77/36 95 08/14/20 23:00 85 14 150/57 97 08/14/20 22:00 84 14 114/43 96 08/14/20 21:00 72 15 118/52 98 08/14/20 20:51 71 15 118/52 98 08/14/20 20:00 73 17 105/44 98 08/14/20 19:00 68 11 L 111/41 98 08/14/20 18:45 69 121/61 99 08/14/20 18:30 75 96/48 99 08/14/20 18:15 73 96/48 98 08/14/20 18:00 68 12 68/34 97 08/14/20 17:45 67 90/36 99 08/14/20 17:30 68 87/35 98 08/14/20 17:15 67 98/45 99 08/14/20 17:00 67 11 L 124/47 99 08/14/20 16:45 116/45 98 08/14/20 16:30 68 94/41 99 08/14/20 16:15 66 109/43 99 08/14/20 16:00 66 12 131/55 99 08/14/20 15:45 70 122/61 98 08/14/20 15:30 97.9 F 70 114/53 97 08/14/20 15:15 94/46 08/14/20 15:00 98 F 64 12 101/50 100 08/14/20 14:00 66 13 104/61 100 08/14/20 13:58 98.2 F 66 20 104/61 100 08/14/20 13:54 66 18 08/14/20 13:00 73 20 106/54 100 08/14/20 12:00 67 15 98/45 98 08/14/20 11:00 75 15 125/73 100 Intake and Output 08/14/20 08/15/20 08/15/20 22:59 06:59 14:59 Intake Total 1200 1300 300 Output Total 244 225 100 Balance 956 1075 200 Intake: IV 1200 1300 300 Lactated Ringers 1,000 ml 200 @ 100 mls/hr IV .Q10H DANIELE Rx#:[id number] Sodium Chloride 0.9% 1, 500 1300 300 000 ml @ 100 mls/hr IV . Q10H DANIELE Rx#:[id number] Sodium Chloride 0.9% 500 500 ml 500 ml @ 999 mls/hr IV .Q31M ONE Rx#:[id number] Output: Urine 244 225 100 Other: Voiding Method Indwelling Catheter Indwelling Catheter Weight 115.9 kg Results - Lab Results Most recent lab results Calcium 9.8 mg/dL (8.4-10.2) 08/15/20 03:52 08/15/20 03:52 08/15/20 03:52 Assessment and Plan Plan: Assessment: 1. Acute kidney injury secondary to ATN secondary to hypotension. Creatinine 3.94 on admission and up to 4.08 this morning. Urine output 100 mL in the last 2 hours. No evidence of hydronephrosis noted on kidney ultrasound. Creatinine 1.0 as of 07/05/2020. 2. Hyperkalemia secondary to acute kidney injury and metabolic acidosis. 3. Diabetes mellitus. 4. Metabolic acidosis secondary to acute kidney injury. 5. History of CVA with left-sided hemiparesis. Plan: Maintain normal saline. Currently seen while undergoing hemodialysis. Continue to assess need for renal replacement therapy on a daily basis. Repeat BMP this afternoon. Avoid nephrotoxins. Continue to monitor renal function and urine output closely. Follow-up cultures. Check phosphorus level. Thank you for the consultation. I will continue to follow the patient with you during her hospital stay.
--- NOTE | 2020-08-15 10:33 | ECHOF ---
Referral Reason:htn MEASUREMENTS -------- HEIGHT: 165.1 cm WEIGHT: 114.8 kg BP: RVIDd: 3.6 cm (< 3.3) IVSd: 1.3 cm (0.6 - 1.1) LVIDd: 4.7 cm (3.9 - 5.3) LVPWd: 1.1 cm (0.6 - 1.1) IVSs: 1.6 cm LVIDs: 3.1 cm LVPWs: 2.0 cm LA Diam: 4.0 cm (2.7 - 3.8) Ao Diam: 2.9 cm (2.0 - 3.7) MV E Jose Alberto: 0.43 m/s MV DecT: 281 ms MV A Jose Alberto: 0.60 m/s MV E/A Ratio: 0.72 FINDINGS -------- Sinus rhythm. This was a techncally difficult study with suboptimal views, , Lumason utilized for enhancement of im ages. The left ventricular size is normal. There is mild concentric left ventricular hypertrophy. Overa ll left ventricular systolic function is low-normal with, an EF between 50 - 55 %. The right ventricle is normal in size. The left atrial size is normal. The right atrial size is normal. The aortic valve was not well visualized. The mitral valve was not well visualized. The tricuspid valve was not well visualized. The pulmonic valve was not well visualized. The aortic root size is normal. There is no pericardial effusion. CONCLUSIONS -------- 1. This was a techncally difficult study with suboptimal views, , Lumason utilized for enhancement of images. 2. The left ventricular size is normal. 3. There is mild concentric left ventricular hypertrophy. 4. Overall left ventricular systolic function is low-normal with, an EF between 50 - 55 %. 5. The right ventricle is normal in size. 6. The left atrial size is normal. 7. The right atrial size is normal. 8. The aortic valve was not well visualized. 9. The mitral valve was not well visualized. 10. The tricuspid valve was not well visualized. 11. The pulmonic valve was not well visualized. 12. The aortic root size is normal. 13. There is no pericardial effusion. OPERATIONAL METEOROLOGIST: Gloria Bush RDCS
[2020-08-15] MEDS: ERTAPENEM 0.5 GM in SODIUM CHLORIDE 0.9% 50 ML IVPB SCH (11:12)
[2020-08-15 12:35] LABS: Glucose,Whole Blood 198 mg/dL (75-99)
--- NOTE | 2020-08-15 14:00 | US ---
EXAMINATION TYPE: US venous doppler duplex LE LT DATE OF EXAM: 08/15/2020 1:26 PM COMPARISON: None CLINICAL HISTORY: 65-year-old female with left leg swelling. ICU patient. SIDE PERFORMED: Left TECHNIQUE: The lower extremity deep venous system is examined utilizing real time linear array sonog alina with graded compression, doppler sonography and color-flow sonography. FINDINGS: VESSELS IMAGED: Common Femoral Vein Deep Femoral Vein Greater Saphenous Vein * Femoral Vein Popliteal Vein Small Saphenous Vein * Proximal Calf Veins (* superficial vessels) Correspondence Transcriber notes: Very limited exam due to patient body habitus, swelling, and unable to move/pos ition leg Left Leg: Negative for acute DVT. Generalized subcutaneous edema is noted especially at the level of the knee. IMPRESSION: Technically very limited exam due to body habitus, swelling, and patient's inability to a ppropriately position for the exam. No visualized DVT in the left lower extremity imaged from the [place] in to the knee.
--- NOTE | 2020-08-15 14:19 | P.GSCN ---
History of Present Illness History of present illness: 65-year-old white female, I was consulted of for placement of urgent dialysis catheter because of hypertension 8.3 patient is very lethargic patient also has history of CVA affecting left side On examination neck supple no bruit appreciated Chest patient has a bilateral crackles first and second sound present Abdomen is soft patient has a colostomy back on the right side Vascular brachial radial femoral pulses are present Plan is placement of a dialysis catheter risk and complication discussed Past Medical History Past Medical History: Cancer, CVA/TIA, Diabetes Mellitus, Deep Vein Thrombosis (DVT), Hyperlipidemia, Hypertension Additional Past Medical History / Comment(s): Other HX: Large B cell lymphoma and past massive lymphadenopathy , pancytopenia from chemo, anemia, recent UTI 09/2015 with sepsis, R arm humerus fracture, 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 History of Any Multi-Drug Resistant Organisms: ESBL Year Discovered:: 04/13/17 ESBL-Proteus mirabilis; 02/21/17-ESBL-E.coli MDRO Source:: Urine-ESBL Proteus and E.coli Past Surgical History: Cholecystectomy Additional Past Surgical History / Comment(s): MULTIPLE BOWEL SX AND REVISONS OF Ileostomy (pt wears Holister 86-28 with small eacon ring/ stoma powder/ no sting adhesive). HAD ALL TEETH EXTRACTED . 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 GREENFILED FILTER, gastric sleeve at [place], Past Anesthesia/Blood Transfusion Reactions: No Reported Reaction Additional Past Anesthesia/Blood Transfusion Reaction / Comm: Pt received blood without reaction. Past Psychological History: Anxiety, Bipolar, Depression Smoking Status: Never smoker Past Alcohol Use History: None Reported Past Drug Use History: None Reported - Past Family History Sister(s) Family Medical History: Cancer Father Family Medical History: Deep Vein Thrombosis (DVT) Additional Family Medical History / Comment(s): Father of either a CVA or [place] at age 84 yrs. Mother Family Medical History: Cancer Additional Family Medical History / Comment(s): Mother of renal failure at age 84 yrs. Medications and Allergies Home Medications Medication Instructions Recorded Confirmed Type Aspirin 81 mg PO HS@199908/18/15 08/14/20 History Atorvastatin [Lipitor] 40 mg PO HS@199906/17/17 08/14/20 History Fenofibrate,Micronized 134 mg PO W/BRKFST 06/17/17 08/14/20 History [Fenofibrate] Multivitamins, Thera [Multivitamin 1 tab PO HS@199906/17/17 08/14/20 History (formulary)] Ascorbic Acid [Vitamin C] 250 mg PO HS@199906/25/20 08/14/20 History Baclofen 10 mg PO Q6HR 06/25/20 08/14/20 History Cholecalciferol [Vitamin D3 (25 1,000 unit PO HS@199906/25/20 08/14/20 History Mcg = 1000 Iu)] Empagliflozin [Jardiance] 10 mg PO DAILY 06/25/20 08/14/20 History Escitalopram [Lexapro] 20 mg PO DAILY 06/25/20 08/14/20 History Ketoconazole 2% Shampoo [Nizoral] 1 applic TOPICAL MOTH 06/25/20 08/14/20 History Metoprolol Succinate [Toprol XL] 50 mg PO BID 06/25/20 08/14/20 History Mirabegron [Myrbetriq] 50 mg PO DAILY 06/25/20 08/14/20 History Omeprazole [PriLOSEC] 20 mg PO HS@199906/25/20 08/14/20 History amLODIPine [Norvasc] 10 mg PO HS@199906/25/20 08/14/20 History ALPRAZolam [Xanax] 0.25 mg PO BID@1200,2359 08/14/20 08/14/20 History HYDROcodone/APAP 7.5-325MG [[place] 1 tab PO Q6H 08/14/20 08/14/20 History 7.5-325] Hydrocortisone Cream 1 applic TOPICAL BID 08/14/20 08/14/20 History [Hydrocortisone 1% Cream] INSULIN ASPART (NovoLOG) [NovoLOG 30 unit SQ TID@0700,1200,1700 08/14/20 08/14/20 History (formulary)] Insulin Detemir (Levemir) [Levemir] 50 unit SQ BID@0800,1600 08/14/20 08/14/20 History Nystatin 100,000 Unit/gm Powd 1 applic TOPICAL BID@0800,1600 08/14/20 08/14/20 History [Mycostatin Powder] Pregabalin [Lyrica] 100 mg PO BID@0800,1600 08/14/20 08/14/20 History lamoTRIgine [LaMICtal] 150 mg PO DAILY@0800 08/14/20 08/14/20 History metFORMIN HCL 1,000 mg PO BID@0800,1600 08/14/20 08/14/20 History Allergies Allergy/AdvReac Type Severity Reaction Status Date / Time latex Allergy Unknown Verified 08/14/20 09:31 Tetanus Vaccines and Toxoid Allergy Red and Verified 08/14/20 09:31 [Tetanus Vaccines & Toxoid] Swelling at site. Corticosteroids AdvReac Elevated Verified 08/14/20 09:31 (Glucocorticoids) Blood sugar and Blood Pressure prednisone AdvReac Elevated Verified 08/14/20 09:31 Blood Sugar and Blood Pressure Surgical - Exam Vital Signs Temp Pulse Resp BP Pulse Ox 98.6 F 73 15 107/58 99 08/14/20 08:40 08/14/20 08:40 08/14/20 08:40 08/14/20 08:40 08/14/20 08:40 Results - Labs 08/15/20 03:52 08/15/20 03:52 Abnormal Lab Results - Last 24 Hours (Table) 08/14/20 08/14/20 08/14/20 Range/Units 00:00 15:30 17:54 Plt Count (150-450) k/uL Lymphocytes # (1.0-4.8) k/uL Sodium 135 L 132 L (137-145) mmol/L Potassium 8.3 H* 7.9 H* (3.5-5.1) mmol/L Chloride 109 H 109 H (98-107) mmol/L Carbon Dioxide 14 L 18 L (22-30) mmol/L BUN 78 H 79 H (7-17) mg/dL Creatinine 3.94 H 3.98 H (0.52-1.04) mg/dL Glucose 166 H 190 H (74-99) mg/dL POC Glucose (mg/dL) 207 H (75-99) mg/dL Uric Acid (3.7-7.4) mg/dL Total Protein 6.1 L (6.3-8.2) g/dL Albumin 3.3 L (3.5-5.0) g/dL 08/14/20 08/15/20 08/15/20 Range/Units 18:18 00:03 03:52 Plt Count 128 L (150-450) k/uL Lymphocytes # 0.6 L (1.0-4.8) k/uL Sodium (137-145) mmol/L Potassium (3.5-5.1) mmol/L Chloride (98-107) mmol/L Carbon Dioxide (22-30) mmol/L BUN (7-17) mg/dL Creatinine (0.52-1.04) mg/dL Glucose (74-99) mg/dL POC Glucose (mg/dL) 219 H 185 H (75-99) mg/dL Uric Acid (3.7-7.4) mg/dL Total Protein (6.3-8.2) g/dL Albumin (3.5-5.0) g/dL 08/15/20 08/15/20 08/15/20 Range/Units 03:52 06:30 12:32 Plt Count (150-450) k/uL Lymphocytes # (1.0-4.8) k/uL Sodium 135 L (137-145) mmol/L Potassium 7.8 H* (3.5-5.1) mmol/L Chloride 109 H (98-107) mmol/L Carbon Dioxide 20 L (22-30) mmol/L BUN 78 H (7-17) mg/dL Creatinine 4.08 H (0.52-1.04) mg/dL Glucose 190 H (74-99) mg/dL POC Glucose (mg/dL) 258 H 198 H (75-99) mg/dL Uric Acid 8.7 H (3.7-7.4) mg/dL Total Protein (6.3-8.2) g/dL Albumin (3.5-5.0) g/dL Microbiology - Last 24 Hours (Table) 08/14/20 10:24 Urine Culture - Preliminary Urine,Voided Diabetes panel 08/14/20 08/14/20 08/15/20 Range/Units 00:00 17:54 03:52 Sodium 135 L 132 L 135 L (137-145) mmol/L Potassium 8.3 H* 7.9 H* 7.8 H* (3.5-5.1) mmol/L Chloride 109 H 109 H 109 H (98-107) mmol/L Carbon Dioxide 14 L 18 L 20 L (22-30) mmol/L BUN 78 H 79 H 78 H (7-17) mg/dL Creatinine 3.94 H 3.98 H 4.08 H (0.52-1.04) mg/dL Glucose 166 H 190 H 190 H (74-99) mg/dL Calcium 10.1 10.1 9.8 (8.4-10.2) mg/dL AST 35 25 (14-36) U/L ALT 14 13 (4-34) U/L Alkaline Phosphatase 46 42 (38-126) U/L Total Protein 7.1 6.1 L (6.3-8.2) g/dL Albumin 3.8 3.3 L (3.5-5.0) g/dL Calcium panel 08/14/20 08/14/20 08/15/20 Range/Units 00:00 17:54 03:52 Calcium 10.1 10.1 9.8 (8.4-10.2) mg/dL Albumin 3.8 3.3 L (3.5-5.0) g/dL Pituitary panel 08/14/20 08/14/20 08/15/20 Range/Units 00:00 17:54 03:52 Sodium 135 L 132 L 135 L (137-145) mmol/L Potassium 8.3 H* 7.9 H* 7.8 H* (3.5-5.1) mmol/L Chloride 109 H 109 H 109 H (98-107) mmol/L Carbon Dioxide 14 L 18 L 20 L (22-30) mmol/L BUN 78 H 79 H 78 H (7-17) mg/dL Creatinine 3.94 H 3.98 H 4.08 H (0.52-1.04) mg/dL Glucose 166 H 190 H 190 H (74-99) mg/dL Calcium 10.1 10.1 9.8 (8.4-10.2) mg/dL Adrenal panel 08/14/20 08/14/20 08/15/20 Range/Units 00:00 17:54 03:52 Sodium 135 L 132 L 135 L (137-145) mmol/L Potassium 8.3 H* 7.9 H* 7.8 H* (3.5-5.1) mmol/L Chloride 109 H 109 H 109 H (98-107) mmol/L Carbon Dioxide 14 L 18 L 20 L (22-30) mmol/L BUN 78 H 79 H 78 H (7-17) mg/dL Creatinine 3.94 H 3.98 H 4.08 H (0.52-1.04) mg/dL Glucose 166 H 190 H 190 H (74-99) mg/dL Calcium 10.1 10.1 9.8 (8.4-10.2) mg/dL Total Bilirubin 0.5 0.4 (0.2-1.3) mg/dL AST 35 25 (14-36) U/L ALT 14 13 (4-34) U/L Alkaline Phosphatase 46 42 (38-126) U/L Total Protein 7.1 6.1 L (6.3-8.2) g/dL Albumin 3.8 3.3 L (3.5-5.0) g/dL
--- NOTE | 2020-08-15 14:21 | P.PCN ---
Description of Procedure: Preoperative diagnoses is acute chronic renal failure with hyperkalemia Postoperative is same Procedure patient was seen in the room left groin was prepped and draped applied sterile manner ultrasound-guided micropuncture introduced the to the left femoral vein micropuncture guidewire was passed and 4-Thai dilator advanced on the top of guidewire. After that we passed a regular guidewire without any resistance dilator was advanced on the top of the guidewire then replaced a double-lumen dialysis catheter flushed with heparin saline and Hep-Lock secured with 3-0 nylon dressing applied patient are to the procedure well
--- NOTE | 2020-08-15 14:26 | P.GSCN ---
History of Present Illness History of present illness: 65-year-old white female, patient had a right IJ catheter placed by me in the past patient woke up the catheter was and she is been admitted for placement of dialysis catheter. Patient has history of acute chronic renal failure her creatinine is 3.1 Neck examination neck is short and and patient has a restrictive movement of the neck Chest clear good and both lungs first and second sound present Abdomen soft nontender Femorals are palpable bilateral Plan is placement dialysis catheter risk and complication discussed Past Medical History Past Medical History: Cancer, CVA/TIA, Diabetes Mellitus, Deep Vein Thrombosis (DVT), Hyperlipidemia, Hypertension Additional Past Medical History / Comment(s): Other HX: Large B cell lymphoma and past massive lymphadenopathy , pancytopenia from chemo, anemia, recent UTI 09/2015 with sepsis, R arm humerus fracture, 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 History of Any Multi-Drug Resistant Organisms: ESBL Year Discovered:: 04/13/17 ESBL-Proteus mirabilis; 02/21/17-ESBL-E.coli MDRO Source:: Urine-ESBL Proteus and E.coli Past Surgical History: Cholecystectomy Additional Past Surgical History / Comment(s): MULTIPLE BOWEL SX AND REVISONS OF Ileostomy (pt wears Holister 86-28 with small eacon ring/ stoma powder/ no sting adhesive). HAD ALL TEETH EXTRACTED . 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 GREENFILED FILTER, gastric sleeve at [place], Past Anesthesia/Blood Transfusion Reactions: No Reported Reaction Additional Past Anesthesia/Blood Transfusion Reaction / Comm: Pt received blood without reaction. Past Psychological History: Anxiety, Bipolar, Depression Smoking Status: Never smoker Past Alcohol Use History: None Reported Past Drug Use History: None Reported - Past Family History Sister(s) Family Medical History: Cancer Father Family Medical History: Deep Vein Thrombosis (DVT) Additional Family Medical History / Comment(s): Father of either a CVA or PA at age 84 yrs. Mother Family Medical History: Cancer Additional Family Medical History / Comment(s): Mother of renal failure at age 84 yrs. Medications and Allergies Home Medications Medication Instructions Recorded Confirmed Type Aspirin 81 mg PO HS@199908/18/15 08/14/20 History Atorvastatin [Lipitor] 40 mg PO HS@199906/17/17 08/14/20 History Fenofibrate,Micronized 134 mg PO W/BRKFST 06/17/17 08/14/20 History [Fenofibrate] Multivitamins, Thera [Multivitamin 1 tab PO HS@199906/17/17 08/14/20 History (formulary)] Ascorbic Acid [Vitamin C] 250 mg PO HS@199906/25/20 08/14/20 History Baclofen 10 mg PO Q6HR 06/25/20 08/14/20 History Cholecalciferol [Vitamin D3 (25 1,000 unit PO HS@199906/25/20 08/14/20 History Mcg = 1000 Iu)] Empagliflozin [Jardiance] 10 mg PO DAILY 06/25/20 08/14/20 History Escitalopram [Lexapro] 20 mg PO DAILY 06/25/20 08/14/20 History Ketoconazole 2% Shampoo [Nizoral] 1 applic TOPICAL MOTH 06/25/20 08/14/20 History Metoprolol Succinate [Toprol XL] 50 mg PO BID 06/25/20 08/14/20 History Mirabegron [Myrbetriq] 50 mg PO DAILY 06/25/20 08/14/20 History Omeprazole [PriLOSEC] 20 mg PO HS@199906/25/20 08/14/20 History amLODIPine [Norvasc] 10 mg PO HS@199906/25/20 08/14/20 History ALPRAZolam [Xanax] 0.25 mg PO BID@1200,2359 08/14/20 08/14/20 History HYDROcodone/APAP 7.5-325MG [[place] 1 tab PO Q6H 08/14/20 08/14/20 History 7.5-325] Hydrocortisone Cream 1 applic TOPICAL BID 08/14/20 08/14/20 History [Hydrocortisone 1% Cream] INSULIN ASPART (NovoLOG) [NovoLOG 30 unit SQ TID@0700,1200,1700 08/14/20 08/14/20 History (formulary)] Insulin Detemir (Levemir) [Levemir] 50 unit SQ BID@0800,1600 08/14/20 08/14/20 History Nystatin 100,000 Unit/gm Powd 1 applic TOPICAL BID@0800,1600 08/14/20 08/14/20 History [Mycostatin Powder] Pregabalin [Lyrica] 100 mg PO BID@0800,1600 08/14/20 08/14/20 History lamoTRIgine [LaMICtal] 150 mg PO DAILY@0800 08/14/20 08/14/20 History metFORMIN HCL 1,000 mg PO BID@0800,1600 08/14/20 08/14/20 History Allergies Allergy/AdvReac Type Severity Reaction Status Date / Time latex Allergy Unknown Verified 08/14/20 09:31 Tetanus Vaccines and Toxoid Allergy Red and Verified 08/14/20 09:31 [Tetanus Vaccines & Toxoid] Swelling at site. Corticosteroids AdvReac Elevated Verified 08/14/20 09:31 (Glucocorticoids) Blood sugar and Blood Pressure prednisone AdvReac Elevated Verified 08/14/20 09:31 Blood Sugar and Blood Pressure Surgical - Exam Vital Signs Temp Pulse Resp BP Pulse Ox 98.6 F 73 15 107/58 99 08/14/20 08:40 08/14/20 08:40 08/14/20 08:40 08/14/20 08:40 08/14/20 08:40 Results - Labs 08/15/20 03:52 08/15/20 03:52 Abnormal Lab Results - Last 24 Hours (Table) 08/14/20 08/14/20 08/14/20 Range/Units 00:00 15:30 17:54 Plt Count (150-450) k/uL Lymphocytes # (1.0-4.8) k/uL Sodium 135 L 132 L (137-145) mmol/L Potassium 8.3 H* 7.9 H* (3.5-5.1) mmol/L Chloride 109 H 109 H (98-107) mmol/L Carbon Dioxide 14 L 18 L (22-30) mmol/L BUN 78 H 79 H (7-17) mg/dL Creatinine 3.94 H 3.98 H (0.52-1.04) mg/dL Glucose 166 H 190 H (74-99) mg/dL POC Glucose (mg/dL) 207 H (75-99) mg/dL Uric Acid (3.7-7.4) mg/dL Total Protein 6.1 L (6.3-8.2) g/dL Albumin 3.3 L (3.5-5.0) g/dL 08/14/20 08/15/20 08/15/20 Range/Units 18:18 00:03 03:52 Plt Count 128 L (150-450) k/uL Lymphocytes # 0.6 L (1.0-4.8) k/uL Sodium (137-145) mmol/L Potassium (3.5-5.1) mmol/L Chloride (98-107) mmol/L Carbon Dioxide (22-30) mmol/L BUN (7-17) mg/dL Creatinine (0.52-1.04) mg/dL Glucose (74-99) mg/dL POC Glucose (mg/dL) 219 H 185 H (75-99) mg/dL Uric Acid (3.7-7.4) mg/dL Total Protein (6.3-8.2) g/dL Albumin (3.5-5.0) g/dL 08/15/20 08/15/20 08/15/20 Range/Units 03:52 06:30 12:32 Plt Count (150-450) k/uL Lymphocytes # (1.0-4.8) k/uL Sodium 135 L (137-145) mmol/L Potassium 7.8 H* (3.5-5.1) mmol/L Chloride 109 H (98-107) mmol/L Carbon Dioxide 20 L (22-30) mmol/L BUN 78 H (7-17) mg/dL Creatinine 4.08 H (0.52-1.04) mg/dL Glucose 190 H (74-99) mg/dL POC Glucose (mg/dL) 258 H 198 H (75-99) mg/dL Uric Acid 8.7 H (3.7-7.4) mg/dL Total Protein (6.3-8.2) g/dL Albumin (3.5-5.0) g/dL Microbiology - Last 24 Hours (Table) 08/14/20 10:24 Urine Culture - Preliminary Urine,Voided Diabetes panel 08/14/20 08/14/20 08/15/20 Range/Units 00:00 17:54 03:52 Sodium 135 L 132 L 135 L (137-145) mmol/L Potassium 8.3 H* 7.9 H* 7.8 H* (3.5-5.1) mmol/L Chloride 109 H 109 H 109 H (98-107) mmol/L Carbon Dioxide 14 L 18 L 20 L (22-30) mmol/L BUN 78 H 79 H 78 H (7-17) mg/dL Creatinine 3.94 H 3.98 H 4.08 H (0.52-1.04) mg/dL Glucose 166 H 190 H 190 H (74-99) mg/dL Calcium 10.1 10.1 9.8 (8.4-10.2) mg/dL AST 35 25 (14-36) U/L ALT 14 13 (4-34) U/L Alkaline Phosphatase 46 42 (38-126) U/L Total Protein 7.1 6.1 L (6.3-8.2) g/dL Albumin 3.8 3.3 L (3.5-5.0) g/dL Calcium panel 08/14/20 08/14/20 08/15/20 Range/Units 00:00 17:54 03:52 Calcium 10.1 10.1 9.8 (8.4-10.2) mg/dL Albumin 3.8 3.3 L (3.5-5.0) g/dL Pituitary panel 08/14/20 08/14/20 08/15/20 Range/Units 00:00 17:54 03:52 Sodium 135 L 132 L 135 L (137-145) mmol/L Potassium 8.3 H* 7.9 H* 7.8 H* (3.5-5.1) mmol/L Chloride 109 H 109 H 109 H (98-107) mmol/L Carbon Dioxide 14 L 18 L 20 L (22-30) mmol/L BUN 78 H 79 H 78 H (7-17) mg/dL Creatinine 3.94 H 3.98 H 4.08 H (0.52-1.04) mg/dL Glucose 166 H 190 H 190 H (74-99) mg/dL Calcium 10.1 10.1 9.8 (8.4-10.2) mg/dL Adrenal panel 08/14/20 08/14/20 08/15/20 Range/Units 00:00 17:54 03:52 Sodium 135 L 132 L 135 L (137-145) mmol/L Potassium 8.3 H* 7.9 H* 7.8 H* (3.5-5.1) mmol/L Chloride 109 H 109 H 109 H (98-107) mmol/L Carbon Dioxide 14 L 18 L 20 L (22-30) mmol/L BUN 78 H 79 H 78 H (7-17) mg/dL Creatinine 3.94 H 3.98 H 4.08 H (0.52-1.04) mg/dL Glucose 166 H 190 H 190 H (74-99) mg/dL Calcium 10.1 10.1 9.8 (8.4-10.2) mg/dL Total Bilirubin 0.5 0.4 (0.2-1.3) mg/dL AST 35 25 (14-36) U/L ALT 14 13 (4-34) U/L Alkaline Phosphatase 46 42 (38-126) U/L Total Protein 7.1 6.1 L (6.3-8.2) g/dL Albumin 3.8 3.3 L (3.5-5.0) g/dL
[2020-08-15 15:33] LABS: Calcium 8.9 mg/dL (8.4-10.2); Potassium 5.8 mmol/L (3.5-5.1)
--- NOTE | 2020-08-15 16:13 | P.CNPUL ---
History of Present Illness Consult date: 08/15/20 (Critical care time spent 35 minutes) Reason for consult: dyspnea Chief complaint: Critical care management History of present illness: This is a 65-year-old female with morbid obesity and history of stroke with left-sided weakness, patient is a no code, patient has been found to have progressive last 24 hours changes in mental status has been more somnolent and arousable with sternal rub, patient was transferred to emergency department, significant labs noted to be have hyperkalemia as well as acute renal failure, patient is being admitted to hospital as per protocol, patient has significant history of dyslipidemia, type 2 diabetes mellitus hypertension hypertensive cardiovascular disease mood disorder depression, history of DVT, large B-cell lymphoma and history of massive lymphadenopathy history of multiple and frequent urinary tract infection related to ESBL E. coli and Proteus, her CT of the head is negative except for chronic atrophic changes, chest x-ray is unremarkable, CBC is normal however chemistry abnormal with hyponatremia sodium 133, potassium 8.2, CO2 is 15, review of the data revealed that patient baseline creatinine was 1, even after 2 L normal saline at 100 mL an hour urine output has been minimal almost only less than 112 hours, recommended to have a hemodialysis catheter and stat hemodialysis, ultrasound of the kidney reviews no hydronephrosis seen no obstructive uropathy identified, patient does have bilateral lower extremity swelling more so on the left side compared to right side, also has a foot drop on the left side, appears to be related to stroke in the past, duplex ultrasound of the lower extremity negative for DVT, hemodialysis performed without any incident no fluid however has been removed. 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 History of Any Multi-Drug Resistant Organisms: ESBL Date of last positivie culture/infection: 04/13/17 ESBL-Proteus mirabilis; 02/21/17-ESBL-E.coli MDRO Source:: Urine-ESBL Proteus and E.coli Past Surgical History: Cholecystectomy Additional Past Surgical History / Comment(s): MULTIPLE BOWEL SX AND REVISONS OF Ileostomy (pt wears Holister 86-28 with small eacon ring/ stoma powder/ no sting adhesive). HAD ALL TEETH EXTRACTED . 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 GREENFILED FILTER, gastric sleeve at [place], Past Anesthesia/Blood Transfusion Reactions: No Reported Reaction Additional Past Anesthesia/Blood Transfusion Reaction / Comment(s): Pt received blood without reaction. Past Psychological History: Anxiety, Bipolar, Depression Smoking Status: Never smoker Past Alcohol Use History: None Reported Past Drug Use History: None Reported - Past Family History Sister(s) Family Medical History: Cancer Father Family Medical History: Deep Vein Thrombosis (DVT) Additional Family Medical History / Comment(s): Father of either a CVA or PR at age 84 yrs. Mother Family Medical History: Cancer Additional Family Medical History / Comment(s): Mother of renal failure at age 84 yrs. Medications and Allergies Home Medications Medication Instructions Recorded Confirmed Type Aspirin 81 mg PO HS@199908/18/15 08/14/20 History Atorvastatin [Lipitor] 40 mg PO HS@199906/17/17 08/14/20 History Fenofibrate,Micronized 134 mg PO W/BRKFST 06/17/17 08/14/20 History [Fenofibrate] Multivitamins, Thera [Multivitamin 1 tab PO HS@199906/17/17 08/14/20 History (formulary)] Ascorbic Acid [Vitamin C] 250 mg PO HS@199906/25/20 08/14/20 History Baclofen 10 mg PO Q6HR 06/25/20 08/14/20 History Cholecalciferol [Vitamin D3 (25 1,000 unit PO HS@199906/25/20 08/14/20 History Mcg = 1000 Iu)] Empagliflozin [Jardiance] 10 mg PO DAILY 06/25/20 08/14/20 History Escitalopram [Lexapro] 20 mg PO DAILY 06/25/20 08/14/20 History Ketoconazole 2% Shampoo [Nizoral] 1 applic TOPICAL MOTH 06/25/20 08/14/20 History Metoprolol Succinate [Toprol XL] 50 mg PO BID 06/25/20 08/14/20 History Mirabegron [Myrbetriq] 50 mg PO DAILY 06/25/20 08/14/20 History Omeprazole [PriLOSEC] 20 mg PO HS@199906/25/20 08/14/20 History amLODIPine [Norvasc] 10 mg PO HS@199906/25/20 08/14/20 History ALPRAZolam [Xanax] 0.25 mg PO BID@1200,2359 08/14/20 08/14/20 History HYDROcodone/APAP 7.5-325MG [Malone 1 tab PO Q6H 08/14/20 08/14/20 History 7.5-325] Hydrocortisone Cream 1 applic TOPICAL BID 08/14/20 08/14/20 History [Hydrocortisone 1% Cream] INSULIN ASPART (NovoLOG) [NovoLOG 30 unit SQ TID@0700,1200,1700 08/14/20 08/14/20 History (formulary)] Insulin Detemir (Levemir) [Levemir] 50 unit SQ BID@0800,1600 08/14/20 08/14/20 History Nystatin 100,000 Unit/gm Powd 1 applic TOPICAL BID@0800,1600 08/14/20 08/14/20 History [Mycostatin Powder] Pregabalin [Lyrica] 100 mg PO BID@0800,1600 08/14/20 08/14/20 History lamoTRIgine [LaMICtal] 150 mg PO DAILY@0800 08/14/20 08/14/20 History metFORMIN HCL 1,000 mg PO BID@0800,1600 08/14/20 08/14/20 History Allergies Allergy/AdvReac Type Severity Reaction Status Date / Time latex Allergy Unknown Verified 08/14/20 09:31 Tetanus Vaccines and Toxoid Allergy Red and Verified 08/14/20 09:31 [Tetanus Vaccines & Toxoid] Swelling at site. Corticosteroids AdvReac Elevated Verified 08/14/20 09:31 (Glucocorticoids) Blood sugar and Blood Pressure prednisone AdvReac Elevated Verified 08/14/20 09:31 Blood Sugar and Blood Pressure Physical Exam Vitals: Vital Signs Temp Pulse Pulse Resp BP BP Pulse Ox 08/15/20 14:00 89 16 114/40 96 08/15/20 13:43 97.6 F 84 20 137/73 08/15/20 13:00 87 16 148/64 97 08/15/20 12:00 97.9 F 93 14 126/69 97 08/15/20 11:00 80 16 136/70 98 08/15/20 10:00 85 16 121/61 97 08/15/20 09:00 84 14 145/60 97 08/15/20 08:00 98 F 80 16 111/54 99 08/15/20 04:00 6 L 08/15/20 03:00 78 6 L 69/45 97 08/15/20 02:00 78 8 L 96/37 96 08/15/20 01:00 84 13 99/51 98 08/15/20 00:00 98.2 F 77 6 L 77/36 95 08/14/20 23:00 85 14 150/57 97 08/14/20 22:00 84 14 114/43 96 08/14/20 21:00 72 15 118/52 98 08/14/20 20:51 71 15 118/52 98 08/14/20 20:00 73 17 105/44 98 08/14/20 19:00 68 11 L 111/41 98 08/14/20 18:45 69 121/61 99 08/14/20 18:30 75 96/48 99 08/14/20 18:15 73 96/48 98 08/14/20 18:00 68 12 68/34 97 08/14/20 17:45 67 90/36 99 08/14/20 17:30 68 87/35 98 08/14/20 17:15 67 98/45 99 08/14/20 17:00 67 11 L 124/47 99 08/14/20 16:45 116/45 98 08/14/20 16:30 68 94/41 99 08/14/20 16:15 66 109/43 99 Intake and Output 08/15/20 08/15/20 08/15/20 06:59 14:59 22:59 Intake Total 1300 850 Output Total 225 700 Balance 1075 150 Intake: IV 1300 800 Sodium Chloride 0.9% 1, 1300 800 000 ml @ 100 mls/hr IV . Q10H [facility] Rx#:[id number] Intake, IV Titration 50 Amount Ertapenem 0.5 gm In 50 Sodium Chloride 0.9% 50 ml @ 100 mls/hr IVPB DAILY [facility] Rx#:[id number] Output: Urine 225 400 Stool 300 Other: Voiding Method Indwelling Catheter Indwelling Catheter Weight 115.9 kg - Constitutional General appearance: average body habitus - EENT Ears: bilateral: normal - Neck Neck: normal ROM Carotids: bilateral: upstroke normal Thyroid: bilateral: normal size - Respiratory Respiratory: bilateral: diminished - Cardiovascular Heart sounds: normal: S1, S2 Bilateral lower extremity edema more so on the left side compared right side along with left-sided weakness hemiparesis due to prior stroke - Psychiatric Respond to deep physical stimuli Results - Laboratory Findings CBC and BMP: 08/15/20 03:52 08/15/20 14:56 PT/INR, D-dimer PT 10.4 sec (9.0-12.0) 08/14/20 08:58 INR 1.0 (<1.2) 08/14/20 08:58 Abnormal lab findings: Abnormal Labs 08/14/20 08/14/20 08/14/20 00:00 08:51 10:24 Plt Count Lymphocytes # Sodium 135 L Potassium 8.3 H* Chloride 109 H Carbon Dioxide 14 L BUN 78 H Creatinine 3.94 H Glucose 166 H POC Glucose (mg/dL) 170 H Uric Acid Total Protein Albumin Urine Appearance Turbid H Urine Protein 3+ H Urine Glucose (UA) 1+ H Urine Ketones Trace H Urine Blood Moderate H Urine Bilirubin 1+ H Ur Leukocyte Esterase Large H Urine RBC 110 H Urine WBC 59 H Urine WBC Clumps Many H Ur Squamous Epith Cells 15 H Urine Bacteria Occasional H Urine Mucus Rare H Urine Opiates Screen Detected H U Benzodiazepines Scrn Detected H 08/14/20 08/14/20 08/14/20 11:44 15:30 17:54 Plt Count Lymphocytes # Sodium 133 L 132 L Potassium 8.2 H* 7.9 H* Chloride 108 H 109 H Carbon Dioxide 15 L 18 L BUN 75 H 79 H Creatinine 3.81 H 3.98 H Glucose 199 H 190 H POC Glucose (mg/dL) 207 H Uric Acid Total Protein 6.1 L Albumin 3.3 L Urine Appearance Urine Protein Urine Glucose (UA) Urine Ketones Urine Blood Urine Bilirubin Ur Leukocyte Esterase Urine RBC Urine WBC Urine WBC Clumps Ur Squamous Epith Cells Urine Bacteria Urine Mucus Urine Opiates Screen U Benzodiazepines Scrn 08/14/20 08/15/20 08/15/20 18:18 00:03 03:52 Plt Count 128 L Lymphocytes # 0.6 L Sodium Potassium Chloride Carbon Dioxide BUN Creatinine Glucose POC Glucose (mg/dL) 219 H 185 H Uric Acid Total Protein Albumin Urine Appearance Urine Protein Urine Glucose (UA) Urine Ketones Urine Blood Urine Bilirubin Ur Leukocyte Esterase Urine RBC Urine WBC Urine WBC Clumps Ur Squamous Epith Cells Urine Bacteria Urine Mucus Urine Opiates Screen U Benzodiazepines Scrn 08/15/20 08/15/20 08/15/20 03:52 06:30 12:32 Plt Count Lymphocytes # Sodium 135 L Potassium 7.8 H* Chloride 109 H Carbon Dioxide 20 L BUN 78 H Creatinine 4.08 H Glucose 190 H POC Glucose (mg/dL) 258 H 198 H Uric Acid 8.7 H Total Protein Albumin Urine Appearance Urine Protein Urine Glucose (UA) Urine Ketones Urine Blood Urine Bilirubin Ur Leukocyte Esterase Urine RBC Urine WBC Urine WBC Clumps Ur Squamous Epith Cells Urine Bacteria Urine Mucus Urine Opiates Screen U Benzodiazepines Scrn 08/15/20 14:56 Plt Count Lymphocytes # Sodium 136 L Potassium 5.8 H Chloride 108 H Carbon Dioxide 20 L BUN 60 H Creatinine 2.85 H Glucose 204 H POC Glucose (mg/dL) Uric Acid Total Protein Albumin Urine Appearance Urine Protein Urine Glucose (UA) Urine Ketones Urine Blood Urine Bilirubin Ur Leukocyte Esterase Urine RBC Urine WBC Urine WBC Clumps Ur Squamous Epith Cells Urine Bacteria Urine Mucus Urine Opiates Screen U Benzodiazepines Scrn - Diagnostic Findings Chest x-ray: report reviewed, image reviewed (Cardiomegaly along with chronic changes no acute infection has been identified) Assessment and Plan Assessment: Altered mental status likely due to uremia hyperkalemia metabolic in nature Acute renal failure likely related to acute tubular necrosis Hyperkalemia Acute metabolic acidosis Hyponatremia Left-sided weakness with foot drop Sepsis ? Urinary tract infection Plan: Hemodialysis as planned Monitor labs closely Gentle hydration Hypokalemia medicine given in the ED Repeat labs later on Consult renal, cardio, ID Broad-spectrum antibiotics DVT and peptic ulcer disease prophylaxis Time with Patient: Greater than 30
[2020-08-15 17:55] LABS: Glucose,Whole Blood 231 mg/dL (75-99)
[2020-08-15] MEDS: HEPARIN SODIUM,PORCINE 5,000 UNIT/ML 1 ML VIAL SQ SCH (21:00)
[2020-08-15 22:21] LABS: Hepatitis B Surface AB- Quant 3.5 mIU/mL; Hepatitis B Surface Antibody Non-Reactive (Non-Reactive); Hepatitis B Surface Antigen Non-Reactive (Non-Reactive)
--- NOTE | 2020-08-15 23:26 | PN ---
PROGRESS NOTE DATE OF SERVICE: 08/15/2020 REASON FOR FOLLOWUP: Urinary tract infection. INTERVAL HISTORY: Patient is currently afebrile. The patient seems to be more awake and alert today. Denies having any chest pain or cough. No abdominal pain or diarrhea. PHYSICAL EXAMINATION: Blood pressure 156/85, pulse of 90, temperature 98.5. She is 95% on room air. General description: The patient is an elderly female lying in bed in no distress. Respiratory system: Unlabored breathing, clear to auscultation anteriorly. Heart S1, S2. Regular rate and rhythm. ABDOMEN: Soft, no tenderness. LABS: BUN of 62, creatinine is 2.58. Blood culture so far negative. DIAGNOSTIC IMPRESSION AND PLAN: Patient admitted to hospital with mental status changes, multifactorial in this patient with possible component of pneumonia. The patient is currently covered with Invanz to continue while waiting for the culture to finalize. Continue supportive care. MMODL / IJN: [id number] /
[2020-08-15 23:35] LABS: Glucose,Whole Blood 169 mg/dL (75-99)
--- NOTE | 2020-08-16 00:05 | P.PN ---
Progress Note - Text Progress Note Date: 08/15/20 history of presenting complaint: This is a pleasant 65-year-old patient of Dr. Zuniga resident of [facility]. Patient in 2013 at [facility] have a sleeve gastrectomy that was Experimental. Also had a parastomal hernia repair and subsequent. 3-4 repairs of the stoma and was repositioned. Patient now has a ileostomy. Chronic stable medical conditions include diabetes, GERD, hyperlipidemia, hepatic steatosis, osteopenia, hypertension, large B-cell lymphoma that was treated. Complete para lysis of the left side from a prior stroke and has a leg brace. Patient also known to have ulcerative colitis and occluded internal carotid artery. Has a Saida lift. Patient now presents with-decreased mentation. Was only responding to painful stimuli according to EMS. She was somewhat normal the previous day. In the ER she she couldn't tell her name.. Patient's was found an acute kidney injury. Creatinine had jumped up from 1.0 on July 05 up to 3.98 on presentation. Today-underwent dialysis 4 potassium removal. Able to answer some questions. Review of systems: Attempted for constitutional, cardiovascular, GI, pulmonary. relevant finding as above Active Medications Famotidine (Famotidine 20 Mg/2 Ml Vial) 20 mg IV DAILY [facility] Heparin Sodium (Porcine) (Heparin Sodium,Porcine 5,000 Unit/Ml 1 Ml Vial) 5,000 unit SQ Q12HR [facility] Last Admin: 08/15/20 21:00 Dose: 5,000 unit Documented by: Sodium Chloride (Saline 0.9%) 1,000 mls @ 100 mls/hr IV .Q10H [facility] Last Admin: 08/15/20 11:00 Dose: 100 mls/hr Documented by: Ertapenem 0.5 gm/ Sodium (Chloride) 50 mls @ 100 mls/hr IVPB DAILY [facility]; Protocol Last Admin: 08/15/20 11:12 Dose: 100 mls/hr Documented by: Insulin Aspart (Insulin Aspart (Novolog) 100 Unit/Ml Vial) 0 unit SQ Q6H [facility]; Protocol Last Admin: 08/15/20 18:26 Dose: 8 unit Documented by: Naloxone HCl (Naloxone 0.4 Mg/Ml 1 Ml Vial) 0.2 mg IV Q2M PRN PRN Reason: Opioid Reversal Physical examination: VITAL SIGNS: 97.6, 84, 20, 137/73, 97% on 2 L GENERAL: Laying in bed, tired EYES: Pupils equal. Conjunctiva normal. NECK: JVD unable to assess; masses not palpable. HEART: distant heart sounds, no edema. LUNGS: Respiratory rate increased; distant breath sounds. EXTREMITIES: boots in both the feet ABDOMEN: Soft, nontender, liver spleen not palpable, no masses palpable. Ileostomy. PSYCH: Lethargic but able to answer simple questions NEUROLOGICAL: flaccid- the left side. INVESTIGATIONS, reviewed in the clinical context: Sodium 136 potassium 5.8 BUN 60 creatinine 2.85 Admission labs: Potassium 7.9 bun 79 creatinine 3.98 Previous creatinine 1.0 Assessment: -Acute kidney injury, ATN seconded to hypotension.-Slow to respond. For dialysis -Hyperkalemia secondary to acute kidney injury-slow to respond -diabetes mellitus type 2, chronically on insulin -Acute metabolic encephalopathy from severe renal failure -Hyperlipidemia -Essential hypertension -Dense left hemiparesis from his prior stroke -Chronic ileostomy from ulcerative colitis -Occluded right internal carotid artery -Urinary incontinence -Intertrigo candidiasis -Morbid obesity BMI 41.2 -Chronic medical debility, patient does use a Saida left Plan: Patient in the ICU. Dialyzed today for potassium removal. Potassium will be repeated. Oral medications be resumed later . Resume Levemir tonight. Consultation to electrocardiograph technician and nephrology.
[2020-08-16] MEDS: INSULIN ASPART (NovoLOG) 100 UNIT/ML VIAL SQ SCH ×5 (01:27→20:50)
[2020-08-16] MEDS: SODIUM CHLORIDE 0.9% 1,000 ML IV SCH ×3 (01:27→10:58)
[2020-08-16] MEDS: INSULIN DETEMIR (LEVEMIR) 100 UNIT/ML SYR SQ SCH ×3 (01:28→16:47)
[2020-08-16] MEDS: HYDROcodone/APAP 7.5-325MG 1 EACH TAB PO SCH ×5 (01:28→23:20)
[2020-08-16 05:09] LABS: Basophils % (A) 1 %; Eosinophils # (A) 0.3 k/uL (0-0.7); Eosinophils % (A) 6 %; HCT 38.2 % (34.0-46.0); HGB 11.9 gm/dL (11.4-16.0); Hypochromasia Slight; Lymphocytes # (A) 0.8 k/uL (1.0-4.8); Lymphocytes % (A) 19 %; MCH 29.3 pg (25.0-35.0); MCHC 31.1 g/dL (31.0-37.0); MCV 94.2 fL (80.0-100.0); Mean Platelet Volume 8.4; Monocytes # (A) 0.3 k/uL (0-1.0); Monocytes % (A) 6 %; Neutrophils # (A) 2.8 k/uL (1.3-7.7); Neutrophils % (A) 66 %; Platelet Count 116 k/uL (150-450); RBC 4.06 m/uL (3.80-5.40); RDW 14.9 % (11.5-15.5); WBC 4.3 k/uL (3.8-10.6)
[2020-08-16 05:34] LABS: Calcium 8.6 mg/dL (8.4-10.2); Phosphorus 5.6 mg/dL (2.5-4.5); Potassium 5.1 mmol/L (3.5-5.1)
[2020-08-16 06:25] LABS: Glucose,Whole Blood 176 mg/dL (75-99)
[2020-08-16] MEDS ORDERED: FENOFIBRATE 160 MG TAB PO SCH (07:30)
[2020-08-16] MEDS: ERTAPENEM 0.5 GM in SODIUM CHLORIDE 0.9% 50 ML IVPB SCH (08:23)
[2020-08-16] MEDS: FAMOTIDINE 20 MG/2 ML VIAL IV SCH (08:24)
[2020-08-16] MEDS: HEPARIN SODIUM,PORCINE 5,000 UNIT/ML 1 ML VIAL SQ SCH ×2 (08:24→20:49)
[2020-08-16] MEDS: lamoTRIgine 100 MG TAB PO SCH (08:24)
[2020-08-16] MEDS: ESCITALOPRAM 20 MG TAB PO SCH (08:25)
[2020-08-16] MEDS: NYSTATIN 100,000 UNIT/GM POWD 15 GM TOPICAL SCH ×2 (08:25→16:47)
[2020-08-16] MEDS: HYDROCORTISONE 1% CREAM 30 GM TUBE TOPICAL SCH ×2 (08:25→20:52)
[2020-08-16] MEDS: PREGABALIN 50 MG CAP PO SCH ×2 (08:25→16:47)
--- NOTE | 2020-08-16 08:48 | PN ---
PROGRESS NOTE Mrs. Balbuena is a 65-year-old female with known history of cerebrovascular accident, status post colostomy, who presented with change in mental status. She is more awake and alert today. Hemodynamically, she is stable. She received dialysis yesterday. She continues to be in sinus mechanism. She still has some episode of confusion, but more alert and oriented and following commands. She had an echocardiogram performed yesterday that revealed an ejection fraction of 50% to 55% suboptimal in quality but no evidence of significant other abnormalities. She continues to be on Lipitor 40 mg daily, aspirin once a day, insulin, metoprolol succinate 25 mg daily, Myrbetriq, Lyrica. PHYSICAL EXAMINATION: Blood pressure 115/60 with the heart rate in the 80s and 90s. LUNGS: Clear anteriorly. HEART: Regular rate and rhythm. S1, S2. No S3. No rub appreciated. ABDOMEN: Soft, obese. Colostomy noted. EXTREMITIES: +1 to 2 edema on the lower side. LAB DATA: Lab data revealed a potassium 5.1, BUN and creatinine 60 and 2.52. Hemoglobin of 11.9. IMPRESSION: 1. Acute renal injury with hyperkalemia. Patient received dialysis yesterday. 2. History of hypertension. 3. History of diabetes mellitus. 4. Hyperlipidemia. 5. History of cerebrovascular accident. 6. Large B-cell lymphoma. 7. History of deep vein thrombosis. RECOMMENDATION: From the cardiac standpoint, stable. There is no evidence of acute arrhythmia. She is back on her beta efrem. I will stop the fenofibrate because of the renal failure and the fact that she is on a statin at this point. Depending on her progress, further recommendation will be made. MMODL / IJN: [id number] /
[2020-08-16] MEDS ORDERED: METOPROLOL SUCCINATE (ER) 25 MG TAB.ER.24H PO SCH (09:00)
[2020-08-16] MEDS: NON FORMULARY DRUG (Mirabegron [Myrbetriq] 50 MG Tab.Er.24h) PO SCH (09:40)
[2020-08-16 10:52] LABS: Glucose,Whole Blood 166 mg/dL (75-99)
--- NOTE | 2020-08-16 11:23 | P.PN ---
Subjective Progress Note Date: 08/16/20 Principal diagnosis: Altered mental status likely due to uremia hyperkalemia metabolic in nature Acute renal failure likely related to acute tubular necrosis Hyperkalemia Acute metabolic acidosis Hyponatremia Left-sided weakness with foot drop Sepsis ? Urinary tract infection 08/16/2020, patient seen eval examined labs reviewed medications reviewed Plan discussed, patient is arousable oriented 122, shortness of breath is absent remains on 2 L supplemental oxygen renal function significantly improved now patient is making urine, nephrology to evaluate the patient, monitor renal function production level closely labs reviewed medications reviewed we will observe 1 more day in the ICU before transfer her to a medical floor This is a 65-year-old female with morbid obesity and history of stroke with left-sided weakness, patient is a no code, patient has been found to have progressive last 24 hours changes in mental status has been more somnolent and arousable with sternal rub, patient was transferred to emergency department, significant labs noted to be have hyperkalemia as well as acute renal failure, patient is being admitted to hospital as per protocol, patient has significant history of dyslipidemia, type 2 diabetes mellitus hypertension hypertensive c ardiovascular disease mood disorder depression, history of DVT, large B-cell lymphoma and history of massive lymphadenopathy history of multiple and frequent urinary tract infection related to ESBL E. coli and Proteus, her CT of the head is negative except for chronic atrophic changes, chest x-ray is unremarkable, CBC is normal however chemistry abnormal with hyponatremia sodium 133, potassium 8.2, CO2 is 15, review of the data revealed that patient baseline creatinine was 1, even after 2 L normal saline at 100 mL an hour urine output has been minimal almost only less than 112 hours, recommended to have a hemodialysis catheter and stat hemodialysis, ultrasound of the kidney reviews no hydronephrosis seen no obstructive uropathy identified, patient does have bilateral lower extremity swelling more so on the left side compared to right side, also has a foot drop on the left side, appears to be related to stroke in the past, duplex ultrasound of the lower extremity negative for DVT, hemodialysis performed without any incident no fluid however has been removed. Dialysis BUN/creatinine is 78 and 4.08 with potassium of 7.8, renal failure appears to be due to ATN secondary due to hypertension Objective - Vital Signs Vital signs: Vital Signs Temp 98.5 F 08/16/20 08:00 Pulse 88 08/16/20 11:00 Resp 16 08/16/20 11:00 BP 127/68 08/16/20 11:00 Pulse Ox 96 08/16/20 11:00 Intake & Output 08/15/20 08/16/20 08/16/20 18:59 06:59 18:59 Intake Total 1250 1680 650 Output Total 1225 1425 595 Balance 25 255 55 Weight 113.3 kg Intake: IV 1200 1200 450 Sodium Chloride 0.9% 1, 1200 1200 450 000 ml @ 50 mls/hr IV . Q20H [facility] Rx#:[id number] Intake, IV Titration 50 100 Amount Ertapenem 0.5 gm In 50 100 Sodium Chloride 0.9% 50 ml @ 100 mls/hr IVPB DAILY [facility] Rx#:[id number] Oral 480 100 Output: Urine 925 1425 395 Stool 300 200 Other: Voiding Method Indwelling Catheter Indwelling Catheter Indwelling Catheter - Exam - Constitutional General appearance: average body habitus - EENT Ears: bilateral: normal - Neck Neck: normal ROM Carotids: bilateral: upstroke normal Thyroid: bilateral: normal size - Respiratory Respiratory: bilateral: diminished - Cardiovascular Heart sounds: normal: S1, S2 Bilateral lower extremity edema more so on the left side compared right side along with left-sided weakness hemiparesis due to prior stroke - Psychiatric Patient now is awake respond to verbal stimuli oriented 1-2 - Labs CBC & Chem 7: 08/16/20 04:10 08/16/20 04:10 Labs: Abnormal Lab Results - Last 24 Hours (Table) 08/15/20 08/15/20 08/15/20 Range/Units 03:52 12:32 14:56 Plt Count (150-450) k/uL Lymphocytes # (1.0-4.8) k/uL Sodium 136 L (137-145) mmol/L Potassium 5.8 H (3.5-5.1) mmol/L Chloride 108 H (98-107) mmol/L Carbon Dioxide 20 L (22-30) mmol/L BUN 60 H (7-17) mg/dL Creatinine 2.85 H (0.52-1.04) mg/dL Glucose 204 H (74-99) mg/dL POC Glucose (mg/dL) 198 H (75-99) mg/dL Hemoglobin A1c 8.3 H (4.0-6.0) % Phosphorus (2.5-4.5) mg/dL 08/15/20 08/15/20 08/15/20 Range/Units 17:53 20:08 23:33 Plt Count (150-450) k/uL Lymphocytes # (1.0-4.8) k/uL Sodium (137-145) mmol/L Potassium 5.6 H (3.5-5.1) mmol/L Chloride (98-107) mmol/L Carbon Dioxide (22-30) mmol/L BUN (7-17) mg/dL Creatinine (0.52-1.04) mg/dL Glucose (74-99) mg/dL POC Glucose (mg/dL) 231 H 169 H (75-99) mg/dL Hemoglobin A1c (4.0-6.0) % Phosphorus (2.5-4.5) mg/dL 08/16/20 08/16/20 08/16/20 Range/Units 04:10 04:10 06:23 Plt Count 116 L (150-450) k/uL Lymphocytes # 0.8 L (1.0-4.8) k/uL Sodium 136 L (137-145) mmol/L Potassium (3.5-5.1) mmol/L Chloride 108 H (98-107) mmol/L Carbon Dioxide 21 L (22-30) mmol/L BUN 60 H (7-17) mg/dL Creatinine 2.52 H (0.52-1.04) mg/dL Glucose 181 H (74-99) mg/dL POC Glucose (mg/dL) 176 H (75-99) mg/dL Hemoglobin A1c (4.0-6.0) % Phosphorus 5.6 H (2.5-4.5) mg/dL 08/16/20 Range/Units 10:51 Plt Count (150-450) k/uL Lymphocytes # (1.0-4.8) k/uL Sodium (137-145) mmol/L Potassium (3.5-5.1) mmol/L Chloride (98-107) mmol/L Carbon Dioxide (22-30) mmol/L BUN (7-17) mg/dL Creatinine (0.52-1.04) mg/dL Glucose (74-99) mg/dL POC Glucose (mg/dL) 166 H (75-99) mg/dL Hemoglobin A1c (4.0-6.0) % Phosphorus (2.5-4.5) mg/dL Microbiology - Last 24 Hours (Table) 08/14/20 17:54 Blood Culture - Preliminary Blood No Growth after 24 hours 08/14/20 10:24 Urine Culture - Final Urine,Voided Assessment and Plan Assessment: Altered mental status likely due to uremia hyperkalemia metabolic in nature, slowly improving Acute renal failure likely related to acute tubular necrosis Hyperkalemia Acute metabolic acidosis Hyponatremia Left-sided weakness with foot drop Sepsis ? Urinary tract infection culture results pending Plan: Hemodialysis as planned and as needed Monitor labs closely Gentle hydration Repeat labs in a.m. Renal following Broad-spectrum antibiotics, follow up on urine and blood culture they're negative then DC the antibiotics PT OT evaluation DVT and peptic ulcer disease prophylaxis Time with Patient: Greater than 30
--- NOTE | 2020-08-16 11:32 | P.PN ---
Subjective Patient is seen in follow for acute kidney injury and hyperkalemia. She underwent hemodialysis on 08/15/2020. Creatinine today is 2.52. Potassium is 5.1. Urine output 50-125 mL an hour. Patient is awake and alert. Denies chest pain or shortness of breath. Hemodynamically stable. Vital signs are stable. General: The patient appeared well nourished and normally developed. HEENT: Head exam is unremarkable. Neck is without jugular venous distension. LUNGS: Breath sounds decreased. HEART: Rate and Rhythm are regular. ABDOMEN: Soft, nontender. EXTREMITITES: 2+ edema left lower extremity. No edema in the right lower extremity. Objective - Vital Signs Vital signs: Vital Signs Temp 98.5 F 08/16/20 08:00 Pulse 88 08/16/20 11:00 Resp 16 08/16/20 11:00 BP 127/68 08/16/20 11:00 Pulse Ox 96 08/16/20 11:00 Intake & Output 08/15/20 08/16/20 08/16/20 18:59 06:59 18:59 Intake Total 1250 1680 650 Output Total 1225 1425 595 Balance 25 255 55 Weight 113.3 kg Intake: IV 1200 1200 450 Sodium Chloride 0.9% 1, 1200 1200 450 000 ml @ 50 mls/hr IV . Q20H DANIELE Rx#:[id number] Intake, IV Titration 50 100 Amount Ertapenem 0.5 gm In 50 100 Sodium Chloride 0.9% 50 ml @ 100 mls/hr IVPB DAILY DANIELE Rx#:[id number] Oral 480 100 Output: Urine 925 1425 395 Stool 300 200 Other: Voiding Method Indwelling Catheter Indwelling Catheter Indwelling Catheter - Labs CBC & Chem 7: 08/16/20 04:10 08/16/20 04:10 Labs: Abnormal Lab Results - Last 24 Hours (Table) 08/15/20 08/15/20 08/15/20 Range/Units 03:52 12:32 14:56 Plt Count (150-450) k/uL Lymphocytes # (1.0-4.8) k/uL Sodium 136 L (137-145) mmol/L Potassium 5.8 H (3.5-5.1) mmol/L Chloride 108 H (98-107) mmol/L Carbon Dioxide 20 L (22-30) mmol/L BUN 60 H (7-17) mg/dL Creatinine 2.85 H (0.52-1.04) mg/dL Glucose 204 H (74-99) mg/dL POC Glucose (mg/dL) 198 H (75-99) mg/dL Hemoglobin A1c 8.3 H (4.0-6.0) % Phosphorus (2.5-4.5) mg/dL 08/15/20 08/15/20 08/15/20 Range/Units 17:53 20:08 23:33 Plt Count (150-450) k/uL Lymphocytes # (1.0-4.8) k/uL Sodium (137-145) mmol/L Potassium 5.6 H (3.5-5.1) mmol/L Chloride (98-107) mmol/L Carbon Dioxide (22-30) mmol/L BUN (7-17) mg/dL Creatinine (0.52-1.04) mg/dL Glucose (74-99) mg/dL POC Glucose (mg/dL) 231 H 169 H (75-99) mg/dL Hemoglobin A1c (4.0-6.0) % Phosphorus (2.5-4.5) mg/dL 08/16/20 08/16/20 08/16/20 Range/Units 04:10 04:10 06:23 Plt Count 116 L (150-450) k/uL Lymphocytes # 0.8 L (1.0-4.8) k/uL Sodium 136 L (137-145) mmol/L Potassium (3.5-5.1) mmol/L Chloride 108 H (98-107) mmol/L Carbon Dioxide 21 L (22-30) mmol/L BUN 60 H (7-17) mg/dL Creatinine 2.52 H (0.52-1.04) mg/dL Glucose 181 H (74-99) mg/dL POC Glucose (mg/dL) 176 H (75-99) mg/dL Hemoglobin A1c (4.0-6.0) % Phosphorus 5.6 H (2.5-4.5) mg/dL 08/16/20 Range/Units 10:51 Plt Count (150-450) k/uL Lymphocytes # (1.0-4.8) k/uL Sodium (137-145) mmol/L Potassium (3.5-5.1) mmol/L Chloride (98-107) mmol/L Carbon Dioxide (22-30) mmol/L BUN (7-17) mg/dL Creatinine (0.52-1.04) mg/dL Glucose (74-99) mg/dL POC Glucose (mg/dL) 166 H (75-99) mg/dL Hemoglobin A1c (4.0-6.0) % Phosphorus (2.5-4.5) mg/dL Microbiology - Last 24 Hours (Table) 08/14/20 17:54 Blood Culture - Preliminary Blood No Growth after 24 hours 08/14/20 10:24 Urine Culture - Final Urine,Voided Assessment and Plan Plan: Assessment: 1. Acute kidney injury secondary to ATN secondary to hypotension. Creatinine peaked at 4.0 at this admission. Status post hemodialysis 08/15/2020 for oliguria and hyperkalemia. Now nonoliguric. No hydronephrosis noted on kidney ultrasound. Creatinine 1.0 as of 07/05/2020. 2. Hyperkalemia secondary to acute kidney injury and metabolic acidosis. Improved postdialysis and increased urine output. 3. Diabetes mellitus. 4. Metabolic acidosis secondary to acute kidney injury. Better. 5. History of CVA with left-sided hemiparesis. 6. Hyperphosphatemia secondary to acute kidney injury. Expect improvement with improving renal function. Plan: Decrease rate of normal saline to 50 mL an hour. Add oral bicarb. Hold off on hemodialysis today. Continue to assess need for renal replacement therapy on a daily basis. Avoid nephrotoxins. Continue to monitor renal function and urine output closely. Follow-up cultures.
[2020-08-16] MEDS: SODIUM BICARBONATE TAB 650 MG TAB PO SCH ×3 (12:37→20:51)
--- NOTE | 2020-08-16 14:19 | CDI ---
Documentation Clarification Form Date: 08/16/2020 02:06:27 PM From: Naomi Sal CCS, CCDS Admit Date: 08/14/2020 01:25:00 PM Patient Name: Amena Balbuena Visit Number: [id number] Discharge Date: ATTENTION: The Clinical Documentation Specialists (CDI) and [facility] Coding Staff appreciate your assistance in clarifying documentation. Please respond to the clarification below the line at the bottom and electronically sign. The CDI & [facility] Coding staff will review the response and follow-up if needed. Please note: Queries are made part of the Legal Health Record. If you have any questions, please contact the author of this message via ITS. Dr. Bob Duncan: Per the 08/15 Vascular Consult: "Patient has history of acute on chronic renal failure her Creatinine." Please render your opinion on the clinical significance of the patients BUN/Creatinine/GFR levels. History/Risk Factors: DM II, Morbid Obesity w/BMI 40.3, Hyperlipidemia, Hypertension, Hypertensive Cardiovascular Disease, DVT, Large B Cell Lymphoma, Frequent UTIs related to ESBL E Coli & Proteus, CVA with left hemiparesis, Ileostomy from Ulcerative Colitis. Clinical Indicators: Presented to the ED on 08/14 with Altered Mental Status Changes and stroke like symptoms via EMS. ED Impression: Altered mental status, Acute renal failure, Hyperkalemia, UTI. Per the 08/14 History & Physical: PRAFUL, Hyperkalemia, Acute metabolic acidosis, Hyponatremia, UTI & question Sepsis. Per the 08/15 Nephrology Consult: PRAFUL secondary to ATN secondary to Hypotension, Hyperkalemia & Metabolic Acidosis, DM. Urgent dialysis catheter placed by vascular surgery for Hemodialysis. Current BUN/CR/GFR: 78^ - 60^; 3.94^ - 2.52^; 11 - 19 Patients Historical BUN/CR/GFR: GFR 10/01/2017: >60 Treatment on admission: IV fluid 500 mls @ 999 mls/hr, IV Narcan, IV Rocephin, IV Calcium Chloride, po Kayexalate, IV Insulin, IV NaBicarb, INH Ventolin, IV fluid 1,000 mls @ 75 mls/hr q13H, IV Lactated Ringers, IV Lasix Dialysis received 08/15 In order to capture the severity of condition, please clarify if the labs/clinical indicators signify: CKD Ruled Out CKD Stage 2 (GFR 60-89) CKD Stage 3 (GFR 30-59) CKD Stage 4 (GFR 15-29) CKD Stage 5 (GFR <15) ESRD Other, please specify Unable to determine (Last Revision: September 2019) no ckd MTDD
[2020-08-16 16:47] LABS: Glucose,Whole Blood 175 mg/dL (75-99)
[2020-08-16 17:57] LABS: Glucose,Whole Blood 203 mg/dL (75-99)
[2020-08-16 20:30] LABS: Glucose,Whole Blood 224 mg/dL (75-99)
[2020-08-16] MEDS: ALPRAZolam 0.25 MG TAB PO SCH (20:49)
[2020-08-16] MEDS: ATORVASTATIN 40 MG TAB PO SCH (20:49)
[2020-08-16] MEDS: amLODIPine 5 MG TAB PO SCH (20:49)
[2020-08-16] MEDS: PANTOPRAZOLE 40 MG TABLET PO SCH (20:49)
[2020-08-16] MEDS: METOPROLOL TARTRATE 50 MG TAB PO SCH (20:49)
[2020-08-16] MEDS: ASPIRIN 81 MG PO SCH (20:49)
--- NOTE | 2020-08-16 23:03 | PN ---
PROGRESS NOTE DATE OF SERVICE: 08/16/2020 REASON FOR FOLLOWUP: 1. UTI. 2. Right breast cellulitis. INTERVAL HISTORY: The patient is currently afebrile. The patient is hemodynamically stable. The patient is slightly more awake, alert. Denies having any chest pain or cough. No vomiting or diarrhea has been reported. The patient was noticed to have more swelling and redness of the right breast area. PHYSICAL EXAMINATION: Blood pressure 138/68 with a pulse of 88, temperature 98.2. She is 97% on 2 L nasal cannula. General description is an elderly female lying in bed in no distress. RESPIRATORY SYSTEM: Unlabored breathing. Clear to auscultation anteriorly. HEART: S1, S2. Regular rate and rhythm. ABDOMEN: Soft. No tenderness. LABS: Hemoglobin is 11.9, white count 4.3. BUN of 60, creatinine is 2.52. Urine was positive, though culture has been negative. Blood cultures were negative. DIAGNOSTIC IMPRESSION AND PLAN: Patient admitted to hospital with mental status changes that were multifactorial in nature with concern for a urinary tract infection, though urine culture came back negative, now with evidence of right breast cellulitis. Ultrasound has been ordered. Antibiotic will be switched over to cefazolin to better cover for the cellulitis with a negative sputum cultures and will her monitor clinical course closely. MMODL / IJN: [id number] / MICHAEL
--- NOTE | 2020-08-16 23:25 | P.PN ---
Progress Note - Text Progress Note Date: 08/16/20 history of presenting complaint: This is a pleasant 65-year-old patient of Dr. Zuniga resident of [facility]. Patient in 2013 at [facility] have a sleeve gastrectomy that was Experimental. Also had a parastomal hernia repair and subsequent. 3-4 repairs of the stoma and was repositioned. Patient now has a ileostomy. Chronic stable medical conditions include diabetes, GERD, hyperlipidemia, hepatic steatosis, osteopenia, hypertension, large B-cell lymphoma that was treated. Complete para lysis of the left side from a prior stroke and has a leg brace. Patient also known to have ulcerative colitis and occluded internal carotid artery. Has a Saida lift. Patient now presents with-decreased mentation. Was only responding to painful stimuli according to EMS. She was somewhat normal the previous day. In the ER she she couldn't tell her name.. Patient's was found an acute kidney injury. Creatinine had jumped up from 1.0 on July 05 up to 3.98 on presentation. Also put on IV Ancef for right breast cellulitis. Today-ICU. No hemodialysis today. Patient's delirium is resolved. Getting IV fluids at 50 mL an hour. Review of systems: Was done for constitutional, cardiovascular, GI, pulmonary. relevant finding as above Active Medications Hydrocodone Bitart/Acetaminophen (Hydrocodone/Apap 7.5-325mg 1 Each Tab) 1 each PO Q6H [facility] Last Admin: 08/16/20 23:20 Dose: 1 each Documented by: Alprazolam (Alprazolam 0.25 Mg Tab) 0.25 mg PO BID [facility] Last Admin: 08/16/20 20:49 Dose: 0.25 mg Documented by: Amlodipine Besylate (Amlodipine 5 Mg Tab) 5 mg PO BID [facility] Last Admin: 08/16/20 20:49 Dose: 5 mg Documented by: Aspirin (Aspirin 81 Mg) 81 mg PO HS@1999 [facility] Last Admin: 08/16/20 20:49 Dose: 81 mg Documented by: Atorvastatin Calcium (Atorvastatin 40 Mg Tab) 40 mg PO HS@1999 [facility] Last Admin: 08/16/20 20:49 Dose: 40 mg Documented by: Escitalopram Oxalate (Escitalopram 20 Mg Tab) 20 mg PO DAILY [facility] Last Admin: 08/16/20 08:25 Dose: 20 mg Documented by: Famotidine (Famotidine 20 Mg/2 Ml Vial) 20 mg IV DAILY [facility] Last Admin: 08/16/20 08:24 Dose: 20 mg Documented by: Heparin Sodium (Porcine) (Heparin Sodium,Porcine 5,000 Unit/Ml 1 Ml Vial) 5,000 unit SQ Q12HR [facility] Last Admin: 08/16/20 20:49 Dose: 5,000 unit Documented by: Hydrocortisone (Hydrocortisone 1% Cream 30 Gm Tube) 1 applic TOPICAL BID [facility] Last Admin: 08/16/20 20:52 Dose: 1 applic Documented by: Sodium Chloride (Saline 0.9%) 1,000 mls @ 50 mls/hr IV .Q20H [facility] Last Admin: 08/16/20 10:58 Dose: 50 mls/hr Documented by: Cefazolin Sodium 2 gm/ Sodium (Chloride) 50 mls @ 100 mls/hr IVPB Q12HR [facility] Last Admin: 08/16/20 23:20 Dose: 100 mls/hr Documented by: Insulin Aspart (Insulin Aspart (Novolog) 100 Unit/Ml Vial) 0 unit SQ ACHS [facility]; Protocol Last Admin: 08/16/20 20:50 Dose: 3 unit Documented by: Insulin Detemir (Insulin Detemir (Levemir) 100 Unit/Ml Syr) 30 unit SQ BID@0800,1600 [facility] Last Admin: 08/16/20 16:47 Dose: 30 unit Documented by: Lamotrigine (Lamotrigine 100 Mg Tab) 150 mg PO DAILY@0800 [facility] Last Admin: 08/16/20 08:24 Dose: 150 mg Documented by: Metoprolol Tartrate (Metoprolol Tartrate 50 Mg Tab) 50 mg PO BID [facility] Last Admin: 08/16/20 20:49 Dose: 50 mg Documented by: Naloxone HCl (Naloxone 0.4 Mg/Ml 1 Ml Vial) 0.2 mg IV Q2M PRN PRN Reason: Opioid Reversal Non-Formulary Medication (Mirabegron [Myrbetriq]) 50 mg PO DAILY [facility] Last Admin: 08/16/20 09:40 Dose: Not Given Documented by: Nystatin (Nystatin 100,000 Unit/Gm Powd 15 Gm) 1 applic TOPICAL BID@0800,1600 [facility] Last Admin: 08/16/20 16:47 Dose: 1 applic Documented by: Pantoprazole Sodium (Pantoprazole 40 Mg Tablet) 40 mg PO HS@2000 [facility] Last Admin: 08/16/20 20:49 Dose: 40 mg Documented by: Pregabalin (Pregabalin 50 Mg Cap) 50 mg PO BID@0800,1600 [facility] Last Admin: 08/16/20 16:47 Dose: 50 mg Documented by: Sodium Bicarbonate (Sodium Bicarbonate Tab 650 Mg Tab) 650 mg PO TID [facility] Last Admin: 08/16/20 20:51 Dose: 650 mg Documented by: Physical examination: VITAL SIGNS: 98.3, 86, 14, 161/72, 95% 2 L GENERAL: Laying in bed, tired EYES: Pupils equal. Conjunctiva normal. NECK: JVD unable to assess; masses not palpable. HEART: distant heart sounds, no edema. LUNGS: Respiratory rate increased; distant breath sounds. EXTREMITIES: boots in both the feet ABDOMEN: Soft, nontender, liver spleen not palpable, no masses palpable. Ileostomy. PSYCH: AO - times three. Mood and affect normal NEUROLOGICAL: flaccid- the left side. Bilateral foot drop INVESTIGATIONS, reviewed in the clinical context: August 16: White count 4.3 hemoglobin 11.9 at bedtime on 16 potassium 5.1 creatinine 2.5 to Sodium 136 potassium 5.8 BUN 60 creatinine 2.85 Admission labs: Potassium 7.9 bun 79 creatinine 3.98 Previous creatinine 1.0 Assessment: -Acute kidney injury, ATN seconded to hypotension.-Did receive, dialysis. -Hyperkalemia secondary to acute kidney improving -diabetes mellitus type 2, chronically on insulin -Acute metabolic encephalopathy with delirium from severe renal failure-improved -Hyperlipidemia -Essential hypertension -Dense left hemiparesis from his prior stroke -Chronic ileostomy from ulcerative colitis -Occluded right internal carotid artery -Urinary incontinence -Intertrigo candidiasis -Morbid obesity BMI 41.2 -Chronic medical debility, patient does use a Saida left -Right breast cellulitis acute Plan: Doing better. Accu-Cheks to be followed. IV fluids at 50 mL an hour. IV Ancef. Oral intake improving. :
[2020-08-17 04:34] LABS: Basophils % (A) 1 %; Eosinophils # (A) 0.4 k/uL (0-0.7); Eosinophils % (A) 10 %; HCT 38.2 % (34.0-46.0); HGB 12.2 gm/dL (11.4-16.0); Hypochromasia Moderate; Lymphocytes % (A) 25 %; MCH 30.4 pg (25.0-35.0); MCHC 31.8 g/dL (31.0-37.0); MCV 95.6 fL (80.0-100.0); Mean Platelet Volume 6.8; Monocytes # (A) 0.3 k/uL (0-1.0); Monocytes % (A) 7 %; Neutrophils # (A) 2.1 k/uL (1.3-7.7); Neutrophils % (A) 55 %; RDW 14.5 % (11.5-15.5); WBC 3.8 k/uL (3.8-10.6)
[2020-08-17 04:55] LABS: Calcium 8.2 mg/dL (8.4-10.2)
[2020-08-17 04:57] LABS: Potassium 4.8 mmol/L (3.5-5.1)
[2020-08-17 05:41] LABS: Platelet Count 96 k/uL (150-450)
[2020-08-17 06:25] LABS: Glucose,Whole Blood 154 mg/dL (75-99)
[2020-08-17] MEDS: INSULIN ASPART (NovoLOG) 100 UNIT/ML VIAL SQ SCH ×4 (06:30→20:18)
[2020-08-17] MEDS: HYDROcodone/APAP 7.5-325MG 1 EACH TAB PO SCH ×3 (06:30→18:02)
[2020-08-17 07:35] LABS: Glucose,Whole Blood 165 mg/dL (75-99)
--- NOTE | 2020-08-17 08:43 | PN ---
PROGRESS NOTE Mrs. Balbuena is a 65-year-old female with history of cerebrovascular accident, status post colostomy, who presented with severe worsening renal failure with severe hyperkalemia. She presented with change in mental status. She is more alert today. She is in sinus mechanism. There is no evidence of arrhythmia. Her left ventricular systolic function was preserved by echocardiography. There is no evidence of atrial fibrillation or malignant arrhythmia. She continues to be at this time on amlodipine 5 mg twice a day, aspirin once a day, metoprolol tartrate 50 mg twice a day. PHYSICAL EXAMINATION: Blood pressure running in the 140s with the heart rate in the 90s. LUNGS: Clear. HEART: Regular rate and rhythm. S1, S2. No S3 with a systolic ejection murmur. No diastolic murmur. No rub. ABDOMEN: Soft. Colostomy noted. EXTREMITIES: +1 to 2 edema on the left side. LAB DATA: Lab data revealed a creatinine down to 2, BUN 55, potassium 4.8. Her hemoglobin 12.2. IMPRESSION: 1. Acute kidney injury with hyperkalemia, improved. 2. History of cerebrovascular accident. 3. History of hypertension. 4. Obesity. 5. Medical debilitation. 6. Diabetes mellitus. 7. Prior history of ileostomy. 8. History of peripheral vascular disease. RECOMMENDATION: From the cardiac standpoint, she is stable. There is no evidence of active cardiac issue at this time. We will see her on an as-needed basis. Please feel free to call us for any question. MMODL / IJN: [id number] /
[2020-08-17] MEDS: FAMOTIDINE 20 MG/2 ML VIAL IV SCH (08:44)
[2020-08-17] MEDS: PREGABALIN 50 MG CAP PO SCH ×2 (08:44→17:00)
[2020-08-17] MEDS: lamoTRIgine 100 MG TAB PO SCH (08:44)
[2020-08-17] MEDS: HEPARIN SODIUM,PORCINE 5,000 UNIT/ML 1 ML VIAL SQ SCH ×2 (08:44→20:17)
[2020-08-17] MEDS: ALPRAZolam 0.25 MG TAB PO SCH ×2 (08:45→20:16)
[2020-08-17] MEDS: HYDROCORTISONE 1% CREAM 30 GM TUBE TOPICAL SCH ×2 (08:46→20:18)
[2020-08-17] MEDS: NYSTATIN 100,000 UNIT/GM POWD 15 GM TOPICAL SCH ×2 (08:46→17:00)
[2020-08-17] MEDS: amLODIPine 5 MG TAB PO SCH ×2 (08:46→20:17)
[2020-08-17] MEDS: ESCITALOPRAM 20 MG TAB PO SCH (08:47)
[2020-08-17] MEDS: METOPROLOL TARTRATE 50 MG TAB PO SCH ×2 (08:47→20:17)
[2020-08-17] MEDS: SODIUM BICARBONATE TAB 650 MG TAB PO SCH ×3 (08:47→20:16)
[2020-08-17] MEDS: NON FORMULARY DRUG (Mirabegron [Myrbetriq] 50 MG Tab.Er.24h) PO SCH (08:48)
[2020-08-17] MEDS: INSULIN DETEMIR (LEVEMIR) 100 UNIT/ML SYR SQ SCH ×2 (09:18→17:01)
--- NOTE | 2020-08-17 09:38 | USB ---
Reason for exam: clinical finding. History: Patient is postmenopausal and is nulliparous. Took estrogen for 10 years beginning at age 38. US Breast RT Right complete breast ultrasound includes all four quadrants, the retroareolar region and axilla. Finding demonstrates extensive soft tissue edema entire right breast. ASSESSMENT: Benign, BI-RAD 2 RECOMMENDATION: Clinical management of the right breast. Manage patient on a clinical basis.
--- NOTE | 2020-08-17 09:46 | P.PN ---
Subjective Progress Note Date: 08/17/20 Principal diagnosis: Altered mental status likely due to uremia hyperkalemia metabolic in nature Acute renal failure likely related to acute tubular necrosis Hyperkalemia Acute metabolic acidosis Hyponatremia Left-sided weakness with foot drop Sepsis ? Urinary tract infection 08/17/2020, patient seen and evaluated examined she is more awake and alert breathing comfortably, dialysis catheter will be pulled out no plans for hemodialysis, blood pressure is running high medicines from home have been resumed, she has been found to have a cellulitis under the right breast antibiotics have been changed to cefazolin, ID service continued to follow, patient can be moved out to [facility] remote telemetry 08/16/2020, patient seen eval examined labs reviewed medications reviewed Plan discussed, patient is arousable oriented 122, shortness of breath is absent remains on 2 L supplemental oxygen renal function significantly improved now patient is making urine, nephrology to evaluate the patient, monitor renal function production level closely labs reviewed medications reviewed we will observe 1 more day in the ICU before transfer her to a medical floor This is a 65-year-old female with morbid obesity and history of stroke with left-sided weakness, patient is a no code, patient has been found to have progressive last 24 hours changes in mental status has been more somnolent and arousable with sternal rub, patient was transferred to emergency department, significant labs noted to be have hyperkalemia as well as acute renal failure, patient is being admitted to hospital as per protocol, patient has significant history of dyslipidemia, type 2 diabetes mellitus hypertension hypertensive cardiovascular disease mood disorder depression, history of DVT, large B-cell lymphoma and history of massive lymphadenopathy history of multiple and frequent urinary tract infection related to ESBL E. coli and Proteus, her CT of the head is negative except for chronic atrophic changes, chest x-ray is unremarkable, CBC is normal however chemistry abnormal with hyponatremia sodium 133, potassium 8.2, CO2 is 15, review of the data revealed that patient baseline creatinine was 1, even after 2 L normal saline at 100 mL an hour urine output has been minimal almost only less than 112 hours, recommended to have a hemodialysis catheter and stat hemodialysis, ultrasound of the kidney reviews no hydronephrosis seen no obstructive uropathy identified, patient does have bilateral lower extremity swelling more so on the left side compared to right side, also has a foot drop o n the left side, appears to be related to stroke in the past, duplex ultrasound of the lower extremity negative for DVT, hemodialysis performed without any incident no fluid however has been removed. Dialysis BUN/creatinine is 78 and 4.08 with potassium of 7.8, renal failure appears to be due to ATN secondary due to hypertension Objective - Vital Signs Vital signs: Vital Signs Temp 98.5 F 08/17/20 08:00 Pulse 101 H 08/17/20 09:00 Resp 15 08/17/20 09:00 BP 171/94 08/17/20 09:00 Pulse Ox 89 L 08/17/20 09:00 Intake & Output 08/16/20 08/17/20 08/17/20 18:59 06:59 18:59 Intake Total 1240 1080 220 Output Total 1075 1200 200 Balance 165 -120 20 Weight 115.8 kg Intake: IV 800 600 100 Sodium Chloride 0.9% 1, 800 600 100 000 ml @ 50 mls/hr IV . Q20H DAN[facility]LE Rx#:[id number] Intake, IV Titration 100 Amount Ertapenem 0.5 gm In 100 Sodium Chloride 0.9% 50 ml @ 100 mls/hr IVPB DAILY DANIELE Rx#:[id number] Oral 340 480 120 Output: Urine 875 1150 200 Stool 200 50 Other: Voiding Method Indwelling Catheter Indwelling Catheter - Exam - Constitutional General appearance: average body habitus - EENT Ears: bilateral: normal - Neck Neck: normal ROM Carotids: bilateral: upstroke normal Thyroid: bilateral: normal size - Respiratory Respiratory: bilateral: diminished - Cardiovascular Heart sounds: normal: S1, S2 Bilateral lower extremity edema more so on the left side compared right side along with left-sided weakness hemiparesis due to prior stroke - Psychiatric Patient now is awake respond to verbal stimuli oriented 3 - Labs CBC & Chem 7: 08/17/20 03:56 08/17/20 03:56 Labs: Abnormal Lab Results - Last 24 Hours (Table) 08/16/20 08/16/20 08/16/20 Range/Units 10:51 16:45 17:56 Plt Count (150-450) k/uL Sodium (137-145) mmol/L Chloride (98-107) mmol/L Carbon Dioxide (22-30) mmol/L BUN (7-17) mg/dL Creatinine (0.52-1.04) mg/dL Glucose (74-99) mg/dL POC Glucose (mg/dL) 166 H 175 H 203 H (75-99) mg/dL Calcium (8.4-10.2) mg/dL 08/16/20 08/17/20 08/17/20 Range/Units 20:29 03:56 03:56 Plt Count 96 L (150-450) k/uL Sodium 136 L (137-145) mmol/L Chloride 109 H (98-107) mmol/L Carbon Dioxide 19 L (22-30) mmol/L BUN 55 H (7-17) mg/dL Creatinine 2.00 H (0.52-1.04) mg/dL Glucose 149 H (74-99) mg/dL POC Glucose (mg/dL) 224 H (75-99) mg/dL Calcium 8.2 L (8.4-10.2) mg/dL 08/17/20 08/17/20 Range/Units 06:23 07:34 Plt Count (150-450) k/uL Sodium (137-145) mmol/L Chloride (98-107) mmol/L Carbon Dioxide (22-30) mmol/L BUN (7-17) mg/dL Creatinine (0.52-1.04) mg/dL Glucose (74-99) mg/dL POC Glucose (mg/dL) 154 H 165 H (75-99) mg/dL Calcium (8.4-10.2) mg/dL Microbiology - Last 24 Hours (Table) 08/14/20 17:54 Blood Culture - Preliminary Blood No Growth after 48 hours Assessment and Plan Assessment: Cellulitis under the right breast Altered mental status likely due to uremia hyperkalemia metabolic in nature, slowly improving Acute renal failure likely related to acute tubular necrosis Hyperkalemia Acute metabolic acidosis Hyponatremia Left-sided weakness with foot drop Sepsis ? Urinary tract infection culture results pending Plan: IV cefazolin, follow-up on ultrasound of the breast Hemodialysis as planned and as needed Monitor labs closely Gentle hydration Repeat labs in a.m. Renal following Broad-spectrum antibiotics, follow up on urine and blood culture they're negative then DC the antibiotics PT OT evaluation DVT and peptic ulcer disease prophylaxis Time with Patient: Greater than 30
--- NOTE | 2020-08-17 11:15 | P.PN ---
Subjective Patient is seen in follow for acute kidney injury and hyperkalemia. She underwent hemodialysis on 08/15/2020. Creatinine today is 2.0. Potassium is 4.8. Nonoliguric. Patient is awake and alert. Denies chest pain or shortness of breath. Hemodynamically stable. Vital signs are stable. General: The patient appeared well nourished and normally developed. HEENT: Head exam is unremarkable. Neck is without jugular venous distension. LUNGS: Breath sounds decreased. HEART: Rate and Rhythm are regular. ABDOMEN: Soft, nontender. EXTREMITITES: 2+ edema left lower extremity. Trace edema in the right lower extremity. Objective - Vital Signs Vital signs: Vital Signs Temp 98.5 F 08/17/20 08:00 Pulse 87 08/17/20 10:00 Resp 16 08/17/20 10:00 BP 125/86 08/17/20 10:00 Pulse Ox 96 08/17/20 10:00 Intake & Output 08/16/20 08/17/20 08/17/20 18:59 06:59 18:59 Intake Total 1240 1080 320 Output Total 1075 1200 275 Balance 165 -120 45 Weight 115.8 kg Intake: IV 800 600 200 Sodium Chloride 0.9% 1, 800 600 200 000 ml @ 50 mls/hr IV . Q20H [facility] Rx#:[id number] Intake, IV Titration 100 Amount Ertapenem 0.5 gm In 100 Sodium Chloride 0.9% 50 ml @ 100 mls/hr IVPB DAILY [facility] Rx#:[id number] Oral 340 480 120 Output: Urine 875 1150 275 Stool 200 50 Other: Voiding Method Indwelling Catheter Indwelling Catheter Indwelling Catheter - Labs CBC & Chem 7: 08/17/20 03:56 08/17/20 03:56 Labs: Abnormal Lab Results - Last 24 Hours (Table) 08/16/20 08/16/20 08/16/20 Range/Units 16:45 17:56 20:29 Plt Count (150-450) k/uL Sodium (137-145) mmol/L Chloride (98-107) mmol/L Carbon Dioxide (22-30) mmol/L BUN (7-17) mg/dL Creatinine (0.52-1.04) mg/dL Glucose (74-99) mg/dL POC Glucose (mg/dL) 175 H 203 H 224 H (75-99) mg/dL Calcium (8.4-10.2) mg/dL 08/17/20 08/17/20 08/17/20 Range/Units 03:56 03:56 06:23 Plt Count 96 L (150-450) k/uL Sodium 136 L (137-145) mmol/L Chloride 109 H (98-107) mmol/L Carbon Dioxide 19 L (22-30) mmol/L BUN 55 H (7-17) mg/dL Creatinine 2.00 H (0.52-1.04) mg/dL Glucose 149 H (74-99) mg/dL POC Glucose (mg/dL) 154 H (75-99) mg/dL Calcium 8.2 L (8.4-10.2) mg/dL 08/17/20 Range/Units 07:34 Plt Count (150-450) k/uL Sodium (137-145) mmol/L Chloride (98-107) mmol/L Carbon Dioxide (22-30) mmol/L BUN (7-17) mg/dL Creatinine (0.52-1.04) mg/dL Glucose (74-99) mg/dL POC Glucose (mg/dL) 165 H (75-99) mg/dL Calcium (8.4-10.2) mg/dL Microbiology - Last 24 Hours (Table) 08/14/20 17:54 Blood Culture - Preliminary Blood No Growth after 48 hours Assessment and Plan Plan: Assessment: 1. Acute kidney injury secondary to ATN secondary to hypotension. Creatinine peaked at 4.0 at this admission - 2.0 today. Status post hemodialysis 08/15/2020 for oliguria and hyperkalemia. Now nonoliguric. No hydronephrosis noted on kidney ultrasound. Creatinine 1.0 as of 07/05/2020. 2. Hyperkalemia secondary to acute kidney injury and metabolic acidosis. Improved postdialysis and increased urine output. 3. Diabetes mellitus. 4. Metabolic acidosis secondary to acute kidney injury and IV fluids. 5. Hi maintained on oral bicarb.story of CVA with left-sided hemiparesis. 6. Hyperphosphatemia secondary to acute kidney injury. Expect improvement with improving renal function. Plan: Hep-Lock IV fluids. Encourage oral intake. No further need for renal replacement therapy. Okay to discontinue dialysis catheter. Avoid nephrotoxins. Continue to monitor renal function and urine output. Repeat electrolytes including phosphorus level in the morning.
[2020-08-17 11:44] LABS: Glucose,Whole Blood 172 mg/dL (75-99)
[2020-08-17 16:56] LABS: Glucose,Whole Blood 208 mg/dL (75-99)
[2020-08-17 20:05] LABS: Glucose,Whole Blood 206 mg/dL (75-99)
[2020-08-17] MEDS: ATORVASTATIN 40 MG TAB PO SCH (20:16)
[2020-08-17] MEDS: ASPIRIN 81 MG PO SCH (20:16)
[2020-08-17] MEDS: PANTOPRAZOLE 40 MG TABLET PO SCH (20:17)
--- NOTE | 2020-08-17 22:13 | PN ---
PROGRESS NOTE DATE OF SERVICE: 08/17/2020 REASON FOR FOLLOWUP: UTI and right breast cellulitis. INTERVAL HISTORY: The patient is currently afebrile. The patient is breathing comfortably; more awake and alert. The patient denies having any chest pain or cough. Denies any worsening redness of the right breast area. No abdominal pain or diarrhea. PHYSICAL EXAMINATION: Blood pressure 150/76, pulse of 98, temperature 99. She is 99% on 2 L nasal cannula. General description is an elderly female lying in bed in no distress. RESPIRATORY SYSTEM: Unlabored breathing. Clear to auscultation anteriorly. HEART: S1, S2. Regular rate and rhythm. ABDOMEN: Soft. No tenderness. LABS: Hemoglobin 12.1, white count 3.8. BUN of 55, creatinine is 2.0. Blood culture negative. Urine is negative. DIAGNOSTIC IMPRESSION AND PLAN: Patient admitted to hospital with generalized weakness, mental status changes, multifactorial; initial concern for urinary tract infection. Urine came back negative. Did have evidence of right breast cellulitis. Culture for any abscess. Continue with cefazolin and monitor clinical course closely. MMODL / IJN: [id number] / MICHAEL
--- NOTE | 2020-08-17 23:18 | P.PN ---
Progress Note - Text Progress Note Date: 08/17/20 history of presenting complaint: This is a pleasant 65-year-old patient of Dr. Zuniga resident of [facility]. 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 Also had a parastomal hernia repair and subsequent. 3-4 repairs of the stoma and was repositioned. Patient now has a ileostomy. Chronic stable medical conditions include diabetes, GERD, hyperlipidemia, hepatic steatosis, osteopenia, hypertension, large B-cell lymphoma that was treated. Complete para lysis of the left side from a prior stroke and has a leg brace. Patient also known to have ulcerative colitis and occluded internal carotid artery. Has a Saida lift. Patient now presents with-decreased mentation. Was only responding to painful stimuli according to EMS. She was somewhat normal the previous day. In the ER she she couldn't tell her name.. Patient's was found an acute kidney injury. Creatinine had jumped up from 1.0 on July 05 up to 3.98 on presentation. Also put on IV Ancef for right breast cellulitis. Today-ICU. gentle hydration. For more awake. Communicating. eating about 25% Review of systems: Was done for constitutional, cardiovascular, GI, pulmonary. relevant finding as above Active Medications Hydrocodone Bitart/Acetaminophen (Hydrocodone/Apap 7.5-325mg 1 Each Tab) 1 each PO Q6H [facility] Last Admin: 08/17/20 18:02 Dose: 1 each Documented by: Alprazolam (Alprazolam 0.25 Mg Tab) 0.25 mg PO BID [facility] Last Admin: 08/17/20 20:16 Dose: 0.25 mg Documented by: Amlodipine Besylate (Amlodipine 5 Mg Tab) 5 mg PO BID [facility] Last Admin: 08/17/20 20:17 Dose: 5 mg Documented by: Aspirin (Aspirin 81 Mg) 81 mg PO HS@1999 [facility] Last Admin: 08/17/20 20:16 Dose: 81 mg Documented by: Atorvastatin Calcium (Atorvastatin 40 Mg Tab) 40 mg PO HS@1999 [facility] Last Admin: 08/17/20 20:16 Dose: 40 mg Documented by: Escitalopram Oxalate (Escitalopram 20 Mg Tab) 20 mg PO DAILY [facility] Last Admin: 08/17/20 08:47 Dose: 20 mg Documented by: Famotidine (Famotidine 20 Mg/2 Ml Vial) 20 mg IV DAILY [facility] Last Admin: 08/17/20 08:44 Dose: 20 mg Documented by: Heparin Sodium (Porcine) (Heparin Sodium,Porcine 5,000 Unit/Ml 1 Ml Vial) 5,000 unit SQ Q12HR [facility] Last Admin: 08/17/20 20:17 Dose: 5,000 unit Documented by: Hydrocortisone (Hydrocortisone 1% Cream 30 Gm Tube) 1 applic TOPICAL BID [facility] Last Admin: 08/17/20 20:18 Dose: 1 applic Documented by: Cefazolin Sodium 2 gm/ Sodium (Chloride) 50 mls @ 100 mls/hr IVPB Q12HR [facility] Last Admin: 08/17/20 20:58 Dose: 100 mls/hr Documented by: Insulin Aspart (Insulin Aspart (Novolog) 100 Unit/Ml Vial) 0 unit SQ ACHS [facility]; Protocol Last Admin: 08/17/20 20:18 Dose: 2 unit Documented by: Insulin Detemir (Insulin Detemir (Levemir) 100 Unit/Ml Syr) 30 unit SQ BID@0800,1600 [facility] Last Admin: 08/17/20 17:01 Dose: 30 unit Documented by: Lamotrigine (Lamotrigine 100 Mg Tab) 150 mg PO DAILY@0800 [facility] Last Admin: 08/17/20 08:44 Dose: 150 mg Documented by: Metoprolol Tartrate (Metoprolol Tartrate 50 Mg Tab) 50 mg PO BID [facility] Last Admin: 08/17/20 20:17 Dose: 50 mg Documented by: Naloxone HCl (Naloxone 0.4 Mg/Ml 1 Ml Vial) 0.2 mg IV Q2M PRN PRN Reason: Opioid Reversal Non-Formulary Medication (Mirabegron [Myrbetriq]) 50 mg PO DAILY [facility] Last Admin: 08/17/20 08:48 Dose: Not Given Documented by: Nystatin (Nystatin 100,000 Unit/Gm Powd 15 Gm) 1 applic TOPICAL BID@0800,1600 [facility] Last Admin: 08/17/20 17:00 Dose: 1 applic Documented by: Pantoprazole Sodium (Pantoprazole 40 Mg Tablet) 40 mg PO HS@2000 [facility] Last Admin: 08/17/20 20:17 Dose: 40 mg Documented by: Pregabalin (Pregabalin 50 Mg Cap) 50 mg PO BID@0800,1600 [facility] Last Admin: 08/17/20 17:00 Dose: 50 mg Documented by: Sodium Bicarbonate (Sodium Bicarbonate Tab 650 Mg Tab) 650 mg PO TID [facility] Last Admin: 08/17/20 20:16 Dose: 650 mg Documented by: Sodium Chloride (Sodium Chloride 0.9% Flush 10 Ml Syringe) 10 ml IV BID [facility] Last Admin: 08/17/20 20:17 Dose: 10 ml Documented by: Physical examination: VITAL SIGNS: 98.7, 99, 14, 116/79, 94% room air GENERAL: Laying in bed, more awake EYES: Pupils equal. Conjunctiva normal. NECK: JVD unable to assess; masses not palpable. HEART: distant heart sounds, no edema. LUNGS: Respiratory rate increased; distant breath sounds. EXTREMITIES: boots in both the feet ABDOMEN: Soft, nontender, liver spleen not palpable, no masses palpable. Ileostomy. PSYCH: AO - times three. Mood and affect normal NEUROLOGICAL: flaccid- the left side. Bilateral foot drop INVESTIGATIONS, reviewed in the clinical context: August 17: White count 3.8 hemoglobin 12.2 platelets 96 potassium 4.8 bun 55 creatinine 2.0 August 16: White count 4.3 hemoglobin 11.9 at bedtime on 16 potassium 5.1 creatinine 2.5 to Sodium 136 potassium 5.8 BUN 60 creatinine 2.85 Admission labs: Potassium 7.9 bun 79 creatinine 3.98 Previous creatinine 1.0 Assessment: -Acute kidney injury, ATN seconded to hypotension.-Did receive, dialysis.- improving -Hyperkalemia secondary to acute kidney improving -diabetes mellitus type 2, chronically on insulin -Acute metabolic encephalopathy with delirium from severe renal failure-improved -Hyperlipidemia -Essential hypertension -Dense left hemiparesis from his prior stroke -Chronic ileostomy from ulcerative colitis -Occluded right internal carotid artery -Urinary incontinence -Intertrigo candidiasis -Morbid obesity BMI 41.2 -Chronic medical debility, patient does use a Saida left -Right breast cellulitis acute Plan: Doing better. Accu-Cheks to be followed. IV fluids at 50 mL an hour. IV Ancef. Oral intake improving.continues to improve.increase Levemir to 36 units twice daily starting the morning :
[2020-08-18] MEDS: HYDROcodone/APAP 7.5-325MG 1 EACH TAB PO SCH ×4 (00:10→17:48)
[2020-08-18 05:29] LABS: Albumin 3.5 g/dL (3.5-5.0); Calcium 8.5 mg/dL (8.4-10.2); Total Bilirubin 0.5 mg/dL (0.2-1.3); Total Protein 6.7 g/dL (6.3-8.2)
[2020-08-18 05:42] LABS: Magnesium 1.4 mg/dL (1.6-2.3); Phosphorus 3.3 mg/dL (2.5-4.5); Potassium 4.4 mmol/L (3.5-5.1)
[2020-08-18 06:27] LABS: Glucose,Whole Blood 213 mg/dL (75-99)
[2020-08-18] MEDS: MAGNESIUM SULFATE-D5W PMX 1 GM in DEXTROSE/WATER 1 100ML.BAG IVPB SCH ×3 (06:47→11:52)
[2020-08-18] MEDS: INSULIN ASPART (NovoLOG) 100 UNIT/ML VIAL SQ SCH ×4 (06:48→20:31)
[2020-08-18] MEDS: METOPROLOL TARTRATE 50 MG TAB PO SCH ×2 (09:39→20:23)
[2020-08-18] MEDS: INSULIN DETEMIR (LEVEMIR) 100 UNIT/ML SYR SQ SCH ×2 (09:39→20:31)
[2020-08-18] MEDS: PREGABALIN 50 MG CAP PO SCH ×2 (09:39→17:48)
[2020-08-18] MEDS: ESCITALOPRAM 20 MG TAB PO SCH (09:40)
[2020-08-18] MEDS: amLODIPine 5 MG TAB PO SCH ×2 (09:40→20:23)
[2020-08-18] MEDS: SODIUM BICARBONATE TAB 650 MG TAB PO SCH (09:40)
[2020-08-18] MEDS: lamoTRIgine 100 MG TAB PO SCH (09:40)
[2020-08-18] MEDS: FAMOTIDINE 20 MG/2 ML VIAL IV SCH (09:40)
[2020-08-18] MEDS: ALPRAZolam 0.25 MG TAB PO SCH ×2 (09:40→20:23)
[2020-08-18] MEDS: HEPARIN SODIUM,PORCINE 5,000 UNIT/ML 1 ML VIAL SQ SCH ×2 (09:40→20:23)
[2020-08-18] MEDS: NON FORMULARY DRUG (Mirabegron [Myrbetriq] 50 MG Tab.Er.24h) PO SCH (09:41)
[2020-08-18] MEDS: HYDROCORTISONE 1% CREAM 30 GM TUBE TOPICAL SCH ×2 (09:42→20:32)
[2020-08-18] MEDS: NYSTATIN 100,000 UNIT/GM POWD 15 GM TOPICAL SCH ×2 (09:42→17:49)
[2020-08-18 09:53] LABS: Glucose,Whole Blood 214 mg/dL (75-99)
--- NOTE | 2020-08-18 11:18 | P.PN ---
Subjective Patient is seen in follow for acute kidney injury and hyperkalemia. She underwent hemodialysis on 08/15/2020. Creatinine today is 1.5. Hyperkalemia resolved. Nonoliguric. Patient is awake and alert. Denies chest pain or shortness of breath. Hemodynamically stable. Vital signs are stable. General: The patient appeared well nourished and normally developed. HEENT: Head exam is unremarkable. Neck is without jugular venous distension. LUNGS: Breath sounds decreased. HEART: Rate and Rhythm are regular. ABDOMEN: Soft, nontender. EXTREMITITES: 2+ edema left lower extremity. Trace edema in the right lower extremity. Objective - Vital Signs Vital signs: Vital Signs Temp 99.3 F 08/18/20 08:00 Pulse 101 H 08/18/20 08:00 Resp 16 08/18/20 08:00 BP 162/83 08/18/20 08:00 Pulse Ox 94 L 08/18/20 08:00 Intake & Output 08/17/20 08/18/20 08/18/20 18:59 06:59 18:59 Intake Total 610 770 750 Output Total 1160 1185 1450 Balance -550 -415 -700 Weight 115.4 kg Intake: IV 250 350 Magnesium Sulfate-D5w Pmx 300 1 gm In Dextrose/Water 1 100ml.bag @ 100 mls/hr IVPB Q1H [facility] Rx#: [id number] Sodium Chloride 0.9% 1, 250 000 ml @ 50 mls/hr IV . Q20H [facility] Rx#:[id number] ceFAZolin 2 gm In Sodium 50 Chloride 0.9% 50 ml @ 100 mls/hr IVPB Q12HR [facility] Rx #:[id number] Intake, IV Titration 50 Amount ceFAZolin 2 gm In Sodium 50 Chloride 0.9% 50 ml @ 100 mls/hr IVPB Q12HR [facility] Rx #:[id number] Oral 360 400 Tube Feeding 720 Output: Urine 102 551 8546 Stool 200 200 Other: Voiding Method Indwelling Catheter Indwelling Catheter Indwelling Catheter - Labs CBC & Chem 7: 08/17/20 03:56 08/18/20 04:43 Labs: Abnormal Lab Results - Last 24 Hours (Table) 08/17/20 08/17/20 08/17/20 Range/Units 11:43 16:53 20:03 BUN (7-17) mg/dL Creatinine (0.52-1.04) mg/dL Glucose (74-99) mg/dL POC Glucose (mg/dL) 172 H 208 H 206 H (75-99) mg/dL Magnesium (1.6-2.3) mg/dL 08/18/20 08/18/20 08/18/20 Range/Units 04:43 06:24 09:52 BUN 47 H (7-17) mg/dL Creatinine 1.51 H (0.52-1.04) mg/dL Glucose 241 H (74-99) mg/dL POC Glucose (mg/dL) 213 H 214 H (75-99) mg/dL Magnesium 1.4 L (1.6-2.3) mg/dL Microbiology - Last 24 Hours (Table) 08/14/20 17:54 Blood Culture - Preliminary Blood No Growth after 72 hours Assessment and Plan Plan: Assessment: 1. Acute kidney injury secondary to ATN secondary to hypotension. Creatinine peaked at 4.0 at this admission - 1.5 today. Status post hemodialysis 08/15/2020 for oliguria and hyperkalemia. Now nonoliguric. No hydronephrosis noted on kidney ultrasound. Creatinine 1.0 as of 07/05/2020. 2. Hyperkalemia secondary to acute kidney injury and metabolic acidosis. Improved postdialysis and increased urine output. 3. Diabetes mellitus. 4. Metabolic acidosis secondary to acute kidney injury and IV fluids. Better. Maintained on oral bicarbonate. 5. CVA with left-sided hemiparesis. 6. Hyperphosphatemia secondary to acute kidney injury. Resolved. 7. Hypomagnesemia from poor intake. Replaced. Plan: Remains off IV fluids. Encourage oral intake. No further need for renal replacement therapy. Dialysis catheter discontinued. Avoid nephrotoxins. Continue to monitor renal function and urine output. Decreased oral bicarb to once daily. Anticipate discharge soon. Follow up outpatient in 7-10 days.
[2020-08-18 11:42] LABS: Glucose,Whole Blood 215 mg/dL (75-99)
[2020-08-18] MEDS: hydrALAZINE HCL 25 MG TAB PO SCH ×3 (11:51→22:28)
--- NOTE | 2020-08-18 16:21 | P.PN ---
Subjective Progress Note Date: 08/18/20 Principal diagnosis: Altered mental status likely due to uremia hyperkalemia metabolic in nature Acute renal failure likely related to acute tubular necrosis Hyperkalemia Acute metabolic acidosis Hyponatremia Left-sided weakness with foot drop Sepsis ? Urinary tract infection 08/18/2020, patient seen eval examined during the rounds her labs reviewed medications reviewed patient lately have been having elevated blood pressure oral hydralazine have been added, renal functions remain stable, adequate urine output no plans for hemodialysis, she is been getting therapy for the cellulitis, stable from critical care standpoint, out of the ICU 08/17/2020, patient seen and evaluated examined she is more awake and alert breathing comfortably, dialysis catheter will be pulled out no plans for hemodialysis, blood pressure is running high medicines from home have been resu med, she has been found to have a cellulitis under the right breast antibiotics have been changed to cefazolin, ID service continued to follow, patient can be moved out to [facility] remote telemetry 08/16/2020, patient seen eval examined labs reviewed medications reviewed Plan discussed, patient is arousable oriented 122, shortness of breath is absent remains on 2 L supplemental oxygen renal function significantly improved now patient is making urine, nephrology to evaluate the patient, monitor renal function production level closely labs reviewed medications reviewed we will observe 1 more day in the ICU before transfer her to a medical floor This is a 65-year-old female with morbid obesity and history of stroke with left-sided weakness, patient is a no code, patient has been found to have progressive last 24 hours changes in mental status has been more somnolent and arousable with sternal rub, patient was transferred to emergency department, significant labs noted to be have hyperkalemia as well as acute renal failure, patient is being admitted to hospital as per protocol, patient has significant history of dyslipidemia, type 2 diabetes mellitus hypertension hypertensive cardiovascular disease mood disorder depression, history of DVT, large B-cell lymphoma and history of massive lymphadenopathy history of multiple and frequent urinary tract infection related to ESBL E. coli and Proteus, her CT of the head is negative except for chronic atrophic changes, chest x-ray is unremarkable, CBC is normal however chemistry abnormal with hyponatremia sodium 133, potassium 8.2, CO2 is 15, review of the data revealed that patient baseline creatinine was 1, even after 2 L normal saline at 100 mL an hour urine output has been minimal almost only less than 112 hours, recommended to have a hemodialysis catheter and stat hemodialysis, ultrasound of the kidney reviews no hydronephrosis seen no obstructive uropathy identified, patient does have bilateral lower extremity swelling more so on the left side compared to right side, also has a foot drop on the left side, appears to be related to stroke in the past, duplex ultrasound of the lower extremity negative for DVT, hemodialysis performed without any incident no fluid however has been removed. Dialysis BUN/creatinine is 78 and 4.08 with potassium of 7.8, renal failure appears to be due to ATN secondary due to hypertension Objective - Vital Signs Vital signs: Vital Signs Temp 99.1 F 08/18/20 16:00 Pulse 88 08/18/20 16:00 Resp 16 08/18/20 16:00 BP 165/88 08/18/20 16:00 Pulse Ox 95 08/18/20 16:00 Intake & Output 08/17/20 08/18/20 08/18/20 18:59 06:59 18:59 Intake Total 610 770 750 Output Total 1160 1185 1450 Balance -550 -415 -700 Weight 115.4 kg Intake: IV 250 350 Magnesium Sulfate-D5w Pmx 300 1 gm In Dextrose/Water 1 100ml.bag @ 100 mls/hr IVPB Q1H [facility] Rx#: [id number] Sodium Chloride 0.9% 1, 250 000 ml @ 50 mls/hr IV . Q20H [facility] Rx#:[id number] ceFAZolin 2 gm In Sodium 50 Chloride 0.9% 50 ml @ 100 mls/hr IVPB Q12HR [facility] Rx #:[id number] Intake, IV Titration 50 Amount ceFAZolin 2 gm In Sodium 50 Chloride 0.9% 50 ml @ 100 mls/hr IVPB Q12HR [facility] Rx #:[id number] Oral 360 400 Tube Feeding 720 Output: Urine 693 424 7029 Stool 200 200 Other: Voiding Method Indwelling Catheter Indwelling Catheter Indwelling Catheter - Exam - Constitutional General appearance: average body habitus - EENT Ears: bilateral: normal - Neck Neck: normal ROM Carotids: bilateral: upstroke normal Thyroid: bilateral: normal size - Respiratory Respiratory: bilateral: diminished - Cardiovascular Heart sounds: normal: S1, S2 Bilateral lower extremity edema more so on the left side compared right side along with left-sided weakness hemiparesis due to prior stroke - Psychiatric Patient now is awake respond to verbal stimuli oriented 3 - Labs CBC & Chem 7: 08/17/20 03:56 08/18/20 04:43 Labs: Abnormal Lab Results - Last 24 Hours (Table) 08/17/20 08/17/20 08/18/20 Range/Units 16:53 20:03 04:43 BUN 47 H (7-17) mg/dL Creatinine 1.51 H (0.52-1.04) mg/dL Glucose 241 H (74-99) mg/dL POC Glucose (mg/dL) 208 H 206 H (75-99) mg/dL Magnesium 1.4 L (1.6-2.3) mg/dL 08/18/20 08/18/20 08/18/20 Range/Units 06:24 09:52 11:40 BUN (7-17) mg/dL Creatinine (0.52-1.04) mg/dL Glucose (74-99) mg/dL POC Glucose (mg/dL) 213 H 214 H 215 H (75-99) mg/dL Magnesium (1.6-2.3) mg/dL Microbiology - Last 24 Hours (Table) 08/14/20 17:54 Blood Culture - Preliminary Blood No Growth after 72 hours Assessment and Plan Assessment: Uncontrolled blood pressure/hypertensive urgency Cellulitis under the right breast Altered mental status likely due to uremia hyperkalemia metabolic in nature, slowly improving Acute renal failure likely related to acute tubular necrosis Hyperkalemia Acute metabolic acidosis Hyponatremia Left-sided weakness with foot drop Sepsis ? Urinary tract infection culture results pending Plan: Add oral hydralazine IV cefazolin, follow-up on ultrasound of the breast Hemodialysis as planned and as needed Monitor labs closely Gentle hydration Repeat labs in a.m. Renal following Broad-spectrum antibiotics, follow up on urine and blood culture they're negative then DC the antibiotics PT OT evaluation DVT and peptic ulcer disease prophylaxis Time with Patient: Greater than 30
[2020-08-18 17:07] LABS: Glucose,Whole Blood 253 mg/dL (75-99)
[2020-08-18] MEDS: ASPIRIN 81 MG PO SCH (20:23)
[2020-08-18] MEDS: PANTOPRAZOLE 40 MG TABLET PO SCH (20:23)
[2020-08-18] MEDS: ATORVASTATIN 40 MG TAB PO SCH (20:23)
[2020-08-18 20:29] LABS: Glucose,Whole Blood 205 mg/dL (75-99)
--- NOTE | 2020-08-18 20:41 | P.PN ---
Progress Note - Text Progress Note Date: 08/18/20 history of presenting complaint: This is a pleasant 65-year-old patient of Dr. Zuniga resident of [facility]. 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 Also had a parastomal hernia repair and subsequent. 3-4 repairs of the stoma and was repositioned. Patient now has a ileostomy. Chronic stable medical conditions include diabetes, GERD, hyperlipidemia, hepatic steatosis, osteopenia, hypertension, large B-cell lymphoma that was treated. Complete para lysis of the left side from a prior stroke and has a leg brace. Patient also known to have ulcerative colitis and occluded internal carotid artery. Has a Saida lift. Patient now presents with-decreased mentation. Was only responding to painful stimuli according to EMS. She was somewhat normal the previous day. In the ER she she couldn't tell her name.. Patient's was found an acute kidney injury. Creatinine had jumped up from 1.0 on July 05 up to 3.98 on presentation. Also put on IV Ancef for right breast cellulitis. Today-ICU. Awake. Talking. Eating about 25%. Renal function improving. Review of systems: Was done for constitutional, cardiovascular, GI, pulmonary. relevant finding as above Active Medications Hydrocodone Bitart/Acetaminophen (Hydrocodone/Apap 7.5-325mg 1 Each Tab) 1 each PO Q6H [facility] Last Admin: 08/18/20 17:48 Dose: 1 each Documented by: Alprazolam (Alprazolam 0.25 Mg Tab) 0.25 mg PO BID [facility] Last Admin: 08/18/20 20:23 Dose: 0.25 mg Documented by: Amlodipine Besylate (Amlodipine 5 Mg Tab) 5 mg PO BID [facility] Last Admin: 08/18/20 20:23 Dose: 5 mg Documented by: Aspirin (Aspirin 81 Mg) 81 mg PO HS@1999 [facility] Last Admin: 08/18/20 20:23 Dose: 81 mg Documented by: Atorvastatin Calcium (Atorvastatin 40 Mg Tab) 40 mg PO HS@1999 [facility] Last Admin: 08/18/20 20:23 Dose: 40 mg Documented by: Escitalopram Oxalate (Escitalopram 20 Mg Tab) 20 mg PO DAILY [facility] Last Admin: 08/18/20 09:40 Dose: 20 mg Documented by: Famotidine (Famotidine 20 Mg/2 Ml Vial) 20 mg IV DAILY [facility] Last Admin: 08/18/20 09:40 Dose: 20 mg Documented by: Heparin Sodium (Porcine) (Heparin Sodium,Porcine 5,000 Unit/Ml 1 Ml Vial) 5,000 unit SQ Q12HR [facility] Last Admin: 08/18/20 20:23 Dose: 5,000 unit Documented by: Hydralazine HCl (Hydralazine Hcl 25 Mg Tab) 25 mg PO TID [facility] Last Admin: 08/18/20 17:48 Dose: 25 mg Documented by: Hydrocortisone (Hydrocortisone 1% Cream 30 Gm Tube) 1 applic TOPICAL BID [facility] Last Admin: 08/18/20 20:32 Dose: 1 applic Documented by: Cefazolin Sodium 2 gm/ Sodium (Chloride) 50 mls @ 100 mls/hr IVPB Q12HR [facility] Last Admin: 08/18/20 20:31 Dose: 100 mls/hr Documented by: Insulin Aspart (Insulin Aspart (Novolog) 100 Unit/Ml Vial) 0 unit SQ ACHS [facility]; Protocol Last Admin: 08/18/20 20:31 Dose: 4 unit Documented by: Insulin Detemir (Insulin Detemir (Levemir) 100 Unit/Ml Syr) 36 unit SQ BID [facility] Last Admin: 08/18/20 20:31 Dose: 36 unit Documented by: Lamotrigine (Lamotrigine 100 Mg Tab) 150 mg PO DAILY@0800 [facility] Last Admin: 08/18/20 09:40 Dose: 150 mg Documented by: Metoprolol Tartrate (Metoprolol Tartrate 50 Mg Tab) 50 mg PO BID [facility] Last Admin: 08/18/20 20:23 Dose: 50 mg Documented by: Naloxone HCl (Naloxone 0.4 Mg/Ml 1 Ml Vial) 0.2 mg IV Q2M PRN PRN Reason: Opioid Reversal Non-Formulary Medication (Mirabegron [Myrbetriq]) 50 mg PO DAILY [facility] Last Admin: 08/18/20 09:41 Dose: Not Given Documented by: Nystatin (Nystatin 100,000 Unit/Gm Powd 15 Gm) 1 applic TOPICAL BID@0800,1600 [facility] Last Admin: 08/18/20 17:49 Dose: 1 applic Documented by: Pantoprazole Sodium (Pantoprazole 40 Mg Tablet) 40 mg PO HS@2000 [facility] Last Admin: 01/07/21 20:23 Dose: 40 mg Documented by: Pregabalin (Pregabalin 50 Mg Cap) 50 mg PO BID@0800,1600 [facility] Last Admin: 08/18/20 17:48 Dose: 50 mg Documented by: Sodium Bicarbonate (Sodium Bicarbonate Tab 650 Mg Tab) 650 mg PO DAILY [facility] Sodium Chloride (Sodium Chloride 0.9% Flush 10 Ml Syringe) 10 ml IV BID [facility] Last Admin: 08/18/20 20:31 Dose: 10 ml Documented by: Physical examination: VITAL SIGNS: 99.3, 101, 16, 1 6283, 94% room air GENERAL: Laying in bed, awake EYES: Pupils equal. Conjunctiva normal. NECK: JVD unable to assess; masses not palpable. HEART: distant heart sounds, no edema. LUNGS: Respiratory rate increased; distant breath sounds. EXTREMITIES: boots in both the feet ABDOMEN: Soft, nontender, liver spleen not palpable, no masses palpable. Ileostomy. PSYCH: AO - times three. Mood and affect normal NEUROLOGICAL: flaccid- the left side. Bilateral foot drop INVESTIGATIONS, reviewed in the clinical context: August 18: Potassium 4.4 bun 47 creatinine 1.51 August 17: White count 3.8 hemoglobin 12.2 platelets 96 potassium 4.8 bun 55 creatinine 2.0 August 16: White count 4.3 hemoglobin 11.9 at bedtime on 16 potassium 5.1 creatinine 2.5 to Sodium 136 potassium 5.8 BUN 60 creatinine 2.85 Admission labs: Potassium 7.9 bun 79 creatinine 3.98 Previous creatinine 1.0 Assessment: -Acute kidney injury, ATN seconded to hypotension.-Did receive, dialysis.- improving -Hyperkalemia secondary to acute kidney improving -diabetes mellitus type 2, chronically on insulin -Acute metabolic encephalopathy with delirium from severe renal failure-improved -Hyperlipidemia -Essential hypertension -Dense left hemiparesis from his prior stroke -Chronic ileostomy from ulcerative colitis -Occluded right internal carotid artery -Urinary incontinence -Intertrigo candidiasis -Morbid obesity BMI 41.2 -Chronic medical debility, patient does use a Saida left -Right breast cellulitis acute Plan: And encourage oral intake. Continue with gentle hydration. Repeat labs tomorrow. Hopefully can be discharged to [facility] tomorrow. :
--- NOTE | 2020-08-18 22:44 | PN ---
PROGRESS NOTE DATE OF SERVICE: 08/18/2020 REASON FOR FOLLOWUP: UTI and right breast cellulitis. INTERVAL HISTORY: The patient is currently afebrile. The patient is breathing comfortably. Patient denies having any chest pain. No shortness of breath or cough. Pain to the right breast is currently controlled. No abdominal pain or diarrhea. PHYSICAL EXAMINATION: Blood pressure 165/88 with a pulse of 80, temperature 99.1. She is 95% on room air. General description is an elderly female lying in bed in no distress. Respiratory system: Unlabored breathing, clear to auscultation anteriorly. Heart S1, S2. Regular rate and rhythm. Abdomen soft, no tenderness. LABS: Hemoglobin is 12.8, white count 3.8, BUN of 47, creatinine is 1.51. Blood culture negative. DIAGNOSTIC IMPRESSION AND PLAN: Patient admitted to the hospital with mental status changes which is multifactorial in this patient with a component of urinary tract infection. The culture came back negative. Also, with right breast cellulitis. Patient is currently on cefazolin, will continue and monitor clinical course closely. MMODL / IJN: [id number] /
[2020-08-19] MEDS: HYDROcodone/APAP 7.5-325MG 1 EACH TAB PO SCH ×3 (00:44→12:09)
[2020-08-19 06:35] LABS: Calcium 8.7 mg/dL (8.4-10.2); Magnesium 1.8 mg/dL (1.6-2.3); Potassium 3.7 mmol/L (3.5-5.1)
[2020-08-19 06:52] LABS: Glucose,Whole Blood 169 mg/dL (75-99)
[2020-08-19] MEDS: HEPARIN SODIUM,PORCINE 5,000 UNIT/ML 1 ML VIAL SQ SCH (07:46)
[2020-08-19] MEDS: INSULIN ASPART (NovoLOG) 100 UNIT/ML VIAL SQ SCH ×3 (07:46→17:06)
[2020-08-19] MEDS: ESCITALOPRAM 20 MG TAB PO SCH (07:47)
[2020-08-19] MEDS: METOPROLOL TARTRATE 50 MG TAB PO SCH (07:47)
[2020-08-19] MEDS: ALPRAZolam 0.25 MG TAB PO SCH (07:47)
[2020-08-19] MEDS: FAMOTIDINE 20 MG/2 ML VIAL IV SCH (07:47)
[2020-08-19] MEDS: amLODIPine 5 MG TAB PO SCH (07:47)
[2020-08-19] MEDS: PREGABALIN 50 MG CAP PO SCH ×2 (07:48→15:41)
[2020-08-19] MEDS: lamoTRIgine 100 MG TAB PO SCH (07:48)
[2020-08-19] MEDS: hydrALAZINE HCL 25 MG TAB PO SCH (07:48)
[2020-08-19] MEDS: HYDROCORTISONE 1% CREAM 30 GM TUBE TOPICAL SCH (07:56)
[2020-08-19] MEDS: NYSTATIN 100,000 UNIT/GM POWD 15 GM TOPICAL SCH ×2 (07:56→15:41)
[2020-08-19] MEDS: NON FORMULARY DRUG (Mirabegron [Myrbetriq] 50 MG Tab.Er.24h) PO SCH (07:57)
[2020-08-19] MEDS: INSULIN DETEMIR (LEVEMIR) 100 UNIT/ML SYR SQ SCH (08:51)
[2020-08-19] MEDS ORDERED: SODIUM BICARBONATE TAB 650 MG TAB PO SCH (09:00)
--- NOTE | 2020-08-19 10:29 | P.PN ---
Subjective Patient is seen in follow for acute kidney injury and hyperkalemia. She underwent hemodialysis on 08/15/2020. Creatinine today is 1.18. Hyperkalemia resolved. Nonoliguric. Patient is awake and alert. Denies chest pain or shortness of breath. Blood pressure on the higher side. Vital signs are stable. General: The patient appeared well nourished and normally developed. HEENT: Head exam is unremarkable. Neck is without jugular venous distension. LUNGS: Breath sounds decreased. HEART: Rate and Rhythm are regular. ABDOMEN: Soft, nontender. EXTREMITITES: 2+ edema left lower extremity. Trace edema in the right lower extremity. Objective - Vital Signs Vital signs: Vital Signs Temp 98.1 F 08/19/20 07:42 Pulse 92 08/19/20 07:42 Resp 20 08/19/20 07:42 BP 188/78 08/19/20 07:42 Pulse Ox 94 L 08/19/20 07:42 Intake & Output 08/18/20 08/19/20 08/19/20 18:59 06:59 18:59 Intake Total 850 200 Output Total 2300 1000 Balance -1450 -800 Intake: IV 450 0.9 100 Magnesium Sulfate-D5w Pmx 300 1 gm In Dextrose/Water 1 100ml.bag @ 100 mls/hr IVPB Q1H [facility] Rx#: [id number] ceFAZolin 2 gm In Sodium 50 Chloride 0.9% 50 ml @ 100 mls/hr IVPB Q12HR [facility] Rx #:[id number] Oral 400 200 Output: Urine 2300 1000 Other: Voiding Method Indwelling Catheter Indwelling Catheter Indwelling Catheter - Labs CBC & Chem 7: 08/17/20 03:56 08/19/20 05:44 Labs: Abnormal Lab Results - Last 24 Hours (Table) 08/18/20 08/18/20 08/18/20 Range/Units 11:40 17:05 20:26 Sodium (137-145) mmol/L BUN (7-17) mg/dL Creatinine (0.52-1.04) mg/dL Glucose (74-99) mg/dL POC Glucose (mg/dL) 215 H 253 H 205 H (75-99) mg/dL 08/19/20 08/19/20 Range/Units 05:44 06:46 Sodium 135 L (137-145) mmol/L BUN 35 H (7-17) mg/dL Creatinine 1.18 H (0.52-1.04) mg/dL Glucose 175 H (74-99) mg/dL POC Glucose (mg/dL) 169 H (75-99) mg/dL Microbiology - Last 24 Hours (Table) 08/14/20 17:54 Blood Culture - Preliminary Blood No Growth after 96 hours Assessment and Plan Plan: Assessment: 1. Acute kidney injury secondary to ATN secondary to hypotension. Creatinine peaked at 4.0 at this admission - 1.18 today. Status post hemodialysis 11/2020 for oliguria and hyperkalemia. Now nonoliguric. No hydronephrosis noted on kidney ultrasound. Creatinine 1.0 as of 07/05/2020. 2. Hyperkalemia secondary to acute kidney injury and metabolic acidosis. Improved postdialysis and increased urine output. 3. Diabetes mellitus. 4. Metabolic acidosis secondary to acute kidney injury and IV fluids. Better. Maintained on oral bicarbonate. 5. CVA with left-sided hemiparesis. 6. Hyperphosphatemia secondary to acute kidney injury. Resolved. 7. Hypomagnesemia from poor intake. Replaced. Plan: Remains off IV fluids. Encourage oral intake. No further need for renal replacement therapy. Dialysis catheter discontinued. Avoid nephrotoxins. Continue to monitor renal function and urine output. Stop oral bicarbonate. Increase hydralazine to 50 mg 3 times daily. Anticipate discharge soon. Follow up outpatient in 7-10 days.
--- NOTE | 2020-08-19 10:37 | P.PN ---
Subjective Progress Note Date: 08/19/20 Principal diagnosis: Altered mental status likely due to uremia hyperkalemia metabolic in nature Acute renal failure likely related to acute tubular necrosis Hyperkalemia Acute metabolic acidosis Hyponatremia Left-sided weakness with foot drop Sepsis ? Urinary tract infection 08/19/2020, patient seen and evaluated and examined, mental status significantly improved awake alert oriented 3 off of room air breathing comfortably, CN saturation 94%, blood pressure is still on the higher side medicine are being adjusted, 08/18/2020, patient seen eval examined during the rounds her labs reviewed medications reviewed patient lately have been having elevated blood pressure oral hydralazine have been added, renal functions remain stable, adequate urine output no plans for hemodialysis, she is been getting therapy for the cellulitis, stable from critical care standpoint, out of the ICU 08/17/2020, patient seen and evaluated examined she is more awake and alert breathing comfortably, dialysis catheter will be pulled out no plans for hemodialysis, blood pressure is running high medicines from home have been resumed, she has been found to have a cellulitis under the right breast antibiotics have been changed to cefazolin, ID service continued to follow, patient can be moved out to [facility] remote telemetry 08/16/2020, patient seen eval examined labs reviewed medications reviewed Plan discussed, patient is arousable oriented 122, shortness of breath is absent r emains on 2 L supplemental oxygen renal function significantly improved now patient is making urine, nephrology to evaluate the patient, monitor renal function production level closely labs reviewed medications reviewed we will observe 1 more day in the ICU before transfer her to a medical floor This is a 65-year-old female with morbid obesity and history of stroke with left-sided weakness, patient is a no code, patient has been found to have progressive last 24 hours changes in mental status has been more somnolent and arousable with sternal rub, patient was transferred to emergency department, significant labs noted to be have hyperkalemia as well as acute renal failure, patient is being admitted to hospital as per protocol, patient has significant history of dyslipidemia, type 2 diabetes mellitus hypertension hypertensive cardiovascular disease mood disorder depression, history of DVT, large B-cell lymphoma and history of massive lymphadenopathy history of multiple and frequent urinary tract infection related to ESBL E. coli and Proteus, her CT of the head is negative except for chronic atrophic changes, chest x-ray is unremarkable, CBC is normal however chemistry abnormal with hyponatremia sodium 133, potassium 8.2, CO2 is 15, review of the data revealed that patient baseline creatinine was 1, even after 2 L normal saline at 100 mL an hour urine output has been minimal almost only less than 112 hours, recommended to have a hemodialysis catheter and stat hemodialysis, ultrasound of the kidney reviews no hydronephrosis seen no obstructive uropathy identified, patient does have bilateral lower extremity swelling more so on the left side compared to right side, also has a foot drop on the left side, appears to be related to stroke in the past, duplex ultrasound of the lower extremity negative for DVT, hemodialysis performed without any incident no fluid however has been removed. Dialysis BUN/creatinine is 78 and 4.08 with potassium of 7.8, renal failure appears to be due to ATN secondary due to hypertension Objective - Vital Signs Vital signs: Vital Signs Temp 98.1 F 08/19/20 07:42 Pulse 92 08/19/20 07:42 Resp 20 08/19/20 07:42 BP 188/78 08/19/20 07:42 Pulse Ox 94 L 08/19/20 07:42 Intake & Output 08/18/20 08/19/20 08/19/20 18:59 06:59 18:59 Intake Total 850 200 Output Total 2300 1000 Balance -1450 -800 Intake: IV 450 0.9 100 Magnesium Sulfate-D5w Pmx 300 1 gm In Dextrose/Water 1 100ml.bag @ 100 mls/hr IVPB Q1H [facility] Rx#: [id number] ceFAZolin 2 gm In Sodium 50 Chloride 0.9% 50 ml @ 100 mls/hr IVPB Q12HR [facility] Rx #:[id number] Oral 400 200 Output: Urine 2300 1000 Other: Voiding Method Indwelling Catheter Indwelling Catheter Indwelling Catheter - Exam - Constitutional General appearance: average body habitus - EENT Ears: bilateral: normal - Neck Neck: normal ROM Carotids: bilateral: upstroke normal Thyroid: bilateral: normal size - Respiratory Respiratory: bilateral: diminished - Cardiovascular Heart sounds: normal: S1, S2 Bilateral lower extremity edema more so on the left side compared right side along with left-sided weakness hemiparesis due to prior stroke - Psychiatric Patient now is awake respond to verbal stimuli oriented 3 - Labs CBC & Chem 7: 08/17/20 03:56 08/19/20 05:44 Labs: Abnormal Lab Results - Last 24 Hours (Table) 08/18/20 08/18/20 08/18/20 Range/Units 11:40 17:05 20:26 Sodium (137-145) mmol/L BUN (7-17) mg/dL Creatinine (0.52-1.04) mg/dL Glucose (74-99) mg/dL POC Glucose (mg/dL) 215 H 253 H 205 H (75-99) mg/dL 08/19/20 08/19/20 Range/Units 05:44 06:46 Sodium 135 L (137-145) mmol/L BUN 35 H (7-17) mg/dL Creatinine 1.18 H (0.52-1.04) mg/dL Glucose 175 H (74-99) mg/dL POC Glucose (mg/dL) 169 H (75-99) mg/dL Microbiology - Last 24 Hours (Table) 08/14/20 17:54 Blood Culture - Preliminary Blood No Growth after 96 hours Assessment and Plan Assessment: Uncontrolled blood pressure/hypertensive urgency continued to improve slowly Cellulitis under the right breast Altered mental status likely due to uremia hyperkalemia metabolic in nature, slowly improving Acute renal failure likely related to acute tubular necrosis Hyperkalemia Acute metabolic acidosis Hyponatremia Left-sided weakness with foot drop Sepsis ? Urinary tract infection culture results pending Plan: Add chest medications and continue oral hydralazine IV cefazolin, follow-up on ultrasound of the breast, can be changed to oral at the time of discharge Hemodialysis as planned and as needed Monitor labs closely Gentle hydration Repeat labs in a.m. Renal following Broad-spectrum antibiotics, follow up on urine and blood culture they're negative then DC the antibiotics PT OT evaluation DVT and peptic ulcer disease prophylaxis Time with Patient: Greater than 30
[2020-08-19 11:39] LABS: Glucose,Whole Blood 210 mg/dL (75-99)
[2020-08-19 13:04] VITALS: BMI 41.1
[2020-08-19 14:34] VITALS: BP 174/70; PULSE 88; RESP 18; TEMP 98.3
--- NOTE | 2020-08-19 14:45 | P.DS ---
Providers Date of admission: 08/14/20 13:25 Expected date of discharge: 08/19/20 Attending physician: Alexx Bentley Consults: 08/14/20 13:13 Consult Physician Urgent Consulting Provider: Robert Amin Consult Reason/Comments: Acute renal failure, hyperkalemia Do you want consulting provider notified?: Yes 08/14/20 14:49 Consult Physician Urgent Consulting Provider: Ayush Mcintyre Consult Reason/Comments: UTI Do you want consulting provider notified?: Yes 08/15/20 13:35 Consult Physician Urgent Consulting Provider: Donnie Winston Consult Reason/Comments: insert dialysis cath Do you want consulting provider notified?: Already Contacted Primary care physician: Dani [facility] Course: history of presenting complaint: This is a pleasant 65-year-old patient of Dr. Zuniga resident of [facility]. Patient in 2013 at [facility] have a sleeve gastrectomy that was Experimental. Also had a parastomal hernia repair and subsequent. 3-4 repairs of the stoma and was repositioned. Patient now has a ileostomy. Chronic stable medical conditions include diabetes, GERD, hyperlipidemia, hepatic steatosis, osteopenia, hypertension, large B-cell lymphoma that was treated. Complete paralysis of the left side from a prior stroke and has a leg brace. Patient also known to have ulcerative colitis and occluded internal carotid artery. Has a Saida lift. Patient now presents with-decreased mentation. Was only responding to painful stimuli according to EMS. She was somewhat normal the previous day. In the ER she she couldn't tell her name.. Patient's was found an acute kidney injury. Creatinine had jumped up from 1.0 on July 05 up to 3.98 on presentation. Also put on IV Ancef for right breast cellulitis. Today-doing much better. Oral intake improved. Discussed with Dr. Woody from [place]. Switch to oral Keflex. Discussed with the patient. Patient does of amlodipine increased to the home dose. Discussion and discharge planning more than 35 minutes Consultation: Dr. Yaritza Barrios from general internal medicine doctor Dr. Yaritza Solomon from nephrology Dr. Mcintyre from [facility] Physical examination: VITAL SIGNS: 98.3, 88, 18, 1 74 x 70, 94% room air GENERAL: Laying in bed, awake EYES: Pupils equal. Conjunctiva normal. NECK: JVD unable to assess; masses not palpable. HEART: distant heart sounds, no edema. LUNGS: Respiratory rate increased; distant breath sounds. EXTREMITIES: boots in both the feet ABDOMEN: Soft, nontender, liver spleen not palpable, no masses palpable. Ileostomy. PSYCH: AO - times three. Mood and affect normal NEUROLOGICAL: flaccid- the left side. Bilateral foot drop INVESTIGATIONS, reviewed in the clinical context: August 19: Potassium 3.7 bun 35 creatinine 1.18 August 18: Potassium 4.4 bun 47 creatinine 1.51 August 17: White count 3.8 hemoglobin 12.2 platelets 96 potassium 4.8 bun 55 creatinine 2.0 August 16: White count 4.3 hemoglobin 11.9 at bedtime on 16 potassium 5.1 creatinine 2.5 to Sodium 136 potassium 5.8 BUN 60 creatinine 2.85 Admission labs: Potassium 7.9 bun 79 creatinine 3.98 Previous creatinine 1.0 Assessment: -Acute kidney injury, ATN seconded to hypotension.-Did receive, dialysis.-improv ing -Hyperkalemia secondary to acute kidney improving -diabetes mellitus type 2, chronically on insulin -Acute metabolic encephalopathy with delirium from severe renal failure-improved -Hyperlipidemia -Essential hypertension -Dense left hemiparesis from his prior stroke -Chronic ileostomy from ulcerative colitis -Occluded right internal carotid artery -Urinary incontinence -Intertrigo candidiasis -Morbid obesity BMI 41.2 -Chronic medical debility, patient does use a Saida left -Right breast cellulitis acute Disposition: [facility] Patient Condition at Discharge: Stable Plan - Discharge Summary Discharge Rx Participant: No New Discharge Prescriptions: New hydrALAZINE HCL [Apresoline] 25 mg PO TID tab Cephalexin [Keflex] 500 mg PO Q8HR #21 cap Continue Aspirin 81 mg PO HS@2000 Atorvastatin [Lipitor] 40 mg PO HS@2000 Fenofibrate,Micronized [Fenofibrate] 134 mg PO W/BRKFST Multivitamins, Thera [Multivitamin (formulary)] 1 tab PO HS@2000 Ketoconazole 2% Shampoo [Nizoral] 1 applic TOPICAL MOTH Mirabegron [Myrbetriq] 50 mg PO DAILY Metoprolol Succinate [Toprol XL] 50 mg PO BID Escitalopram [Lexapro] 20 mg PO DAILY Cholecalciferol [Vitamin D3 (25 Mcg = 1000 Iu)] 1,000 unit PO HS@1999 Baclofen 10 mg PO Q6HR Ascorbic Acid [Vitamin C] 250 mg PO HS@1999 amLODIPine [Norvasc] 10 mg PO HS@1999 Omeprazole [PriLOSEC] 20 mg PO HS@1999 Hydrocortisone Cream [Hydrocortisone 1% Cream] 1 applic TOPICAL BID lamoTRIgine [LaMICtal] 150 mg PO DAILY@0800 Nystatin 100,000 Unit/gm Powd [Mycostatin Powder] 1 applic TOPICAL BID@0800,1600 Changed Insulin Detemir (Levemir) [Levemir] 40 unit SQ BID@0800,1600 #0 Pregabalin [Lyrica] 100 mg PO BID@0800,1600 #6 cap HYDROcodone/APAP 7.5-325MG [[place] 7.5-325] 1 tab PO Q6H #12 tab INSULIN ASPART (NovoLOG) [NovoLOG (formulary)] 7 unit SQ TID@0700,1200,1700 #0 ALPRAZolam [Xanax] 0.25 mg PO BID@1200,2359 #6 tab Discontinued Empagliflozin [Jardiance] 10 mg PO DAILY metFORMIN HCL 1,000 mg PO BID@0800,1600 Discharge Medication List Aspirin 81 mg PO HS@199908/18/15 [History] Atorvastatin [Lipitor] 40 mg PO HS@199906/17/17 [History] Fenofibrate,Micronized [Fenofibrate] 134 mg PO W/BRKFST 06/17/17 [History] Multivitamins, Thera [Multivitamin (formulary)] 1 tab PO HS@199906/17/17 [History] Ascorbic Acid [Vitamin C] 250 mg PO HS@199906/25/20 [History] Baclofen 10 mg PO Q6HR 06/25/20 [History] Cholecalciferol [Vitamin D3 (25 Mcg = 1000 Iu)] 1,000 unit PO HS@199906/25/20 [History] Escitalopram [Lexapro] 20 mg PO DAILY 06/25/20 [History] Ketoconazole 2% Shampoo [Nizoral] 1 applic TOPICAL MOTH 06/25/20 [History] Metoprolol Succinate [Toprol XL] 50 mg PO BID 06/25/20 [History] Mirabegron [Myrbetriq] 50 mg PO DAILY 06/25/20 [History] Omeprazole [PriLOSEC] 20 mg PO HS@199906/25/20 [History] amLODIPine [Norvasc] 10 mg PO HS@199906/25/20 [History] Hydrocortisone Cream [Hydrocortisone 1% Cream] 1 applic TOPICAL BID 08/14/20 [History] Nystatin 100,000 Unit/gm Powd [Mycostatin Powder] 1 applic TOPICAL BID@0800,1600 08/14/20 [History] lamoTRIgine [LaMICtal] 150 mg PO DAILY@0800 08/14/20 [History] ALPRAZolam [Xanax] 0.25 mg PO BID@1200,2359 #6 tab 08/19/20 [Rx] Cephalexin [Keflex] 500 mg PO Q8HR #21 cap 08/19/20 [Rx] HYDROcodone/APAP 7.5-325MG [[place] 7.5-325] 1 tab PO Q6H #12 tab 08/19/20 [Rx] INSULIN ASPART (NovoLOG) [NovoLOG (formulary)] 7 unit SQ TID@0700,1200,1700 #0 08/19/20 [Rx] Insulin Detemir (Levemir) [Levemir] 40 unit SQ BID@0800,1600 #0 08/19/20 [Rx] Pregabalin [Lyrica] 100 mg PO BID@0800,1600 #6 cap 08/19/20 [Rx] hydrALAZINE HCL [Apresoline] 25 mg PO TID tab 08/19/20 [Rx] Follow up Appointment(s)/Referral(s): Dani Zuniga DO [Primary Care Provider] - 1-2 days Activity/Diet/Wound Care/Special Instructions: cbc/bmp - 5 days
[2020-08-19] MEDS ORDERED: hydrALAZINE HCL 25 MG TAB PO SCH (16:00)
[2020-08-19 16:37] LABS: Glucose,Whole Blood 217 mg/dL (75-99)
--- NOTE | 2020-08-19 17:51 | PN ---
PROGRESS NOTE DATE OF SERVICE: 08/19/2020 REASON FOR FOLLOWUP: Right breast cellulitis. INTERVAL COURSE: The patient is currently afebrile. Patient is breathing comfortably. Patient denies having any chest pain. No shortness of breath or cough. Overall pain and discomfort in the right breast is improved. No vomiting or diarrhea. PHYSICAL EXAMINATION: Blood pressure 174/77 with a pulse of 80, temperature 98.3. She is 94%. General description is an elderly female lying in bed in no distress. Respiratory system: Unlabored breathing, clear to auscultation anteriorly. Heart S1, S2. Regular rate and rhythm. Abdomen soft, no tenderness. Right breast swelling and redness has improved. LABS: BUN of 25, creatinine 1.1. DIAGNOSTIC IMPRESSION AND PLAN: Patient admitted to the hospital with generalized weakness, mental status changes, multifactorial. Initial concern for UTI. However urine cultures came back negative. The patient did have evidence of right breast cellulitis. Overall improvement. She will finish therapy with oral Keflex and close outpatient followup. MMODL / IJN: [id number] / MICHAEL
== END 2020-08-19 17:40 | DRG 682 ==
LOC: EC 08:39 → 2SICU 13:25 → 4SSUR 08-18 23:28
PROVIDERS: ADMIT Hospitalist; ATTEND Hospitalist
PROC: 5A1D70Z Performance of Urinary Filtration, Intermittent, Less than 6 Hours Per Day (ICD-10-PCS; principal; 2020-08-15 10:05)
PROC: 06HN33Z Insertion of Infusion Device into Left Femoral Vein, Percutaneous Approach (ICD-10-PCS; principal; 2020-08-15 10:05)
PROC: 05HF33Z Insertion of Infusion Device into Left Cephalic Vein, Percutaneous Approach (ICD-10-PCS; 2020-08-15 10:05)
DX: N17.0 Acute kidney failure with tubular necrosis (principal); G93.41 Metabolic encephalopathy; K51.90 Ulcerative colitis, unspecified, without complications; N39.0 Urinary tract infection, site not specified; Z68.41 Body mass index [BMI] 40.0-44.9, adult; C85.10 Unspecified B-cell lymphoma, unspecified site; E87.1 Hypo-osmolality and hyponatremia; E87.2 Acidosis; F05 Delirium due to known physiological condition; I69.354 Hemiplegia and hemiparesis following cerebral infarction affecting left non-dominant side; M81.0 Age-related osteoporosis without current pathological fracture; M21.379 Foot drop, unspecified foot; N61.0 Mastitis without abscess; K76.0 Fatty (change of) liver, not elsewhere classified; R32 Unspecified urinary incontinence; Z66 Do not resuscitate; B37.2 Candidiasis of skin and nail; I95.9 Hypotension, unspecified; E11.51 Type 2 diabetes mellitus with diabetic peripheral angiopathy without gangrene; E66.01 Morbid (severe) obesity due to excess calories; E78.5 Hyperlipidemia, unspecified; E83.39 Other disorders of phosphorus metabolism; E83.42 Hypomagnesemia; E87.5 Hyperkalemia; F31.9 Bipolar disorder, unspecified; F41.9 Anxiety disorder, unspecified; I16.0 Hypertensive urgency; I10 Essential (primary) hypertension; I65.21 Occlusion and stenosis of right carotid artery; K21.9 Gastro-esophageal reflux disease without esophagitis; Z79.4 Long term (current) use of insulin; Z79.82 Long term (current) use of aspirin; Z79.899 Other long term (current) drug therapy; Z82.3 Family history of stroke; Z86.19 Personal history of other infectious and parasitic diseases; Z86.718 Personal history of other venous thrombosis and embolism; Z87.440 Personal history of urinary (tract) infections; Z87.81 Personal history of (healed) traumatic fracture; Z93.2 Ileostomy status; Z89.422 Acquired absence of other left toe(s); Z95.828 Presence of other vascular implants and grafts; Z91.5 Personal history of self-harm; Z82.49 Family history of ischemic heart disease and other diseases of the circulatory system; Z84.1 Family history of disorders of kidney and ureter; Z83.2 Family history of diseases of the blood and blood-forming organs and certain disorders involving the immune mechanism
CPT/HCPCS: 36410; 36415; 70450; 71046; 76770; 76937; 80048; 80053; 80306; 81001; 82140; 83036; 83605; 83735; 84100; 84132; 84484; 84550; 85025; 85610; 85730; 86706; 87040; 87086; 87340; 90935; 93005; 93306; 96361; 96365; 96375; 99291

== ENCOUNTER 2021-05-28 12:06 | Inpatient (IN) | payer MEDICARE, OTHER ==
--- NOTE | 2021-05-28 13:06 | ED ---
Weakness HPI - General Chief complaint: Weakness Stated complaint: High Blood Pressure Time Seen by Provider: 05/28/21 12:10 Source: patient, EMS, RN notes reviewed, old records reviewed Mode of arrival: EMS - History of Present Illness Initial comments: 65-year-old female with a history of left-sided hemiplegia from a stroke many years ago depression and multiple other clinical issues who presents by EMS from [facility] with complaints of generalized weakness and lethargy for the past several days she herself voices no new complaints no cough no fevers chills nausea vomiting she does have chronic pain in her leg cramps. No other reported problems at this time MD Complaint: generalized weakness - Related Data Home Medications Medication Instructions Recorded Confirmed Aspirin 81 mg PO HS 08/18/15 05/28/21 Atorvastatin [Lipitor] 40 mg PO HS 06/17/17 05/28/21 Fenofibrate,Micronized 134 mg PO DAILY 06/17/17 05/28/21 [Fenofibrate] Multivitamins, Thera [Multivitamin 1 tab PO HS 06/17/17 05/28/21 (formulary)] Ascorbic Acid [Vitamin C] 250 mg PO HS@199906/25/20 05/28/21 Baclofen 10 mg PO Q6H 06/25/20 05/28/21 Cholecalciferol [Vitamin D3 (25 25 mcg PO HS@199906/25/20 05/28/21 Mcg = 1000 Iu)] Escitalopram [Lexapro] 20 mg PO DAILY@0800 06/25/20 05/28/21 Ketoconazole 2% Shampoo [Nizoral] 1 applic TOPICAL MOTH@1900 06/25/20 05/28/21 Mirabegron [Myrbetriq] 50 mg PO DAILY@0800 06/25/20 05/28/21 Omeprazole [PriLOSEC] 20 mg PO HS 06/25/20 05/28/21 amLODIPine [Norvasc] 10 mg PO HS 06/25/20 05/28/21 Hydrocortisone Cream 1 applic TOPICAL BID@0800,1600 08/14/20 05/28/21 [Hydrocortisone 1% Cream] ALPRAZolam [Xanax] 0.25 mg PO TID@0500,1200,1800 05/28/21 05/28/21 Dulaglutide [Trulicity] 3 mg SQ SA 05/28/21 05/28/21 INSULIN ASPART (NovoLOG) [NovoLOG 30 unit SQ AC-TID 05/28/21 05/28/21 (formulary)] INSULIN ASPART (NovoLOG) [NovoLOG See Protocol SQ ACHS 05/28/21 05/28/21 (formulary)] Insulin Detemir (Levemir) [Levemir] 36 unit SQ BID@0800,2000 05/28/21 05/28/21 Lisinopril [Zestril] 10 mg PO DAILY@0800 05/28/21 05/28/21 Melatonin 5 mg PO HS@2300 05/28/21 05/28/21 Pregabalin [Lyrica] 100 mg PO BID 05/28/21 05/28/21 hydrALAZINE HCL [Apresoline] 25 mg PO TID@0500,1300,2100 05/28/21 05/28/21 lamoTRIgine [LaMICtal] 150 mg PO DAILY@0800 05/28/21 05/28/21 Previous Rx's Medication Instructions Recorded HYDROcodone/APAP 7.5-325MG [Gravel [place] 1 tab PO Q6H #12 tab 08/19/20 7.5-325] Allergies Allergy/AdvReac Type Severity Reaction Status Date / Time latex Allergy Unknown Verified 05/28/21 12:15 Tetanus Vaccines and Toxoid Allergy Red and Verified 05/28/21 12:15 [Tetanus Vaccines & Toxoid] Swelling at site. Corticosteroids AdvReac Elevated Verified 05/28/21 12:15 (Glucocorticoids) Blood sugar and Blood Pressure prednisone AdvReac Elevated Verified 05/28/21 12:15 Blood Sugar and Blood Pressure Review of Systems ROS Statement: Those systems with pertinent positive or pertinent negative responses have been documented in the HPI. ROS Other: All systems not noted in ROS Statement are negative. 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 History of Any Multi-Drug Resistant Organisms: ESBL Date of last positivie culture/infection: 04/13/17 ESBL-Proteus mirabilis; 02/21/17-ESBL-E.coli MDRO Source:: Urine-ESBL Proteus and E.coli Past Surgical History: Cholecystectomy Additional Past Surgical History / Comment(s): MULTIPLE BOWEL SX AND REVISONS OF Ileostomy (pt wears Holister 86-28 with small eacon ring/ stoma powder/ no sting adhesive). HAD ALL TEETH EXTRACTED . 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 GREENFILED FILTER, gastric sleeve at [place], Past Anesthesia/Blood Transfusion Reactions: No Reported Reaction Additional Past Anesthesia/Blood Transfusion Reaction / Comment(s): Pt received blood without reaction. Past Psychological History: Anxiety, Bipolar, Depression Smoking Status: Never smoker Past Alcohol Use History: None Reported Past Drug Use History: None Reported - Past Family History Sister(s) Family Medical History: Cancer Father Family Medical History: Deep Vein Thrombosis (DVT) Additional Family Medical History / Comment(s): Father of either a CVA or [place] at age 84 yrs. Mother Family Medical History: Cancer Additional Family Medical History / Comment(s): Mother of renal failure at age 84 yrs. General Exam - General Exam Comments Initial Comments: This is a well-developed obese female who is awake alert oriented 3 General appearance: alert, in no apparent distress Head exam: Present: atraumatic, normocephalic, normal inspection Eye exam: Present: normal appearance, PERRL, EOMI. Absent: scleral icterus, conjunctival injection, periorbital swelling ENT exam: Present: mucous membranes dry Neck exam: Present: normal inspection, full ROM. Absent: tenderness, meni ngismus, lymphadenopathy Respiratory exam: Present: decreased breath sounds. Absent: respiratory distress, wheezes, rales, rhonchi, stridor Cardiovascular Exam: Present: regular rate, normal rhythm, normal heart sounds. Absent: systolic murmur, diastolic murmur, rubs, gallop, clicks GI/Abdominal exam: Present: soft, normal bowel sounds. Absent: distended, tenderness, guarding, rebound, rigid, bruit, pulsatile mass Extremities exam: Present: normal capillary refill. Absent: full ROM, tenderne ss, pedal edema, joint swelling, calf tenderness Back exam: Present: normal inspection Neurological exam: Present: alert, oriented X3, CN II-XII intact (With that had a please consistent with history), motor sensory deficit Psychiatric exam: Present: normal affect, normal mood Skin exam: Present: warm, dry, intact, normal color. 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 Interval 190 QRS 92 QT since QTC 368/447 nonspecific septal changes) Medical Decision Making - Medical Decision Making I did review the lab work and did discuss findings with patient she demonstrates evidence of dehydration and worsening renal function and hyperkalemia. Patient will be given IV fluids Like - Lab Data Result diagrams: 05/28/21 14:43 05/28/21 14:43 Lab Results 05/28/21 05/28/21 05/28/21 Range/Units 14:43 14:43 14:43 WBC 6.4 (3.8-10.6) k/uL RBC 4.25 (3.80-5.40) m/uL Hgb 13.0 (11.4-16.0) gm/dL Hct 41.8 (34.0-46.0) % MCV 98.3 (80.0-100.0) fL MCH 30.5 (25.0-35.0) pg MCHC 31.1 (31.0-37.0) g/dL RDW 14.3 (11.5-15.5) % Plt Count 186 (150-450) k/uL MPV 7.0 Neutrophils % 68 % Lymphocytes % 21 % Monocytes % 5 % Eosinophils % 3 % Basophils % 1 % Neutrophils # 4.3 (1.3-7.7) k/uL Lymphocytes # 1.4 (1.0-4.8) k/uL Monocytes # 0.3 (0-1.0) k/uL Eosinophils # 0.2 (0-0.7) k/uL Basophils # 0.0 (0-0.2) k/uL Hypochromasia Slight Sodium 136 L (137-145) mmol/L Potassium 6.7 H* (3.5-5.1) mmol/L Chloride 101 (98-107) mmol/L Carbon Dioxide 29 (22-30) mmol/L Anion Gap 6 mmol/L BUN 46 H (7-17) mg/dL Creatinine 1.81 H (0.52-1.04) mg/dL Est GFR (CKD-EPI)AfAm 33 (>60 ml/min/1.73 sqM) Est GFR (CKD-EPI)NonAf 29 (>60 ml/min/1.73 sqM) Glucose 238 H (74-99) mg/dL Calcium 9.3 (8.4-10.2) mg/dL Magnesium 2.0 (1.6-2.3) mg/dL Total Bilirubin 0.4 (0.2-1.3) mg/dL AST 21 (14-36) U/L ALT 12 (4-34) U/L Alkaline Phosphatase 59 (38-126) U/L Creatine Kinase 30 (30-135) U/L Troponin I <0.012 (0.000-0.034) ng/mL Total Protein 6.9 (6.3-8.2) g/dL Albumin 3.7 (3.5-5.0) g/dL Disposition Clinical Impression: Hyperkalemia, Dehydration, Renal insufficiency syndrome, History of CVA ( cerebrovascular accident) Disposition: ADMITTED IP TO THIS [facility] Condition: Fair Referrals: Dani Zuniga DO [Primary Care Provider] - 1-2 days
[2021-05-28 14:48] LABS: Basophils % (A) 1 %; Eosinophils # (A) 0.2 k/uL (0-0.7); Eosinophils % (A) 3 %; HCT 41.8 % (34.0-46.0); Hypochromasia Slight; Lymphocytes # (A) 1.4 k/uL (1.0-4.8); Lymphocytes % (A) 21 %; MCH 30.5 pg (25.0-35.0); MCHC 31.1 g/dL (31.0-37.0); MCV 98.3 fL (80.0-100.0); Monocytes # (A) 0.3 k/uL (0-1.0); Monocytes % (A) 5 %; Neutrophils # (A) 4.3 k/uL (1.3-7.7); Neutrophils % (A) 68 %; Platelet Count 186 k/uL (150-450); RBC 4.25 m/uL (3.80-5.40); RDW 14.3 % (11.5-15.5); WBC 6.4 k/uL (3.8-10.6)
[2021-05-28 14:59] LABS: Albumin 3.7 g/dL (3.5-5.0); Calcium 9.3 mg/dL (8.4-10.2); Total Bilirubin 0.4 mg/dL (0.2-1.3); Total Protein 6.9 g/dL (6.3-8.2)
[2021-05-28 15:08] LABS: Potassium 6.7 mmol/L (3.5-5.1)
[2021-05-28] MEDS ORDERED: NALOXONE 0.4 MG/ML 1 ML VIAL IV PRN (15:34)
[2021-05-28] MEDS ORDERED: SODIUM POLYSTYRENE SULFONATE 15 GM/60 ML BOTTLE PO STA (15:35)
--- NOTE | 2021-05-28 16:18 | XR ---
EXAMINATION TYPE: XR chest 2V DATE OF EXAM: 05/28/2021 COMPARISON: 08/14/2020 HISTORY: Weakness TECHNIQUE: 2 views FINDINGS: There is no heart failure nor confluent pneumonic infiltrate. Exam limited by patient's siz e. There are no hilar masses. Bony thorax is intact. There is no evidence of pleural effusion. IMPRESSION: No active cardiomegaly disease. No adverse change.
[2021-05-28] MEDS: SODIUM CHLORIDE 0.9% 1,000 ML IV SCH ×2 (17:48→23:50)
[2021-05-28 18:05] LABS: Appearance,Urine Cloudy (Clear); Bacteria,Urine Rare /hpf; Bilirubin,Urine Negative (Negative); Blood,Urine Negative (Negative); Color,Urine Yellow; Glucose,Urine (UA) Negative (Negative); Ketones,Urine Negative (Negative); Leukocyte Esterase,Urine Large (Negative); Nitrite,Urine Negative (Negative); Protein,Urine 2+ (Negative); RBC,Urine 4 /hpf (0-5); Specific Gravity,Urine 1.017 (1.001-1.035); Squamous Epithelial Cell,Urine <1 /hpf (0-4); Urobilinogen,Urine <2.0 mg/dL (<2.0); WBC,Urine >182 /hpf (0-5)
[2021-05-29 01:25] LABS: Glucose,Whole Blood 186 mg/dL (75-99)
[2021-05-29] MEDS: SODIUM CHLORIDE 0.9% 1,000 ML IV SCH ×3 (08:36→23:01)
[2021-05-29 09:44] LABS: Calcium 8.7 mg/dL (8.4-10.2); Potassium 5.5 mmol/L (3.5-5.1)
[2021-05-29] MEDS: NON FORMULARY DRUG (Mirabegron [Myrbetriq] 50 MG Tab.Er.24h) PO SCH (09:51)
[2021-05-29] MEDS: BACLOFEN 10 MG TAB PO SCH ×3 (09:52→23:00)
[2021-05-29] MEDS: hydrALAZINE HCL 25 MG TAB PO SCH ×2 (09:52→20:51)
[2021-05-29] MEDS: lamoTRIgine 100 MG TAB PO SCH (09:52)
[2021-05-29] MEDS: HYDROcodone/APAP 7.5-325MG 1 EACH TAB PO SCH ×3 (09:52→23:00)
[2021-05-29] MEDS: FENOFIBRATE 160 MG TAB PO SCH (09:52)
[2021-05-29] MEDS: ESCITALOPRAM 20 MG TAB PO SCH (09:53)
[2021-05-29] MEDS: PREGABALIN 100 MG CAP PO SCH ×2 (10:29→20:50)
[2021-05-29] MEDS: INSULIN DETEMIR (LEVEMIR) 100 UNIT/ML SYR SQ SCH ×2 (10:29→20:50)
[2021-05-29] MEDS ORDERED: SODIUM POLYSTYRENE SULFONATE 15 GM/60 ML BOTTLE PO STA (11:02)
[2021-05-29 12:33] LABS: Glucose,Whole Blood 208 mg/dL (75-99)
[2021-05-29 14:33] VITALS: BMI 48.7
[2021-05-29] MEDS: INSULIN ASPART (NovoLOG) 100 UNIT/ML VIAL SQ SCH ×3 (14:49→20:50)
[2021-05-29] MEDS: ALPRAZolam 0.25 MG TAB PO SCH ×2 (14:49→17:06)
--- NOTE | 2021-05-29 14:52 | P.HPIM ---
History of Present Illness H&P Date: 05/29/21 Chief Complaint: Weak and lethargic This is a pleasant 65-year-old patient of Dr. Zuniga resident of [facility] on. 2014 at [facility] had a sleeve gastrectomy that was Experimental. Also had a parastomal hernia repair and subsequent. 3-4 repairs of the stoma and was repositioned. Patient now has a ileostomy. Chronic stable medical conditions include diabetes, GERD, hyperlipidemia, hepatic steatosis, osteopenia, hypertension, large B-cell lymphoma that was treated. Complete paralysis of the left side from a prior stroke and has a leg brace. Patient also known to have ulcerative colitis and occluded internal carotid artery. Has a Saida lift. Patient presents now with weakness tiredness. Decreased appetite. Denies any cough or shortness breath. Denies any urinary symptoms. No obvious fever and chills reported. Found to be an acute kidney injury in the ER. Potassium was 6.7. Did receive Kayexalate. Started on IV fluids. Feels a bit tired and rundown. Had decreased appetite. Wants to eat some. Normally feeds herself. Review of systems: GEN.: Weak and tired EYES: None HEENT: None NECK: None RESPIRATORY: None CARDIOVASCULAR: None GASTROINTESTINAL: None GENITOURINARY: None MUSCULOSKELETAL: Some joint pains LYMPHATICS: None HEMATOLOGICAL: None PSYCHIATRY: None NEUROLOGICAL: Left-sided weakness Past medical history to include: Diabetes, GERD, hyperlipidemia, hepatic steatosis, osteopenia, hypertension, large B-cell lymphoma that was treated, complete paralysis of the left side from a stroke, ulcerative colitis, occluded internal carried artery Social history: Resident of [facility] on. Requires Saida lift. . Patient smoked for 25 years stopped in 1989. Can sit up in a wheelchair. Family history: DVT, Physical examination: VITAL SIGNS: 98.4, 94, 20, 139/94, 99% on room air GENERAL: BMI 48.8, laying in bed, awake, not in distress. EYES: Pupils equal. Conjunctiva normal. HEENT: External appearance of nose and ears normal, oral cavity dry mucous membranes. NECK: JVD unable to assess; masses not palpable. HEART: First and second heart sounds are normal; no edema. LUNGS: Respiratory rate normal; distal breath sounds. ABDOMEN: Soft, nontender, liver spleen not palpable, no masses palpable. Ileostomy PSYCH: [Alert and oriented x3; mood and affect tired l. NEUROLOGICAL: Cranial nerves grossly intact; no facial asymmetry, left-sided paresis. Left-sided foot drop.. LYMPHATICS: No lymph nodes palpable in the axilla and neck INVESTIGATIONS, reviewed in the clinical context: May 29: Sodium 135 potassium 5.5 BUN 38 creatinine 1.31 WBC 6.4 hemoglobin 13 platelets 186 sodium 136 potassium 6.7 BUN 46 creatinine 1.81 troponin less than 0.012 UA positive for leukoesterase, WBC Coronavirus [PCL]: Not detected EKG tracing personally reviewed by me-sinus rhythm, 89, Chest x-ray film personally reviewed by me-underpenetrated. Questionable infiltrate Assessment and plan: -Acute kidney injury, possibly prerenal from decreased oral intake IV fluids. Follow labs -Hyperkalemia secondary to acute kidney Receive 30 g Kayexalate in the ER. Repeat. Telemetry. Follow labs -diabetes mellitus type 2, chronically on insulin Levemir 26 units subcu twice a day. Follow Accu-Cheks. On chronicity -Acute metabolic encephalopathy from severe renal failure Follow clinically -Hyperlipidemia Lipitor 40 mg daily at bedtime -Essential hypertension Currently hold lisinopril -Dense left hemiparesis from his prior stroke -Chronic ileostomy from ulcerative colitis Stoma care -Occluded right internal carotid artery -Urinary incontinence -Morbid obesity BMI 48.8 -Chronic medical debility, At the baseline Saida lift is used up with the patient in the wheelchair -Chronic left foot drop from stroke -Acute UTI with cystitis Home medications resumed. IV fluids. Kayexalate. Follow renal function. Feeding with assistance. Discussed with the patient. 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 History of Any Multi-Drug Resistant Organisms: ESBL Date of last positivie culture/infection: 04/13/17 ESBL-Proteus mirabilis; 02/21/17-ESBL-E.coli MDRO Source:: Urine-ESBL Proteus and E.coli Past Surgical History: Cholecystectomy Additional Past Surgical History / Comment(s): MULTIPLE BOWEL SX AND REVISONS OF Ileostomy (pt wears Holister 86-28 with small eacon ring/ stoma powder/ no sting adhesive). HAD ALL TEETH EXTRACTED . 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 GREENFILED FILTER, gastric sleeve at [place], Past Anesthesia/Blood Transfusion Reactions: No Reported Reaction Additional Past Anesthesia/Blood Transfusion Reaction / Comment(s): Pt received blood without reaction. Past Psychological History: Anxiety, Bipolar, Depression Smoking Status: Never smoker Past Alcohol Use History: None Reported Past Drug Use History: None Reported - Past Family History Sister(s) Family Medical History: Cancer Father Family Medical History: Deep Vein Thrombosis (DVT) Additional Family Medical History / Comment(s): Father of either a CVA or [place] at age 84 yrs. Mother Family Medical History: Cancer Additional Family Medical History / Comment(s): Mother of renal failure at age 84 yrs. Medications and Allergies Home Medications Medication Instructions Recorded Confirmed Type Aspirin 81 mg PO HS 08/18/15 05/28/21 History Atorvastatin [Lipitor] 40 mg PO HS 06/17/17 05/28/21 History Fenofibrate,Micronized 134 mg PO DAILY 06/17/17 05/28/21 History [Fenofibrate] Multivitamins, Thera [Multivitamin 1 tab PO HS 06/17/17 05/28/21 History (formulary)] Ascorbic Acid [Vitamin C] 250 mg PO HS@199906/25/20 05/28/21 History Baclofen 10 mg PO Q6H 06/25/20 05/28/21 History Cholecalciferol [Vitamin D3 (25 25 mcg PO HS@199906/25/20 05/28/21 History Mcg = 1000 Iu)] Escitalopram [Lexapro] 20 mg PO DAILY@0800 06/25/20 05/28/21 History Ketoconazole 2% Shampoo [Nizoral] 1 applic TOPICAL MOTH@1900 06/25/20 05/28/21 History Mirabegron [Myrbetriq] 50 mg PO DAILY@0800 06/25/20 05/28/21 History Omeprazole [PriLOSEC] 20 mg PO HS 06/25/20 05/28/21 History amLODIPine [Norvasc] 10 mg PO HS 06/25/20 05/28/21 History Hydrocortisone Cream 1 applic TOPICAL BID@0800,1600 08/14/20 05/28/21 History [Hydrocortisone 1% Cream] HYDROcodone/APAP 7.5-325MG [[place] 1 tab PO Q6H #12 tab 08/19/20 05/28/21 Rx 7.5-325] ALPRAZolam [Xanax] 0.25 mg PO TID@0500,1200,1800 05/28/21 05/28/21 History Dulaglutide [Trulicity] 3 mg SQ SA 05/28/21 05/28/21 History INSULIN ASPART (NovoLOG) [NovoLOG 30 unit SQ AC-TID 05/28/21 05/28/21 History (formulary)] INSULIN ASPART (NovoLOG) [NovoLOG See Protocol SQ ACHS 05/28/21 05/28/21 History (formulary)] Insulin Detemir (Levemir) [Levemir] 36 unit SQ BID@0800,2000 05/28/21 05/28/21 History Lisinopril [Zestril] 10 mg PO DAILY@0800 05/28/21 05/28/21 History Melatonin 5 mg PO HS@2300 05/28/21 05/28/21 History Pregabalin [Lyrica] 100 mg PO BID 05/28/21 05/28/21 History hydrALAZINE HCL [Apresoline] 25 mg PO TID@0500,1300,2100 05/28/21 05/28/21 History lamoTRIgine [LaMICtal] 150 mg PO DAILY@0800 05/28/21 05/28/21 History Allergies Allergy/AdvReac Type Severity Reaction Status Date / Time latex Allergy Unknown Verified 05/28/21 12:15 Tetanus Vaccines and Toxoid Allergy Red and Verified 05/28/21 12:15 [Tetanus Vaccines & Toxoid] Swelling at site. Corticosteroids AdvReac Elevated Verified 05/28/21 12:15 (Glucocorticoids) Blood sugar and Blood Pressure prednisone AdvReac Elevated Verified 05/28/21 12:15 Blood Sugar and Blood Pressure Physical Exam Vitals: Vital Signs Temp Pulse Pulse Resp BP Pulse Ox 05/29/21 08:40 98.3 F 93 24 158/70 95 05/29/21 06:55 92 18 153/79 95 05/29/21 03:49 90 18 160/67 97 05/29/21 01:30 81 20 160/67 96 05/28/21 23:18 82 16 135/68 95 05/28/21 19:12 98.1 F 85 18 137/69 99 05/28/21 13:37 86 18 05/28/21 12:08 98.4 F 94 20 139/94 100 Results CBC & Chem 7: 05/28/21 14:43 05/29/21 09:23 Labs: Abnormal Lab Results - Last 24 Hours (Table) 05/28/21 05/28/21 05/29/21 Range/Units 14:43 Unknown 01:23 Sodium 136 L (137-145) mmol/L Potassium 6.7 H* (3.5-5.1) mmol/L BUN 46 H (7-17) mg/dL Creatinine 1.81 H (0.52-1.04) mg/dL Glucose 238 H (74-99) mg/dL POC Glucose (mg/dL) 186 H (75-99) mg/dL Urine Appearance Cloudy H (Clear) Urine Protein 2+ H (Negative) Ur Leukocyte Esterase Large H (Negative) Urine WBC >182 H (0-5) /hpf Urine WBC Clumps Many H (None) /hpf Urine Bacteria Rare H (None) /hpf
[2021-05-29] MEDS: ENOXAPARIN 40 MG/0.4 ML SYRINGE SQ SCH (15:19)
[2021-05-29 16:48] LABS: Glucose,Whole Blood 231 mg/dL (75-99)
[2021-05-29] MEDS ORDERED: KETOCONAZOLE 2% SHAMPOO 1 APPLIC/ML TOPICAL SCH (19:00)
[2021-05-29 20:23] LABS: Glucose,Whole Blood 192 mg/dL (75-99)
[2021-05-29] MEDS: ASCORBIC ACID 500 MG TAB PO SCH (20:50)
[2021-05-29] MEDS: ATORVASTATIN 40 MG TAB PO SCH (20:50)
[2021-05-29] MEDS: ASPIRIN 81 MG PO SCH (20:50)
[2021-05-29] MEDS: MULTIVITAMINS, THERA 1 EACH TAB PO SCH (20:50)
[2021-05-29] MEDS: CHOLECALCIFEROL 25 MCG (1000 IU) TABLET PO SCH (20:50)
[2021-05-29] MEDS: amLODIPine 10 MG TAB PO SCH (20:50)
[2021-05-29] MEDS: PANTOPRAZOLE 40 MG TABLET PO SCH (20:50)
[2021-05-29] MEDS: MELATONIN 5 MG TABLET PO SCH (23:00)
[2021-05-30] MEDS: ALPRAZolam 0.25 MG TAB PO SCH ×3 (05:10→16:56)
[2021-05-30] MEDS: hydrALAZINE HCL 25 MG TAB PO SCH ×3 (05:10→20:23)
[2021-05-30] MEDS: HYDROcodone/APAP 7.5-325MG 1 EACH TAB PO SCH ×4 (05:10→20:23)
[2021-05-30] MEDS: BACLOFEN 10 MG TAB PO SCH ×4 (05:10→20:22)
[2021-05-30 06:03] LABS: Glucose,Whole Blood 176 mg/dL (75-99)
[2021-05-30] MEDS: SODIUM CHLORIDE 0.9% 1,000 ML IV SCH ×2 (06:38→18:14)
[2021-05-30] MEDS: INSULIN ASPART (NovoLOG) 100 UNIT/ML VIAL SQ SCH ×4 (06:38→20:24)
[2021-05-30 07:14] LABS: Calcium 8.4 mg/dL (8.4-10.2); Potassium 5.2 mmol/L (3.5-5.1)
[2021-05-30] MEDS: ESCITALOPRAM 20 MG TAB PO SCH (08:22)
[2021-05-30] MEDS: PREGABALIN 100 MG CAP PO SCH ×2 (08:23→20:22)
[2021-05-30] MEDS: lamoTRIgine 100 MG TAB PO SCH (08:23)
[2021-05-30] MEDS: INSULIN DETEMIR (LEVEMIR) 100 UNIT/ML SYR SQ SCH ×2 (08:23→20:24)
[2021-05-30] MEDS: FENOFIBRATE 160 MG TAB PO SCH (08:23)
[2021-05-30] MEDS: ENOXAPARIN 40 MG/0.4 ML SYRINGE SQ SCH (08:23)
[2021-05-30] MEDS: NON FORMULARY DRUG (Mirabegron [Myrbetriq] 50 MG Tab.Er.24h) PO SCH (08:36)
[2021-05-30 11:34] LABS: Glucose,Whole Blood 199 mg/dL (75-99)
--- NOTE | 2021-05-30 13:44 | P.PN ---
Progress Note - Text Progress Note Date: 05/30/21 Chief Complaint: Weak and lethargic This is a pleasant 65-year-old patient of Dr. Zuniga resident of [facility] [place] on. 2013 at [facility] had a sleeve gastrectomy that was Experimental. Also had a parastomal hernia repair and subsequent. 3-4 repairs of the stoma and was repositioned. Patient now has a ileostomy. Chronic stable medical conditions include diabetes, GERD, hyperlipidemia, hepatic steatosis, osteopenia, hypertension, large B-cell lymphoma that was treated. Complete paralysis of the left side from a prior stroke and has a leg brace. Patient also known to have ulcerative colitis and occluded internal carotid artery. Has a Saida lift. Patient presents now with weakness tiredness. Decreased appetite. Denies any cough or shortness breath. Denies any urinary symptoms. No obvious fever and chills reported. Found to be an acute kidney injury in the ER. Potassium was 6.7. Did receive Kayexalate. Started on IV fluids. Feels a bit tired and rundown. Had decreased appetite. Wants to eat some. Normally feeds herself. Admitted with acute kidney injury, metabolic encephalopathy from the same. Started IV fluids. 05/30/2021: Laying in bed. A bit more awake. She had about 50% of her breakfast. IV fluids. Review of systems: Was done for constitutional, cardiovascular, GI, pulmonary. relevant finding as above Active Medications Hydrocodone Bitart/Acetaminophen (Hydrocodone/Apap 7.5-325mg 1 Each Tab) 1 each PO Q6H [facility] Last Admin: 05/30/21 08:22 Dose: 1 each Documented by: Alprazolam (Alprazolam 0.25 Mg Tab) 0.25 mg PO TID@0500,1200,1800 [facility] Last Admin: 05/30/21 08:23 Dose: 0.25 mg Documented by: Amlodipine Besylate (Amlodipine 10 Mg Tab) 10 mg PO [facility] Last Admin: 05/29/21 20:50 Dose: 10 mg Documented by: Ascorbic Acid (Ascorbic Acid 500 Mg Tab) 250 mg PO HS@2000 [facility] Last Admin: 05/29/21 20:50 Dose: 250 mg Documented by: Aspirin (Aspirin 81 Mg) 81 mg PO [facility] Last Admin: 05/29/21 20:50 Dose: 81 mg Documented by: Atorvastatin Calcium (Atorvastatin 40 Mg Tab) 40 mg PO HS [facility] Last Admin: 05/29/21 20:50 Dose: 40 mg Documented by: Baclofen (Baclofen 10 Mg Tab) 10 mg PO Q6H [facility] Last Admin: 05/30/21 08:23 Dose: 10 mg Documented by: Cholecalciferol (Cholecalciferol 25 Mcg (1000 Iu) Tablet) 25 mcg PO HS@1999 [facility] Last Admin: 05/29/21 20:50 Dose: 25 mcg Documented by: Enoxaparin Sodium (Enoxaparin 40 Mg/0.4 Ml Syringe) 40 mg SQ DAILY [facility] Last Admin: 05/30/21 08:23 Dose: 40 mg Documented by: Escitalopram Oxalate (Escitalopram 20 Mg Tab) 20 mg PO DAILY@0800 [facility] Last Admin: 05/30/21 08:22 Dose: 20 mg Documented by: Fenofibrate (Fenofibrate 160 Mg Tab) 160 mg PO DAILY [facility] Last Admin: 05/30/21 08:23 Dose: 160 mg Documented by: Hydralazine HCl (Hydralazine Hcl 25 Mg Tab) 25 mg PO TID@0500,1300,2100 [facility] Last Admin: 05/30/21 11:55 Dose: 25 mg Documented by: Sodium Chloride (Saline 0.9%) 1,000 mls @ 130 mls/hr IV .Q7H42M [facility] Last Admin: 05/30/21 06:38 Dose: 130 mls/hr Documented by: Ceftriaxone Sodium 1 gm/ (Sodium Chloride) 50 mls @ 100 mls/hr IVPB Q24HR [facility] Last Admin: 05/30/21 08:23 Dose: 100 mls/hr Documented by: Insulin Aspart (Insulin Aspart (Novolog) 100 Unit/Ml Vial) 0 unit SQ ACHS [facility]; Protocol Last Admin: 05/30/21 11:55 Dose: 3 unit Documented by: Insulin Detemir (Insulin Detemir (Levemir) 100 Unit/Ml Syr) 26 unit SQ BID@0800,1999 [facility] Last Admin: 05/30/21 08:23 Dose: 26 unit Documented by: Ketoconazole (Ketoconazole 2% Shampoo 1 Applic/Ml) 1 applic TOPICAL MOTH@1900 [facility] Last Admin: 05/29/21 20:51 Dose: Not Given Documented by: Lamotrigine (Lamotrigine 100 Mg Tab) 150 mg PO DAILY@0800 [facility] Last Admin: 05/30/21 08:23 Dose: 150 mg Documented by: Melatonin (Melatonin 5 Mg Tablet) 5 mg PO HS@2300 [facility] Last Admin: 05/29/21 23:00 Dose: 5 mg Documented by: Multivitamins (Multivitamins, Thera 1 Each Tab) 1 each PO HS [facility] Last Admin: 05/29/21 20:50 Dose: 1 each Documented by: Naloxone HCl (Naloxone 0.4 Mg/Ml 1 Ml Vial) 0.2 mg IV Q2M PRN PRN Reason: Opioid Reversal Non-Formulary Medication (Dulaglutide [Trulicity]) 3 mg SQ SA [facility] Non-Formulary Medication (Mirabegron [Myrbetriq]) 50 mg PO DAILY@0800 [facility] Last Admin: 05/30/21 08:36 Dose: Not Given Documented by: Pantoprazole Sodium (Pantoprazole 40 Mg Tablet) 40 mg PO HS [facility] Last Admin: 05/29/21 20:50 Dose: 40 mg Documented by: Pregabalin (Pregabalin 100 Mg Cap) 100 mg PO BID [facility] Last Admin: 05/30/21 08:23 Dose: 100 mg Documented by: Past medical history to include: Diabetes, GERD, hyperlipidemia, hepatic steatosis, osteopenia, hypertension, large B-cell lymphoma that was treated, complete paralysis of the left side from a stroke, ulcerative colitis, occluded internal carried artery Social history: Resident of [facility]. Requires Saida lift. . Patient smoked for 25 years stopped in 1989. Can sit up in a wheelchair. Family history: DVT, Physical examination: VITAL SIGNS: 98.1, 77, 15, 138/70, 98% / 2 L GENERAL: Laying in bed, more awake, comfortable EYES: Pupils equal. Conjunctiva normal. HEENT: External appearance of nose and ears normal, oral cavity dry mucous membranes. NECK: JVD unable to assess; masses not palpable. HEART: First and second heart sounds are normal; no edema. LUNGS: Respiratory rate normal; distal breath sounds. ABDOMEN: Soft, nontender, liver spleen not palpable, no masses palpable. Ileostomy PSYCH: [Alert and oriented x3; mood and affect normal. NEUROLOGICAL: Cranial nerves grossly intact; no facial asymmetry, left-sided paresis. Left-sided foot drop.. INVESTIGATIONS, reviewed in the clinical context: May 30: Sodium 137 potassium 5.2 BUN 29 creatinine 1.15 May 29: Sodium 135 potassium 5.5 BUN 38 creatinine 1.31 WBC 6.4 hemoglobin 13 platelets 186 sodium 136 potassium 6.7 BUN 46 creatinine 1.81 troponin less than 0.012 UA positive for leukoesterase, WBC Coronavirus [PCL]: Not detected EKG tracing personally reviewed by me-sinus rhythm, 89, Chest x-ray film personally reviewed by me-underpenetrated. Questionable infiltrate Assessment and plan: -Acute kidney injury, possibly prerenal from decreased oral intake: Improving IV fluids. Follow labs -Hyperkalemia secondary to acute kidney Receive 30 g Kayexalate in the ER. Repeat. Telemetry. Follow labs. Renal diet -diabetes mellitus type 2, chronically on insulin Levemir 28 units subcu twice a day. Follow Accu-Cheks. On chronicity -Acute metabolic encephalopathy from severe renal failure: Improving Follow clinically -Hyperlipidemia Lipitor 40 mg daily at bedtime -Essential hypertension Currently hold lisinopril -Dense left hemiparesis from his prior stroke -Chronic ileostomy from ulcerative colitis Stoma care -Occluded right internal carotid artery -Urinary incontinence -Morbid obesity BMI 48.8 -Chronic medical debility, At the baseline Saida lift is used up with the patient in the wheelchair -Chronic left foot drop from stroke -Acute UTI with cystitis IV ceftriaxone Continue IV fluids. Renal diet. Repeat labs. Discussed with patient. Change Levemir to 20 units subcu twice daily.
[2021-05-30 16:52] LABS: Glucose,Whole Blood 221 mg/dL (75-99)
[2021-05-30 19:51] LABS: Glucose,Whole Blood 255 mg/dL (75-99)
[2021-05-30] MEDS: ASCORBIC ACID 500 MG TAB PO SCH (20:22)
[2021-05-30] MEDS: amLODIPine 10 MG TAB PO SCH (20:22)
[2021-05-30] MEDS: MULTIVITAMINS, THERA 1 EACH TAB PO SCH (20:22)
[2021-05-30] MEDS: PANTOPRAZOLE 40 MG TABLET PO SCH (20:23)
[2021-05-30] MEDS: ATORVASTATIN 40 MG TAB PO SCH (20:23)
[2021-05-30] MEDS: CHOLECALCIFEROL 25 MCG (1000 IU) TABLET PO SCH (20:23)
[2021-05-30] MEDS: ASPIRIN 81 MG PO SCH (20:24)
[2021-05-30] MEDS: MELATONIN 5 MG TABLET PO SCH (23:17)
[2021-05-31 01:15] VITALS: TEMP 98.3
[2021-05-31] MEDS: SODIUM CHLORIDE 0.9% 1,000 ML IV SCH ×2 (04:01→09:22)
[2021-05-31] MEDS: HYDROcodone/APAP 7.5-325MG 1 EACH TAB PO SCH ×3 (04:01→15:41)
[2021-05-31] MEDS: BACLOFEN 10 MG TAB PO SCH ×3 (04:02→15:41)
[2021-05-31] MEDS: ALPRAZolam 0.25 MG TAB PO SCH ×2 (04:07→12:11)
[2021-05-31] MEDS: hydrALAZINE HCL 25 MG TAB PO SCH ×2 (04:07→12:11)
[2021-05-31 06:14] LABS: Glucose,Whole Blood 222 mg/dL (75-99)
[2021-05-31] MEDS: INSULIN ASPART (NovoLOG) 100 UNIT/ML VIAL SQ SCH ×2 (06:46→12:12)
[2021-05-31 09:16] VITALS: RESP 18
[2021-05-31] MEDS: lamoTRIgine 100 MG TAB PO SCH (09:20)
[2021-05-31] MEDS: ENOXAPARIN 40 MG/0.4 ML SYRINGE SQ SCH (09:20)
[2021-05-31] MEDS: INSULIN DETEMIR (LEVEMIR) 100 UNIT/ML SYR SQ SCH (09:20)
[2021-05-31] MEDS: ESCITALOPRAM 20 MG TAB PO SCH (09:21)
[2021-05-31] MEDS: PREGABALIN 100 MG CAP PO SCH (09:21)
[2021-05-31] MEDS: FENOFIBRATE 160 MG TAB PO SCH (09:21)
[2021-05-31] MEDS: NON FORMULARY DRUG (Mirabegron [Myrbetriq] 50 MG Tab.Er.24h) PO SCH (09:22)
[2021-05-31 10:40] LABS: Calcium 8.3 mg/dL (8.4-10.2); Potassium 5.3 mmol/L (3.5-5.1)
[2021-05-31 11:46] VITALS: BP 144/67; PULSE 80
[2021-05-31 11:46] LABS: Glucose,Whole Blood 272 mg/dL (75-99)
--- NOTE | 2021-05-31 14:02 | P.DS ---
Providers Date of admission: 05/28/21 15:34 Expected date of discharge: 05/31/21 Attending physician: Alexx Bentley Primary care physician: Dani Zuniga [facility] Course: Chief Complaint: Weak and lethargic This is a pleasant 65-year-old patient of Dr. Zuniga resident of [facility] . 2014 at [facility] had a sleeve gastrectomy that was Experimental. Also had a parastomal hernia repair and subsequent. 3-4 repairs of the stoma and was repositioned. Patient now has a ileostomy. Chronic stable medical conditions include diabetes, GERD, hyperlipidemia, hepatic steatosis, osteopenia, hypertension, large B-cell lymphoma that was treated. Complete paralysis of the left side from a prior stroke and has a leg brace. Patient also known to have ulcerative colitis and occluded internal carotid artery. Has a Saida lift. Patient presents now with weakness tiredness. Decreased appetite. Denies any cough or shortness breath. Denies any urinary symptoms. No obvious fever and chills reported. Found to be an acute kidney injury in the ER. Potassium was 6.7. Did receive Kayexalate. Started on IV fluids. Feels a bit tired and rundown. Had decreased appetite. Wants to eat some. Normally feeds herself. Admitted with acute kidney injury, metabolic encephalopathy from the same. Started IV fluids. Today: Laying in bed. Oral intake better. Blood cultures felt to be contaminant. We changed to oral Ceftin. Adjust dose of insulin. Patient to return to the [facility]. Past medical history to include: Diabetes, GERD, hyperlipidemia, hepatic steatosis, osteopenia, hypertension, large B-cell lymphoma that was treated, complete paralysis of the left side from a stroke, ulcerative colitis, occluded internal carried artery Social history: Resident of [facility] on. Requires Saida lift. . Patient smoked for 25 years stopped in 1989. Can sit up in a wheelchair. Family history: DVT, Physical examination: VITAL SIGNS: 98.3, 78, 18, 136/66, 90% on 3 L GENERAL: Laying in bed, awake, comfortable EYES: Pupils equal. Conjunctiva normal. HEENT: External appearance of nose and ears normal, oral cavity dry mucous membranes. NECK: JVD unable to assess; masses not palpable. HEART: First and second heart sounds are normal; no edema. LUNGS: Respiratory rate normal; distal breath sounds. ABDOMEN: Soft, nontender, liver spleen not palpable, no masses palpable. Ileostomy PSYCH: [Alert and oriented x3; mood and affect normal. NEUROLOGICAL: Cranial nerves grossly intact; no facial asymmetry, left-sided paresis. Left-sided foot drop.. INVESTIGATIONS, reviewed in the clinical context: May 31: Sodium 137 potassium 5.3 BUN 26 creatinine 1.17 May 30: Sodium 137 potassium 5.2 BUN 29 creatinine 1.15 May 29: Sodium 135 potassium 5.5 BUN 38 creatinine 1.31 WBC 6.4 hemoglobin 13 platelets 186 sodium 136 potassium 6.7 BUN 46 creatinine 1.81 troponin less than 0.012 UA positive for leukoesterase, WBC Coronavirus [PCL]: Not detected EKG tracing personally reviewed by me-sinus rhythm, 89, Chest x-ray film personally reviewed by me-underpenetrated. Questionable infiltrate Assessment and plan: -Acute kidney injury, possibly prerenal from decreased oral intake: Improving IV fluids. Follow labs -Hyperkalemia secondary to acute kidney Receive 30 g Kayexalate in the ER. Repeat. Renal diet -diabetes mellitus type 2, chronically on insulin Levemir 30 units subcu twice a day. NovoLog 20 units before meals 3 times a day Follow Accu-Cheks. trulicity -Acute metabolic encephalopathy from severe renal failure: Improved Follow clinically -Hyperlipidemia Lipitor 40 mg daily at bedtime -Essential hypertension DC lisinopril. Hydralazine 25 mg 3 times a day. Norvasc 10 mg daily at bedtime -Dense left hemiparesis from his prior stroke -Chronic ileostomy from ulcerative colitis Stoma care -Occluded right internal carotid artery -Urinary incontinence -Morbid obesity BMI 48.8 -Chronic medical debility, At the baseline Saida lift is used up with the patient in the wheelchair -Chronic left foot drop from stroke -Acute UTI with cystitis IV ceftriaxone. Ceftin 250 twice a day for 5 days Disposition: ECF Patient Condition at Discharge: Fair Plan - Discharge Summary New Discharge Prescriptions: New Cefuroxime [Ceftin] 250 mg PO BID #10 tab Continue Aspirin 81 mg PO HS Atorvastatin [Lipitor] 40 mg PO HS Fenofibrate,Micronized [Fenofibrate] 134 mg PO DAILY Multivitamins, Thera [Multivitamin (formulary)] 1 tab PO HS Ketoconazole 2% Shampoo [Nizoral] 1 applic TOPICAL MOTH@1900 Mirabegron [Myrbetriq] 50 mg PO DAILY@0800 Escitalopram [Lexapro] 20 mg PO DAILY@0800 Cholecalciferol [Vitamin D3 (25 Mcg = 1000 Iu)] 25 mcg PO HS@1999 Baclofen 10 mg PO Q6H Ascorbic Acid [Vitamin C] 250 mg PO HS@1999 amLODIPine [Norvasc] 10 mg PO HS Omeprazole [PriLOSEC] 20 mg PO HS Hydrocortisone Cream [Hydrocortisone 1% Cream] 1 applic TOPICAL BID@0800,1600 hydrALAZINE HCL [Apresoline] 25 mg PO TID@0500,1300,2100 lamoTRIgine [LaMICtal] 150 mg PO DAILY@0800 HYDROcodone/APAP 7.5-325MG [[place] 7.5-325] 1 tab PO Q6H #12 tab Dulaglutide [Trulicity] 3 mg SQ SA INSULIN ASPART (NovoLOG) [NovoLOG (formulary)] See Protocol SQ ACHS Melatonin 5 mg PO HS@2300 Changed INSULIN ASPART (NovoLOG) [NovoLOG (formulary)] 20 unit SQ AC-TID #0 Pregabalin [Lyrica] 100 mg PO BID #6 cap ALPRAZolam [Xanax] 0.25 mg PO TID@0500,1200,1800 #9 tab Insulin Detemir (Levemir) [Levemir] 30 unit SQ BID@0800,2000 #0 Discontinued Lisinopril [Zestril] 10 mg PO DAILY@0800 Discharge Medication List Aspirin 81 mg PO HS 08/18/15 [History] Atorvastatin [Lipitor] 40 mg PO HS 06/17/17 [History] Fenofibrate,Micronized [Fenofibrate] 134 mg PO DAILY 06/17/17 [History] Multivitamins, Thera [Multivitamin (formulary)] 1 tab PO HS 06/17/17 [History] Ascorbic Acid [Vitamin C] 250 mg PO HS@199906/25/20 [History] Baclofen 10 mg PO Q6H 06/25/20 [History] Cholecalciferol [Vitamin D3 (25 Mcg = 1000 Iu)] 25 mcg PO HS@199906/25/20 [History] Escitalopram [Lexapro] 20 mg PO DAILY@0800 06/25/20 [History] Ketoconazole 2% Shampoo [Nizoral] 1 applic TOPICAL MOTH@1900 06/25/20 [History] Mirabegron [Myrbetriq] 50 mg PO DAILY@0800 06/25/20 [History] Omeprazole [PriLOSEC] 20 mg PO HS 06/25/20 [History] amLODIPine [Norvasc] 10 mg PO HS 06/25/20 [History] Hydrocortisone Cream [Hydrocortisone 1% Cream] 1 applic TOPICAL BID@0800,1600 08/14/20 [History] Dulaglutide [Trulicity] 3 mg SQ SA 05/28/21 [History] INSULIN ASPART (NovoLOG) [NovoLOG (formulary)] See Protocol SQ ACHS 05/28/21 [History] Melatonin 5 mg PO HS@2300 05/28/21 [History] hydrALAZINE HCL [Apresoline] 25 mg PO TID@0500,1300,2100 05/28/21 [History] lamoTRIgine [LaMICtal] 150 mg PO DAILY@0800 05/28/21 [History] ALPRAZolam [Xanax] 0.25 mg PO TID@0500,1200,1800 #9 tab 05/31/21 [Rx] Cefuroxime [Ceftin] 250 mg PO BID #10 tab 05/31/21 [Rx] HYDROcodone/APAP 7.5-325MG [[place] 7.5-325] 1 tab PO Q6H #12 tab 05/31/21 [Rx] INSULIN ASPART (NovoLOG) [NovoLOG (formulary)] 20 unit SQ AC-TID #0 05/31/21 [Rx] Insulin Detemir (Levemir) [Levemir] 30 unit SQ BID@0800,2000 #0 05/31/21 [Rx] Pregabalin [Lyrica] 100 mg PO BID #6 cap 05/31/21 [Rx] Follow up Appointment(s)/Referral(s): Dani Zuniga DO [Primary Care Provider] - 1-2 days Activity/Diet/Wound Care/Special Instructions: diabetic/renal diet
[2021-06-03] MEDS ORDERED: NON FORMULARY DRUG (Dulaglutide [Trulicity] 3 MG/0.5 ML Each) SQ SCH (08:48)
== END 2021-05-31 16:30 | DRG 682 ==
LOC: EC 12:06 → 3SCARD 15:34
PROVIDERS: ADMIT Hospitalist; ATTEND Hospitalist
DX: N17.9 Acute kidney failure, unspecified (principal); G93.41 Metabolic encephalopathy; C85.10 Unspecified B-cell lymphoma, unspecified site; I69.354 Hemiplegia and hemiparesis following cerebral infarction affecting left non-dominant side; K51.90 Ulcerative colitis, unspecified, without complications; Z68.42 Body mass index [BMI] 45.0-49.9, adult; E11.9 Type 2 diabetes mellitus without complications; E66.01 Morbid (severe) obesity due to excess calories; E78.5 Hyperlipidemia, unspecified; E86.0 Dehydration; E87.5 Hyperkalemia; F31.9 Bipolar disorder, unspecified; F41.9 Anxiety disorder, unspecified; I10 Essential (primary) hypertension; I65.21 Occlusion and stenosis of right carotid artery; K21.9 Gastro-esophageal reflux disease without esophagitis; K76.0 Fatty (change of) liver, not elsewhere classified; M21.372 Foot drop, left foot; M81.0 Age-related osteoporosis without current pathological fracture; N30.90 Cystitis, unspecified without hematuria; Z93.2 Ileostomy status; Z20.822 Contact with and (suspected) exposure to COVID-19; Z79.4 Long term (current) use of insulin; Z79.82 Long term (current) use of aspirin; Z79.899 Other long term (current) drug therapy; Z82.3 Family history of stroke; Z87.81 Personal history of (healed) traumatic fracture; Z87.891 Personal history of nicotine dependence
CPT/HCPCS: 36415; 71046; 80048; 80053; 81001; 82550; 83735; 84484; 85025; 87040; 87086; 87635; 93005; 99285